=== PATIENT | female | born 1950 | race Caucasian/White ===

== ENCOUNTER 2018-08-09 12:11 | Inpatient (IN) | payer MEDICARE, SELFPAY ==
[2018-08-09] VITALS (26 sets, daily range): BP systolic 118–195; BP diastolic 57–92; PULSE 83–125; RESP 2–33; TEMP 36.5–37.8; O2SAT 89–94
--- NOTE | 2018-08-09 12:19 | DI.RAD_ITS ---
SYMPTOM/DIAGNOSIS: F/U POSSIBLE PNEUMONIA CHEST X-RAY, FRONTAL AND LATERAL VIEWS FROM 08/09/18. Comparison 03/07/17. Heart size and pulmonary vasculature are within normal limits. The lungs are clear. No effusions or pneumothoraces are identified. The bones are intact IMPRESSION: No acute pulmonary process.
--- NOTE | 2018-08-09 12:29 | ED.GENADUL_ITS ---
Discharge Plan Disposition Patient Disposition: [facility] INPATIENT Condition: Poor Discharge Details Chief Complaint: SOB Clinical Impression: COPD (chronic obstructive pulmonary disease), Congestive heart failure, Acute exacerbation of chronic obstructive pulmonary disease (COPD), Pneumonia, Hypoxia , Hypomagnesemia, Acute electrocardiogram changes Reason For Visit: SONAM Admit Date/Time: 08/09/18 13:33 Admit Provider: Yue Barker Attending Provider: Yue Barker Primary Care Provider: Keren Gonzalez ED Provider: Kasia Hamlin Medical Decision Making Patient 67-year-old female presents today with chief complaint of shortness of breath. Patient is a history of hypertension, GERD, COPD, hyperthyroidism, hyperlipidemia, CHF, DARYL, rheumatoid arthritis, type 2 diabetes. Patient is on spironolactone, montelukast, metoprolol, ipratropium, albuterol. She is been using her albuterol nebulizer at home today. Has not been using the ipratropium. Patient was seen by her primary care physician on Saturday who advised placing her on a 5-day burst of prednisone. She reports that she did not take her dose today as it seemed to cause a GI upset. Patient reports that symptoms initially began 2 weeks ago when she noted cough and chest congestion. She denies any fevers. States that over the past week, her symptoms have greatly increased. Has been bringing up [place] sputum with her cough. Is also been feeling short of breath and is noted increased wheezing. States she began noting nausea and vomiting last night. Denies any fevers or chills. Denies any chest pain. No back pain. Patient reports that her chronic shortness of breath has greatly exacerbated over recent days. Patient is not currently taking Lasix. Reports that she takes this as needed and has not noted any lower extremity swelling which is typically her Q to begin the medication On exam, patient is tachypneic. Oxygen is 90% on room air. EMS initially noted the patient to be hypotensive. However, they had question if this is a false reading. Here, blood pressure is 149/73. Patient is tachycardic at 115. She did receive albuterol in the ambulance on the way here. Patient sounds diffusely wheezing with crackles, particularly at the apices. Breath sounds are slightly diminished lower lobes. Will obtain chest x-ray, laboratory evaluation. EKG reviewed by Dr. Bolaños. Patient does have slight ST depressions, less than 1 mm, in leads I, V3 and V5. This seems new from previous. Will obtain cardiac evaluation as well Patient received a nebulizer. Never evaluated after this while wheezing is still present, has diminished. She is moving air better, crackles more defined in the left lower lobe Chest x-ray reviewed by myself, not see any large abnormality compared to previous, still pending radiologist interpretation. Laboratory evaluation significant for a white count 21 with neutrophil count of 17. D-dimer 670 which is within normal limits based on age adjustment criteria. Patient is currently on 2 L nasal cannula, she feels more comfortable and is resting. With the laboratory findings, I feel that treating for presumed pneumonia is appropriate. Patient has allergy to Cefpodoxime, sulfa and penicillin. She will be treated with levofloxacin. We will consult with hospitalist regarding continued cardiac evaluation as well as treatment of pneumonia and hypoxia. Patient currently endorsing headache. Will give Tylenol help with discomfort. Magnesium noted below 1.1. Will replenish this while here Consulted with Dr. Barker, hospitalist, who agrees to admission for hypoxia, presumed pneumonia, hypomagnesemia and EKG changes. Discussed this plan with the patient. I have written for the patient to begin on levofloxacin. Chest x-ray reviewed by radiologist no active cardiopulmonary process noted. Discussed admission with the patient is in agreement with this plan. HPI General Mode of arrival: EMS . Date/Time Provider Initiated Documentation: 08/09/18 12:19 . Limitations to Documentation: no limitations . Information obtained by: patient . History of Present Illness 67 year old F presents to the emergency department with the chief complaint of SOB, cough, described as mild (denies any pain, described SOB as moderate), Patient denies radiation to back and extremity. Patient started experiencing this week(s) (2) and it has been constant. No relieving factors improve symptom(s), Movement worsens symptoms . Patient notes cough, fever/chills ( chills) and shortness of breath; denies chest pain, diaphoresis, headaches, loss of appetite, nausea/vomiting, rash and weakness. Patient did receive the following treatments prior to arrival, other (has been using albuterol nebulizer) Related Data Home Medications Medication Instructions Recorded Confirmed albuterol sulfate [Proventil HFA] 2 puff INHALATION Q4H PRN 04/29/14 11/03/18 esomeprazole magnesium [Nexium] 40 mg PO DAILY 02/02/14 08/09/18 folic acid 1 mg PO DAILY 02/02/14 08/09/18 levothyroxine [Synthroid] 125 mcg PO DAILY 02/02/14 08/09/18 montelukast 10 mg PO DAILY 02/02/14 08/09/18 multivit, iron, min no.8, FA 1 tab PO DAILY 02/02/14 08/09/18 [Therapeutic-M] venlafaxine [Effexor XR] 150 mg PO BID 02/02/14 08/09/18 albuterol sulfate 2.5 mg INHALATION Q6H PRN vial 12/22/15 08/09/18 ipratropium bromide 0.2 mg INHALATION QID PRN PRN 05/14/16 08/09/18 meclizine [Antivert] 25 mg PO TID PRN PRN 05/14/16 08/09/18 metformin 500 mg PO BID@0800,1700 05/14/16 08/09/18 ranitidine HCl [Zantac] 300 mg PO HS 05/14/16 08/09/18 losartan 50 mg PO DAILY #30 tab 05/21/16 08/09/18 metoprolol succinate 50 mg PO DAILY #30 tabcr 05/21/16 08/09/18 spironolactone 25 mg PO DAILY #30 tab 05/21/16 08/09/18 gabapentin 600 mg PO HS 01/23/17 08/09/18 mirtazapine 1 tab PO HS 03/07/17 08/09/18 prednisone 50 mg PO DAILY 5 Days tablet 03/07/17 08/09/18 acetaminophen [Tylenol Extra 1,000 mg PO BID 08/09/18 08/09/18 Strength] fluticasone-salmeterol [Advair 2 puff INHALATION BID 08/09/18 08/09/18 Diskus] furosemide 40 mg PO DAILY PRN 08/09/18 08/09/18 hydrocortisone 10 mg PO HS 08/09/18 08/09/18 Previous Rx's Medication Instructions Recorded albuterol sulfate 2.5 mg INHALATION Q6H PRN vial 12/22/15 losartan 50 mg PO DAILY #30 tab 05/21/16 metoprolol succinate 50 mg PO DAILY #30 tabcr 05/21/16 spironolactone 25 mg PO DAILY #30 tab 05/21/16 prednisone 50 mg PO DAILY 5 Days tablet 03/07/17 Allergies Allergy/AdvReac Type Severity Reaction Status Date / Time NSAIDS (Non-Steroidal Allergy Severe Anaphylaxsi Unverified 08/09/18 12:19 Anti-Inflamma s cefpodoxime Allergy Intermediate Hives Unverified 08/09/18 12:19 chlorhexidine Allergy Intermediate Skin Rash Unverified 08/09/18 12:19 latex Allergy Intermediate Skin Rash Unverified 08/09/18 12:19 Penicillins Allergy Intermediate Hives Unverified 08/09/18 12:19 povidone-iodine Allergy Intermediate Unverified 08/09/18 12:19 duloxetine HCl Allergy Unknown Unverified 08/09/18 12:19 [From Cymbalta] indomethacin Allergy Unknown Unverified 08/09/18 12:19 propoxyphene Allergy Unknown Unverified 08/09/18 12:19 propranolol Allergy Unknown Unverified 08/09/18 12:19 adhesive AdvReac Intermediate dermatitis Unverified 08/09/18 12:19 aspirin AdvReac Intermediate Nausea Unverified 08/09/18 12:19 butorphanol AdvReac Intermediate nose bleeds Unverified 08/09/18 12:19 fexofenadine AdvReac Intermediate nose bleeds Unverified 08/09/18 12:19 hydrocodone AdvReac Intermediate confusion Unverified 08/09/18 12:19 hydroxychloroquine AdvReac Intermediate Visual Unverified 08/09/18 12:19 [Hydroxychloroquine] Disturbances hydroxyzine AdvReac Intermediate Nausea Unverified 08/09/18 12:19 methotrexate AdvReac Intermediate Nausea Unverified 08/09/18 12:19 morphine AdvReac Intermediate confusion Unverified 08/09/18 12:19 oxycodone [Oxycodone] AdvReac Intermediate confusion Unverified 08/09/18 12:19 pentazocine AdvReac Intermediate confusion Unverified 08/09/18 12:19 Sulfa (Sulfonamide AdvReac Intermediate Headache Unverified 08/09/18 12:19 Antibiotics) sumatriptan AdvReac Intermediate palpitation Unverified 08/09/18 12:19 s zolpidem [Zolpidem] AdvReac Intermediate confusion Unverified 08/09/18 12:19 General Stated Complaint: SOB ARAVIND: 2 Review of Systems Constitutional Reports as per HPI and Denies headache(s) Eyes Denies irritation ENT Reports as per HPI, Denies vertigo, Reports dry mouth, Denies ear discharge, Denies otalgia, Denies facial pain, Denies headache(s), Denies lip swelling, Denies nasal congestion, Denies nasal discharge, Denies sinus pain, Denies sinus pressure, Denies sore throat and Denies throat swelling Cardiovascular Reports as per HPI, Denies chest pain, Denies palpitations, Reports dyspnea and Reports dyspnea on exertion Respiratory Reports as per HPI, Reports cough, Denies pain on inspiration, Denies pain with cough, Reports dyspnea, Reports dyspnea on exertion, Denies stridor and Reports wheezing Gastrointestinal Reports as per HPI, Denies abdominal pain, Denies change in stool character, Denies nausea and Denies vomiting Musculoskeletal Reports as per HPI and Denies back pain Integumentary/Breasts Reports as per HPI and Denies rash Neurologic Denies vertigo and Denies headache(s) Endocrine Denies palpitations Allergic/Immunologic Denies lip swelling, Denies throat swelling and Reports wheezing PFSH Family History Sister Diabetes Sister Hypertension Mother Stomach cancer Medical History CHF (congestive heart failure) COPD (chronic obstructive pulmonary disease) Chronic back pain Depression Diverticulosis GERD (gastroesophageal reflux disease) Hyperlipidemia Hypertension Hyperthyroidism DARYL (obstructive sleep apnea) Rheumatoid arthritis Social History Smoking/Tobacco Use Status: Former Tobacco Use Surgical History Abdominal hysterectomy Biopsy of breast section Cholecystectomy Replacement of total knee joint Exam Const General: cooperative, uncomfortable (patient appears short of breath), no acute distress, well developed, well groomed and ill appearing chronically Nutritional Appearance: average body habitus and well nourished Orientation: alert and awake HENKY Head: normal to inspection and normocephalic Ears: hearing grossly normal bilaterally, external ears normal and TM's normal bilaterally General nose exam: external nose normal Face and sinus: normal facial exam Mouth: lip normal, tongue normal, mucous membranes dry (patient appears dry on exam), no audible dysphonia, no drooling, no muffled voice and no trismus Throat: posterior oropharynx normal, tonsils normal and uvula midline Eyes General: appearance normal, both eyes and all related structures Neck Neck: normal visual inspection, no lymphadenopathy and no meningeal signs Resp Effort & Inspection: able to speak in complete sentences, cough Quality of cough : wet, labored, no nasal flaring, no paradoxical thoraco-abdom movements, no pursed lip breathing, no respiratory distress, no retractions and no stridor Auscultation: diminished lung sounds bilaterally in the lower lung ford and wheezes expiratory wheezes (diffuse, worse in upper lobes) Cardio Rate: tachycardic Rhythm: regular rhythm Heart Sounds: S1 normal and S2 normal GI Inspection: normal to inspection, no edema and non-distended Palpation: soft, no hepatosplenomegaly and nontender Skin General skin exam: no rashes or lesions noted Neuro General: alert and awake Cognition: normal cognition Speech: speech normal Extrem General: no pedal edema and no calf tenderness Psych Appearance: grossly normal and well kempt Mental Status: mental status grossly normal Speech and Movement: speech and movement normal Course Vital Signs Temperature 36.9 C 08/09/18 12:13 Pulse 115 H 08/09/18 12:13 Respiratory Rate 24 08/09/18 12:13 Blood Pressure 149/73 H 08/09/18 12:13 Pulse Oximetry 89 L 08/09/18 12:13 Temperature 36.9 C 08/09/18 12:13 Temperature Source Skin 08/09/18 12:13 Pulse 115 H 08/09/18 12:13 Respiratory Rate 24 08/09/18 12:13 Respiratory Effort Labored 08/09/18 12:13 Blood Pressure 149/73 H 08/09/18 12:13 Pulse Oximetry 89 L 08/09/18 12:13 Oxygen Delivery Method Room Air 08/09/18 12:13 Oxygen Flow Rate 0 08/09/18 12:13 Pain Level 0 08/09/18 12:13
[2018-08-09 12:34] LABS: Abs Immature Grans 0.06 k/cumm (0.0-0.09); Absolute Basophil Count 0.02 k/cumm (0.0-0.2); Absolute Eosinophil Count 0.06 k/cumm (0.0-0.7); Basophils % 0.1; Eosinophils % 0.3; HCT 37.8 % (36.0-46.0); HGB 12.7 g/dL (12.0-15.5); Immature Grans % 0.3; Lymphocytes % 11.4; Mean Corp. HGB Concentration 33.6 g/dL (32.0-36.0); Mean Corpuscular Hemoglobin 30.8 pg (27.0-33.0); Mean Corpuscular Volume 91.7 fL (80-95); Mean Platelet Volume 10.1 fL (8.0-11.0); Monocytes % 6.5; Neutrophils % 81.4; Platelet Count 287 x1000/uL (130-400); RBC 4.12 m/cumm (4.00-5.20); RBC Distribution Width 14.9 % (11.7-14.6); White Blood Cell Count 21.19 k/cumm (4.4-10.8)
[2018-08-09 12:36] LABS: Absolute Lymphocyte Count 2.42 k/cumm (1.2-3.4); Absolute Monocyte Count 1.38 k/cumm (0.11-0.7); Absolute Neutrophil Count 17.25 k/cumm (1.2-6.7)
[2018-08-09] MEDS: Albuterol/Ipratropium 3 ML UPD VIAL UPD ×2 (12:36→17:09)
[2018-08-09 12:49] LABS: INR 1.1 (1.0-3.5); PTT Activated 22.1 sec (21.0-31.4); Prothrombin Time 10.4 sec (9.3-10.8)
[2018-08-09 13:02] LABS: ALT 41 U/L (12-78); AST 32 U/L (15-37); Alkaline Phosphatase 96 U/L (46-116); Anion Gap 9.6 mmol/L (3-11); BUN 17 mg/dL (7-18); Bilirubin, Total 0.8 mg/dL (0.2-1.0); CO2 29.4 mmol/L (21.0-32.0); CREATININE 0.79 mg/dL (0.55-1.02); Calcium 9.1 mg/dL (8.5-10.1); Chloride 98 mmol/L (98-107); Glucose 181 mg/dL (70-100); Magnesium 1.1 mg/dL (1.8-2.4); NT-proBNP 863 pg/mL; Potassium 3.8 mmol/L (3.5-5.1); Sodium 137 mmol/L (136-145)
[2018-08-09 13:04] LABS: Troponin I < 0.02 ng/mL (0.00-0.06)
[2018-08-09 13:06] LABS: D-Dimer 678 ng/mlFEU (<500)
--- NOTE | 2018-08-09 13:10 | DI.VRAD_ITS ---
EXAM: XR Chest, 2 Views EXAM DATE/TIME: 08/09/2018 12:22 PM CLINICAL HISTORY: 67 years old, female; Signs and symptoms; Other: SOB for 2 wks TECHNIQUE: XR of the chest, 2 views. COMPARISON: CR CHEST 2 VIEWS PA,LAT 03/07/2017 11:58 AM FINDINGS: Minimal hyperaeration. No focal consolidation. Cardiac silhouette within normal limits. Costophrenic angles sharp. IMPRESSION: No evidence of acute cardiopulmonary disease. Dictated and Authenticated by: Antoine Alvarado MD. Ordering:JILLIAN GUERRERO MD
[2018-08-09] MEDS: LEVOFLOXACIN 750 MG/150 ML BAG 150 MG IVPB (13:20)
[2018-08-09 14:10] LABS: Lactate-non-spesis 1.8 mmol/L (0.6-1.4)
[2018-08-09] MEDS: methylPREDNISolone SUCC 125 MG VIAL 80 MG IVP ×2 (14:27→22:12)
--- NOTE | 2018-08-09 14:36 | NUR.NOTE ---
Report called to Kasie on [facility].
[2018-08-09] MEDS: MAGNESIUM SULFATE 4 GM/100 ML BAG IVPB (15:51)
[2018-08-09] MEDS: Acetaminophen 325 MG TAB PO (16:05)
[2018-08-09] MEDS: Enoxaparin 30 MG/0.3 ML SYR SC (16:05)
[2018-08-09] MEDS: Insulin Aspart 300 UNITS/3 ML PEN SC (17:01)
[2018-08-09 17:27] LABS: Troponin I < 0.02 ng/mL (0.00-0.06)
--- NOTE | 2018-08-09 18:02 | W.PM.HP.N ---
Date of service: 08/09/18 Time of Service: 16:50 Assessment and Plan (1) Sepsis: Current visit: Yes Status: Acute Likely due to underlying CAP - clinically patient is acting as CAP, though CXR is negative. Continue levofloxacin, nebulizer tx. 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 (2) Acute exacerbation of chronic obstructive pulmonary disease (COPD): Current visit: Yes Status: Acute Treat with levofloxacin, scheduled and prn nebs, symbicort, antitussives. (3) Congestive heart failure: Current visit: No Status: Chronic Chronic, systolic, due to NICMO, last known EF 40-45%. Clinically dehydrated and the benefits of IV hydration outweigh risks. R/o ACS, monitor volume status. (4) Post-tussive emesis: Current visit: Yes Status: Acute Treat cough (5) Hypertension: Current visit: No Status: Chronic No change in tx (6) Hyperlipidemia: Current visit: No Status: Chronic No change in tx (7) DARYL (obstructive sleep apnea): Current visit: Yes Status: Chronic Written for BiPAP at home settings (8) Non-insulin dependent type 2 diabetes mellitus: Current visit: Yes Status: Chronic Hold metformin. Cover with SSI. (9) Discharge planning issues: Current visit: Yes Status: Acute DNR/DNI, as verified with patient (10) DVT prophylaxis: Current visit: Yes Status: Acute Lovenox History of Present Illness Chief Complaint: I couldn't breathe Narrative: Ms Kendall is a 67 year old obese female with PMHx of non-oxygen dependent COPD, DARYL on noctunral BiPAP, NIDDM2, hypertension, hyperlipidemia, who was brought in to ER by ambulance for shortness of breath. The symptoms started 1 week ago when the patient felt she got a cold, by which she means subjective fevers, sore throat and rhinorrhea. The patient did see her PCP, who put her on a course of prednisone, but despite this the patient felt short of breath and continuted to have a progressively worsening productive cough with green sputum. Today, in the ER, she was found to have O2 sats in the 90's on RA but to be tachypneic. She was initiated on nebulized albuterol with some improvements of her symptoms. She was initiated on levofloxacin for what clinically acted like pneumonia, and we were asked to admit the patient for further care. Review of Systems Review of Systems 12 systems reviewed. Pertinent positives and negatives are as Per HPI. Additionally, the patient reports post-tussive emesis last night. PFSH Family History Sister Diabetes Sister Hypertension Mother Stomach cancer Medical History CHF (congestive heart failure) COPD (chronic obstructive pulmonary disease) Chronic back pain Depression Diverticulosis GERD (gastroesophageal reflux disease) Hyperlipidemia Hypertension Hyperthyroidism DARYL (obstructive sleep apnea) Rheumatoid arthritis Social History Smoking/Tobacco Use Status: Former Tobacco Use Surgical History Abdominal hysterectomy Biopsy of breast section Cholecystectomy Replacement of total knee joint Meds Home Medications Medication Instructions Recorded Confirmed Type albuterol sulfate [Proventil HFA] 2 puff INHALATION Q4H PRN 02/02/14 08/09/18 History esomeprazole magnesium [Nexium] 40 mg PO DAILY 02/02/14 08/09/18 History folic acid 1 mg PO DAILY 02/02/14 08/09/18 History levothyroxine [Synthroid] 125 mcg PO DAILY 02/02/14 08/09/18 History montelukast 10 mg PO DAILY 02/02/14 08/09/18 History multivit, iron, min no.8, FA 1 tab PO DAILY 02/02/14 08/09/18 History [Therapeutic-M] venlafaxine [Effexor XR] 150 mg PO BID 02/02/14 08/09/18 History albuterol sulfate 2.5 mg INHALATION Q6H PRN vial 12/22/15 08/09/18 Rx ipratropium bromide 0.2 mg INHALATION QID PRN PRN 05/14/16 08/09/18 History meclizine [Antivert] 25 mg PO TID PRN PRN 05/14/16 08/09/18 History metformin 500 mg PO BID@0800,1700 05/14/16 08/09/18 History ranitidine HCl [Zantac] 300 mg PO HS 05/14/16 08/09/18 History losartan 50 mg PO DAILY #30 tab 05/21/16 08/09/18 Rx metoprolol succinate 50 mg PO DAILY #30 tabcr 05/21/16 08/09/18 Rx spironolactone 25 mg PO DAILY #30 tab 05/21/16 08/09/18 Rx gabapentin 600 mg PO HS 01/23/17 08/09/18 History mirtazapine 1 tab PO HS 03/07/17 08/09/18 History prednisone 50 mg PO DAILY 5 Days tablet 03/07/17 08/09/18 Rx acetaminophen [Tylenol Extra 1,000 mg PO BID 08/09/18 08/09/18 History Strength] fluticasone-salmeterol [Advair 2 puff INHALATION BID 08/09/18 08/09/18 History Diskus] furosemide 40 mg PO DAILY PRN 08/09/18 08/09/18 History hydrocortisone 10 mg PO HS 08/09/18 08/09/18 History Allergies Allergy/AdvReac Type Severity Reaction Status Date / Time NSAIDS (Non-Steroidal Allergy Severe Anaphylaxsi Unverified 08/09/18 12:19 Anti-Inflamma s cefpodoxime Allergy Intermediate Hives Unverified 08/09/18 12:19 chlorhexidine Allergy Intermediate Skin Rash Unverified 08/09/18 12:19 latex Allergy Intermediate Skin Rash Unverified 08/09/18 12:19 Penicillins Allergy Intermediate Hives Unverified 08/09/18 12:19 povidone-iodine Allergy Intermediate Unverified 08/09/18 12:19 duloxetine HCl Allergy Unknown Unverified 08/09/18 12:19 [From Cymbalta] indomethacin Allergy Unknown Unverified 08/09/18 12:19 propoxyphene Allergy Unknown Unverified 08/09/18 12:19 propranolol Allergy Unknown Unverified 08/09/18 12:19 adhesive AdvReac Intermediate dermatitis Unverified 08/09/18 12:19 aspirin AdvReac Intermediate Nausea Unverified 08/09/18 12:19 butorphanol AdvReac Intermediate nose bleeds Unverified 08/09/18 12:19 fexofenadine AdvReac Intermediate nose bleeds Unverified 08/09/18 12:19 hydrocodone AdvReac Intermediate confusion Unverified 08/09/18 12:19 hydroxychloroquine AdvReac Intermediate Visual Unverified 08/09/18 12:19 [Hydroxychloroquine] Disturbances hydroxyzine AdvReac Intermediate Nausea Unverified 08/09/18 12:19 methotrexate AdvReac Intermediate Nausea Unverified 08/09/18 12:19 morphine AdvReac Intermediate confusion Unverified 08/09/18 12:19 oxycodone [Oxycodone] AdvReac Intermediate confusion Unverified 08/09/18 12:19 pentazocine AdvReac Intermediate confusion Unverified 08/09/18 12:19 Sulfa (Sulfonamide AdvReac Intermediate Headache Unverified 08/09/18 12:19 Antibiotics) sumatriptan AdvReac Intermediate palpitation Unverified 08/09/18 12:19 s zolpidem [Zolpidem] AdvReac Intermediate confusion Unverified 08/09/18 12:19 Exam Narrative Exam Narrative: General: Very pleasant, visibly tachypenic Obese female, pausing between every 2-3 words when speaking, coughing Neurological: A&OX3, no focal deficits Psychiatric: appropriate speech pattern/content Skin: no bruises/rashes HEENT: EOMI, MMM, clear oropharynx, no submandibular or cervical lymphadenopathy, no goiter or JVD Cardiovascular: RRR, no m/r/g Lungs: wheezing on expiration B Gastrointestinal: abdomen soft, nontender, nondistended Extremities: BLE 1+ edema, no clubbing/cyanosis Results Imaging Additional studies: CXR: No evidence of acute cardiopulmonary disease. Labs : 08/09/18 12:30 08/09/18 12:30 Laboratory Results - last 24 hr 08/09/18 08/09/18 08/09/18 12:30 12:30 12:30 WBC 21.19 H RBC 4.12 Hgb 12.7 Hct 37.8 MCV 91.7 MCH 30.8 MCHC 33.6 RDW 14.9 H Plt Count 287 MPV 10.1 Immature Gran % 0.3 Neutrophils % 81.4 Lymphocytes % 11.4 Monocytes % 6.5 Eosinophils % 0.3 Basophils % 0.1 Absolute Neutrophils 17.25 H Absolute Lymphocytes 2.42 Absolute Monocytes 1.38 H Absolute Eosinophils 0.06 Absolute Basophils 0.02 PT 10.4 INR 1.1 APTT 22.1 D-Dimer 678 H Sodium 137 Potassium 3.8 Chloride 98 Carbon Dioxide 29.4 Anion Gap 9.6 BUN 17 Creatinine 0.79 Estimated GFR/1.73 m2 >= 60.00 Glucose 181 H Lactate Calcium 9.1 Magnesium 1.1 L Total Bilirubin 0.8 AST 32 ALT 41 Alkaline Phosphatase 96 Troponin I < 0.02 NT-Pro-B Natriuret Pep 863 H Total Protein 7.0 Albumin 3.0 L 08/09/18 08/09/18 13:53 16:30 WBC RBC Hgb Hct MCV MCH MCHC RDW Plt Count MPV Immature Gran % Neutrophils % Lymphocytes % Monocytes % Eosinophils % Basophils % Absolute Neutrophils Absolute Lymphocytes Absolute Monocytes Absolute Eosinophils Absolute Basophils PT INR APTT D-Dimer Sodium Potassium Chloride Carbon Dioxide Anion Gap BUN Creatinine Estimated GFR/1.73 m2 Glucose Lactate 1.8 H Calcium Magnesium Total Bilirubin AST ALT Alkaline Phosphatase Troponin I < 0.02 NT-Pro-B Natriuret Pep Total Protein Albumin Last Vital Signs Temp 36.5 C 08/09/18 15:52 Pulse 98 H 08/09/18 16:32 Resp 21 08/09/18 15:52 BP 151/81 H 08/09/18 15:52 Pulse Ox 92 L 08/09/18 15:52
[2018-08-09] MEDS: guaiFENesin 600 MG TABCR PO (19:33)
[2018-08-09] MEDS: Acetaminophen 500 MG TAB 1000 MG PO (19:33)
[2018-08-09] MEDS: Venlafaxine 150 MG CAPCR PO (19:33)
[2018-08-09] MEDS: Budesonide/Formoterol 160/4.5 6 GM 60 PUFF INH IH (19:45)
[2018-08-09 21:11] LABS: Troponin I < 0.02 ng/mL (0.00-0.06)
[2018-08-09] MEDS: Gabapentin 600 MG TAB PO (22:12)
[2018-08-10] VITALS (15 sets, daily range): BP systolic 149–171; BP diastolic 73–93; PULSE 72–98; RESP 2–21; TEMP 35.7–36.6; O2SAT 94–96
[2018-08-10] MEDS: methylPREDNISolone SUCC 125 MG VIAL 80 MG IVP ×3 (06:16→21:27)
[2018-08-10] MEDS: Levothyroxine 125 MCG TAB PO (06:19)
[2018-08-10] MEDS: Esomeprazole 40 MG CAPCR PO (06:19)
[2018-08-10] MEDS: Albuterol/Ipratropium 3 ML UPD VIAL UPD ×4 (06:19→23:45)
[2018-08-10] MEDS: Acetaminophen 325 MG TAB PO (06:26)
[2018-08-10 08:29] LABS: Abs Immature Grans 0.02 k/cumm (0.0-0.09); Absolute Monocyte Count 0.37 k/cumm (0.11-0.7); Absolute Neutrophil Count 11.68 k/cumm (1.2-6.7); HCT 36.1 % (36.0-46.0); Immature Grans % 0.2; Lymphocytes % 4.7; Mean Corp. HGB Concentration 33.2 g/dL (32.0-36.0); Mean Corpuscular Hemoglobin 30.8 pg (27.0-33.0); Mean Corpuscular Volume 92.8 fL (80-95); Mean Platelet Volume 10.1 fL (8.0-11.0); Monocytes % 2.9; Neutrophils % 92.2; Platelet Count 289 x1000/uL (130-400); RBC 3.89 m/cumm (4.00-5.20); RBC Distribution Width 14.9 % (11.7-14.6); White Blood Cell Count 12.67 k/cumm (4.4-10.8)
[2018-08-10 08:52] LABS: Anion Gap 9.6 mmol/L (3-11); BUN 22 mg/dL (7-18); CO2 28.4 mmol/L (21.0-32.0); Calcium 9.1 mg/dL (8.5-10.1); Chloride 100 mmol/L (98-107); Glucose 272 mg/dL (70-100); Magnesium 2.1 mg/dL (1.8-2.4); Potassium 3.8 mmol/L (3.5-5.1); Sodium 138 mmol/L (136-145); TSH (W/Ref FT4) 0.39 uIU/mL (0.358-3.74)
[2018-08-10] MEDS: Folic Acid 1 MG TAB PO (08:52)
[2018-08-10] MEDS: Losartan 50 MG TAB PO (08:52)
[2018-08-10] MEDS: guaiFENesin 600 MG TABCR PO ×2 (08:52→20:36)
[2018-08-10] MEDS: Metoprolol CR 50 MG TABCR PO (08:52)
[2018-08-10] MEDS: Multivitamin w/Minerals TAB 1 TAB PO (08:52)
[2018-08-10] MEDS: Montelukast 10 MG TAB PO (08:52)
[2018-08-10] MEDS: Acetaminophen 500 MG TAB 1000 MG PO ×2 (08:53→20:36)
[2018-08-10] MEDS: Venlafaxine 150 MG CAPCR PO ×2 (08:53→20:36)
[2018-08-10] MEDS: Insulin Aspart 300 UNITS/3 ML PEN SC ×3 (08:54→17:16)
[2018-08-10 09:03] LABS: Troponin I < 0.02 ng/mL (0.00-0.06)
[2018-08-10] MEDS: Budesonide/Formoterol 160/4.5 6 GM 60 PUFF INH IH ×2 (09:25→20:34)
--- NOTE | 2018-08-10 09:56 | PT.INIE ---
Date of service: 08/10/18 Time of Service: 09:56 PT Notes Date: 08/10/18 Referring Doctor: Yue Barker PT Orders: PT Consult evaluate and treat Precautions: standard Patient Profile/Admitting Diagnosis: Pt is a 67yr old female admitted with sepsis, acute chronic obstructive pulmonary disease exacerbation PMHX: diabetes, rheumatoid arthritis, congestive heart failure, depression, chronic obstructive pulmonary disease, gastroesophageal reflux disease, hypertension, sleep apnea with nocturnal BiPap, diverticulitis, hypothyroidism, osteopenia, chronic back pain, morbid obesity, right total knee replacement 2008 and 2011, revision 12/19, neuropathy, cardiomyopathy s/p cardiac catheterization 03/22/16 Social History/Home Situation: lives in apartment, no stairs, ramp to enter. Pt has grab bars and a handicap accessible bathroom. Is independent with gait, reports she has a FWW but hasn't been using it. [facility]ses [employer]. Is on Disability Equipment owned/DME: FWW, tub bench, grab bars, Bi-Pap and Nebulizer SUBJECTIVE: Pt lying in bed agreeable to PT consult. States she has been short of breath since admission. OBJECTIVE Mental Status: A & O x3 Pain: no c/o pain ROM RUE: AROM WNL L UE: AROM WNL R LE: AROM WNL LLE: AROM WNL STRENGTH: R UE: 5/5 throughout L UE: 5/5 throughout R LE: hip flexion 4/5, 4/5 quad, 4/5 hamstring DF/PF 5/5 LLE: hip flexion 4/5, 4/5 quads, 4/5 hamstring, DF/PF 5/5 BED MOBILITY/TRANSFERS: Supine-sit: independent Sit-stand: independent no device Stand-sit: independent Bed-chair: supervision no device Chair-beD: supervision no device Sit-supine: HOB flat, independent GAIT: supervision with no device 20 ftx2 - 2liters 0c NC, shortness of breath with exertion requiring 2min rest break for recovery. Pt returned to bed after session completed. BALANCE: Static sitting: normal Dynamic Sitting: normal Static Standing fair Dynamic Standing: fair SPECIAL TESTS: Mobility Limitations Standardized Measure [facility] AM -PAC ?6 clicks? Basic Mobility Inpatient Short Form: raw score: 22 standardized score: 53.28 CMS score: 20.91% CMS modifier: CJ INFORMED CONSENT/EDUCATION: Pt instructed in purpose of PT Consult and plan of care. ASSESSMENT: Pt is a 67yr old female admitted with sepsis, acute chronic obstructive pulmonary disease exacerbation in setting of chronic back pain, morbid obesity, depression, chronic obstructive pulmonary disease, diabetes, rheumatoid arthritis, congestive heart failure and neuropathy. Patient presents with the following impairment level findings: 02 requirement of 2 liters, shortness of breath with exertion requiring pacing and energy conservation with activities, decreased strength due to deconditioning, decreased gait distance. Pt is lives in a small living situation, should be able to return to home setting once medically cleared. Impairments are contributing to the following functional limitations: AMPAC score CMS score: 20.91% Patient is assessed as a * low [id number] complexity based on the following: History: see above Examination: see above Presentation: evolving Decision Making: AMPAC score CMS score: 20.91% GOALS 1. Supine-sit: independent 2. Sit-Supine: independent 3. Sit-Stand: independent 4. Stand-sit: independent 5. Bed-Chair: independent 6. Chair-bed: independent 7. Gait 70ftx2, supervision 8. Pt I with pacing and energy conservation techniques PLAN OF CARE/TREATMENT PLAN: 1-2x/day, 7 days/ week x 1 week Plan of care has been reviewed with the LIVESTOCK SHOWMAN providing the service under Physical therapy direction. Physical therapy intervention for strengthening, bed mobility, transfers, gait, balance training, instruction in pacing and energy conservation. DISCHARGE RECOMMENDATIONS Home Pt has all DME. TREATMENT TIME/MINUTES/CODES 24min IE 9:56 G Codes in the area mobility of walking and moving around: current status [id number] projected status GP [id number], discharge status GP [id number] based on AMPAC score CMS score: 20.91% Shelly Kirkpatrick PT
--- NOTE | 2018-08-10 10:06 | IN_ITS ---
Date of service: 08/10/18 Time of Service: 09:56 PT Notes Date: 08/10/18 Referring Doctor: Yue Barker PT Orders: PT Consult evaluate and treat Precautions: standard Patient Profile/Admitting Diagnosis: Pt is a 67yr old female admitted with sepsis, acute chronic obstructive pulmonary disease exacerbation PMHX: diabetes, rheumatoid arthritis, congestive heart failure, depression, chronic obstructive pulmonary disease, gastroesophageal reflux disease, hypertension, sleep apnea with nocturnal BiPap, diverticulitis, hypothyroidism, osteopenia, chronic back pain, morbid obesity, right total knee replacement 2008 and 2011, revision 12/19, neuropathy, cardiomyopathy s/p cardiac catheterization 03/22/16 Social History/Home Situation: lives in apartment, no stairs, ramp to enter. Pt has grab bars and a handicap accessible bathroom. Is independent with gait, reports she has a FWW but hasn't been using it. [facility]ses [employer]. Is on Disability Equipment owned/DME: FWW, tub bench, grab bars, Bi-Pap and Nebulizer SUBJECTIVE: Pt lying in bed agreeable to PT consult. States she has been short of breath since admission. OBJECTIVE Mental Status: A & O x3 Pain: no c/o pain ROM RUE: AROM WNL L UE: AROM WNL R LE: AROM WNL LLE: AROM WNL STRENGTH: R UE: 5/5 throughout L UE: 5/5 throughout R LE: hip flexion 4/5, 4/5 quad, 4/5 hamstring DF/PF 5/5 LLE: hip flexion 4/5, 4/5 quads, 4/5 hamstring, DF/PF 5/5 BED MOBILITY/TRANSFERS: Supine-sit: independent Sit-stand: independent no device Stand-sit: independent Bed-chair: supervision no device Chair-beD: supervision no device Sit-supine: HOB flat, independent GAIT: supervision with no device 20 ftx2 - 2liters 0c NC, shortness of breath with exertion requiring 2min rest break for recovery. Pt returned to bed after session completed. BALANCE: Static sitting: normal Dynamic Sitting: normal Static Standing fair Dynamic Standing: fair SPECIAL TESTS: Mobility Limitations Standardized Measure [facility] AM -PAC ?6 clicks? Basic Mobility Inpatient Short Form: raw score: 22 standardized score: 53.28 CMS score: 20.91% CMS modifier: CJ INFORMED CONSENT/EDUCATION: Pt instructed in purpose of PT Consult and plan of care. ASSESSMENT: Pt is a 67yr old female admitted with sepsis, acute chronic obstructive pulmonary disease exacerbation in setting of chronic back pain, morbid obesity, depression, chronic obstructive pulmonary disease, diabetes, rheumatoid arthritis, congestive heart failure and neuropathy. Patient presents with the following impairment level findings: 02 requirement of 2 liters, shortness of breath with exertion requiring pacing and energy conservation with activities, decreased strength due to deconditioning, decreased gait distance. Pt is lives in a small living situation, should be able to return to home setting once medically cleared. Impairments are contributing to the following functional limitations: AMPAC score CMS score: 20.91% Patient is assessed as a * low [id number] complexity based on the following: History: see above Examination: see above Presentation: evolving Decision Making: AMPAC score CMS score: 20.91% GOALS 1. Supine-sit: independent 2. Sit-Supine: independent 3. Sit-Stand: independent 4. Stand-sit: independent 5. Bed-Chair: independent 6. Chair-bed: independent 7. Gait 70ftx2, supervision 8. Pt I with pacing and energy conservation techniques PLAN OF CARE/TREATMENT PLAN: 1-2x/day, 7 days/ week x 1 week Plan of care has been reviewed with the RAG WASHER providing the service under Physical therapy direction. Physical therapy intervention for strengthening, bed mobility, transfers, gait, balance training, instruction in pacing and energy conservation. DISCHARGE RECOMMENDATIONS Home Pt has all DME. TREATMENT TIME/MINUTES/CODES 24min IE 9:56 G Codes in the area mobility of walking and moving around: current status [id number] projected status GP [id number], discharge status GP [id number] based on AMPAC score CMS score: 20.91% Shelly Kirkpatrick PT
[2018-08-10 10:15] LABS: Lactate-non-spesis 4.1 mmol/L (0.6-1.4)
[2018-08-10] MEDS: Normal Saline 1,000 ML 75 ML IV (10:37)
--- NOTE | 2018-08-10 11:32 | DI.RAD_ITS ---
SYMPTOM/DIAGNOSIS: F/U POSSIBLE PNEUMONIA PORTABLE AP VIEW FROM 08/10/18: Comparison 08/09/18 Heart size and pulmonary vasculature are within normal limits. The lungs show no evidence of congestive heart failure or pneumonia. No effusions or pneumothoraces are identified. IMPRESSION: No acute pulmonary process.
[2018-08-10] MEDS: Normal Saline Flush 10 ML SYR IVP ×3 (11:43→21:30)
--- NOTE | 2018-08-10 12:38 | DI.VRAD_ITS ---
EXAM: XR Chest, 1 View EXAM DATE/TIME: 08/10/2018 11:32 AM CLINICAL HISTORY: 67 years old, female; Screening exam; Other screening; Additional info: F/u possible pneumonia TECHNIQUE: XR of the chest, 1 view. COMPARISON: CR XR CHEST 2V PA LATERAL 08/09/2018 12:54 PM FINDINGS: Minimal interstitial lung scarring. No focal pulmonary consolidation. Cardiac silhouette within normal limits. Costophrenic angles are sharp. No significant change from the prior examination. IMPRESSION: No evidence of acute cardiopulmonary disease. Dictated and Authenticated by: Antoine Alvarado MD. Ordering:VIANCA MUNIZ MD
--- NOTE | 2018-08-10 12:53 | PHARADMIT ---
Addendum entered by Jeremy Way III 08/13/18 11:59: Pharmacy Note Subjective Developing thrush, Nystatin started. Has Midline. Objective BP-148/86 Na-135 K+4.4 Mag-1.9 FSBS-120 BM yesterday Assessment IV Steroids to PO Prednisone, Levaquin, Plan CM trying to get heat into her apartment Original Note: Addendum entered by Jeremy Way III 08/12/18 12:19: Pharmacy Note Subjective Speech Therapist consulted regarding dysphagia. noted that patient requires an altered diet Objective BP-177/97 HR-89 FSBS-200 BG-226 Lytes, SCr,H&H,Plts-OK WBC-12.38 Wgt- 101.1 kg Large BM. Assessment Patient temporarily lost her IV, Solu-Medrol needed to be re-timed. Levaquin IV continues for empiric txt of CAP. Insulins have been adjusted. Plan Patint to \wear BiPAP at night Original Note: Addendum entered by Juliane Fink 08/11/18 16:18: Pharmacy Note Subjective ? IF pt used bipap overnight Objective BC NO GROWTH 48 HOURS, FS 237, EF 40-45%, Assessment LANTUS DOSE INCREASED TODAY, IVF STOPPED, LEVOFLOXACIN CONTINUES DAY 3 Plan WATCH FS, BC, MED CHANGES Original Note: Admission Pharmacy Clinical Review SEPSIS DUE TO CAP, COPD exacerbation Code Status DNR/DNI Current Weight 104.7 kg Renally Cleared and Narrow Therapeutic Index Meds CrCl~54.9ml/min (Lovenox) QTc Value / Action Taken BP Control, Fever BP 164/85, Afebrile, pain 7/10 Electrolytes reviewed K+ 3.8 Mag 2.1 DVT Prophylaxis Lovenox increased from 30mg to 40mg per protocol Opiate Usage / Scheduled Bowel Regimen Ordered n/a Plt/SCr for Heparin / Enoxaparin Plt 289 SCr 0.8 INR for Warfarin H/H stable, WBC/Bands H/H 12.0/36.1 WBC 12.67 (IV steroids) Antibiotic appropriateness Levaquin 750mg x1 Levaquin 500mg Q24h...dose ok Cultures and Sensitivities Surgical ABX d/c within 24 hr DM control / Insulin Dosing BG 272 (Lantus/Novolog) Heart Failure (Check EF%) (MALENA's, B-Block, Diuretics) Losartan, Toprol IV to PO Switch Levaquin when ready Home Meds Reviewed Home Meds Not Ordered Hydrocortisone, Ipratropium, Metformin-held, Mirtazapine dc'd as inpt, Spironolactone-(dc'd, pt is dehydrated) Comments on 2L oxygen, SOB at rest troponin negative Duonebs scheduled, Symbicort Chest xray: negative 08/10/18 but presenting w/CAP
[2018-08-10] MEDS: Gabapentin 100 MG CAP PO (13:37)
[2018-08-10] MEDS: Enoxaparin 40 MG/0.4 ML SYR SC (13:37)
[2018-08-10] MEDS: LEVOFLOXACIN 500 MG/100 ML BAG 100 MG IVPB (13:38)
--- NOTE | 2018-08-10 15:07 | PDOC.CMIN ---
Care Management Initial Assess REASON FOR HOSPITALIZATION:: Sepsis, Acute COPD, Pneumonia-Community Aquired PAST MEDICAL HISTORY/PAST SURGICAL HISTORY:: non-oxygen dependent COPD, DARYL on noctunral BiPAP, NIDDM2, hypertension, hyperlipidemia, CHF, Chronic back pain, Depression, Diverticulosis, GERD, heart murmur, DARYL, Ostopenia, bladder incontinence, iron defificie, insomnia, chronic back pain, fatty liver, Hyperthyroidism, DARYL, Rheumatoid arthritis, Abdominal hysterectomy, Biopsy of breast, section, Cholecystectomy, Tonsillectomy, Replacement of total knee joint PREVIOUS FUNCTIONAL STATUS/SOCIAL/FAMILY SUPPORTS:: Samantha resides alone in [place], [place] in a handicap apartment building named the [facility]. She reports the building is equipped with an elevator. She has a good friend, Nereida who resides at the [facility]. She also reports having two daughters; Salnea and Darya. Salena resides in [place], [place] and Darya resides at [facility]. Samantha reports utilizing [employer] for transportation. She reports enjoying attending [facility] once a week and her dog Berna is her main manager of software development. CURRENT FUNCTIONAL STATUS:: Samantha is lying in bed, open to conversation though SOB and coughing sporadically. She reports struggling with food costs of ADVANCE DIRECTIVES:: On file - Montse Sender is agent, Jeevan Lobato is alternate agent. Has patient been provided with information about the portal?: Yes Did the patient sign up for the portal?: No CODE STATUS:: DNR/DNI INSURANCE COVERAGE / FINANCIAL ISSUES:: Medicare, Medicaid CURRENT HOME/COMMUNITY SERVICES/EQUIPMENT:: Homemaker 1x/week through [facility] moderate needs with Britt Trimble as her case finisher. CPAP, FWW, tub bench/shower chair, grab bars, nebulizer. Diability supports. Income based housing: $293/mth, uses meal site. PRIMARY CARE PHYSICIAN:: Keren Gonzalez POTENTIAL DISCHARGE NEEDS:: Resumption of community based supports, evaluation for further needs, follow up appointments. PATIENT/FAMILY EDUCATION NEEDS:: Review discharge instructions, discuss Ask Me Three. ANTICIPATED BARRIERS TO DISCHARGE:: None identified. TRANSPORTATION:: Via [employer]. PLAN:: Samantha will return home when ready per MD. She will follow up with her PCP and community based supports-she shares she is currently struggling with food stability due to costs of MOW and adjusting her radiant heat. She will transport via private vehicle with [employer]. CM will continue to follow and support discharge planning considerations.
--- NOTE | 2018-08-10 15:38 | INITIAL_ITS ---
Care Management Initial Assess REASON FOR HOSPITALIZATION:: Sepsis, Acute COPD, Pneumonia-Community Aquired PAST MEDICAL HISTORY/PAST SURGICAL HISTORY:: non-oxygen dependent COPD, DARYL on noctunral BiPAP, NIDDM2, hypertension, hyperlipidemia, CHF, Chronic back pain, Depression, Diverticulosis, GERD, heart murmur, DARYL, Ostopenia, bladder incontinence, iron defificie, insomnia, chronic back pain, fatty liver, Hyperthyroidism, DARYL, Rheumatoid arthritis, Abdominal hysterectomy, Biopsy of breast, section, Cholecystectomy, Tonsillectomy, Replacement of total knee joint PREVIOUS FUNCTIONAL STATUS/SOCIAL/FAMILY SUPPORTS:: Samantha resides alone in [place], [place] in a handicap apartment building named the [facility]. She reports the building is equipped with an elevator. She has a good friend, Nereida who resides at the [facility]. She also reports having two daughters; Salena and Darya. Salena resides in [place], [place] and Darya resides at [facility]. Samantha reports utilizing [employer] for transportation. She reports enjoying attending [facility] once a week and her dog Berna is her main administrative support manager. CURRENT FUNCTIONAL STATUS:: Samantha is lying in bed, open to conversation though SOB and coughing sporadically. She reports struggling with food costs of ADVANCE DIRECTIVES:: On file - Montse Sender is agent, Jeevan Lobato is alternate agent. Has patient been provided with information about the portal?: Yes Did the patient sign up for the portal?: No CODE STATUS:: DNR/DNI INSURANCE COVERAGE / FINANCIAL ISSUES:: Medicare, Medicaid CURRENT HOME/COMMUNITY SERVICES/EQUIPMENT:: Homemaker 1x/week through [facility] moderate needs with Britt Trimble as her case management social worker. CPAP, FWW, tub bench/ shower chair, grab bars, nebulizer. Diability supports. Income based housing: $ 293/mth, uses meal site. PRIMARY CARE PHYSICIAN:: Keren Gonzalez POTENTIAL DISCHARGE NEEDS:: Resumption of community based supports, evaluation for further needs, follow up appointments. PATIENT/FAMILY EDUCATION NEEDS:: Review discharge instructions, discuss Ask Me Three. ANTICIPATED BARRIERS TO DISCHARGE:: None identified. TRANSPORTATION:: Via [employer]. PLAN:: Samantha will return home when ready per MD. She will follow up with her PCP and community based supports-she shares she is currently struggling with food stability due to costs of MOW and adjusting her radiant heat. She will transport via private vehicle with [employer]. CM will continue to follow and support discharge planning considerations.
--- NOTE | 2018-08-10 18:43 | PGE_ITS ---
Date of Service Date of service: 08/10/18 Time of Service: 11:50 Assessment and Plan (1) Sepsis: Current visit: Yes Status: Acute Resolved. Likely due to underlying CAP (clinically has it, though CXR was read as negative). Continue empiric levofloxacin, nebulizer tx. D/c IVF. Lactic acid likely elevated due to work of breathing rather than the actual septic process. Await sputum cx. Blood cx with NGTD. (2) Acute exacerbation of chronic obstructive pulmonary disease (COPD): Current visit: Yes Status: Acute Continue levofloxacin, solumedrol, scheduled and prn nebs, symbicort, antitussives. To wear BiPAP tonight. (3) Congestive heart failure: Current visit: No Status: Chronic Chronic, systolic, due to NICMO, last known EF 40-45%. No longer looks dehydrated - IVF d/c'ed. (4) Post-tussive emesis: Current visit: Yes Status: Resolved (5) Hypertension: Current visit: No Status: Chronic No change in tx (6) Hyperlipidemia: Current visit: No Status: Chronic No change in tx (7) DARYL (obstructive sleep apnea): Current visit: Yes Status: Chronic To wear BiPAP at home settings tonight. (8) Non-insulin dependent type 2 diabetes mellitus: Current visit: Yes Status: Chronic Hold metformin. Lantus added. Cover with SSI. (9) Discharge planning issues: Current visit: Yes Status: Acute DNR/DNI, as verified with patient (10) DVT prophylaxis: Current visit: Yes Status: Acute Lovenox (11) Pharyngitis: Current visit: Yes Status: Acute I suspect this is due to dryness from O2. There is no evidence of thrush. Rapid strep done, pending. On levofloxacin, so already being treated if positive. Subjective Interval history since last seen: Continues to feel short of breath, but feels a lot better. Complains of sore throat. Denies dizziness, chest pain, nausea, vomiting. Was able to sleep last night - but without BiPAP. Exam Narrative Exam Narrative: General: Very pleasant, Obese female, much less tachypneic today, but does get short of breath after 2-3 sentences. Neurological: A&OX3, no focal deficits Psychiatric: appropriate speech pattern/content Skin: no bruises/rashes HEENT: EOMI, MMM, clear oropharynx, no submandibular or cervical lymphadenopathy , no goiter or JVD Cardiovascular: RRR, no m/r/g Lungs: wheezing on expiration B - slightly better Gastrointestinal: abdomen soft, nontender, nondistended Extremities: BLE 1+ edema, no clubbing/cyanosis Objective Objective Clinical Data: Abnormal lab results 08/10/18 08/10/18 08/10/18 Range/Units 08:10 08:10 10:00 WBC 12.67 H D (4.4-10.8) k/cumm RBC 3.89 L (4.00-5.20) m/cumm RDW 14.9 H (11.7-14.6) % Absolute Neutrophils 11.68 H (1.2-6.7) k/cumm Absolute Lymphocytes 0.60 L (1.2-3.4) k/cumm BUN 22 H (7-18) mg/dL Glucose 272 H (70-100) mg/dL Lactate 4.1 H (0.6-1.4) mmol/L Vital Signs Temperature 36.6 C 08/10/18 16:13 Temperature Source Tympanic 08/10/18 16:13 Pulse 88 08/10/18 16:13 Pulse Rhythm Regular 08/09/18 19:30 Pulse 104 H 08/09/18 13:50 Respiratory Rate 20 08/10/18 16:13 Respiratory Effort 08/09/18 19:30 Respiratory Depth Shallow 08/09/18 19:30 Respiratory Pattern Normal 08/09/18 19:30 Blood Pressure 171/93 H 08/10/18 16:13 Blood Pressure Mean 79 08/09/18 13:36 Pulse Oximetry 94 L 08/10/18 16:13 Respiratory End-tidal CO2 30 08/09/18 12:20 Oxygen Delivery Method Nasal Cannula 08/10/18 16:13 Oxygen Flow Rate 2 08/10/18 16:13 Pain Level 7 08/10/18 12:49 Comment 08/10/18 12:49 Intake & Output 08/10/18 08/10/18 08/10/18 00:59 11:59 23:59 Intake Total 610 / 610 Output Total 200 / 200 Balance 410 / 410 Weight Intake: IV 130 / 130 Oral 480 / 480 Output: Urine 200 / 200 Other: Urine Color Straw Urine Appearance Clear Urine Odor None Comment Void x1 in the bedside commode. Voiding Methods Bedside Commode Laboratory Results WBC 12.67 k/cumm (4.4-10.8) H D 08/10/18 08:10 RBC 3.89 m/cumm (4.00-5.20) L 08/10/18 08:10 Hgb 12.0 g/dL (12.0-15.5) 08/10/18 08:10 Hct 36.1 % (36.0-46.0) 08/10/18 08:10 MCV 92.8 fL (80-95) 08/10/18 08:10 MCH 30.8 pg (27.0-33.0) 08/10/18 08:10 MCHC 33.2 g/dL (32.0-36.0) 08/10/18 08:10 RDW 14.9 % (11.7-14.6) H 08/10/18 08:10 Plt Count 289 x1000/uL (130-400) 08/10/18 08:10 MPV 10.1 fL (8.0-11.0) 08/10/18 08:10 Immature Gran % 0.2 08/10/18 08:10 Neutrophils % 92.2 08/10/18 08:10 Lymphocytes % 4.7 08/10/18 08:10 Monocytes % 2.9 08/10/18 08:10 Eosinophils % 0.0 08/10/18 08:10 Basophils % 0.0 08/10/18 08:10 Absolute Neutrophils 11.68 k/cumm (1.2-6.7) H 08/10/18 08:10 Absolute Lymphocytes 0.60 k/cumm (1.2-3.4) L 08/10/18 08:10 Absolute Monocytes 0.37 k/cumm (0.11-0.7) 08/10/18 08:10 Absolute Eosinophils 0.00 k/cumm (0.0-0.7) 08/10/18 08:10 Absolute Basophils 0.00 k/cumm (0.0-0.2) 08/10/18 08:10 PT 10.4 sec (9.3-10.8) 08/09/18 12:30 INR 1.1 (1.0-3.5) 08/09/18 12:30 APTT 22.1 sec (21.0-31.4) 08/09/18 12:30 D-Dimer 678 ng/mlFEU (<500) H 08/09/18 12:30 Sodium 138 mmol/L (136-145) 08/10/18 08:10 Potassium 3.8 mmol/L (3.5-5.1) 08/10/18 08:10 Chloride 100 mmol/L (98-107) 08/10/18 08:10 Carbon Dioxide 28.4 mmol/L (21.0-32.0) 08/10/18 08:10 Anion Gap 9.6 mmol/L (3-11) 08/10/18 08:10 BUN 22 mg/dL (7-18) H 08/10/18 08:10 Creatinine 0.80 mg/dL (0.55-1.02) 08/10/18 08:10 Estimated GFR/1.73 m2 >= 60.00 (mL/min/1.73m2) 08/10/18 08:10 Glucose 272 mg/dL (70-100) H 08/10/18 08:10 Lactate 4.1 mmol/L (0.6-1.4) H 08/10/18 10:00 Calcium 9.1 mg/dL (8.5-10.1) 08/10/18 08:10 Magnesium 2.1 mg/dL (1.8-2.4) 08/10/18 08:10 Total Bilirubin 0.8 mg/dL (0.2-1.0) 08/09/18 12:30 AST 32 U/L (15-37) 08/09/18 12:30 ALT 41 U/L (12-78) 08/09/18 12:30 Alkaline Phosphatase 96 U/L (46-116) 08/09/18 12:30 Troponin I < 0.02 ng/mL (0.00-0.06) 08/10/18 08:10 NT-Pro-B Natriuret Pep 863 pg/mL (-299) H 08/09/18 12:30 Total Protein 7.0 g/dL (6.4-8.2) 08/09/18 12:30 Albumin 3.0 g/dL (3.4-5.0) L 08/09/18 12:30 TSH 0.39 uIU/mL (0.358-3.74) 08/10/18 08:10
[2018-08-10] MEDS: Tetanus & Diphtheria Tox,ADULT 0.5 ML VIAL IM (21:18)
[2018-08-10] MEDS: Gabapentin 600 MG TAB PO (21:31)
[2018-08-10] MEDS: hydrOXYzine HCL 25 MG TAB PO (21:31)
[2018-08-10] MEDS: Mirtazapine 15 MG TAB 45 MG PO (21:32)
[2018-08-11] VITALS (14 sets, daily range): BP systolic 100–170; BP diastolic 56–98; PULSE 68–97; RESP 4–22; TEMP 36.3–37.1; O2SAT 90–97
[2018-08-11] MEDS: Normal Saline Flush 10 ML SYR IVP ×5 (05:36→22:18)
[2018-08-11] MEDS: Acetaminophen 325 MG TAB PO (05:38)
[2018-08-11] MEDS: Levothyroxine 125 MCG TAB PO (05:39)
[2018-08-11] MEDS: Albuterol/Ipratropium 3 ML UPD VIAL UPD ×4 (05:39→23:19)
[2018-08-11] MEDS: methylPREDNISolone SUCC 125 MG VIAL 80 MG IVP ×2 (05:40→13:49)
[2018-08-11] MEDS: Gabapentin 100 MG CAP PO ×2 (06:18→14:00)
[2018-08-11] MEDS: Esomeprazole 40 MG CAPCR PO (06:18)
[2018-08-11 07:11] LABS: Abs Immature Grans 0.04 k/cumm (0.0-0.09); Absolute Lymphocyte Count 0.73 k/cumm (1.2-3.4); Basophils % 0.1; HCT 36.2 % (36.0-46.0); HGB 12.1 g/dL (12.0-15.5); Immature Grans % 0.3; Lymphocytes % 4.8; Mean Corp. HGB Concentration 33.4 g/dL (32.0-36.0); Mean Corpuscular Hemoglobin 31.3 pg (27.0-33.0); Mean Corpuscular Volume 93.5 fL (80-95); Mean Platelet Volume 10.5 fL (8.0-11.0); Monocytes % 3.9; Neutrophils % 90.9; Platelet Count 341 x1000/uL (130-400); RBC 3.87 m/cumm (4.00-5.20); RBC Distribution Width 14.9 % (11.7-14.6); White Blood Cell Count 15.25 k/cumm (4.4-10.8)
[2018-08-11 07:12] LABS: Absolute Basophil Count 0.02 k/cumm (0.0-0.2); Absolute Monocyte Count 0.59 k/cumm (0.11-0.7); Absolute Neutrophil Count 13.86 k/cumm (1.2-6.7)
[2018-08-11 07:17] LABS: Anion Gap 8.4 mmol/L (3-11); BUN 27 mg/dL (7-18); CO2 26.6 mmol/L (21.0-32.0); CREATININE 0.97 mg/dL (0.55-1.02); Chloride 101 mmol/L (98-107); Estimated GFR 56.94 (mL/min/1.73m2); Glucose 344 mg/dL (70-100); Magnesium 1.6 mg/dL (1.8-2.4); Potassium 4.4 mmol/L (3.5-5.1); Sodium 136 mmol/L (136-145)
[2018-08-11 07:18] LABS: Lactate-non-spesis 2.6 mmol/L (0.6-1.4)
[2018-08-11] MEDS: Insulin Aspart 300 UNITS/3 ML PEN SC ×5 (08:21→17:31)
[2018-08-11] MEDS: Insulin Glargine 300 UNITS/3 ML PEN 10 UNITS SC ×2 (08:23→19:37)
[2018-08-11] MEDS: Acetaminophen 500 MG TAB 1000 MG PO ×2 (08:28→19:35)
[2018-08-11] MEDS: Losartan 50 MG TAB PO (08:28)
[2018-08-11] MEDS: Metoprolol CR 50 MG TABCR PO (08:28)
[2018-08-11] MEDS: Multivitamin w/Minerals TAB 1 TAB PO (08:29)
[2018-08-11] MEDS: Folic Acid 1 MG TAB PO (08:29)
[2018-08-11] MEDS: Venlafaxine 150 MG CAPCR PO ×2 (08:29→19:35)
[2018-08-11] MEDS: Montelukast 10 MG TAB PO (08:29)
[2018-08-11] MEDS: guaiFENesin 600 MG TABCR PO ×2 (08:29→19:35)
[2018-08-11] MEDS: Budesonide/Formoterol 160/4.5 6 GM 60 PUFF INH IH ×2 (09:02→19:39)
--- NOTE | 2018-08-11 10:01 | OT.INIE ---
Occupational Therapy Notes Inpatient Occupational Therapy Evaluation Date: 08/11/18 Referring Doctor:Yue Barker MD OT Orders: Eval and Treat Precautions: Standard Precautions PATIENT PROFILE/ADMITTING DIAGNOSIS: Pt is a 67 year old female admitted with sepsis and COPD exacerbation. Past Medical History: Osteopenia, chronic back pain, morbid obesity, right total knee replacement 2008 and 2011, revision 12/19, neuropathy, cardiomyopathy s/p cardiac catheterization 03/22/16, diabetes, rheumatoid arthritis, congestive heart failure, depression, chronic obstructive pulmonary disease, gastroesophageal reflux disease, hypertension, sleep apnea with nocturnal BiPap, diverticulitis, hypothyroidism. Current Functional Limitations: Decreased strength in (B) UE, decreased functional activity tolerance. . Social History/Home Situation: Pt reports that she lives in apartment with her dog and cat. She has no stairs, but has a ramp to enter. Pt has grab bars and a handicap accessible bathroom with a big bench to sit if needed. She reports that she no longer drives but uses [employer] for community ambulation. She has a daughter who lives near by who sometimes helps but is currently not speaking to pt. Pt also reports that she has a granddaughter who comes around. Pt reports that her baseline (I) in functional ADLs/IADLs is (I) with all routines except driving for previous level of function. Pt reports that she does not work and is on disability. Equipment owned/DME: FWW, tub bench, grab bars, Bi-Pap and Nebulizer SUBJECTIVE: Pt was sitting on the side of the bed when OT arrived. She is agreeable to OT session. Throughout session pt reports multiple times that she is worried about her cat who has been alone in her apartment since Saturday. OBJECTIVE: Mental Status: A&Ox3 Pain: no c/o pain. ROM: RUE AROM WNL L UE AROM WNL STRENGTH: RUE shoulder flexion 4/5, bicep 4/5, stitch separator 5/5 LUE shoulder flexion 4/5, bicep 4/5, stitch separator 5/5 SENSATION: Pt reports no numbness or tingling in (B) UE. PT intact to light touch and sensation. FUNCTIONAL MOBILITY/ADLS: Sit-Stand (I) Stand-sit (I) DRESSING Dressing UE Pt able to (I) don and doff hospital gown when adjusting it for comfort. Demonstrates (I) in UE garments with use of (B) UE. Dressing LE Pt able to bend (B) legs to don and doff socks (I). EATING (I) sitting on the side of her bed, able to (I) open and close containers. Also able to (I) cut food with use of utensils. BALANCE: Static sitting normal Dynamic Sitting normal Static Standing Good SPECIAL TESTS: Daily Activity Limitations Standardized Measure [facility] AM -PAC ?6 clicks? Daily Activity Inpatient Short Form: Raw score: 21 Standardized score: 47.10 CMS score: 25.80% CMS modifier: CJ INFORMED CONSENT/EDUCATION: Pt instructed in purpose of OT Consult and plan of care. ASSESSMENT: Patient is a 67-year-old female referred to occupational therapy services with diagnosis of eval and treat admitted to [facility] for sepsis and COPD exacerbation in setting of Osteopenia, chronic back pain, morbid obesity, right total knee replacement 2008 and 2011, revision 12/19, neuropathy, cardiomyopathy s/p cardiac catheterization 03/22/16, diabetes, rheumatoid arthritis, congestive heart failure, depression, chronic obstructive pulmonary disease, gastroesophageal reflux disease, hypertension, sleep apnea with nocturnal BiPap, diverticulitis, hypothyroidism.. Patient presents with clinical signs and symptoms consistent with decreased strength in (B) UE, decreased (I) in functional activity tolerance, as demonstrated by the following impairment level findings: Decreased (I) in AROM/strengthening for transfers and functional ADLs. AMPAC score 22, CMS score 25.80%. Patient is assessed as a Low 31762 complexity based on the following: History: See Above Examination: See Above Presentation: Evolving Decision Making: AMPAC score 22, CMS score 25.80% GOALS Goals x1 week 1. Pt will be (I) in UE strengthening to increase (I) in functional ADLs/IADLs and increase pt's functional activity tolerance. PLAN OF CARE/TREATMENT PLAN: 1x/day, 5 days/ week x 1week Initiate Occupational Therapy Services for bathing, dressing, grooming, toileting, eating, transfer training. DISCHARGE RECOMMENDATIONS Home when medically cleared. TREATMENT TIME/MINUTES/CODES 28 min IE, 08:30 G Codes in the area of self- : washing oneself, toileting, dressing, eating and drinking, current status GO [id number] CJ projected status GO [id number]. Based on AMPAC score 22, CMS score 25.80%. Louisa Salazar, OTR/L
--- NOTE | 2018-08-11 10:18 | OTIE_ITS ---
Occupational Therapy Notes Inpatient Occupational Therapy Evaluation Date: 08/11/18 Referring Doctor:Yue Barker MD OT Orders: Eval and Treat Precautions: Standard Precautions PATIENT PROFILE/ADMITTING DIAGNOSIS: Pt is a 67 year old female admitted with sepsis and COPD exacerbation. Past Medical History: Osteopenia, chronic back pain, morbid obesity, right total knee replacement 2008 and 2011, revision 12/19, neuropathy, cardiomyopathy s/p cardiac catheterization 03/22/16, diabetes, rheumatoid arthritis, congestive heart failure, depression, chronic obstructive pulmonary disease, gastroesophageal reflux disease, hypertension, sleep apnea with nocturnal BiPap , diverticulitis, hypothyroidism. Current Functional Limitations: Decreased strength in (B) UE, decreased functional activity tolerance. . Social History/Home Situation: Pt reports that she lives in apartment with her dog and cat. She has no stairs, but has a ramp to enter. Pt has grab bars and a handicap accessible bathroom with a big bench to sit if needed. She reports that she no longer drives but uses [employer] for community ambulation. She has a daughter who lives near by who sometimes helps but is currently not speaking to pt. Pt also reports that she has a granddaughter who comes around. Pt reports that her baseline (I) in functional ADLs/IADLs is (I) with all routines except driving for previous level of function. Pt reports that she does not work and is on disability. Equipment owned/DME: FWW, tub bench, grab bars, Bi-Pap and Nebulizer SUBJECTIVE: Pt was sitting on the side of the bed when OT arrived. She is agreeable to OT session. Throughout session pt reports multiple times that she is worried about her cat who has been alone in her apartment since Saturday. OBJECTIVE: Mental Status: A&Ox3 Pain: no c/o pain. ROM: RUE AROM WNL L UE AROM WNL STRENGTH: RUE shoulder flexion 4/5, bicep 4/5, oyster cultivator 5/5 LUE shoulder flexion 4/5, bicep 4/5, oyster cultivator 5/5 SENSATION: Pt reports no numbness or tingling in (B) UE. PT intact to light touch and sensation. FUNCTIONAL MOBILITY/ADLS: Sit-Stand (I) Stand-sit (I) DRESSING Dressing UE Pt able to (I) don and doff hospital gown when adjusting it for comfort. Demonstrates (I) in UE garments with use of (B) UE. Dressing LE Pt able to bend (B) legs to don and doff socks (I). EATING (I) sitting on the side of her bed, able to (I) open and close containers. Also able to (I) cut food with use of utensils. BALANCE: Static sitting normal Dynamic Sitting normal Static Standing Good SPECIAL TESTS: Daily Activity Limitations Standardized Measure [facility] AM -PAC ?6 clicks? Daily Activity Inpatient Short Form: Raw score: 21 Standardized score: 47.10 CMS score: 25.80 % CMS modifier: CJ INFORMED CONSENT/EDUCATION: Pt instructed in purpose of OT Consult and plan of care. ASSESSMENT: Patient is a 67-year-old female referred to occupational therapy services with diagnosis of eval and treat admitted to [facility] for sepsis and COPD exacerbation in setting of Osteopenia, chronic back pain, morbid obesity, right total knee replacement 2008 and 2011, revision 12/19, neuropathy, cardiomyopathy s/p cardiac catheterization 03/22/16, diabetes, rheumatoid arthritis, congestive heart failure, depression, chronic obstructive pulmonary disease, gastroesophageal reflux disease, hypertension, sleep apnea with nocturnal BiPap, diverticulitis, hypothyroidism.. Patient presents with clinical signs and symptoms consistent with decreased strength in (B) UE, decreased (I) in functional activity tolerance, as demonstrated by the following impairment level findings: Decreased (I) in AROM/strengthening for transfers and functional ADLs. AMPAC score 22, CMS score 25.80%. Patient is assessed as a Low 91126 complexity based on the following: History: See Above Examination: See Above Presentation: Evolving Decision Making: AMPAC score 22, CMS score 25.80% GOALS Goals x1 week 1. Pt will be (I) in UE strengthening to increase (I) in functional ADLs/IADLs and increase pt's functional activity tolerance. PLAN OF CARE/TREATMENT PLAN: 1x/day, 5 days/ week x 1week Initiate Occupational Therapy Services for bathing, dressing, grooming, toileting, eating, transfer training. DISCHARGE RECOMMENDATIONS Home when medically cleared. TREATMENT TIME/MINUTES/CODES 28 min IE, 08:30 G Codes in the area of self- : washing oneself, toileting, dressing, eating and drinking, current status GO [id number] CJ projected status GO [id number]. Based on AMPAC score 22, CMS score 25.80%. Louisa Salazar, OTR/L
--- NOTE | 2018-08-11 11:08 | PT.INNT ---
Date of service: 08/11/18 Time of Service: 11:08 PT Notes PHYSICAL THERAPY NOTE 08/11/18 Attempted to see patient for PT session this morning, pt lying in bed short of breath on 1 liter 02NC. Pt states RT is monitoring her oxygen sats this morning. Pt states she did not sleep well last night and feels very tired. Will continue attempts. Shelly Kirkpatrick PT
[2018-08-11] MEDS: MAGNESIUM SULFATE 2 GM/50 ML BAG IVPB (11:28)
[2018-08-11] MEDS: Enoxaparin 40 MG/0.4 ML SYR SC (13:50)
[2018-08-11] MEDS: LEVOFLOXACIN 500 MG/100 ML BAG 100 MG IVPB (13:51)
--- NOTE | 2018-08-11 14:27 | PT.INTREAT ---
Date of service: 08/11/18 Time of Service: 14:28 PT Notes Inpatient Physical Therapy Treatment Note Date: 08/11/18 SUBJECTIVE: Samantha states that she is feeling good this afternoon, and is agreeable to participating in PT. OBJECTIVE: PAIN: No complaints of pain BED MOBILITY/TRANSFERS Supine-sit: I Sit-supine: I Sit-stand: I Stand-sit: I GAIT Assistive Device: No AD Weight bearing: Full Assist: S Distance: 100' x2 Deviation: SOB TOILETING: Patient toileted independently. ASSESSMENT: Patient tolerated session well, with SOB with gait training. Patient was able to tolerate a progression in gait distance without use of AD. Patient would benefit from continued gait training for improved duration tolerance. PLAN: Continue with PTs POC TREATMENT CODE/TIME: 23 minutes; TA x2
--- NOTE | 2018-08-11 14:29 | DM INPTCON_ITS ---
DESCRIPTION/ASSESSMENT: Appreciate diabetes consult for Ms. Kendall who is hospitalized with COPD. She currently has Methylprednisolone 80mg q 8 hours. No current A1c. BMI 40 Blood sugars here 187-310 with sensitive insulin correction and basal insulin at 10 units twice daily. She is eating 20-45 grams carbohydrate at meals. Met with Ms. Kendall who states her PCP says her diabetes is fine taking Metformin 500 twice daily. INTERVENTION: If improved glycemic control is desired and steroid use is care home, a regimen that allows Prednisone to be adjusted without too much basal insulin is to offer NPH with each dose of Methylprednisolone. Full initial dose is .8 x her weight at 100kg. Given that she does not have uncontrolled diabetes in her usual state, suggest an initial dose of at least 10units with each Prednisolone administration in addition to insulin correction increased to the moderate level given her insulin resistance. PLAN: As above and will follow blood sugars.
--- NOTE | 2018-08-11 15:50 | PDOC.CMPRO ---
Care Management Progress Note S/O: Samantha was lying in bed-pleasant in interaction though short of breath. She happily reported that her dog Berna was at the [employer] and her cat Ms. Perez was being checked on by her daughter, Darya. She reported not sleeping well. CM spoke with Samantha's CM at [facility]: Britt who reported she would assist Samantha in attempting to offset costs for MOW. CM will continue to monitor clinical status and support discharge planning. A: 67 year old female admitted to [facility] 08/09/18 for Sepsis due to CAP. P: Samantha will return home when ready per MD. She will follow up with her PCP and community based supports-she shares she is currently struggling with food stability due to costs of MOW and adjusting her radiant heat. She will transport via private vehicle with [facility], anticipate new orders for PT/OT through [facility]. CM will continue to follow and support discharge planning considerations.
--- NOTE | 2018-08-11 15:54 | CMPROGNOTE_ITS ---
Care Management Progress Note S/O: Samantha was lying in bed-pleasant in interaction though short of breath. She happily reported that her dog Berna was at the [employer] and her cat Ms. Perez was being checked on by her daughter, Darya. She reported not sleeping well. CM spoke with Samantha's CM at [facility]: Britt who reported she would assist Samantha in attempting to offset costs for MOW. CM will continue to monitor clinical status and support discharge planning. A: 67 year old female admitted to [facility] 08/09/18 for Sepsis due to CAP. P: Samantha will return home when ready per MD. She will follow up with her PCP and community based supports-she shares she is currently struggling with food stability due to costs of MOW and adjusting her radiant heat. She will transport via private vehicle with [facility], anticipate new orders for PT/OT through [facility]. CM will continue to follow and support discharge planning considerations.
--- NOTE | 2018-08-11 18:57 | W.PM.PROGNOT ---
Date of Service Date of service: 08/11/18 Time of Service: 14:45 Assessment and Plan (1) Sepsis: Current visit: Yes Status: Acute Resolved. Likely due to underlying CAP, slow to improve. Continue empiric levofloxacin, nebulizer tx. Lactic acidosis likely reflects hypoxia/work of breathing rather than the actual septic process. Sputum cx with haemophilus species - levofloxacin should cover this. Blood cx with NGTD. (2) Acute exacerbation of chronic obstructive pulmonary disease (COPD): Current visit: Yes Status: Acute Continue levofloxacin, start to taper solumedrol, continue scheduled and prn nebs, symbicort, antitussives. To wear BiPAP tonight. (3) Congestive heart failure: Current visit: No Status: Chronic Chronic, systolic, due to NICMO, last known EF 40-45%. Resume diuresis. (4) Post-tussive emesis: Current visit: Yes Status: Resolved Treat cough; antiemetics prescribed (5) Hypertension: Current visit: No Status: Chronic No change in tx (6) Hyperlipidemia: Current visit: No Status: Chronic No change in tx (7) DARYL (obstructive sleep apnea): Current visit: Yes Status: Chronic To wear BiPAP at home settings tonight. (8) Non-insulin dependent type 2 diabetes mellitus: Current visit: Yes Status: Chronic Hold metformin. Increased basal insulin to bid. Continue SSI (changed to moderate coverage), added scheduled prandial insulin. (9) Discharge planning issues: Current visit: Yes Status: Acute DNR/DNI, as verified with patient (10) DVT prophylaxis: Current visit: Yes Status: Acute Lovenox (11) Pharyngitis: Current visit: Yes Status: Acute dryness from O2. Rapid strep still pending. On levofloxacin, so already being treated if positive. Subjective Interval history since last seen: States she had a choking episode during lunch and that this happens quite often. She is interested in having a swallowing evaluation. She states her breathing is not good today. She states she got nauseated last night and could not wear the BiPAP, but she will try to wear it today. She reports constipation. Denies dizziness now, but had it during her coughing spell. Complains of chest and abdominal soreness from coughing. Exam Narrative Exam Narrative: General: Very pleasant, Obese female, looks about the same as yesterday - her shortness of breath is not preventing her from talking in lengthy sentences, several in a row Neurological: A&OX3, no focal deficits Psychiatric: appropriate speech pattern/content Skin: no bruises/rashes HEENT: EOMI, MMM, clear oropharynx, no submandibular or cervical lymphadenopathy, no goiter or JVD Cardiovascular: RRR, no m/r/g Lungs: wheezing on expiration B - no change from yesterday Gastrointestinal: abdomen soft, nontender, nondistended Extremities: BLE 1+ edema, no clubbing/cyanosis Objective Objective Clinical Data: Abnormal lab results 08/11/18 08/11/18 08/11/18 Range/Units 06:55 06:55 06:55 WBC 15.25 H (4.4-10.8) k/cumm RBC 3.87 L (4.00-5.20) m/cumm RDW 14.9 H (11.7-14.6) % Absolute Neutrophils 13.86 H (1.2-6.7) k/cumm Absolute Lymphocytes 0.73 L (1.2-3.4) k/cumm BUN 27 H (7-18) mg/dL Glucose 344 H (70-100) mg/dL Lactate 2.6 H (0.6-1.4) mmol/L Magnesium 1.6 L (1.8-2.4) mg/dL Vital Signs Temperature 36.6 C 08/11/18 15:32 Temperature Source Tympanic 08/11/18 15:32 Pulse 85 08/11/18 15:32 Pulse Rhythm Regular 08/11/18 16:00 Pulse 104 H 08/09/18 13:50 Respiratory Rate 20 08/11/18 15:32 Respiratory Effort 08/11/18 16:00 Respiratory Depth Shallow 08/11/18 16:00 Respiratory Pattern Normal 08/11/18 08:20 Blood Pressure 162/86 H 08/11/18 15:32 Blood Pressure Mean 79 08/09/18 13:36 Pulse Oximetry 92 L 08/11/18 15:32 Respiratory End-tidal CO2 30 08/09/18 12:20 Oxygen Delivery Method Nasal Cannula 08/11/18 15:32 Oxygen Flow Rate 1 08/11/18 15:32 Pain Level 8 08/11/18 11:42 Comment 08/10/18 12:49 Intake & Output 08/10/18 08/11/18 08/11/18 23:59 11:59 23:59 Intake Total 610 / 610 480 / 480 150 / 150 Output Total 200 / 200 750 / 750 400 / 400 Balance 410 / 410 -270 / -270 -250 / -250 Weight 102.3 kg Intake: IV 130 / 130 150 / 150 Oral 480 / 480 480 / 480 Output: Urine 200 / 200 750 / 750 400 / 400 Other: Urine Color [place] Yellow Yellow [place] Urine Appearance Clear Clear Urine Odor None Normal Comment Void x1 in the bedside commode. Voiding Methods Bedside Commode Bedside Commode Toilet Laboratory Results WBC 15.25 k/cumm (4.4-10.8) H 08/11/18 06:55 RBC 3.87 m/cumm (4.00-5.20) L 08/11/18 06:55 Hgb 12.1 g/dL (12.0-15.5) 08/11/18 06:55 Hct 36.2 % (36.0-46.0) 08/11/18 06:55 MCV 93.5 fL (80-95) 08/11/18 06:55 MCH 31.3 pg (27.0-33.0) 08/11/18 06:55 MCHC 33.4 g/dL (32.0-36.0) 08/11/18 06:55 RDW 14.9 % (11.7-14.6) H 08/11/18 06:55 Plt Count 341 x1000/uL (130-400) 08/11/18 06:55 MPV 10.5 fL (8.0-11.0) 08/11/18 06:55 Immature Gran % 0.3 08/11/18 06:55 Neutrophils % 90.9 08/11/18 06:55 Lymphocytes % 4.8 08/11/18 06:55 Monocytes % 3.9 08/11/18 06:55 Eosinophils % 0.0 08/11/18 06:55 Basophils % 0.1 08/11/18 06:55 Absolute Neutrophils 13.86 k/cumm (1.2-6.7) H 08/11/18 06:55 Absolute Lymphocytes 0.73 k/cumm (1.2-3.4) L 08/11/18 06:55 Absolute Monocytes 0.59 k/cumm (0.11-0.7) 08/11/18 06:55 Absolute Eosinophils 0.00 k/cumm (0.0-0.7) 08/11/18 06:55 Absolute Basophils 0.02 k/cumm (0.0-0.2) 08/11/18 06:55 PT 10.4 sec (9.3-10.8) 08/09/18 12:30 INR 1.1 (1.0-3.5) 08/09/18 12:30 APTT 22.1 sec (21.0-31.4) 08/09/18 12:30 D-Dimer 678 ng/mlFEU (<500) H 08/09/18 12:30 Sodium 136 mmol/L (136-145) 08/11/18 06:55 Potassium 4.4 mmol/L (3.5-5.1) 08/11/18 06:55 Chloride 101 mmol/L (98-107) 08/11/18 06:55 Carbon Dioxide 26.6 mmol/L (21.0-32.0) 08/11/18 06:55 Anion Gap 8.4 mmol/L (3-11) 08/11/18 06:55 BUN 27 mg/dL (7-18) H 08/11/18 06:55 Creatinine 0.97 mg/dL (0.55-1.02) 08/11/18 06:55 Estimated GFR/1.73 m2 56.94 (mL/min/1.73m2) 08/11/18 06:55 Glucose 344 mg/dL (70-100) H 08/11/18 06:55 Lactate 2.6 mmol/L (0.6-1.4) H 08/11/18 06:55 Calcium 9.0 mg/dL (8.5-10.1) 08/11/18 06:55 Magnesium 1.6 mg/dL (1.8-2.4) L 08/11/18 06:55 Total Bilirubin 0.8 mg/dL (0.2-1.0) 08/09/18 12:30 AST 32 U/L (15-37) 08/09/18 12:30 ALT 41 U/L (12-78) 08/09/18 12:30 Alkaline Phosphatase 96 U/L (46-116) 08/09/18 12:30 Troponin I < 0.02 ng/mL (0.00-0.06) 08/10/18 08:10 NT-Pro-B Natriuret Pep 863 pg/mL (-299) H 08/09/18 12:30 Total Protein 7.0 g/dL (6.4-8.2) 08/09/18 12:30 Albumin 3.0 g/dL (3.4-5.0) L 08/09/18 12:30 TSH 0.39 uIU/mL (0.358-3.74) 08/10/18 08:10
[2018-08-11] MEDS: Bisacodyl 5 MG TABEC PO (19:35)
[2018-08-11] MEDS: Magnesium Chloride 64 MG TABCR PO (19:36)
[2018-08-11] MEDS: Senna TAB 1 TAB PO (19:36)
[2018-08-11] MEDS: Docusate Sodium 100 MG CAP PO (19:36)
[2018-08-11] MEDS: Furosemide 20 MG/2 ML VIAL IV (20:57)
[2018-08-11] MEDS: hydrOXYzine HCL 25 MG TAB PO (22:12)
[2018-08-11] MEDS: Gabapentin 600 MG TAB PO (22:12)
[2018-08-11] MEDS: Mirtazapine 15 MG TAB 45 MG PO (22:12)
[2018-08-11] MEDS: methylPREDNISolone SUCC 125 MG VIAL 60 MG IVP (22:13)
[2018-08-12] VITALS (8 sets, daily range): BP systolic 132–178; BP diastolic 64–99; PULSE 68–98; RESP 2–24; TEMP 36.3–36.9; O2SAT 92–96
[2018-08-12] MEDS: Esomeprazole 40 MG CAPCR PO (06:30)
[2018-08-12] MEDS: Levothyroxine 125 MCG TAB PO (06:30)
[2018-08-12] MEDS: Albuterol/Ipratropium 3 ML UPD VIAL UPD ×4 (06:30→23:52)
[2018-08-12] MEDS: Normal Saline Flush 10 ML SYR IVP ×5 (06:30→16:10)
[2018-08-12 07:04] LABS: Abs Immature Grans 0.14 k/cumm (0.0-0.09); Absolute Basophil Count 0.01 k/cumm (0.0-0.2); Absolute Lymphocyte Count 1.47 k/cumm (1.2-3.4); Absolute Monocyte Count 0.77 k/cumm (0.11-0.7); Absolute Neutrophil Count 9.99 k/cumm (1.2-6.7); Basophils % 0.1; HCT 36.7 % (36.0-46.0); HGB 12.1 g/dL (12.0-15.5); Immature Grans % 1.1; Lymphocytes % 11.9; Mean Corpuscular Hemoglobin 30.7 pg (27.0-33.0); Mean Corpuscular Volume 93.1 fL (80-95); Mean Platelet Volume 10.2 fL (8.0-11.0); Monocytes % 6.2; Neutrophils % 80.7; Platelet Count 366 x1000/uL (130-400); RBC 3.94 m/cumm (4.00-5.20); White Blood Cell Count 12.38 k/cumm (4.4-10.8)
[2018-08-12 07:57] LABS: Anion Gap 9.1 mmol/L (3-11); BUN 36 mg/dL (7-18); CO2 27.9 mmol/L (21.0-32.0); CREATININE 0.83 mg/dL (0.55-1.02); Calcium 9.3 mg/dL (8.5-10.1); Chloride 100 mmol/L (98-107); Glucose 226 mg/dL (70-100); Magnesium 1.9 mg/dL (1.8-2.4); Potassium 4.2 mmol/L (3.5-5.1); Sodium 137 mmol/L (136-145)
[2018-08-12] MEDS: Acetaminophen 500 MG TAB 1000 MG PO ×2 (08:33→20:03)
[2018-08-12] MEDS: Montelukast 10 MG TAB PO (08:34)
[2018-08-12] MEDS: Multivitamin w/Minerals TAB 1 TAB PO (08:35)
[2018-08-12] MEDS: Magnesium Chloride 64 MG TABCR PO ×2 (08:35→20:03)
[2018-08-12] MEDS: guaiFENesin 600 MG TABCR PO ×2 (08:35→20:03)
[2018-08-12] MEDS: Folic Acid 1 MG TAB PO (08:35)
[2018-08-12] MEDS: Losartan 50 MG TAB PO (08:35)
[2018-08-12] MEDS: Docusate Sodium 100 MG CAP PO ×3 (08:35→20:03)
[2018-08-12] MEDS: Gabapentin 100 MG CAP PO ×2 (08:35→13:56)
[2018-08-12] MEDS: Metoprolol CR 50 MG TABCR PO (08:35)
[2018-08-12] MEDS: Venlafaxine 150 MG CAPCR PO ×2 (08:36→20:03)
[2018-08-12] MEDS: Insulin Aspart 300 UNITS/3 ML PEN SC ×6 (08:36→17:03)
[2018-08-12] MEDS: Insulin Glargine 300 UNITS/3 ML PEN 10 UNITS SC ×2 (08:37→20:03)
--- NOTE | 2018-08-12 09:14 | EVALE_ITS ---
Date of service: 08/12/18 Time of Service: 07:15 Speech Therapy Evaluation Note: REFERRING PROVIDER: Dr. Barker BACKGROUND This is a 67-year-old right-handed female who presented to the ED on 08/09/2018 from home with complaints of dyspnea. She was admitted for treatment of sepsis and a COPD exacerbation. A chest x-ray at that time was negative. On 08/11/2018 the patient reported that she had choked during her lunchtime meal. Consequently, a swallow evaluation was requested. The patient is able to provide additional background information with regard to p.o. intake during the weeks prior to this admission. She states that she has been able to take what, by description, are Thin liquids, a Dysphagia Advanced diet with chopped meats, and whole pills with a liquid wash. She states that she takes multiple whole pills at one time without difficulty. She also says that she has had difficulty swallowing her whole life, even as a child. PMH is positive for the followin. Non-O2 dependent COPD 2. Obstructive sleep apnea 3. DM Type II 4. HTN 5. Obesity 6. Hyperlipidemia 7. Chronic CHF 8. Bilateral hearing loss per patient report. Patient states she has bilateral hearing aids which are currently at home. OBJECTIVE Nursing reports the followin. Temp: 36.7 2. O2 sat: 95% on 2 litres via nasal canula 3. Lung sounds showing bilateral expiratory wheezes 4. Pt is currently on an antibiotic The patient is reclined in bed when I enter the room. She makes good direct eye contact and immediately asks me what my name is. She is agreeable to working with me this morning. She is able to converse well, both asking and answering questions. She seems to have no difficulty hearing me in a setting of mild background noise despite not having her hearing aids here at the hospital. She is A & O x 4 and able to follow three-step directions. In describing the events of her choking episode yesterday, she states that she thinks it may have been a piece of meat. She says that at home she makes sure to cut her meat into small pieces. Her favorite meat is meatloaf. She also likes hot dogs although she has to peel the skin off before she can chew them despite having her full upper denture in place. This denture is currently at home. She has no lower denture and is totally edentulous on the bottom ridge. Oral Sensorimotor Exam As mentioned above, the patient is totally edentulous. She does not have her full upper denture here with her at the hospital. Oral sensation appears to be within normal limits for buccal, labial and lingual areas bilaterally. Motorically, the smile is symmetrical as are forehead wrinkles. No lingual deviation is seen in a setting of good excursion. Lingual lateralization is within normal limits bilaterally as are lingual rapid alternating movements. Lingual strength is within normal limits bilaterally as is mandibular lateralization. Velopharyngeal elevation is moderately strong and symmetrical. Volitional cough and volitional throat-clear are both strong. Estimated speech intelligibility to this unfamiliar listener in a setting of mild background noise is 100%. Vocal quality and vocal intensity are both within normal limits. The patient is noted to produce a wet sounding but nonproductive cough throughout the visit. With regard to swallowing, the following is noted: 1. Thin liquid: Good bolus control and posterior oral transit. No ben signs and symptoms of aspiration or penetration are seen. Oral clearance is 100% and no oral escape is seen. These results are true for both single and consecutive swallows by both cup and straw. 2. Puree food: Good bolus control and linguopalatal bolus compression. Posterior oral transit appears to be within normal limits. No ben signs and symptoms of aspiration or penetration are seen. Oral clearance is 100% and no oral escape is noted. 3. Mechanically Altered food: Good mastication quality, bolus control and posterior oral transit. No ben signs and symptoms of aspiration or penetration are seen. Oral clearance is 100% and no oral escape is seen. 4. Dysphagia Advanced food: Increased mastication time is noted for this consistency but this does result in good mastication quality. However, the patient does report increased sensitivity/discomfort of her upper ridge during mastication. Bolus control and posterior oral transit appear to be within normal limits. No ben signs and symptoms of aspiration or penetration are seen. Oral clearance is 100% and no oral escape is seen. The patient is observed to be able to independently self-feed, after try set-up , using her dominant RUE. INTERPRETATION The patient shows a moderate oral?prep dysphagia secondary to total edentulousness. She shows no clinical signs/symptoms of a pharyngeal dysphasia. It is suspected that her difficulty yesterday arose from taking a piece of meat that was insufficiently small in size. RECOMMENDATIONS 1. Changed from a Regular consistency diet to a Mechanically Altered consistency diet with moistened fine-chopped meats 2. Continue: ?Thin liquids ?Whole pills with a liquid wash 3. Continue independent self-feeding 4. No speech therapy indicated at this time. Thank you for referring this patient.
[2018-08-12] MEDS: Budesonide/Formoterol 160/4.5 6 GM 60 PUFF INH IH ×2 (09:24→20:02)
[2018-08-12] MEDS: Albuterol 2.5 MG/3 ML INH SOLN VIAL UPD (09:34)
[2018-08-12] MEDS: Furosemide 20 MG/2 ML VIAL IVP ×2 (10:38→16:10)
[2018-08-12] MEDS: methylPREDNISolone SUCC 125 MG VIAL 60 MG IVP (10:38)
--- NOTE | 2018-08-12 11:21 | OT.INTREAT ---
Date of service: 08/12/18 Time of Service: 10:45 Occupational Therapy Notes Occupational Therapy Inpatient Treatment Note Date: 08/12/18 SUBJECTIVE: Pt was sitting at side of the bed when OT arrived. Pt is agreeable to OT session. OBJECTIVE: PAIN:no c/o pain VITALS: O2 with Therex 95% BATHING: Pt reports that she wants to bath with nursing, however pt reports that she is (I) with this at home and wants nursing to do it for her just in case she can't do it at this time. OT attempted to take pt to shower to perform bathing routine but pt denied. OT will assess pt's (I) with bathing in the shower at next session. Pt is dynamically and functionally able to perform bathing movements. OT discussed the importance of performing shower routine as (I) as possible. Pt reports that she is willing to go to shower tomorrow with OT to increase (I) in bathing routine with compensatory techniques and adaptive equipment as needed. THEREX: Pt denies the use of (L) thumb due to IV placement in base. Yellow hand nurse practitioner physicians assistant squeeze 10x Shoulder flexion 2# 10x Shoulder Abduction 2# 10x Bicep curls 2# 10x External rotation 2# 10x Internal rotation 2# 10x Shoulder extension 2# 10x Shoulder press ups 0# 15x Shoulder abduction with yellow thera band 5x. Pt has increased anxiety about yellow band from previous use of them. Pt agreeable to only perform the exercise with band at this time. Pt educated to perform hand gripping exercise 2x per day. ASSESSMENT: Pt decribes the need for nursing to perform her bathing, OT will assess this at next session to evaluate the level of (I) that pt has in bathing routine. Pt was receptive to education and training in strengthening program. She was able to perform exercises with minimal cues and good techniques. OT will monitor pts response to initiation of strengthening program and make progressions as necessary at next session. PLAN: Per POC TREATMENT CODES/TIME: TPx2, 10:45(23 min) JOB Evans/Cooper
--- NOTE | 2018-08-12 11:33 | OTTR_ITS ---
Date of service: 08/12/18 Time of Service: 10:45 Occupational Therapy Notes Occupational Therapy Inpatient Treatment Note Date: 08/12/18 SUBJECTIVE: Pt was sitting at side of the bed when OT arrived. Pt is agreeable to OT session. OBJECTIVE: PAIN:no c/o pain VITALS: O2 with Therex 95% BATHING: Pt reports that she wants to bath with nursing, however pt reports that she is (I) with this at home and wants nursing to do it for her just in case she can't do it at this time. OT attempted to take pt to shower to perform bathing routine but pt denied. OT will assess pt's (I) with bathing in the shower at next session. Pt is dynamically and functionally able to perform bathing movements. OT discussed the importance of performing shower routine as ( I) as possible. Pt reports that she is willing to go to shower tomorrow with OT to increase (I) in bathing routine with compensatory techniques and adaptive equipment as needed. THEREX: Pt denies the use of (L) thumb due to IV placement in base. Yellow hand molded rubber goods cutter squeeze 10x Shoulder flexion 2# 10x Shoulder Abduction 2# 10x Bicep curls 2# 10x External rotation 2# 10x Internal rotation 2# 10x Shoulder extension 2# 10x Shoulder press ups 0# 15x Shoulder abduction with yellow thera band 5x. Pt has increased anxiety about yellow band from previous use of them. Pt agreeable to only perform the exercise with band at this time. Pt educated to perform hand gripping exercise 2x per day. ASSESSMENT: Pt decribes the need for nursing to perform her bathing, OT will assess this at next session to evaluate the level of (I) that pt has in bathing routine. Pt was receptive to education and training in strengthening program. She was able to perform exercises with minimal cues and good techniques. OT will monitor pts response to initiation of strengthening program and make progressions as necessary at next session. PLAN: Per POC TREATMENT CODES/TIME: TPx2, 10:45(23 min) JOB Evans/Cooper
[2018-08-12] MEDS: Spironolactone 25 MG TAB PO (13:56)
[2018-08-12] MEDS: Enoxaparin 40 MG/0.4 ML SYR SC (13:57)
[2018-08-12] MEDS: LEVOFLOXACIN 500 MG/100 ML BAG 100 MG IVPB (13:57)
--- NOTE | 2018-08-12 14:10 | PT.INNT ---
Date of service: 08/12/18 Time of Service: 13:00 PT Notes 08/12/18 pt reused PT this PM, indicated she just returned from a walk with nsg. She is tired and would like to be left alone. Will check back with her tomorrow.
--- NOTE | 2018-08-12 16:41 | PDOC.CMPRO ---
- If Service Date Differs Date of service: 08/12/18 Time of Service: 16:41 Care Management Progress Note S/O CM met with Samantha at the bedside she is alert and engaged during conversation. Samantha continues her treatment for CAP including IV antibiotics. She will have a walking sao2 with RT today. Samantha will return home when medically ready. Samantha expresses concerns related to expenses at home, CM left a voicemail for her community relations director at [facility]. A: 67 year old female admitted to [facility] 08/09/18 for Sepsis due to CAP. P: Samantha will return home when ready per MD. CM left a voicemail at [facility] to follow up with resources in the community. She will have a midline consult today for IV access. She will transport via private vehicle with [facility], anticipate new orders for PT/OT through [facility]. CM will continue to follow and support discharge planning considerations.
--- NOTE | 2018-08-12 16:45 | CMPROGNOTE_ITS ---
- If Service Date Differs Date of service: 08/12/18 Time of Service: 16:41 Care Management Progress Note S/O CM met with Samantha at the bedside she is alert and engaged during conversation. Samantha continues her treatment for CAP including IV antibiotics. She will have a walking sao2 with RT today. Samantha will return home when medically ready. Samantha expresses concerns related to expenses at home, CM left a voicemail for her community youth secretary at [facility]. A: 67 year old female admitted to [facility] 08/09/18 for Sepsis due to CAP. P: Samantha will return home when ready per MD. CM left a voicemail at [facility] to follow up with resources in the community. She will have a midline consult today for IV access. She will transport via private vehicle with [facility], anticipate new orders for PT/OT through [facility]. CM will continue to follow and support discharge planning considerations.
--- NOTE | 2018-08-12 16:56 | CHAPLAIN ---
Jacqueline and I know each other from her previous admissions. She easily engaged in a conversation and was quick to fill me in on what's been happening in her life since I saw her last. She is hoping that he daughter will bring her teeth and glasses to her, but also said her daughter may have to work and will be unable to get Jacqueline's stuff for her. Jacqueline's moved out of the [facility] into an apartment in [place], but still visits with her friend from the [facility]. She includes this friend and her daughters as her supports.
--- NOTE | 2018-08-12 17:02 | W.PM.PROGNOT ---
Date of Service Date of service: 08/12/18 Time of Service: 17:02 Assessment and Plan (1) Sepsis: Current visit: Yes Status: Acute Due to CAP. Sepsis resolved, CAP has significantly improved. Continue levofloxacin (sputum cx positive for Haemophilus), nebulizer tx. Lactic acidosis likely reflects hypoxia. (2) Acute exacerbation of chronic obstructive pulmonary disease (COPD): Current visit: Yes Status: Acute Continue levofloxacin, continue to taper solumderol, continue scheduled and prn nebs, symbicort, antitussives. BiPAP Qhs. (3) Congestive heart failure: Current visit: No Status: Chronic Chronic, systolic, due to NICMO, last known EF 40-45%. Continue lasix; aldactone resumed. (4) Post-tussive emesis: Current visit: Yes Status: Resolved Resolved. (5) Hypertension: Current visit: No Status: Chronic Reintroduced aldactone (6) Hyperlipidemia: Current visit: No Status: Chronic No change in tx (7) DARYL (obstructive sleep apnea): Current visit: Yes Status: Chronic BiPAP Qhs (8) Non-insulin dependent type 2 diabetes mellitus: Current visit: Yes Status: Chronic With steroid induced hyperglycemia. Continue to Hold metformin. Continue current basal bolus insulin (steroids are being decreased). (9) Discharge planning issues: Current visit: Yes Status: Acute DNR/DNI, as verified with patient. The patient states she won't return home until the weekend because the heat in her apartment does not work. (10) DVT prophylaxis: Current visit: Yes Status: Acute Lovenox (11) Pharyngitis: Current visit: Yes Status: Acute dryness from O2. Rapid strep still pending. On levofloxacin, so already being treated if positive. Subjective Interval history since last seen: Feels less short of breath. Requests lorazepam for panic attacks. Continues to report cough. Complains of pleuritic chest pain. No nausea/vomiting. Exam Narrative Exam Narrative: General: Very pleasant, Obese female, significantly less short of breath, not wearing oxygen Neurological: A&OX3, No focal deficits Psychiatric: anxious Skin: no bruises/rashes HEENT: EOMI, MMM, no goiter or JVD Cardiovascular: RRR, no m/r/g Lungs: wheezing on expiration B - significantly better than yesterday Gastrointestinal: abdomen soft, nontender, nondistended Extremities: trace BLE edema, no clubbing/cyanosis Objective Objective Clinical Data: Abnormal lab results 08/12/18 08/12/18 Range/Units 06:20 06:20 WBC 12.38 H (4.4-10.8) k/cumm RBC 3.94 L (4.00-5.20) m/cumm RDW 15.0 H (11.7-14.6) % Absolute Neutrophils 9.99 H (1.2-6.7) k/cumm Absolute Monocytes 0.77 H (0.11-0.7) k/cumm BUN 36 H D (7-18) mg/dL Glucose 226 H D (70-100) mg/dL Vital Signs Temperature 36.9 C 08/12/18 16:08 Temperature Source Tympanic 08/12/18 16:08 Pulse 92 H 08/12/18 16:08 Pulse Rhythm Regular 08/12/18 16:20 Pulse 104 H 08/09/18 13:50 Respiratory Rate 20 08/12/18 16:08 Respiratory Effort 08/12/18 16:20 Respiratory Depth Normal 08/12/18 16:20 Respiratory Pattern Normal 08/12/18 16:20 Blood Pressure 132/86 08/12/18 16:08 Blood Pressure Mean 79 08/09/18 13:36 Pulse Oximetry 95 08/12/18 16:08 Respiratory End-tidal CO2 30 08/09/18 12:20 Oxygen Delivery Method Room Air 08/12/18 16:08 Oxygen Flow Rate 0 08/12/18 16:08 Pain Level 4 08/12/18 11:30 Comment 08/10/18 12:49 Intake & Output 08/11/18 08/12/18 08/12/18 23:59 11:59 23:59 Intake Total 690 / 690 780 / 780 490 / 490 Output Total 1700 / 1700 1550 / 1550 500 / 500 Balance -1010 / -1010 -770 / -770 -10 / -10 Weight 101.1 kg Intake: IV 150 / 150 Oral 540 / 540 780 / 780 480 / 480 Output: Urine 1700 / 1700 1550 / 1550 500 / 500 Other: Urine Color Yellow Yellow Yellow Urine Appearance Clear Clear Clear Urine Odor None Normal Comment in bathroom cap Stool Size Small Large Stool Characteristics Soft Soft Formed Formed Brown Voiding Methods Bedside Commode Bedside Commode Bedside Commode Incontinent Laboratory Results WBC 12.38 k/cumm (4.4-10.8) H 08/12/18 06:20 RBC 3.94 m/cumm (4.00-5.20) L 08/12/18 06:20 Hgb 12.1 g/dL (12.0-15.5) 08/12/18 06:20 Hct 36.7 % (36.0-46.0) 08/12/18 06:20 MCV 93.1 fL (80-95) 08/12/18 06:20 MCH 30.7 pg (27.0-33.0) 08/12/18 06:20 MCHC 33.0 g/dL (32.0-36.0) 08/12/18 06:20 RDW 15.0 % (11.7-14.6) H 08/12/18 06:20 Plt Count 366 x1000/uL (130-400) 08/12/18 06:20 MPV 10.2 fL (8.0-11.0) 08/12/18 06:20 Immature Gran % 1.1 08/12/18 06:20 Neutrophils % 80.7 08/12/18 06:20 Lymphocytes % 11.9 08/12/18 06:20 Monocytes % 6.2 08/12/18 06:20 Eosinophils % 0.0 08/12/18 06:20 Basophils % 0.1 08/12/18 06:20 Absolute Neutrophils 9.99 k/cumm (1.2-6.7) H 08/12/18 06:20 Absolute Lymphocytes 1.47 k/cumm (1.2-3.4) 08/12/18 06:20 Absolute Monocytes 0.77 k/cumm (0.11-0.7) H 08/12/18 06:20 Absolute Eosinophils 0.00 k/cumm (0.0-0.7) 08/12/18 06:20 Absolute Basophils 0.01 k/cumm (0.0-0.2) 08/12/18 06:20 PT 10.4 sec (9.3-10.8) 08/09/18 12:30 INR 1.1 (1.0-3.5) 08/09/18 12:30 APTT 22.1 sec (21.0-31.4) 08/09/18 12:30 D-Dimer 678 ng/mlFEU (<500) H 08/09/18 12:30 Sodium 137 mmol/L (136-145) 08/12/18 06:20 Potassium 4.2 mmol/L (3.5-5.1) 08/12/18 06:20 Chloride 100 mmol/L (98-107) 08/12/18 06:20 Carbon Dioxide 27.9 mmol/L (21.0-32.0) 08/12/18 06:20 Anion Gap 9.1 mmol/L (3-11) 08/12/18 06:20 BUN 36 mg/dL (7-18) H D 08/12/18 06:20 Creatinine 0.83 mg/dL (0.55-1.02) 08/12/18 06:20 Estimated GFR/1.73 m2 >= 60.00 (mL/min/1.73m2) 08/12/18 06:20 Glucose 226 mg/dL (70-100) H D 08/12/18 06:20 Lactate 2.6 mmol/L (0.6-1.4) H 08/11/18 06:55 Calcium 9.3 mg/dL (8.5-10.1) 08/12/18 06:20 Magnesium 1.9 mg/dL (1.8-2.4) 08/12/18 06:20 Total Bilirubin 0.8 mg/dL (0.2-1.0) 08/09/18 12:30 AST 32 U/L (15-37) 08/09/18 12:30 ALT 41 U/L (12-78) 08/09/18 12:30 Alkaline Phosphatase 96 U/L (46-116) 08/09/18 12:30 Troponin I < 0.02 ng/mL (0.00-0.06) 08/10/18 08:10 NT-Pro-B Natriuret Pep 863 pg/mL (-299) H 08/09/18 12:30 Total Protein 7.0 g/dL (6.4-8.2) 08/09/18 12:30 Albumin 3.0 g/dL (3.4-5.0) L 08/09/18 12:30 TSH 0.39 uIU/mL (0.358-3.74) 08/10/18 08:10
[2018-08-12] MEDS: methylPREDNISolone SUCC 40 MG VIAL IVP (18:26)
[2018-08-12] MEDS: Mirtazapine 15 MG TAB 45 MG PO (21:59)
[2018-08-12] MEDS: hydrOXYzine HCL 25 MG TAB PO (21:59)
[2018-08-12] MEDS: Gabapentin 600 MG TAB PO (22:00)
[2018-08-13] VITALS (12 sets, daily range): BP systolic 137–191; BP diastolic 67–118; PULSE 22–91; RESP 2–78; TEMP 36.1–36.6; O2SAT 91–96
[2018-08-13] MEDS: Normal Saline Flush 10 ML SYR IVP ×4 (01:59→14:44)
[2018-08-13] MEDS: methylPREDNISolone SUCC 40 MG VIAL IVP ×2 (01:59→10:53)
[2018-08-13] MEDS: Gabapentin 100 MG CAP PO ×2 (06:38→12:05)
[2018-08-13] MEDS: Levothyroxine 125 MCG TAB PO (06:38)
[2018-08-13] MEDS: Esomeprazole 40 MG CAPCR PO (06:39)
[2018-08-13] MEDS: Albuterol/Ipratropium 3 ML UPD VIAL UPD ×3 (06:41→17:48)
[2018-08-13 07:50] LABS: HCT 37.6 % (36.0-46.0); HGB 12.5 g/dL (12.0-15.5); Mean Corp. HGB Concentration 33.2 g/dL (32.0-36.0); Mean Corpuscular Hemoglobin 30.9 pg (27.0-33.0); Mean Corpuscular Volume 93.1 fL (80-95); Mean Platelet Volume 10.1 fL (8.0-11.0); Platelet Count 341 x1000/uL (130-400); RBC 4.04 m/cumm (4.00-5.20); White Blood Cell Count 10.52 k/cumm (4.4-10.8)
[2018-08-13 07:53] LABS: Anion Gap 7.6 mmol/L (3-11); BUN 41 mg/dL (7-18); CO2 30.4 mmol/L (21.0-32.0); CREATININE 0.93 mg/dL (0.55-1.02); Calcium 9.2 mg/dL (8.5-10.1); Chloride 97 mmol/L (98-107); Estimated GFR 59.78 (mL/min/1.73m2); Glucose 265 mg/dL (70-100); Magnesium 1.9 mg/dL (1.8-2.4); Potassium 4.4 mmol/L (3.5-5.1); Sodium 135 mmol/L (136-145)
[2018-08-13 08:48] LABS: Absolute Neutrophil Count 7.89 k/cumm (1.2-6.7)
[2018-08-13 08:50] LABS: Absolute Monocyte Count 0.42 k/cumm (0.11-0.7)
[2018-08-13 08:51] LABS: Absolute Lymphocyte Count 2.21 k/cumm (1.2-3.4); Atypical Lymphocytes % 6; Diff Comment Manual Differential; RBC Morphology Normal
[2018-08-13] MEDS: Montelukast 10 MG TAB PO (09:01)
[2018-08-13] MEDS: Docusate Sodium 100 MG CAP PO ×3 (09:01→20:12)
[2018-08-13] MEDS: Losartan 50 MG TAB PO (09:01)
[2018-08-13] MEDS: guaiFENesin 600 MG TABCR PO ×2 (09:01→20:12)
[2018-08-13] MEDS: Magnesium Chloride 64 MG TABCR PO ×2 (09:02→20:12)
[2018-08-13] MEDS: Metoprolol CR 50 MG TABCR PO (09:02)
[2018-08-13] MEDS: Venlafaxine 150 MG CAPCR PO ×2 (09:02→20:12)
[2018-08-13] MEDS: Acetaminophen 500 MG TAB 1000 MG PO ×2 (09:02→20:11)
[2018-08-13] MEDS: Spironolactone 25 MG TAB PO (09:02)
[2018-08-13] MEDS: Multivitamin w/Minerals TAB 1 TAB PO (09:02)
[2018-08-13] MEDS: Folic Acid 1 MG TAB PO (09:02)
[2018-08-13] MEDS: Senna TAB 1 TAB PO ×2 (09:02→20:12)
[2018-08-13] MEDS: Furosemide 20 MG/2 ML VIAL IVP (09:03)
[2018-08-13] MEDS: Insulin Aspart 300 UNITS/3 ML PEN SC ×5 (09:03→17:27)
[2018-08-13] MEDS: Insulin Glargine 300 UNITS/3 ML PEN 10 UNITS SC ×2 (09:04→20:13)
--- NOTE | 2018-08-13 09:36 | PT.INDS ---
Date of service: 08/13/18 Time of Service: 09:37 PT Notes Inpatient Physical Therapy Discharge Summary Date: 08/13/18 Dates of Service: 08/10/18-08/11/18 SUBJECTIVE: Pt sitting on edge of bed, states she has been getting up and moving independently in the room. States she feels that she is at the same level that she is at home and feels ready to return to home. OBJECTIVE: BED MOBILITY/TRANSFERS: Supine-sit: independent Sit-stand: independent no device Stand-sit: independent Bed-chair: independent no device Chair-bed: independent no device Sit-supine: independent GAIT: deferred gait this mornning but is walking with PT at level of supervision with no device [id number] BALANCE: Static sitting: normal Dynamic Sitting: normal Static Standing good Dynamic Standing: fair ASSESSMENT: Pt is a 67yr old female admitted with sepsis, acute chronic obstructive pulmonary disease exacerbation in setting of chronic back pain, morbid obesity, depression, chronic obstructive pulmonary disease, diabetes, rheumatoid arthritis, congestive heart failure and neuropathy. Patient was seen for 2 PT visits. Progressed from supervision gait with no device 20ftx2 to 200ft. Pt has met therapy goals and is at baseline level of functional mobility, discharge from PT services. GOALS 1. Supine-sit: independent 2. Sit-Supine: independent 3. Sit-Stand: independent 4. Stand-sit: independent 5. Bed-Chair: independent 6. Chair-bed: independent 7. Gait 70ftx2, supervision 8. Pt I with pacing and energy conservation techniques Pt met goals 1-8 DISCHARGE RECOMMENDATIONS Home Pt has all DME. G Codes in the area mobility of walking and moving around:_projected status GP [id number], discharge status GP [id number] Shelly Kikrpatrick PT
--- NOTE | 2018-08-13 09:41 | INDS_ITS ---
Date of service: 08/13/18 Time of Service: 09:37 PT Notes Inpatient Physical Therapy Discharge Summary Date: 08/13/18 Dates of Service: 08/10/18-08/11/18 SUBJECTIVE: Pt sitting on edge of bed, states she has been getting up and moving independently in the room. States she feels that she is at the same level that she is at home and feels ready to return to home. OBJECTIVE: BED MOBILITY/TRANSFERS: Supine-sit: independent Sit-stand: independent no device Stand-sit: independent Bed-chair: independent no device Chair-bed: independent no device Sit-supine: independent GAIT: deferred gait this mornning but is walking with PT at level of supervision with no device [id number] BALANCE: Static sitting: normal Dynamic Sitting: normal Static Standing good Dynamic Standing: fair ASSESSMENT: Pt is a 67yr old female admitted with sepsis, acute chronic obstructive pulmonary disease exacerbation in setting of chronic back pain, morbid obesity, depression, chronic obstructive pulmonary disease, diabetes, rheumatoid arthritis, congestive heart failure and neuropathy. Patient was seen for 2 PT visits. Progressed from supervision gait with no device 20ftx2 to 200ft. Pt has met therapy goals and is at baseline level of functional mobility, discharge from PT services. GOALS 1. Supine-sit: independent 2. Sit-Supine: independent 3. Sit-Stand: independent 4. Stand-sit: independent 5. Bed-Chair: independent 6. Chair-bed: independent 7. Gait 70ftx2, supervision 8. Pt I with pacing and energy conservation techniques Pt met goals 1-8 DISCHARGE RECOMMENDATIONS Home Pt has all DME. G Codes in the area mobility of walking and moving around:_projected status GP [id number], discharge status GP [id number] Shelly Kirkpatrick PT
--- NOTE | 2018-08-13 09:54 | OT.INDS ---
Date of service: 08/13/18 Time of Service: 08:20 Occupational Therapy Notes Occupational Therapy Inpatient Discharge Summary Date: 08/13/18 Dates of Service: 08/11/18-08/13/18 PRECAUTIONS: Standard Precautions. SUBJECTIVE: Pt was lying in bed when OT arrived. She reports that she is agreeable to OT session at this time. OBJECTIVE: PAIN: no c/o pain. FUNCTIONAL MOBILITY/ADLS: Supine-sit: (I) Sit-stand: (I) Stand-sit: (I) Bed-Bathroom: S BATHING in shower sitting on shower bench Upper Body: (I) with min verbal cues for washing hair. Lower Body: (I) pt was able to wash lower legs and feet. DRESSING Upper body: In sitting (I) [facility] gown and elainee. Lower Body: Able to transition from sit to stand: (I) with disposable underwear and socks. TOILETING: Assist: (I) Device: On toilet EATING: (I) with functional ROM and closing/opening containers. ASSESSMENT: : Patient is a 67-year-old female referred to occupational therapy services with diagnosis of eval and treat admitted to [facility] for sepsis and COPD exacerbation in setting of Osteopenia, chronic back pain, morbid obesity, right total knee replacement 2008 and 2011, revision 12/19, neuropathy, cardiomyopathy s/p cardiac catheterization 03/22/16, diabetes, rheumatoid arthritis, congestive heart failure, depression, chronic obstructive pulmonary disease, gastroesophageal reflux disease, hypertension, sleep apnea with nocturnal BiPap, diverticulitis, hypothyroidism. Pt was seen for 3 OT sessions and demonstrating ideal (I) in ADL routine in hospital setting. 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 At this time pt no longer requires skilled OT services. D/C pt from OT at this time. Recommend that pt return home when medically cleared. GOALS 1. Pt will be (I) in UE strengthening to increase (I) in functional ADLs/IADLs and increase pt's functional activity tolerance. Pt has met all OT goals at this time and is (I) in ADL routine in hospital setting. PLAN: Home when medically cleared. TREATMENT CODES/TIME: Self Carex3, 08:20 (45 min) G Codes in the area of self- : washing oneself, toileting, dressing, eating and drinking, current status GO G8987 CJ projected status GO [id number]. Discharge Status GO [id number] CI. Based on discharge AMPAC score of 23, CMS score 15.86%. Louisa Salazar OTR/L
--- NOTE | 2018-08-13 10:04 | OTDS_ITS ---
Date of service: 08/13/18 Time of Service: 08:20 Occupational Therapy Notes Occupational Therapy Inpatient Discharge Summary Date: 08/13/18 Dates of Service: 08/11/18-08/13/18 PRECAUTIONS: Standard Precautions. SUBJECTIVE: Pt was lying in bed when OT arrived. She reports that she is agreeable to OT session at this time. OBJECTIVE: PAIN: no c/o pain. FUNCTIONAL MOBILITY/ADLS: Supine-sit: (I) Sit-stand: (I) Stand-sit: (I) Bed-Bathroom: S BATHING in shower sitting on shower bench Upper Body: (I) with min verbal cues for washing hair. Lower Body: (I) pt was able to wash lower legs and feet. DRESSING Upper body: In sitting (I) [facility] gown and elainee. Lower Body: Able to transition from sit to stand: (I) with disposable underwear and socks. TOILETING: Assist: (I) Device: On toilet EATING: (I) with functional ROM and closing/opening containers. ASSESSMENT: : Patient is a 67-year-old female referred to occupational therapy services with diagnosis of eval and treat admitted to [facility] for sepsis and COPD exacerbation in setting of Osteopenia, chronic back pain, morbid obesity, right total knee replacement 2008 and 2011, revision 12/19, neuropathy, cardiomyopathy s/p cardiac catheterization 03/22/16, diabetes, rheumatoid arthritis, congestive heart failure, depression, chronic obstructive pulmonary disease, gastroesophageal reflux disease, hypertension, sleep apnea with nocturnal BiPap, diverticulitis, hypothyroidism. Pt was seen for 3 OT sessions and demonstrating ideal (I) in ADL routine in hospital setting. Pt is at baseline (I) for ADLs and is still performing her strengthening for her tomography technologist and ROM exercises 2x per day. At this time pt no longer requires skilled OT services. D/C pt from OT at this time. Recommend that pt return home when medically cleared. GOALS 1. Pt will be (I) in UE strengthening to increase (I) in functional ADLs/IADLs and increase pt's functional activity tolerance. Pt has met all OT goals at this time and is (I) in ADL routine in hospital setting. PLAN: Home when medically cleared. TREATMENT CODES/TIME: Self Carex3, 08:20 (45 min) G Codes in the area of self- : washing oneself, toileting, dressing, eating and drinking, current status GO G8987 CJ projected status GO [id number]. Discharge Status GO G8989 CI. Based on discharge AMPAC score of 23, CMS score 15.86%. Louisa Salazar OTR/L
[2018-08-13] MEDS: amLODIPine 5 MG TAB PO (12:05)
[2018-08-13] MEDS: Budesonide/Formoterol 160/4.5 6 GM 60 PUFF INH IH ×2 (13:56→20:10)
[2018-08-13] MEDS: Nystatin 500000 UNITS/5 ML SUSP 5ML CUP PO ×3 (14:43→22:32)
[2018-08-13] MEDS: Enoxaparin 40 MG/0.4 ML SYR SC (14:44)
[2018-08-13] MEDS: LEVOFLOXACIN 500 MG/100 ML BAG 100 MG IVPB (14:46)
--- NOTE | 2018-08-13 14:48 | PDOC.CMPRO ---
Care Management Progress Note S/O: Samantha was sitting up in bed, quite talkative with this principal technical writer. She shared concerns around going home-including regulating her heat. CM will continue to monitor clinical status and support discharge planning. Samantha was agreeable to discharging tomorrow as she is transitioning to orals today and could be ready as soon as tomorrow; per MD. CM reviewed discharge plan of notifying [facility] of planning; Samantha reported she did not want homemaking services tomorrow (or on day of discharge). Samantha also reported her MOW delivered meals are covered and her costs for meals at the [facility] are $4, only on Wednesdays when she plays [employer] and she elects to pay this amount. Britt confirmed this information earlier this week. CM left VM for [facility]: Fadi Escalona regarding regulating Samantha's heat. CM left VM for [facility] [place] [facility]-in place of Britt Trimble who does not work Wednesdays-notifying of tentative discharge for tomorrow; 08/14/18 and that patient was requesting not to have homemaking services for tomorrow. Samantha spoke in length about discomfort in her mouth and amena area-CM notified MD of this information and Samantha stated Nereida; RN was aware as well. A: 67 year old female admitted to [facility] 08/09/18 for Sepsis due to CAP. P: Samantha will return home when ready per MD. She will follow up with her PCP and community based supports as well as her plan of care as prescribed. She will transport via private vehicle with RCT coordinated by this principal technical writer. CM will continue to follow and support discharge planning considerations.
--- NOTE | 2018-08-13 15:23 | CMPROGNOTE_ITS ---
Care Management Progress Note S/O: Samantha was sitting up in bed, quite talkative with this publicity writer. She shared concerns around going home-including regulating her heat. CM will continue to monitor clinical status and support discharge planning. Samantha was agreeable to discharging tomorrow as she is transitioning to orals today and could be ready as soon as tomorrow; per MD. CM reviewed discharge plan of notifying [facility] of planning; Samantha reported she did not want homemaking services tomorrow (or on day of discharge). Samantha also reported her MOW delivered meals are covered and her costs for meals at the [facility] are $4, only on Wednesdays when she plays [employer] and she elects to pay this amount. Britt confirmed this information earlier this week. CM left VM for [facility]: Fadi Escalona regarding regulating Samantha's heat. CM left VM for [facility] [place] [facility]-in place of Britt Trimble who does not work Wednesdays-notifying of tentative discharge for tomorrow; 08/14/18 and that patient was requesting not to have homemaking services for tomorrow. Samantha spoke in length about discomfort in her mouth and amena area-CM notified MD of this information and Samantha stated Nereida; RN was aware as well. A: 67 year old female admitted to [facility] 08/09/18 for Sepsis due to CAP. P: Samantha will return home when ready per MD. She will follow up with her PCP and community based supports as well as her plan of care as prescribed. She will transport via private vehicle with RCT coordinated by this publicity writer. CM will continue to follow and support discharge planning considerations.
[2018-08-13] MEDS: Furosemide 40 MG TAB PO (17:28)
--- NOTE | 2018-08-13 17:46 | W.PM.PROGNOT ---
Date of Service Date of service: 08/13/18 Time of Service: 15:00 Assessment and Plan (1) Sepsis: Current visit: Yes Status: Acute Due to CAP. Sepsis resolved, CAP improved. Finish levofloxacin tomorrow. Continue steroid taper. (2) Acute exacerbation of chronic obstructive pulmonary disease (COPD): Current visit: Yes Status: Acute Continue levofloxacin, change steroids to PO, continue scheduled and prn nebs, symbicort, antitussives. BiPAP Qhs. (3) Congestive heart failure: Current visit: No Status: Chronic Chronic, systolic, due to NICMO, last known EF 40-45%. Continue lasix, aldactone. (4) Post-tussive emesis: Current visit: Yes Status: Resolved Resolved. (5) Hypertension: Current visit: No Status: Chronic Norvasc added today. Continue losartan, aldactone. (6) Hyperlipidemia: Current visit: No Status: Chronic No change in tx (7) DARYL (obstructive sleep apnea): Current visit: Yes Status: Chronic BiPAP Qhs (8) Non-insulin dependent type 2 diabetes mellitus: Current visit: Yes Status: Chronic With steroid induced hyperglycemia. Continue current basal bolus insulin. (9) Discharge planning issues: Current visit: Yes Status: Acute DNR/DNI, as verified with patient. Planned to be discharged home tomorrow. (10) DVT prophylaxis: Current visit: Yes Status: Acute Lovenox (11) Pharyngitis: Current visit: Yes Status: Acute dryness from O2 in addition to thrush. Nystatin + fluconazole prescribed (12) Vaginal candidiasis: Current visit: Yes Status: Acute Fluconazole PO + miconazole vaginally Subjective Interval history since last seen: Feels less short of breath. Complains of vaginal soreness when she wipes. Denies dysuria. No discharge. No chest pain, dizziness, or nausea. Agrees to go home tomorrow. Exam Narrative Exam Narrative: General: Very pleasant, Obese female, not short of breath at rest, does start to wheeze on exertion Neurological: A&OX3, No focal deficits Psychiatric: calm HEENT: EOMI, MMM, no goiter or JVD Cardiovascular: RRR, no m/r/g Lungs: wheezing on expiration B - only after exertion Gastrointestinal: abdomen soft, nontender, nondistended Genitourinary: vulvar erythema - exam only performed superficially Extremities: trace BLE edema, no clubbing/cyanosis Objective Objective Clinical Data: Abnormal lab results 08/13/18 08/13/18 Range/Units 07:30 07:30 RDW 15.0 H (11.7-14.6) % Absolute Neutrophils 7.89 H (1.2-6.7) k/cumm Sodium 135 L (136-145) mmol/L Chloride 97 L (98-107) mmol/L BUN 41 H (7-18) mg/dL Glucose 265 H (70-100) mg/dL Vital Signs Temperature 36.1 C L 08/13/18 11:25 Temperature Source Tympanic 08/13/18 11:25 Pulse 72 08/13/18 15:41 Pulse Rhythm Regular 08/13/18 16:47 Pulse 104 H 08/09/18 13:50 Respiratory Rate 18 08/13/18 15:41 Respiratory Effort 08/13/18 16:47 Respiratory Depth Deep 08/13/18 08:45 Respiratory Pattern Normal 08/13/18 08:45 Blood Pressure 148/86 H 08/13/18 11:25 Blood Pressure Mean 79 08/09/18 13:36 Pulse Oximetry 94 L 08/13/18 15:41 Respiratory End-tidal CO2 30 08/09/18 12:20 Oxygen Delivery Method Room Air 08/13/18 15:41 Oxygen Flow Rate 0 08/13/18 15:41 Pain Level 0 08/13/18 09:15 Comment 08/13/18 09:15 Intake & Output 08/12/18 08/13/18 08/13/18 23:59 11:59 23:59 Intake Total 1070 / 1070 560 / 560 400 / 400 Output Total 1000 / 1000 Balance 70 / 70 560 / 560 400 / 400 Weight 101.4 kg Intake: IV 110 / 110 Oral 960 / 960 560 / 560 400 / 400 Output: Urine 1000 / 1000 Other: Urine Color Yellow Yellow Urine Appearance Clear Clear Clear Urine Odor Normal Normal Comment VOID X 1 IN TOILET. WEARS BRIEFS BUT DRY AT THIS TIME. void x 1 in toilet amount unknown Stool Size Large Moderate Stool Characteristics Soft Soft Brown Voiding Methods Toilet Toilet Laboratory Results WBC 10.52 k/cumm (4.4-10.8) 08/13/18 07:30 RBC 4.04 m/cumm (4.00-5.20) 08/13/18 07:30 Hgb 12.5 g/dL (12.0-15.5) 08/13/18 07:30 Hct 37.6 % (36.0-46.0) 08/13/18 07:30 MCV 93.1 fL (80-95) 08/13/18 07:30 MCH 30.9 pg (27.0-33.0) 08/13/18 07:30 MCHC 33.2 g/dL (32.0-36.0) 08/13/18 07:30 RDW 15.0 % (11.7-14.6) H 08/13/18 07:30 Plt Count 341 x1000/uL (130-400) 08/13/18 07:30 MPV 10.1 fL (8.0-11.0) 08/13/18 07:30 Immature Gran % 0.0 08/13/18 07:30 Neutrophils % 75.0 08/13/18 07:30 Lymphocytes % 15.0 08/13/18 07:30 Monocytes % 4.0 08/13/18 07:30 Eosinophils % 0.0 08/13/18 07:30 Basophils % 0.0 08/13/18 07:30 Absolute Neutrophils 7.89 k/cumm (1.2-6.7) H 08/13/18 07:30 Absolute Lymphocytes 2.21 k/cumm (1.2-3.4) 08/13/18 07:30 Absolute Monocytes 0.42 k/cumm (0.11-0.7) 08/13/18 07:30 Absolute Eosinophils 0.00 k/cumm (0.0-0.7) 08/13/18 07:30 Absolute Basophils 0.00 k/cumm (0.0-0.2) 08/13/18 07:30 Differential Comment Manual differential 08/13/18 07:30 Atypical Lymphocytes 6 08/13/18 07:30 RBC Morphology Normal 08/13/18 07:30 PT 10.4 sec (9.3-10.8) 08/09/18 12:30 INR 1.1 (1.0-3.5) 08/09/18 12:30 APTT 22.1 sec (21.0-31.4) 08/09/18 12:30 D-Dimer 678 ng/mlFEU (<500) H 08/09/18 12:30 Sodium 135 mmol/L (136-145) L 08/13/18 07:30 Potassium 4.4 mmol/L (3.5-5.1) 08/13/18 07:30 Chloride 97 mmol/L (98-107) L 08/13/18 07:30 Carbon Dioxide 30.4 mmol/L (21.0-32.0) 08/13/18 07:30 Anion Gap 7.6 mmol/L (3-11) 08/13/18 07:30 BUN 41 mg/dL (7-18) H 08/13/18 07:30 Creatinine 0.93 mg/dL (0.55-1.02) 08/13/18 07:30 Estimated GFR/1.73 m2 59.78 (mL/min/1.73m2) 08/13/18 07:30 Glucose 265 mg/dL (70-100) H 08/13/18 07:30 Lactate 2.6 mmol/L (0.6-1.4) H 08/11/18 06:55 Calcium 9.2 mg/dL (8.5-10.1) 08/13/18 07:30 Magnesium 1.9 mg/dL (1.8-2.4) 08/13/18 07:30 Total Bilirubin 0.8 mg/dL (0.2-1.0) 08/09/18 12:30 AST 32 U/L (15-37) 08/09/18 12:30 ALT 41 U/L (12-78) 08/09/18 12:30 Alkaline Phosphatase 96 U/L (46-116) 08/09/18 12:30 Troponin I < 0.02 ng/mL (0.00-0.06) 08/10/18 08:10 NT-Pro-B Natriuret Pep 863 pg/mL (-299) H 08/09/18 12:30 Total Protein 7.0 g/dL (6.4-8.2) 08/09/18 12:30 Albumin 3.0 g/dL (3.4-5.0) L 08/09/18 12:30 TSH 0.39 uIU/mL (0.358-3.74) 08/10/18 08:10
[2018-08-13] MEDS: Fluconazole 150 MG TAB PO (19:05)
[2018-08-13] MEDS: predniSONE 20 MG TAB 40 MG PO (20:12)
[2018-08-13] MEDS: Mirtazapine 15 MG TAB 45 MG PO (22:31)
[2018-08-13] MEDS: Gabapentin 600 MG TAB PO (22:31)
[2018-08-13] MEDS: hydrOXYzine HCL 25 MG TAB PO (22:32)
[2018-08-13] MEDS: HYDROcodone 5/Acetaminophen 325 TAB PO (23:41)
[2018-08-14] VITALS (9 sets, daily range): BP systolic 132–151; BP diastolic 85–93; PULSE 75–91; RESP 2–22; TEMP 36.3–37.1; O2SAT 92–96
[2018-08-14] MEDS: Albuterol/Ipratropium 3 ML UPD VIAL UPD ×3 (05:09→18:10)
[2018-08-14] MEDS: Levothyroxine 125 MCG TAB PO (06:59)
[2018-08-14] MEDS: Nystatin 500000 UNITS/5 ML SUSP 5ML CUP PO ×5 (06:59→21:11)
[2018-08-14] MEDS: Esomeprazole 40 MG CAPCR PO (06:59)
[2018-08-14] MEDS: Gabapentin 100 MG CAP PO ×2 (07:00→12:23)
[2018-08-14 07:22] LABS: Abs Immature Grans 0.28 k/cumm (0.0-0.09); Absolute Basophil Count 0.02 k/cumm (0.0-0.2); Absolute Neutrophil Count 12.25 k/cumm (1.2-6.7); Basophils % 0.1; Eosinophils % 0.1; HCT 40.5 % (36.0-46.0); HGB 13.3 g/dL (12.0-15.5); Immature Grans % 1.8; Lymphocytes % 11.2; Mean Corp. HGB Concentration 32.8 g/dL (32.0-36.0); Mean Corpuscular Hemoglobin 30.9 pg (27.0-33.0); Mean Corpuscular Volume 94.2 fL (80-95); Monocytes % 8.3; Neutrophils % 78.5; Platelet Count 381 x1000/uL (130-400); RBC Distribution Width 15.5 % (11.7-14.6)
[2018-08-14 07:23] LABS: Absolute Eosinophil Count 0.02 k/cumm (0.0-0.7); Absolute Lymphocyte Count 1.75 k/cumm (1.2-3.4); Absolute Monocyte Count 1.29 k/cumm (0.11-0.7)
[2018-08-14 07:33] LABS: Anion Gap 9.3 mmol/L (3-11); BUN 41 mg/dL (7-18); CO2 30.7 mmol/L (21.0-32.0); CREATININE 1.19 mg/dL (0.55-1.02); Calcium 9.3 mg/dL (8.5-10.1); Chloride 95 mmol/L (98-107); Estimated GFR 44.97 (mL/min/1.73m2); Glucose 318 mg/dL (70-100); Magnesium 1.8 mg/dL (1.8-2.4); Potassium 4.7 mmol/L (3.5-5.1); Sodium 135 mmol/L (136-145)
[2018-08-14] MEDS: Furosemide 40 MG TAB PO ×2 (07:56→15:43)
[2018-08-14] MEDS: Acetaminophen 500 MG TAB 1000 MG PO ×2 (07:56→21:12)
[2018-08-14] MEDS: guaiFENesin 600 MG TABCR PO ×2 (07:57→21:11)
[2018-08-14] MEDS: Docusate Sodium 100 MG CAP PO ×3 (07:57→21:11)
[2018-08-14] MEDS: Montelukast 10 MG TAB PO (07:57)
[2018-08-14] MEDS: Magnesium Chloride 64 MG TABCR PO ×2 (07:57→21:11)
[2018-08-14] MEDS: Losartan 50 MG TAB PO (07:57)
[2018-08-14] MEDS: Senna TAB 1 TAB PO ×2 (07:57→21:12)
[2018-08-14] MEDS: amLODIPine 5 MG TAB PO (07:57)
[2018-08-14] MEDS: predniSONE 20 MG TAB 40 MG PO (07:57)
[2018-08-14] MEDS: Multivitamin w/Minerals TAB 1 TAB PO (07:57)
[2018-08-14] MEDS: Spironolactone 25 MG TAB PO (07:57)
[2018-08-14] MEDS: Venlafaxine 150 MG CAPCR PO ×2 (07:58→21:12)
[2018-08-14] MEDS: Metoprolol CR 50 MG TABCR PO (07:58)
[2018-08-14] MEDS: Folic Acid 1 MG TAB PO (07:58)
[2018-08-14] MEDS: Normal Saline Flush 10 ML SYR IVP ×3 (07:58→17:10)
[2018-08-14] MEDS: Insulin Aspart 300 UNITS/3 ML PEN SC ×5 (07:59→17:05)
[2018-08-14] MEDS: Insulin Glargine 300 UNITS/3 ML PEN 10 UNITS SC (08:01)
[2018-08-14] MEDS: Budesonide/Formoterol 160/4.5 6 GM 60 PUFF INH IH (10:06)
--- NOTE | 2018-08-14 11:36 | W.GYNCONSULT ---
Date of service: 08/14/18 Time of Service: 11:36 Assessment and Plan (1) Candidiasis of female genitalia: Start date: 08/12/18 Current visit: Yes Status: Acute 67 yo female admitted for CAP has had antibiotics and oral steroids. She is also diabetic and appears to have poor control as her recent BG >300. Her vulva erythema quite likely represents Candidiasis as she has multiple risk factors. She was just prescribed diflucan and vaginal yeast treatment. I recommend repeating the diflucan 150 mg po 72 hours after the first dose and adding a topical antifungal cream applied to the external vulva and perirectal region 3 times a day. It may take 1-2 weeks for resolution of rash/infection. History of Present Illness Chief Complaint: vulva erythema and pain Narrative: 67 yo with complaints of red, painful vulva, This started two days ago during this hospitalization. She denies itch or vaginal discharge. She was admitted and treated for Community Aquired Pneumonia. Her treatment included antibiotic Levaquine and Prednisone. 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 PFSH Family History Sister Diabetes Sister Hypertension Mother Stomach cancer Medical History CHF (congestive heart failure) COPD (chronic obstructive pulmonary disease) Chronic back pain Depression Diverticulosis GERD (gastroesophageal reflux disease) Hyperlipidemia Hypertension Hyperthyroidism DARYL (obstructive sleep apnea) Rheumatoid arthritis Social History Smoking/Tobacco Use Status: Former Tobacco Use Surgical History Abdominal hysterectomy Biopsy of breast section Cholecystectomy Replacement of total knee joint History History 2 Para 2 Hx # Term Pregnancies Multiple births Hx # Pregnancies Ectopic pregnancies AB induced Hx Number of Living Children AB spontaneous Exam Const General: cooperative Nutritional Appearance: obese Orientation: alert, awake and oriented x3 HENMT Teeth and gingiva: poor dentition External Female Exam: other (erythema of labia majora and minora extends across posterior forchette to anus lines of demarkation c/w yeast) Results Last Vital Signs Temp 36.3 C L 08/14/18 07:20 Pulse 86 11/08/18 07:20 Resp 18 08/14/18 07:20 BP 147/93 H 08/14/18 07:20 Pulse Ox 93 L 08/14/18 07:20 Labs : 08/14/18 07:10 08/14/18 07:10 Laboratory Results - last 24 hr 08/14/18 08/14/18 07:10 07:10 WBC 15.60 H D RBC 4.30 Hgb 13.3 Hct 40.5 MCV 94.2 MCH 30.9 MCHC 32.8 RDW 15.5 H Plt Count 381 MPV 10.0 Immature Gran % 1.8 Neutrophils % 78.5 Lymphocytes % 11.2 Monocytes % 8.3 Eosinophils % 0.1 Basophils % 0.1 Absolute Neutrophils 12.25 H Absolute Lymphocytes 1.75 Absolute Monocytes 1.29 H Absolute Eosinophils 0.02 Absolute Basophils 0.02 Sodium 135 L Potassium 4.7 Chloride 95 L Carbon Dioxide 30.7 Anion Gap 9.3 BUN 41 H Creatinine 1.19 H Estimated GFR/1.73 m2 44.97 Glucose 318 H Calcium 9.3 Magnesium 1.8
[2018-08-14] MEDS: LEVOFLOXACIN 500 MG/100 ML BAG 100 MG IVPB (11:43)
--- NOTE | 2018-08-14 11:45 | PDOC.CMDIS ---
Care Management Discharge Reason for Hospitalization: Sepsis, Acute COPD, Pneumonia-Community Aquired
--- NOTE | 2018-08-14 11:49 | GCONE_ITS ---
Date of service: 08/14/18 Time of Service: 11:36 Assessment and Plan (1) Candidiasis of female genitalia: Start date: 08/12/18 Current visit: Yes Status: Acute 67 yo female admitted for CAP has had antibiotics and oral steroids. She is also diabetic and appears to have poor control as her recent BG >300. Her vulva erythema quite likely represents Candidiasis as she has multiple risk factors. She was just prescribed diflucan and vaginal yeast treatment. I recommend repeating the diflucan 150 mg po 72 hours after the first dose and adding a topical antifungal cream applied to the external vulva and perirectal region 3 times a day. It may take 1-2 weeks for resolution of rash/infection. History of Present Illness Chief Complaint: vulva erythema and pain Narrative: 67 yo with complaints of red, painful vulva, This started two days ago during this hospitalization. She denies itch or vaginal discharge. She was admitted and treated for Community Aquired Pneumonia. Her treatment included antibiotic Levaquine and Prednisone. 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 PFSH Family History Sister Diabetes Sister Hypertension Mother Stomach cancer Medical History CHF (congestive heart failure) COPD (chronic obstructive pulmonary disease) Chronic back pain Depression Diverticulosis GERD (gastroesophageal reflux disease) Hyperlipidemia Hypertension Hyperthyroidism DARYL (obstructive sleep apnea) Rheumatoid arthritis Social History Smoking/Tobacco Use Status: Former Tobacco Use Surgical History Abdominal hysterectomy Biopsy of breast section Cholecystectomy Replacement of total knee joint History History 2 2 Para 2 Hx # Term Pregnancies Multiple births Hx # Pregnancies Ectopic pregnancies AB induced Hx Number of Living Children AB spontaneous Exam Const General: cooperative Nutritional Appearance: obese Orientation: alert, awake and oriented x3 HENMT Teeth and gingiva: poor dentition External Female Exam: other (erythema of labia majora and minora extends across posterior forchette to anus lines of demarkation c/w yeast) Results Last Vital Signs Temp 36.3 C L 08/14/18 07:20 Pulse 86 08/14/18 07:20 Resp 18 08/14/18 07:20 BP 147/93 H 08/14/18 07:20 Pulse Ox 93 L 08/14/18 07:20 Labs : 08/14/18 07:10 08/14/18 07:10 Laboratory Results - last 24 hr 08/14/18 08/14/18 07:10 07:10 WBC 15.60 H D RBC 4.30 Hgb 13.3 Hct 40.5 MCV 94.2 MCH 30.9 MCHC 32.8 RDW 15.5 H Plt Count 381 MPV 10.0 Immature Gran % 1.8 Neutrophils % 78.5 Lymphocytes % 11.2 Monocytes % 8.3 Eosinophils % 0.1 Basophils % 0.1 Absolute Neutrophils 12.25 H Absolute Lymphocytes 1.75 Absolute Monocytes 1.29 H Absolute Eosinophils 0.02 Absolute Basophils 0.02 Sodium 135 L Potassium 4.7 Chloride 95 L Carbon Dioxide 30.7 Anion Gap 9.3 BUN 41 H Creatinine 1.19 H Estimated GFR/1.73 m2 44.97 Glucose 318 H Calcium 9.3 Magnesium 1.8
[2018-08-14] MEDS: Insulin Glargine 300 UNITS/3 ML PEN SC (12:18)
--- NOTE | 2018-08-14 13:15 | DI.RAD_ITS ---
SYMPTOMS/DIAGNOSIS: F/U COPD, SEPSIS DUE TO COMMUNITY-ACQUIRED PNEUMONIA AP PORTABLE CHEST: The patient is somewhat rotated. The lungs are free of infiltrate. The heart is not enlarged. There is no evidence on this single projection to suggest acute cardiopulmonary disease.
[2018-08-14] MEDS: Enoxaparin 40 MG/0.4 ML SYR SC (14:01)
--- NOTE | 2018-08-14 14:40 | DM INPTCON_ITS ---
DESCRIPTION/ASSESSMENT: Advised that Samantha Kendall will be discharged needing a glucometer. She has never monitored her blood sugars and has always been told by PCP that her blood sugars are fine. At this time her blood sugars appear to be elevated due to steroid administration. INTERVENTION: Instructed on the use of the lancet device and glucometer. She is able to return demonstration using the lancet device. She has been shown repeatedly the use of the glucometer, however until she gets her own. I will follow up with her when she is discharged and ready to use her glucometer. PLAN: Review use of glucometer again tomorrow prior to her discharge. Will follow up at home with her after she obtains her glucometer.
--- NOTE | 2018-08-14 14:40 | PDOC.CMPRO ---
Care Management Progress Note S/O: Samantha was sitting up in bed; she remains animated and talkative. She will have a lozenge maker helper consult today per MD. She will also meet with a paraeducator and begin RN teaching with managing her diabetes in the home setting. Samantha reported she would accept referrals for VNA supports as recommended by MD; CM faxed referral to [facility]: intake for RN/PT and Better Breathing program/OT. CM will continue to follow and support discharge planning considerations. A: 67 year old female admitted to [facility] 08/09/18 for Sepsis due to CAP. P: Samantha will return home when ready per MD. She will follow up with her PCP and community based supports (Moderate Needs Homemaking, Case Management, MOW) as well as her plan of care as prescribed including new orders for [facility]: RN/PT and Better Breathing program/OT. She will transport via private vehicle with RCT coordinated by this teletypewriter operator. CM will continue to follow and support discharge planning considerations.
--- NOTE | 2018-08-14 15:07 | CMPROGNOTE_ITS ---
Care Management Progress Note S/O: Samantha was sitting up in bed; she remains animated and talkative. She will have a reserve operator consult today per MD. She will also meet with a childbirth educator and begin RN teaching with managing her diabetes in the home setting. Samantha reported she would accept referrals for VNA supports as recommended by MD; CM faxed referral to [facility]: intake for RN/PT and Better Breathing program/OT. CM will continue to follow and support discharge planning considerations. A: 67 year old female admitted to [facility] 08/09/18 for Sepsis due to CAP. P: Samantha will return home when ready per MD. She will follow up with her PCP and community based supports (Moderate Needs Homemaking, Case Management, MOW) as well as her plan of care as prescribed including new orders for [facility]: RN/PT and Better Breathing program/OT. She will transport via private vehicle with RCT coordinated by this music writer. CM will continue to follow and support discharge planning considerations.
[2018-08-14] MEDS: metFORMIN 500 MG TAB 1000 MG PO (17:05)
--- NOTE | 2018-08-14 17:57 | PGE_ITS ---
Date of Service Date of service: 08/14/18 Time of Service: 11:30 Assessment and Plan (1) Sepsis: Current visit: Yes Status: Acute Due to CAP. Sepsis resolved, CAP improved, though breathing is stagnant and not quite better from yesterday. Will continue levaquin for 2 more days. Will increase steroids today. (2) Acute exacerbation of chronic obstructive pulmonary disease (COPD): Current visit: Yes Status: Acute Continue levofloxacin, increase steroids to 60 mg of prednisone BID, continue scheduled and prn nebs, symbicort, antitussives. BiPAP Qhs. (3) Congestive heart failure: Current visit: No Status: Chronic Latest echo reviewed - EF at [facility] on 07/17/17 was actually 69%. Diastolic component likely. Continue oral diuresis. (4) Post-tussive emesis: Current visit: Yes Status: Resolved Resolved. (5) Hypertension: Current visit: No Status: Chronic Continue losartan, aldactone, norvasc. BP much better. (6) Hyperlipidemia: Current visit: No Status: Chronic No change in tx (7) DARYL (obstructive sleep apnea): Current visit: Yes Status: Chronic BiPAP Qhs (8) Non-insulin dependent type 2 diabetes mellitus: Current visit: Yes Status: Chronic With steroid induced hyperglycemia. I have asked diabetes education to go over fingersicks. Transitioning patient to double dose of metformin to ensure that it would be enough at discharge and that the patient wouldn't need insulin. (9) Discharge planning issues: Current visit: Yes Status: Acute DNR/DNI, as verified with patient. Likely discharge home tomorrow. (10) DVT prophylaxis: Current visit: Yes Status: Acute Lovenox (11) Pharyngitis: Current visit: Yes Status: Acute dryness from O2 in addition to thrush. Nystatin + fluconazole prescribed (12) Vaginal candidiasis: Current visit: Yes Status: Acute Fluconazole PO + miconazole/clotrimazole vaginally. Appreciate ELECTRONIC ORGAN TECHNICIAN help. Subjective Interval history since last seen: Feels better as far as breathing, but still quite wheezy today. Verbalized to me that she does not know how to check her blood sugars, does not own a glucometer or strips. Denies dizziness, chest pain, nausea, vomiting. Vaginal pain is better. Evaluated by ELECTRONIC ORGAN TECHNICIAN today and it is felt that she has vaginal candidiasis. Exam Narrative Exam Narrative: General: Very pleasant, Obese female, wheezing with exertion, no wheezing at rest. Neurological: A&OX3, No focal deficits Psychiatric: calm HEENT: EOMI, MMM, no goiter or JVD Cardiovascular: RRR, no m/r/g Lungs: wheezing on expiration B - only after exertion Gastrointestinal: abdomen soft, nontender, nondistended Extremities: trace BLE edema, no clubbing/cyanosis Objective Objective Clinical Data: Abnormal lab results 08/14/18 08/14/18 Range/Units 07:10 07:10 WBC 15.60 H D (4.4-10.8) k/cumm RDW 15.5 H (11.7-14.6) % Absolute Neutrophils 12.25 H (1.2-6.7) k/cumm Absolute Monocytes 1.29 H (0.11-0.7) k/cumm Sodium 135 L (136-145) mmol/L Chloride 95 L (98-107) mmol/L BUN 41 H (7-18) mg/dL Creatinine 1.19 H (0.55-1.02) mg/dL Glucose 318 H (70-100) mg/dL Vital Signs Temperature 36.9 C 08/14/18 16:00 Temperature Source Tympanic 08/14/18 16:00 Pulse 86 08/14/18 16:00 Pulse Rhythm Regular 08/14/18 15:33 Pulse 104 H 08/09/18 13:50 Respiratory Rate 22 08/14/18 16:00 Respiratory Effort 08/14/18 15:33 Respiratory Depth Normal 08/14/18 15:33 Respiratory Pattern Normal 08/14/18 15:33 Blood Pressure 132/87 08/14/18 16:00 Blood Pressure Mean 79 08/09/18 13:36 Pulse Oximetry 93 L 08/14/18 16:00 Respiratory End-tidal CO2 30 08/09/18 12:20 Oxygen Delivery Method Room Air 08/14/18 16:00 Oxygen Flow Rate 0 08/14/18 16:00 Pain Level 6 08/14/18 07:56 Comment 08/13/18 09:15 Intake & Output 08/13/18 08/14/18 08/14/18 23:59 11:59 23:59 Intake Total 500 / 500 142 / 142 Balance 500 / 500 142 / 142 Weight 100.7 kg Intake: IV 100 / 100 100 / 100 Oral 400 / 400 42 / 42 Other: Urine Color Yellow Yellow Urine Appearance Clear Clear Clear Urine Odor Normal Normal Comment pt voiding independently in the toilet Urine not seen, voided in toilet and flushed Stool Size Moderate Moderate Stool Characteristics Formed Soft Hard Formed Brown Voiding Methods Toilet Toilet Diaper Incontinent Laboratory Results WBC 15.60 k/cumm (4.4-10.8) H D 08/14/18 07:10 RBC 4.30 m/cumm (4.00-5.20) 08/14/18 07:10 Hgb 13.3 g/dL (12.0-15.5) 08/14/18 07:10 Hct 40.5 % (36.0-46.0) 08/14/18 07:10 MCV 94.2 fL (80-95) 08/14/18 07:10 MCH 30.9 pg (27.0-33.0) 08/14/18 07:10 MCHC 32.8 g/dL (32.0-36.0) 08/14/18 07:10 RDW 15.5 % (11.7-14.6) H 08/14/18 07:10 Plt Count 381 x1000/uL (130-400) 08/14/18 07:10 MPV 10.0 fL (8.0-11.0) 08/14/18 07:10 Immature Gran % 1.8 08/14/18 07:10 Neutrophils % 78.5 08/14/18 07:10 Lymphocytes % 11.2 08/14/18 07:10 Monocytes % 8.3 08/14/18 07:10 Eosinophils % 0.1 08/14/18 07:10 Basophils % 0.1 08/14/18 07:10 Absolute Neutrophils 12.25 k/cumm (1.2-6.7) H 08/14/18 07:10 Absolute Lymphocytes 1.75 k/cumm (1.2-3.4) 08/14/18 07:10 Absolute Monocytes 1.29 k/cumm (0.11-0.7) H 08/14/18 07:10 Absolute Eosinophils 0.02 k/cumm (0.0-0.7) 08/14/18 07:10 Absolute Basophils 0.02 k/cumm (0.0-0.2) 08/14/18 07:10 Differential Comment Manual differential 08/13/18 07:30 Atypical Lymphocytes 6 08/13/18 07:30 RBC Morphology Normal 08/13/18 07:30 PT 10.4 sec (9.3-10.8) 08/09/18 12:30 INR 1.1 (1.0-3.5) 08/09/18 12:30 APTT 22.1 sec (21.0-31.4) 08/09/18 12:30 D-Dimer 678 ng/mlFEU (<500) H 08/09/18 12:30 Sodium 135 mmol/L (136-145) L 08/14/18 07:10 Potassium 4.7 mmol/L (3.5-5.1) 08/14/18 07:10 Chloride 95 mmol/L (98-107) L 08/14/18 07:10 Carbon Dioxide 30.7 mmol/L (21.0-32.0) 08/14/18 07:10 Anion Gap 9.3 mmol/L (3-11) 08/14/18 07:10 BUN 41 mg/dL (7-18) H 08/14/18 07:10 Creatinine 1.19 mg/dL (0.55-1.02) H 08/14/18 07:10 Estimated GFR/1.73 m2 44.97 (mL/min/1.73m2) 08/14/18 07:10 Glucose 318 mg/dL (70-100) H 08/14/18 07:10 Lactate 2.6 mmol/L (0.6-1.4) H 08/11/18 06:55 Calcium 9.3 mg/dL (8.5-10.1) 08/14/18 07:10 Magnesium 1.8 mg/dL (1.8-2.4) 08/14/18 07:10 Total Bilirubin 0.8 mg/dL (0.2-1.0) 08/09/18 12:30 AST 32 U/L (15-37) 08/09/18 12:30 ALT 41 U/L (12-78) 08/09/18 12:30 Alkaline Phosphatase 96 U/L (46-116) 11/03/18 12:30 Troponin I < 0.02 ng/mL (0.00-0.06) 08/10/18 08:10 NT-Pro-B Natriuret Pep 863 pg/mL (-299) H 08/09/18 12:30 Total Protein 7.0 g/dL (6.4-8.2) 08/09/18 12:30 Albumin 3.0 g/dL (3.4-5.0) L 08/09/18 12:30 TSH 0.39 uIU/mL (0.358-3.74) 08/10/18 08:10
[2018-08-14] MEDS: Clotrimazole 1% 15 GM TUBE TP (21:10)
[2018-08-14] MEDS: predniSONE 20 MG TAB 60 MG PO (21:10)
[2018-08-14] MEDS: Gabapentin 600 MG TAB PO (21:11)
[2018-08-14] MEDS: Mirtazapine 15 MG TAB 45 MG PO (21:11)
[2018-08-14] MEDS: hydrOXYzine HCL 25 MG TAB PO (21:12)
[2018-08-15] VITALS (8 sets, daily range): BP systolic 93–143; BP diastolic 66–82; PULSE 60–104; RESP 2–24; TEMP 36.3–36.9; O2SAT 92–97
[2018-08-15] MEDS: Esomeprazole 40 MG CAPCR PO (06:22)
[2018-08-15] MEDS: Levothyroxine 125 MCG TAB PO (06:22)
[2018-08-15] MEDS: Albuterol/Ipratropium 3 ML UPD VIAL UPD ×2 (06:22→11:33)
[2018-08-15] MEDS: Nystatin 500000 UNITS/5 ML SUSP 5ML CUP PO ×3 (06:22→13:47)
[2018-08-15] MEDS: Gabapentin 100 MG CAP PO ×2 (06:22→12:44)
[2018-08-15 07:16] LABS: Absolute Eosinophil Count 0.01 k/cumm (0.0-0.7); Eosinophils % 0.1; Mean Corpuscular Volume 93.6 fL (80-95)
[2018-08-15 07:30] LABS: Abs Immature Grans 0.44 k/cumm (0.0-0.09); Absolute Basophil Count 0.04 k/cumm (0.0-0.2); Absolute Monocyte Count 0.93 k/cumm (0.11-0.7); Absolute Neutrophil Count 10.01 k/cumm (1.2-6.7); Basophils % 0.3; HCT 39.2 % (36.0-46.0); Lymphocytes % 13.1; Mean Corp. HGB Concentration 33.2 g/dL (32.0-36.0); Mean Platelet Volume 10.3 fL (8.0-11.0); Monocytes % 7.1; Neutrophils % 76.1; Platelet Count 356 x1000/uL (130-400); RBC 4.19 m/cumm (4.00-5.20); RBC Distribution Width 15.4 % (11.7-14.6); White Blood Cell Count 13.16 k/cumm (4.4-10.8)
[2018-08-15 07:31] LABS: Anion Gap 10.9 mmol/L (3-11); BUN 52 mg/dL (7-18); CO2 26.1 mmol/L (21.0-32.0); CREATININE 1.17 mg/dL (0.55-1.02); Calcium 9.2 mg/dL (8.5-10.1); Chloride 95 mmol/L (98-107); Estimated GFR 45.86 (mL/min/1.73m2); Glucose 364 mg/dL (70-100); Magnesium 1.9 mg/dL (1.8-2.4); Potassium 4.8 mmol/L (3.5-5.1); Sodium 132 mmol/L (136-145)
[2018-08-15 07:33] LABS: Absolute Lymphocyte Count 1.72 k/cumm (1.2-3.4)
[2018-08-15] MEDS: Budesonide/Formoterol 160/4.5 6 GM 60 PUFF INH IH (07:45)
[2018-08-15 08:00] LABS: Diff Comment Diff Reviewed; Immature Grans % 3.3
[2018-08-15] MEDS: Senna TAB 1 TAB PO (08:03)
[2018-08-15] MEDS: Venlafaxine 150 MG CAPCR PO (08:03)
[2018-08-15] MEDS: Folic Acid 1 MG TAB PO (08:03)
[2018-08-15] MEDS: metFORMIN 500 MG TAB 1000 MG PO ×2 (08:03→16:43)
[2018-08-15] MEDS: Metoprolol CR 50 MG TABCR PO (08:03)
[2018-08-15] MEDS: Acetaminophen 500 MG TAB 1000 MG PO (08:04)
[2018-08-15] MEDS: Multivitamin w/Minerals TAB 1 TAB PO (08:04)
[2018-08-15] MEDS: Spironolactone 25 MG TAB PO (08:04)
[2018-08-15] MEDS: Furosemide 40 MG TAB PO ×2 (08:05→16:44)
[2018-08-15] MEDS: Montelukast 10 MG TAB PO (08:05)
[2018-08-15] MEDS: Docusate Sodium 100 MG CAP PO ×2 (08:05→13:47)
[2018-08-15] MEDS: amLODIPine 5 MG TAB PO (08:05)
[2018-08-15] MEDS: guaiFENesin 600 MG TABCR PO (08:06)
[2018-08-15] MEDS: Magnesium Chloride 64 MG TABCR PO (08:06)
[2018-08-15] MEDS: Losartan 50 MG TAB PO (08:06)
[2018-08-15] MEDS: predniSONE 20 MG TAB 60 MG PO (08:06)
[2018-08-15] MEDS: Insulin Aspart 300 UNITS/3 ML PEN SC (08:07)
[2018-08-15] MEDS: Normal Saline Flush 10 ML SYR IVP (08:07)
[2018-08-15] MEDS: Clotrimazole 1% 15 GM TUBE TP (10:24)
--- NOTE | 2018-08-15 12:32 | DM INPTCON_ITS ---
DESCRIPTION/ASSESSMENT: Follow up with Samantha Kendall for glucometer use upon discharge home. Samantha does not feel she can make different food choices at home without someone helping her when she gets home. She eats pop tarts for breakfast; has cheese snacks, popcorn and other processed foods between meals. She gets meals on wheels for lunch but often does not like them and will heat up spaghettios instead. She does not cook herself a regular meal. She does like stewed tomatoes and cooked fresh spinach but finds it hard to afford. She dislikes meat and describes herself as a picky eater. She does not access the food shelves as they are struggling. She states she is hungry in the night and this prevents her from sleeping. She received 2 peanut butter toast and a couple of custards last night. INTERVENTION: Reviewed use of the lancet device and she is able to return demonstration. Verbal review of foods that raise blood sugar. Given that we do not have an A1c to assess her current diabetes management, it is difficult to know the benefit of a lower carbohydrate meal plan and further intervention. Explained that current medication of Metformin and Januvia will not cause hypoglycemia. PLAN: Will follow up after discharge; before as desired.
[2018-08-15] MEDS: Acetaminophen 325 MG TAB PO (12:50)
--- NOTE | 2018-08-15 13:30 | PDOC.CMDIS ---
LACE Index Scoring Tool - Questions: Length of Stay (in days): 4 - 6 Acuity (Admit via E.D.?): Yes Comorbidities: Diabetes w/o Complication, Chronic Pulmonary Disease E.D. Visits: 2 - Answers: Total Score: 12 Risk of Readmission: High Risk Care Management Discharge Reason for Hospitalization: Sepsis, Acute COPD, Pneumonia-Community Aquired Discharge Plan: Samantha will return home when ready per MD. She will follow up with her PCP and community based supports (Moderate Needs Homemaking, Case Management, MOW) as well as her plan of care as prescribed including new orders for [facility]: RN/PT and [facility] program/OT. Samantha will have new prescription for glucometer, coordinated by JAMI through [facility] in [facility]. She will transport via private vehicle with RCT also coordinated by this repairer typewriter. Patient/Family Education Needs: Diabetic education, discharge instructions, community based supports, discuss self care needs upon discharge. Services Needed at Discharge: DME Agency (Glucometer coordination), Home Delivered Meals, Home Health Care Services (RN, PT: [facility], OT), Homemaking Services ([employer]: [facility]), Transportation ([facility]CT )
[2018-08-15] MEDS: Enoxaparin 40 MG/0.4 ML SYR SC (13:48)
--- NOTE | 2018-08-15 14:00 | CMDISCH_ITS ---
LACE Index Scoring Tool - Questions: Length of Stay (in days): 4 - 6 Acuity (Admit via E.D.?): Yes Comorbidities: Diabetes w/o Complication, Chronic Pulmonary Disease E.D. Visits: 2 - Answers: Total Score: 12 Risk of Readmission: High Risk Care Management Discharge Reason for Hospitalization: Sepsis, Acute COPD, Pneumonia-Community Aquired Discharge Plan: Samantha will return home when ready per MD. She will follow up with her PCP and community based supports (Moderate Needs Homemaking, Case Management, MOW) as well as her plan of care as prescribed including new orders for [facility]: RN/PT and [facility] program/OT. Samantha will have new prescription for glucometer, coordinated by JAMI through [facility] in [facility]. She will transport via private vehicle with RCT also coordinated by this abstract writer. Patient/Family Education Needs: Diabetic education, discharge instructions, community based supports, discuss self care needs upon discharge. Services Needed at Discharge: DME Agency (Glucometer coordination), Home Delivered Meals, Home Health Care Services (RN, PT: [facility], OT), Homemaking Services ([employer]: [employer] Trimble), Transportation (RCT )
--- NOTE | 2018-08-15 15:48 | CHAPLAIN ---
Jacqueline was in bed, with the lights turned nearly off when I visited this afternoon. She said she would prefer to stay her one more night, but that she is likely going to be discharged today. She is worried about getting to the kennel to continuous pickling line pickler her dog.
--- NOTE | 2018-08-15 16:38 | W.PM.DS.N ---
Date of service: 08/15/18 Time of Service: 16:39 DS: Diagnosis Discharge Diagnosis (1) Sepsis: Status: Acute (2) Acute exacerbation of chronic obstructive pulmonary disease (COPD): Status: Acute (3) Congestive heart failure: Status: Chronic (4) Post-tussive emesis: Status: Resolved (5) Hypertension: Status: Chronic (6) Hyperlipidemia: Status: Chronic (7) DARYL (obstructive sleep apnea): Status: Chronic (8) Non-insulin dependent type 2 diabetes mellitus: Status: Chronic (9) Pharyngitis: Status: Acute (10) Vaginal candidiasis: Status: Acute Discharge Plan Disposition Patient Disposition: HOME W/HOME HEALTH SERVICE Condition: Stable Discharge Details Reason For Visit: SEPSIS DUE TO CAP Admit Date/Time: 08/09/18 13:33 Admit Provider: Yue Barker Attending Provider: Yue Barker Primary Care Provider: Keren Gonzalez Hospital Course Hospital Course: Ms Kendall is a 67 year old female with PMHx of non-oxygen dependent COPD, DARYL using BiPAP, NIDDM2, hypertension, hyperlipidemia who was admitted to [facility] on 08/09/18 for sepsis due to community acquired pneumonia which triggered an acute exacerbation of COPD. Imaging for pneumonia was negative, but clinically the patient did have pneumonia. She was treated with IV levofloxacin, intravenous systemic and inhaled corticosteroids, nebulizers and initially IV hydration. The patient had a sputum culture which grew Haemophilus influenzae, so her antibiotic choice was adequate. She responded very well to the therapy. She feels back to her baseline from the respiratory stand point. The patient's blood sugars naturally went up while she was on steroid therapy at the hospital. While she was treated with basal bolus insulin as an inpatient, the patient had never used insulin at home and, until this admission, did not even know how to check her sugars or have a glucometer. She underwent several sessions of diabetes education. We were able to transition her to oral hypoglycemic therapy with increased dose of metformin as well as newly initiated januvia with adequate blood sugar control for her to return home. She will be completing a steroid taper as an outpatient. Finally, the patient presented to us with a cut on her finger which, evidently, happened when she was trying to open a can. She received a tetanus vaccination on this admission. She is medically stable for discharge home today with home health nursing, PT, OT, and she is being referred to a better breathing program. Home Meds and New Rx's Prescriptions: New amlodipine 5 mg Tablet 5 mg PO DAILY Qty: 30 RF: 0 clotrimazole 1 % Cream 1 applic Topical BID Qty: 1 RF: 0 fluconazole 150 mg Tablet 150 mg PO ONCE Qty: 1 RF: 0 metformin 500 mg Tablet 1,000 mg PO BID@0800,1700 Qty: 30 RF: 0 magnesium chloride [Mag 64] 64 mg Tablet,Delayed Release (Dr/Ec) 64 mg PO BID 30 Days Qty: 60 RF: 0 guaifenesin [Mucinex] 600 mg Tablet Extended Release 12hr 600 mg PO BID Qty: 10 RF: 0 prednisone 20 mg Tablet See Label Instructions .ROUTE .COMPLEX Qty: 20 RF: 0 miconazole nitrate 2 % Cream Vaginal HS Qty: 1 RF: 0 sitagliptin [Januvia] 100 mg Tablet 100 mg PO DAILY Qty: 10 RF: 0 Continue venlafaxine [Effexor XR] 150 MG capsule,extended release 24hr 150 mg PO BID RF: 0 esomeprazole magnesium [Nexium] 40 MG capsule,delayed release(DR/EC) 40 mg PO DAILY RF: 0 levothyroxine [Synthroid] 125 MCG tablet 125 mcg PO DAILY RF: 0 folic acid 1 MG tablet 1 mg PO DAILY RF: 0 montelukast 10 MG tablet 10 mg PO DAILY RF: 0 albuterol sulfate [Proventil HFA] 6.7 GM HFA aerosol inhaler 2 puff Inhalation Q4H PRN RF: 0 multivit, iron, min no.8, FA [Therapeutic-M] 1 TAB tablet 1 tab PO DAILY RF: 0 meclizine [Antivert] 25 MG tablet 25 mg PO TID PRN PRNRF: 0 ranitidine HCl [Zantac] 150 MG tablet 300 mg PO HS RF: 0 losartan 50 MG tablet 50 mg PO DAILY Qty: 30 RF: 0 spironolactone 25 MG tablet 25 mg PO DAILY Qty: 30 RF: 0 metoprolol succinate 25 MG tablet extended release 24 hr 50 mg PO DAILY Qty: 30 RF: 0 furosemide 40 MG tablet 40 mg PO DAILY PRNRF: 0 acetaminophen [Tylenol Extra Strength] 500 mg Tablet 1,000 mg PO BID RF: 0 fluticasone-salmeterol [Advair Diskus] 250-50 mcg/dose Blister With Device 2 puff Inhalation BID RF: 0 methotrexate sodium 2.5 mg Tablet 12.5 mg PO QWEEK RF: 0 hydroxyzine HCl 25 mg Tablet 25 mg PO HS RF: 0 erenumab-aooe [Aimovig Autoinjector (2 Pack)] 70 mg/mL Auto-Injector 140 mg SUBCUT QMONTH RF: 0 ipratropium bromide 0.2 MG/1 ML solution 0.2 mg Inhalation QID PRN PRNQty: 100 RF: 0 gabapentin 300 MG capsule 600 mg PO HS RF: 0 mirtazapine 45 MG tablet 1 tab PO HS RF: 0 Changed albuterol sulfate 2.5 MG/3 ML solution for nebulization 2.5 mg Inhalation Q2H PRN PRN (Reason: shortness of breath or wheezing) Qty: 0 RF: 0 Discontinued metformin 500 MG tablet 500 mg PO BID@0800,1700 RF: 0 prednisone 50 MG tablet 50 mg PO DAILY 5 Days RF: 0 Discharge Instructions Instructions: Sepsis (GEN) Additional Instructions: Finish your steroid taper as prescribed. Finish your antifungal creams as prescribed. Measure your blood sugars 4 times a day - first thing in the morning before you eat or drink anything, then before lunch, right before dinner, and at bedtime. Contact your PCP if you notice your blood sugars in the 300 - 400 range for instructions. Go to ER if your blood sugar is >400. Return to the hospital with any fever, bleeding, chest pain, or shortness of breath. Stand Alone Forms: Nursing Discharge Form Referrals: Keren Gonzalez [Primary Care Provider] - 08/18/18 1:00 pm Activity:: Activity as Tolerated Equipment/Supplies:: No Equipment Needed Diet:: cardiac diabetic. Discharge Orders Discharge Orders: Discharge Order (Routine); Ordered 08/15/18 Ordered By: Yue Barker Exam Narrative Exam Narrative: General: Very pleasant, Obese female, sitting comfortably in bed Neurological: A&OX3, No focal deficits Psychiatric: calm HEENT: EOMI, MMM, no goiter or JVD Cardiovascular: RRR, no m/r/g Lungs: wheezing improved bilaterally Gastrointestinal: abdomen soft, nontender, nondistended Extremities: trace BLE edema, no clubbing/cyanosis DS: Data Vitals/I&O Vitals and I&O: Vital Signs Temperature 36.3 C L 08/15/18 16:28 Temperature Source Tympanic 08/15/18 16:28 Pulse 94 H 08/15/18 16:28 Pulse Rhythm Regular 08/15/18 07:40 Pulse 104 H 08/09/18 13:50 Respiratory Rate 20 08/15/18 16:28 Respiratory Effort Non-Labored 08/15/18 15:35 Respiratory Depth Normal 08/15/18 07:40 Respiratory Pattern Normal 08/15/18 07:40 Blood Pressure 127/72 08/15/18 16:28 Blood Pressure Mean 79 08/09/18 13:36 Pulse Oximetry 95 08/15/18 16:28 Respiratory End-tidal CO2 30 08/09/18 12:20 Oxygen Delivery Method Room Air 08/15/18 16:28 Oxygen Flow Rate 0 08/15/18 16:28 Pain Level 8 08/15/18 12:50 Comment 08/15/18 11:35 Intake & Output 08/14/18 08/15/18 08/15/18 23:59 11:59 23:59 Intake Total 742 / 742 790 / 790 240 / 240 Output Total 600 / 600 Balance 742 / 742 190 / 190 240 / 240 Weight 100.2 kg Intake: IV 100 / 100 Oral 642 / 642 790 / 790 240 / 240 Output: Urine 600 / 600 Other: Urine Color Yellow Yellow Urine Appearance Clear Clear Urine Odor Normal Comment pt passed urine in the tiolet state same is yellow and clear voiding thruout day shift Stool Size Moderate Large Stool Characteristics Soft Soft Formed Brown Voiding Methods Toilet Completed studies during hospitalization [Text1]: CXR 08/09/18: No acute pulmonary process. CXR 08/10/18: No acute pulmonary process. CXR 08/14/18: The patient is somewhat rotated. The lungs are free of infiltrate. The heart is not enlarged. There is no evidence on this single projection to suggest acute cardiopulmonary disease. Labs on day of discharge: Labs from last 24 hours 08/15/18 08/15/18 07:00 07:00 WBC 13.16 H RBC 4.19 Hgb 13.0 Hct 39.2 MCV 93.6 MCH 31.0 MCHC 33.2 RDW 15.4 H Plt Count 356 MPV 10.3 Immature Gran % 3.3 Neutrophils % 76.1 Lymphocytes % 13.1 Monocytes % 7.1 Eosinophils % 0.1 Basophils % 0.3 Absolute Neutrophils 10.01 H Absolute Lymphocytes 1.72 Absolute Monocytes 0.93 H Absolute Eosinophils 0.01 Absolute Basophils 0.04 Differential Comment Diff reviewed Sodium 132 L Potassium 4.8 Chloride 95 L Carbon Dioxide 26.1 Anion Gap 10.9 BUN 52 H D Creatinine 1.17 H Estimated GFR/1.73 m2 45.86 Glucose 364 H Calcium 9.2 Magnesium 1.9
--- NOTE | 2018-08-15 17:03 | PDOC.HHF2F ---
1. Encounter Date and Reason I certify that JANET ALAS was seen by Yue Barker on 08/15/18 and that I had a [id number] encounter with this patient that meets the physician face to face encounter requirements. 2. Clinical Findings Supporting Skilled Need and Homebound Status I certify that home health services are medically necessary, include either intermittent shelter and/or physical/speech therapy, and that this patient is homebound in that absences from the home require considerable and taxing effort and are infrequent or of short duration, or are attributable to the need to receive medical care. [X] (a) Attached documentation from encounter provides clinical findings supporting skilled need and homebound status (including what assistance patient requires to leave the home). The encounter with the patient was in whole, or in part, for the following medical condition, which is the primary reason for home health care: SEPSIS DUE TO CAP Care Home: medication review and teaching; education on blood sugar checks and diabetic diet Physical Therapy: eval and treat -[facility] Occupational Therapy: eval and treat Homebound: unable to leave home without assistance 3. Certification and Authentication I certify that I composed the above information based on my clinical judgement relating to this patient's medical condition and, if applicable, clinical findings communicated to me by the NPP or inpatient physician who performed the Home Health Referral. All further orders will be obtained through Dr Keren Gonzalez (Community Based Physician - PCP)
--- NOTE | 2018-08-18 15:19 | PDOC.CMPRO ---
- If Service Date Differs Date of service: 08/18/18 Time of Service: 15:19 Care Management Progress Note CM spoke with [facility] community service organization director to follow up community resources and medications. Samantha was able to picker all her medications and [facility] in [place] after insurance her copay was 34.72 which community connections will cover through unmet need funds. The glucometer after her insurance is 12.00 with the copay which will also be covered through unmet needs. CM confirmed with [employer] [employer] funds will be available to the pharmacies. Samantha's billing should through her spouse medicare which is [id number] and her VPHARM is [id number]. JAMI did speak with Samantha today and she has some concerns r/t glucose lancet device she states that it is not working right. JAMI contacted home health and spoke with Debi she will send the message to triage nurse. Samantha was unable to attend her [place] [facility] [place] to lack of transportation which needed to be arranged prior to the appointment. Samantha is aware of the appointment and feels confident in rescheduling the appointment and arranging her own transpiration. cad manager will continue to follow up with Samantha and provide support.
--- NOTE | 2018-08-18 15:32 | CMPROGNOTE_ITS ---
- If Service Date Differs Date of service: 08/18/18 Time of Service: 15:19 Care Management Progress Note CM spoke with [facility] community ambassador to follow up community resources and medications. Samantha was able to warehouse picker all her medications and [facility] in [place] after insurance her copay was 34.72 which community connections will cover through unmet need funds. The glucometer after her insurance is 12.00 with the copay which will also be covered through unmet needs. CM confirmed with [employer] funds will be available to the pharmacies. Samantha's billing should through her spouse medicare which is [id number] and her VPHARM is [id number]. JAMI did speak with Samantha today and she has some concerns r/t glucose lancet device she states that it is not working right. JAMI contacted home health and spoke with Debi she will send the message to triage nurse. Samantha was unable to attend her MD follow up appointment at [facility] due to lack of transportation which needed to be arranged prior to the appointment. Samantha is aware of the appointment and feels confident in rescheduling the appointment and arranging her own transpiration. innovation manager will continue to follow up with Samantha and provide support.
== END 2018-08-15 17:40 | disposition home health service (06) | DRG 871 ==
LOC: ER 14:32 → MS 14:40
PROVIDERS: Admitting Provider Internal Medicine; Emergency Provider Physician Assistant; PCP Internal Medicine; Visit Provider Internal Medicine
DX: A41.9 Sepsis, unspecified organism (principal); J14 Pneumonia due to Hemophilus influenzae; J44.1 Chronic obstructive pulmonary disease with (acute) exacerbation; J44.0 Chronic obstructive pulmonary disease with (acute) lower respiratory infection; I50.22 Chronic systolic (congestive) heart failure; B37.0 Candidal stomatitis; R09.02 Hypoxemia; E83.42 Hypomagnesemia; R94.31 Abnormal electrocardiogram [ECG] [EKG]; E78.5 Hyperlipidemia, unspecified; G47.33 Obstructive sleep apnea (adult) (pediatric); J02.9 Acute pharyngitis, unspecified; B37.3 Candidiasis of vulva and vagina; E11.65 Type 2 diabetes mellitus with hyperglycemia; T38.0X5A Adverse effect of glucocorticoids and synthetic analogues, initial encounter; Z71.3 Dietary counseling and surveillance; R13.11 Dysphagia, oral phase; Z68.39 Body mass index [BMI] 39.0-39.9, adult; M06.9 Rheumatoid arthritis, unspecified; I11.0 Hypertensive heart disease with heart failure; Z79.84 Long term (current) use of oral hypoglycemic drugs; K59.00 Constipation, unspecified
CPT/HCPCS: 36415; 36569; 80048; 80053; 87040; 87077; 92610; 93005; 94640; 96365; 97110; 97161; 97165; 97530; 97535; 99222; 99223; 99232; 99239; 99254; 99285; G8996; J1650; 71045; 71046; 83605; 83735; 83880; 84443; 84484; 85025; 85379; 85610; 85730; 87070; 87081; 87205; 93010; 94660; J1941; J1956; J2930; J3475; J3490; J7512; J7613; J7620

== ENCOUNTER 2018-08-27 11:03 | Observation (INO) | payer MEDICARE, SELFPAY ==
[2018-08-27] VITALS (15 sets, daily range): BP systolic 116–171; BP diastolic 71–105; PULSE 64–111; RESP 3–24; TEMP 36.5–37.2; O2SAT 92–98
--- NOTE | 2018-08-27 11:13 | DI.RAD_ITS ---
SYMPTOM/DIAGNOSIS: COUGH, SOB, ? PNEUMONIA PA AND LATERAL CHEST: The heart is normal in size. The lungs are clear. The mediastinal structures and pleura appear intact. CONCLUSION: Normal chest.
[2018-08-27 11:43] LABS: Lactate-non-spesis 1.5 mmol/L (0.6-1.4)
[2018-08-27 11:44] LABS: Abs Immature Grans 0.05 k/cumm (0.0-0.09); Absolute Basophil Count 0.03 k/cumm (0.0-0.2); Absolute Eosinophil Count 0.43 k/cumm (0.0-0.7); Absolute Lymphocyte Count 1.99 k/cumm (1.2-3.4); Absolute Neutrophil Count 4.54 k/cumm (1.2-6.7); Basophils % 0.4; Eosinophils % 5.5; HCT 38.8 % (36.0-46.0); HGB 12.9 g/dL (12.0-15.5); Immature Grans % 0.6; Lymphocytes % 25.4; Mean Corp. HGB Concentration 33.2 g/dL (32.0-36.0); Mean Corpuscular Hemoglobin 31.1 pg (27.0-33.0); Mean Corpuscular Volume 93.5 fL (80-95); Mean Platelet Volume 9.7 fL (8.0-11.0); Monocytes % 10.2; Neutrophils % 57.9; Platelet Count 294 x1000/uL (130-400); RBC 4.15 m/cumm (4.00-5.20); RBC Distribution Width 14.7 % (11.7-14.6); White Blood Cell Count 7.84 k/cumm (4.4-10.8)
--- NOTE | 2018-08-27 12:07 | W.ED.GENAD ---
Discharge Plan Disposition Patient Disposition: [facility] INPATIENT Condition: Stable Discharge Details Chief Complaint: Chest Pain Clinical Impression: Acute exacerbation of chronic obstructive pulmonary disease (COPD) Reason For Visit: ACUTE COPD EXACERBATION Admit Date/Time: 08/27/18 14:10 Admit Provider: Elbert Ashraf Attending Provider: Elbert Ashraf Primary Care Provider: Keren Gonzalez ED Provider: Destiny Bolaños Discharge Data Discharge Date/Time-TO BE ENTERED AT DEPARTURE: 08/27/18 16:37 Medical Decision Making 67-year-old female with history of COPD, obstructive sleep apnea, CHF, hypertension, hyperlipidemia, diabetes who presents for worsening shortness of breath with exertion and when supine as well as dry cough and substernal chest pain with coughing for the past week. Patient was admitted here 2 weeks ago and discharged on 08/15 for sepsis, pneumonia, COPD, pharyngitis and treated with IV Levaquin and steroids. Sputum culture grew H influenza. Diagnosis includes pneumonia, COPD exacerbation, CHF exacerbation, ACS, electrolyte abnormality. We will place an IV, labs, EKG, chest x-ray. EKG notes a rate of 62, sinus, no acute ST elevation or depression. QTc 367. QRS 82. 1340 --labs and imaging reviewed and note normal white blood cell count. Lactate 1.5. Troponin negative. BMP within normal limits. Chest x-ray negative. Patient ate a tray of food. 1355 -- Pt denies any relief after neb treatments. She is declining another treatment at this time due to feelings of dizziness with albuterol. Patient does not feel comfortable going home due to her shortness of breath. Patient does appear overall improved, however still noted to have some tachypnea with talking and coarse breath sounds. Will admit for observation for continued nebs and steroids. 1405 --discussed with hospitalist -accepts patient for admission. HPI General Mode of arrival: EMS. Date/Time Provider Initiated Documentation: 08/27/18 11:10. Limitations to Documentation: no limitations. Information obtained by: patient. HPI Narrative: Patient is a 67-year-old female who presents with shortness of breath for the past week. Patient was admitted here 2 weeks ago for pneumonia and states she felt better upon discharge and then her symptoms returned 1 week ago. She states she was sent home on prednisone which she finished 1 week ago. She states she was not sent home with antibiotics. She states her shortness of breath is worse with exertion and when laying flat. She also admits to dry cough and substernal chest pain is worse with coughing. She denies any known fever. She states she has been eating and drinking. Past medical history: Obstructive sleep apnea, CHF, hypertension, hyperlipidemia, COPD, GERD, rheumatoid arthritis, diabetes Surgical history: Cholecystectomy, hysterectomy, , total knee replacement Social history: Quit tobacco 20 years ago, smoked 2 packs a day for 10 years, denies alcohol or drugs Medications: See list Allergies: Penicillin, sulfa, aspirin, NSAIDs, cephalosporins PCP: Dr. Gonzalez Related Data Home Medications Medication Instructions Recorded Confirmed albuterol sulfate [Proventil HFA] 2 puff INHALATION Q4H PRN 02/02/14 08/27/18 esomeprazole magnesium [Nexium] 40 mg PO DAILY 02/02/14 08/27/18 folic acid 1 mg PO DAILY 02/02/14 08/27/18 levothyroxine [Synthroid] 125 mcg PO DAILY 02/02/14 08/27/18 montelukast 10 mg PO DAILY 02/02/14 08/27/18 multivit, iron, min no.8, FA 1 tab PO DAILY 02/02/14 08/27/18 [Therapeutic-M] venlafaxine [Effexor XR] 150 mg PO BID 02/02/14 08/27/18 meclizine [Antivert] 25 mg PO TID PRN PRN 05/14/16 08/27/18 ranitidine HCl [Zantac] 300 mg PO HS 05/14/16 08/27/18 losartan 50 mg PO DAILY #30 tab 05/21/16 08/27/18 metoprolol succinate 50 mg PO DAILY #30 tabcr 05/21/16 08/09/18 spironolactone 25 mg PO DAILY #30 tab 05/21/16 08/27/18 gabapentin 600 mg PO HS 01/23/17 08/27/18 mirtazapine 1 tab PO HS 03/07/17 08/27/18 acetaminophen [Tylenol Extra 1,000 mg PO BID 08/09/18 08/27/18 Strength] fluticasone-salmeterol [Advair 2 puff INHALATION BID 08/09/18 08/27/18 Diskus] furosemide 40 mg PO DAILY PRN 08/09/18 08/27/18 erenumab-aooe [Aimovig 140 mg SUBCUT QMONTH 08/10/18 08/27/18 Autoinjector (2 Pack)] hydroxyzine HCl 25 mg PO HS 08/10/18 08/27/18 methotrexate sodium 12.5 mg PO QWEEK 08/10/18 08/27/18 albuterol sulfate 2.5 mg INHALATION Q2H PRN PRN #0 08/15/18 08/27/18 vial clotrimazole 1 applic TOPICAL BID #1 tube 08/15/18 fluconazole 150 mg PO ONCE #1 tab 08/15/18 08/27/18 guaifenesin [Mucinex] 600 mg PO BID #10 tab 08/15/18 08/27/18 ipratropium bromide 0.2 mg INHALATION QID PRN PRN #100 08/15/18 08/27/18 amp metformin 1,000 mg PO BID@0800,1700 #30 tab 08/15/18 08/27/18 miconazole nitrate 0 g VAGINAL HS #1 pkg 08/15/18 08/27/18 prednisone See Label Instructions .ROUTE 08/15/18 08/27/18 .COMPLEX #20 tab Previous Rx's Medication Instructions Recorded losartan 50 mg PO DAILY #30 tab 05/21/16 metoprolol succinate 50 mg PO DAILY #30 tabcr 05/21/16 spironolactone 25 mg PO DAILY #30 tab 05/21/16 albuterol sulfate 2.5 mg INHALATION Q2H PRN PRN #0 08/15/18 vial clotrimazole 1 applic TOPICAL BID #1 tube 08/15/18 fluconazole 150 mg PO ONCE #1 tab 08/15/18 guaifenesin [Mucinex] 600 mg PO BID #10 tab 08/15/18 ipratropium bromide 0.2 mg INHALATION QID PRN PRN #100 08/15/18 amp metformin 1,000 mg PO BID@0800,1700 #30 tab 08/15/18 miconazole nitrate 0 g VAGINAL HS #1 pkg 08/15/18 prednisone See Label Instructions .ROUTE 08/15/18 .COMPLEX #20 tab Allergies Allergy/AdvReac Type Severity Reaction Status Date / Time NSAIDS (Non-Steroidal Allergy Severe Anaphylaxsi Unverified 08/27/18 12:44 Anti-Inflamma s cefpodoxime Allergy Intermediate Hives Unverified 08/27/18 12:44 chlorhexidine Allergy Intermediate Skin Rash Unverified 08/27/18 12:44 latex Allergy Intermediate Skin Rash Unverified 08/27/18 12:44 Penicillins Allergy Intermediate Hives Unverified 08/27/18 12:44 povidone-iodine Allergy Intermediate Unverified 08/27/18 12:44 duloxetine HCl Allergy Unknown Unverified 08/27/18 12:44 [From Cymbalta] indomethacin Allergy Unknown Unverified 08/27/18 12:44 propoxyphene Allergy Unknown Unverified 08/27/18 12:44 propranolol Allergy Unknown Unverified 08/27/18 12:44 adhesive AdvReac Intermediate dermatitis Unverified 08/27/18 12:44 aspirin AdvReac Intermediate Nausea Unverified 08/27/18 12:44 butorphanol AdvReac Intermediate nose bleeds Unverified 08/27/18 12:44 fexofenadine AdvReac Intermediate nose bleeds Unverified 08/27/18 12:44 hydrocodone AdvReac Intermediate confusion Unverified 08/27/18 12:44 hydroxychloroquine AdvReac Intermediate Visual Unverified 08/27/18 12:44 [Hydroxychloroquine] Disturbances hydroxyzine AdvReac Intermediate Nausea Unverified 08/27/18 12:44 methotrexate AdvReac Intermediate Nausea Unverified 08/27/18 12:44 morphine AdvReac Intermediate confusion Unverified 08/27/18 12:44 oxycodone [Oxycodone] AdvReac Intermediate confusion Unverified 08/27/18 12:44 pentazocine AdvReac Intermediate confusion Unverified 08/27/18 12:44 Sulfa (Sulfonamide AdvReac Intermediate Headache Unverified 08/27/18 12:44 Antibiotics) sumatriptan AdvReac Intermediate palpitation Unverified 08/27/18 12:44 s zolpidem [Zolpidem] AdvReac Intermediate confusion Unverified 08/27/18 12:44 General Stated Complaint: Chest Pain ARAVIND: 2 Review of Systems Review of Systems All systems reviewed & are unremarkable except as noted in HPI and below Constitutional Denies chills, Denies excessive sweating, Denies fatigue, Denies fever(s), Denies weakness and Denies weight loss Eyes Reports system reviewed and no additional complaints, except as docu and Denies blurry vision ENT Denies vertigo, Denies dizziness, Denies otalgia, Denies nasal congestion, Denies sore throat and Denies throat swelling Cardiovascular Reports chest pain, Denies syncope, Denies rapid heart rate and Reports dyspnea Respiratory Reports cough and Reports dyspnea Gastrointestinal Denies abdominal pain, Denies diarrhea and Denies vomiting Genitourinary Denies hematuria, Denies dysuria and Denies flank pain Musculoskeletal Denies back pain and Denies joint swelling Integumentary/Breasts Denies lesions and Denies rash Neurologic Denies behavioral changes, Denies confusion, Denies vertigo, Denies dizziness, Denies syncope and Denies weakness Psychiatric Denies behavioral changes, Denies confusion and Denies depression Endocrine Denies excessive sweating and Denies fatigue Hematologic/Lymphatic Denies easy bruising and Denies lymphadenopathy Allergic/Immunologic Denies throat swelling PFSH Family History Sister Diabetes Sister Hypertension Mother Stomach cancer Medical History CHF (congestive heart failure) COPD (chronic obstructive pulmonary disease) Chronic back pain Depression Diverticulosis GERD (gastroesophageal reflux disease) Hyperlipidemia Hypertension Hyperthyroidism DARYL (obstructive sleep apnea) Rheumatoid arthritis Social History Smoking/Tobacco Use Status: Former Tobacco Use Surgical History Abdominal hysterectomy Biopsy of breast section Cholecystectomy Replacement of total knee joint Exam Const General: cooperative and healthy appearing Orientation: alert and awake [facility] Head: normal to inspection Ears: hearing grossly normal bilaterally and external ears normal General nose exam: external nose normal Face and sinus: normal facial exam Mouth: oral mucosae normal Eyes General: appearance normal, both eyes and all related structures Eyelids: eyelids normal EOM: EOM intact bilaterally Neck Neck: normal visual inspection Lymphatic: no lymphadenopathy noted Chest Chest: normal inspection of the chest Resp Effort & Inspection: normal respiratory effort and able to speak in complete sentences Auscultation: rhonchi upper bilaterally and lower bilaterally and wheezes scattered wheezes Cardio Rate: regular rate Rhythm: regular rhythm GI Inspection: normal to inspection Palpation: soft, not firm, no guarding, no hepatosplenomegaly, no masses and nontender Auscultation: normal bowel sounds Skin General skin exam: no rashes or lesions noted Neuro General: alert and awake Cognition: normal cognition Speech: speech normal Gait: normal gait Motor: muscle tone normal throughout Sensory Exam: no sensory deficits noted Extrem General: normal to inspection, full ROM, normal capillary refill and no edema Psych Appearance: grossly normal Mental Status: mental status grossly normal Speech and Movement: speech and movement normal Affect: normal affect Thought Process: normal Course Vital Signs Temperature 98.4 F 08/27/18 11:10 Pulse 82 08/27/18 11:10 Respiratory Rate 15 08/27/18 11:10 Blood Pressure 151/92 H 08/27/18 11:10 Pulse Oximetry 98 08/27/18 11:10 Temperature 98.4 F 08/27/18 11:10 Temperature Source Temporal Artery Scan 08/27/18 11:10 Pulse 82 08/27/18 11:10 Pulse 65 08/27/18 11:30 Respiratory Rate 19 08/27/18 11:30 Blood Pressure 151/92 H 08/27/18 11:10 Blood Pressure Position Sitting 08/27/18 11:10 Pulse Oximetry 97 08/27/18 11:30 Oxygen Delivery Method Nasal Cannula 08/27/18 11:10 Pain Level 8 08/27/18 11:10 Lab/Test Results Lab/Test Results: Laboratory Tests Range/Units 08/27/18 08/27/18 11:25 11:25 WBC (4.4-10.8) k/cumm 7.84 RBC (4.00-5.20) m/cumm 4.15 Hgb (12.0-15.5) g/dL 12.9 Hct (36.0-46.0) % 38.8 MCV (80-95) fL 93.5 MCH (27.0-33.0) pg 31.1 MCHC (32.0-36.0) g/dL 33.2 RDW (11.7-14.6) % 14.7 H Plt Count (130-400) x1000/uL 294 MPV (8.0-11.0) fL 9.7 Immature Gran % 0.6 Neutrophils % 57.9 Lymphocytes % 25.4 Monocytes % 10.2 Eosinophils % 5.5 Basophils % 0.4 Absolute Neutrophils (1.2-6.7) k/cumm 4.54 Absolute Lymphocytes (1.2-3.4) k/cumm 1.99 Absolute Monocytes (0.11-0.7) k/cumm 0.80 H Absolute Eosinophils (0.0-0.7) k/cumm 0.43 Absolute Basophils (0.0-0.2) k/cumm 0.03 Lactate (0.6-1.4) mmol/L 1.5 H
[2018-08-27 12:11] LABS: ALT 96 U/L (12-78); AST 50 U/L (15-37); Albumin 3.2 g/dL (3.4-5.0); Alkaline Phosphatase 105 U/L (46-116); Anion Gap 8.3 mmol/L (3-11); BUN 13 mg/dL (7-18); Bilirubin, Total 0.4 mg/dL (0.2-1.0); CO2 25.7 mmol/L (21.0-32.0); CREATININE 0.94 mg/dL (0.55-1.02); Calcium 9.3 mg/dL (8.5-10.1); Chloride 104 mmol/L (98-107); Estimated GFR 59.04 (mL/min/1.73m2); Glucose 236 mg/dL (70-100); Magnesium 1.5 mg/dL (1.8-2.4); NT-proBNP 117 pg/mL; Sodium 138 mmol/L (136-145); Total Protein 6.9 g/dL (6.4-8.2)
[2018-08-27 12:12] LABS: Troponin I < 0.02 ng/mL (0.00-0.06)
[2018-08-27] MEDS: Albuterol 2.5 MG/3 ML INH SOLN VIAL UPD (12:28)
[2018-08-27] MEDS: methylPREDNISolone SUCC 125 MG VIAL IVP (12:28)
[2018-08-27] MEDS: Furosemide 40 MG/4 ML VIAL IVP (12:29)
[2018-08-27] MEDS: Albuterol/Ipratropium 3 ML UPD VIAL UPD ×2 (12:43→21:11)
[2018-08-27] MEDS: MAGNESIUM SULFATE 2 GM/50 ML BAG IVPB (15:01)
--- NOTE | 2018-08-27 17:09 | W.PM.HP.N ---
Date of service: 08/27/18 Time of Service: 17:10 Assessment and Plan (1) Acute exacerbation of chronic obstructive pulmonary disease (COPD): Current visit: No Status: Acute Continue scheduled nebulizer treatments and steroids overnight. Reassess complete blood count in the morning. Could be considered for discharge tomorrow if she continues to improve. She will likely require a long steroid taper as she was recently hospitalized and just completed a prednisone taper at home. (2) Non-insulin dependent type 2 diabetes mellitus: Current visit: No Status: Chronic Hold metformin while an inpatient. Monitor blood sugar before meals and at bedtime. Aspart insulin per sliding scale. Continue ADA diet. (3) DVT prophylaxis: Current visit: No Status: Acute Subcutaneous Lovenox. (4) Discharge planning issues: Current visit: No Status: Acute She is a DNR/DNI. May be considered for discharge in the next 24-48 hours if she continues to improve. This case was discussed with Dr. Ashraf who is in agreement. History of Present Illness Chief Complaint: Shortness of breath Narrative: Samantha Kendall is a 67 year old female with history of COPD, obstructive sleep apnea, CHF, hypertension, hyperlipidemia, diabetes who presents for worsening shortness of breath with exertion as well as a nonproductive cough and some chest pain that worsens with deep breathing. She was recently admitted to the hospital for sepsis, pneumonia, COPD and pharyngitis, she was treated with Levaquin and steroids. Her sputum culture gres H. influenza at that time. She was discharged on 08/15/18. In the emergency department today she had an EKG which revealed a rate of 62, sinus, no acute ST elevation or depression. QTc 367. QRS 82. She had labs drawn which showed a normal white blood cell count, her lactate was 1.5, troponin negative, BMP normal. She had a chest X-ray that was read as negative for acute process. She received nebulizer treatments and IV steroids in the ED. She continued to have some shortness of breath and is now admitted to the med/surg floor for observation, nebulizer treatments and steroids. Of note, she does not report that she has shortness of breath at baseline. She called emergency medical services today because she felt like she might stop breathing. She does not believe that she has seen a caramel cutter helper recently. Review of Systems Constitutional Denies chills, Denies fatigue and Denies fever(s) ENT Denies nasal congestion, Denies nasal discharge and Denies sore throat Cardiovascular Reports chest pain (substernal chest discomfort, increases with deep breathing. ), Denies syncope, Reports edema (She reports mild lower extremity edema.) and Reports dyspnea on exertion Respiratory Reports cough (nonproductive. ), Reports dyspnea on exertion and Reports wheezing Gastrointestinal Denies abdominal pain, Denies constipation, Denies diarrhea, Denies nausea, Denies vomiting and Reports other (Had normal BM today. ) Genitourinary Denies hematuria, Reports urinary frequency, Denies dysuria, Reports urinary incontinence and Reports urinary urgency Musculoskeletal Denies abnormal gait and Reports other (denies pain.) Neurologic Denies abnormal speech, Denies abnormal gait, Denies confusion and Denies syncope Psychiatric Denies confusion Endocrine Denies fatigue Allergic/Immunologic Reports wheezing PFSH Family History Sister Diabetes Sister Hypertension Mother Stomach cancer Medical History CHF (congestive heart failure) COPD (chronic obstructive pulmonary disease) Chronic back pain Depression Diverticulosis GERD (gastroesophageal reflux disease) Hyperlipidemia Hypertension Hyperthyroidism DARYL (obstructive sleep apnea) Rheumatoid arthritis Social History Smoking/Tobacco Use Status: Former Tobacco Use Surgical History Abdominal hysterectomy Biopsy of breast section Cholecystectomy Replacement of total knee joint Meds Home Medications Medication Instructions Recorded Confirmed Type albuterol sulfate [Proventil HFA] 2 puff INHALATION Q4H PRN 02/02/14 08/27/18 History esomeprazole magnesium [Nexium] 40 mg PO DAILY 02/02/14 08/27/18 History folic acid 1 mg PO DAILY 02/02/14 08/27/18 History levothyroxine [Synthroid] 125 mcg PO DAILY 02/02/14 08/27/18 History montelukast 10 mg PO DAILY 02/02/14 08/27/18 History multivit, iron, min no.8, FA 1 tab PO DAILY 02/02/14 08/27/18 History [Therapeutic-M] venlafaxine [Effexor XR] 150 mg PO BID 02/02/14 08/27/18 History meclizine [Antivert] 25 mg PO TID PRN PRN 05/14/16 08/27/18 History ranitidine HCl [Zantac] 300 mg PO HS 05/14/16 08/27/18 History losartan 50 mg PO DAILY #30 tab 05/21/16 08/27/18 Rx metoprolol succinate 50 mg PO DAILY #30 tabcr 05/21/16 08/09/18 Rx spironolactone 25 mg PO DAILY #30 tab 05/21/16 08/27/18 Rx gabapentin 600 mg PO HS 01/23/17 08/27/18 History mirtazapine 1 tab PO HS 03/07/17 08/27/18 History acetaminophen [Tylenol Extra 1,000 mg PO BID 08/09/18 08/27/18 History Strength] fluticasone-salmeterol [Advair 2 puff INHALATION BID 08/09/18 08/27/18 History Diskus] furosemide 40 mg PO DAILY PRN 08/09/18 08/27/18 History erenumab-aooe [Aimovig 140 mg SUBCUT QMONTH 08/10/18 08/27/18 History Autoinjector (2 Pack)] hydroxyzine HCl 25 mg PO HS 08/10/18 08/27/18 History methotrexate sodium 12.5 mg PO QWEEK 08/10/18 08/27/18 History albuterol sulfate 2.5 mg INHALATION Q2H PRN PRN #0 08/15/18 08/27/18 Rx vial clotrimazole 1 applic TOPICAL BID #1 tube 08/15/18 Rx fluconazole 150 mg PO ONCE #1 tab 08/15/18 08/27/18 Rx guaifenesin [Mucinex] 600 mg PO BID #10 tab 08/15/18 08/27/18 Rx ipratropium bromide 0.2 mg INHALATION QID PRN PRN #100 08/15/18 08/27/18 Rx amp metformin 1,000 mg PO BID@0800,1700 #30 tab 08/15/18 08/27/18 Rx miconazole nitrate 0 g VAGINAL HS #1 pkg 08/15/18 08/27/18 Rx prednisone See Label Instructions .ROUTE 08/15/18 08/27/18 Rx .COMPLEX #20 tab Allergies Allergy/AdvReac Type Severity Reaction Status Date / Time NSAIDS (Non-Steroidal Allergy Severe Anaphylaxsi Unverified 08/27/18 12:44 Anti-Inflamma s cefpodoxime Allergy Intermediate Hives Unverified 08/27/18 12:44 chlorhexidine Allergy Intermediate Skin Rash Unverified 08/27/18 12:44 latex Allergy Intermediate Skin Rash Unverified 08/27/18 12:44 Penicillins Allergy Intermediate Hives Unverified 08/27/18 12:44 povidone-iodine Allergy Intermediate Unverified 08/27/18 12:44 duloxetine HCl Allergy Unknown Unverified 08/27/18 12:44 [From Cymbalta] indomethacin Allergy Unknown Unverified 08/27/18 12:44 propoxyphene Allergy Unknown Unverified 08/27/18 12:44 propranolol Allergy Unknown Unverified 08/27/18 12:44 adhesive AdvReac Intermediate dermatitis Unverified 08/27/18 12:44 aspirin AdvReac Intermediate Nausea Unverified 08/27/18 12:44 butorphanol AdvReac Intermediate nose bleeds Unverified 08/27/18 12:44 fexofenadine AdvReac Intermediate nose bleeds Unverified 08/27/18 12:44 hydrocodone AdvReac Intermediate confusion Unverified 08/27/18 12:44 hydroxychloroquine AdvReac Intermediate Visual Unverified 08/27/18 12:44 [Hydroxychloroquine] Disturbances hydroxyzine AdvReac Intermediate Nausea Unverified 08/27/18 12:44 methotrexate AdvReac Intermediate Nausea Unverified 08/27/18 12:44 morphine AdvReac Intermediate confusion Unverified 08/27/18 12:44 oxycodone [Oxycodone] AdvReac Intermediate confusion Unverified 08/27/18 12:44 pentazocine AdvReac Intermediate confusion Unverified 08/27/18 12:44 Sulfa (Sulfonamide AdvReac Intermediate Headache Unverified 08/27/18 12:44 Antibiotics) sumatriptan AdvReac Intermediate palpitation Unverified 08/27/18 12:44 s zolpidem [Zolpidem] AdvReac Intermediate confusion Unverified 08/27/18 12:44 Exam Narrative Exam Narrative: General: Pleasant and cooperative, well appearing, in no acute distress. HEENT: Normocephalic, atraumatic, mucous membranes moist. Edentulous. Pupils equal round and reactive to light. Neck: Supple, no lymphadenopathy, no JVD. Respiratory: Respirations appear even and unlabored. Expiratory wheezing with prolonged expiratory phase noted throughout. Rhonchorous breath sounds throughout. No rales. Cardiovascular: Heart has a regular rate and rhythm. No murmur, click, gallop or rub. Gastrointestinal: Normoactive bowel sounds, abdomen soft, nontender on palpation with no masses appreciated. Extremities: Well perfused. Mild edema to the right lower extremity. Pedal pulses palpable bilaterally. Skin: Bruise noted to left hand. Neurological: No focal deficits. Results Labs : 08/27/18 11:25 08/27/18 11:25 Laboratory Results - last 24 hr 08/27/18 08/27/18 08/27/18 11:25 11:25 11:25 WBC 7.84 RBC 4.15 Hgb 12.9 Hct 38.8 MCV 93.5 MCH 31.1 MCHC 33.2 RDW 14.7 H Plt Count 294 MPV 9.7 Immature Gran % 0.6 Neutrophils % 57.9 Lymphocytes % 25.4 Monocytes % 10.2 Eosinophils % 5.5 Basophils % 0.4 Absolute Neutrophils 4.54 Absolute Lymphocytes 1.99 Absolute Monocytes 0.80 H Absolute Eosinophils 0.43 Absolute Basophils 0.03 Sodium 138 Potassium 4.0 Chloride 104 Carbon Dioxide 25.7 Anion Gap 8.3 BUN 13 Creatinine 0.94 Estimated GFR/1.73 m2 59.04 Glucose 236 H Lactate 1.5 H Calcium 9.3 Magnesium 1.5 L Total Bilirubin 0.4 AST 50 H ALT 96 H Alkaline Phosphatase 105 Troponin I < 0.02 NT-Pro-B Natriuret Pep 117 Total Protein 6.9 Albumin 3.2 L Last Vital Signs Temp 37.2 C 08/27/18 16:26 Pulse 90 08/27/18 16:26 Resp 20 08/27/18 16:26 BP 116/71 08/27/18 16:41 Pulse Ox 95 08/27/18 16:26
[2018-08-27] MEDS: Enoxaparin 40 MG/0.4 ML SYR SC (17:59)
[2018-08-27] MEDS: Insulin Aspart 300 UNITS/3 ML PEN SC (17:59)
[2018-08-27] MEDS: predniSONE 20 MG TAB 60 MG PO (17:59)
[2018-08-27] MEDS: Normal Saline Flush 10 ML SYR IVP (18:35)
[2018-08-27] MEDS: Budesonide/Formoterol 160/4.5 6 GM 60 PUFF INH IH (20:11)
[2018-08-27] MEDS: Venlafaxine 150 MG CAPCR PO (20:11)
[2018-08-27] MEDS: Acetaminophen 500 MG TAB 1000 MG PO (20:11)
[2018-08-27] MEDS: Mirtazapine 15 MG TAB 45 MG PO (21:12)
[2018-08-27] MEDS: Gabapentin 300 MG CAP 600 MG PO (21:12)
[2018-08-27] MEDS: hydrOXYzine HCL 25 MG TAB PO (21:12)
[2018-08-28] MEDS: Albuterol/Ipratropium 3 ML UPD VIAL UPD ×3 (03:30→14:18)
[2018-08-28 06:43] LABS: Abs Immature Grans 0.08 k/cumm (0.0-0.09); Absolute Basophil Count 0.01 k/cumm (0.0-0.2); Absolute Eosinophil Count 0.01 k/cumm (0.0-0.7); Absolute Lymphocyte Count 0.86 k/cumm (1.2-3.4); Absolute Monocyte Count 0.36 k/cumm (0.11-0.7); Absolute Neutrophil Count 9.49 k/cumm (1.2-6.7); Basophils % 0.1; Eosinophils % 0.1; Immature Grans % 0.7; Mean Corp. HGB Concentration 33.3 g/dL (32.0-36.0); Mean Corpuscular Hemoglobin 30.9 pg (27.0-33.0); Mean Corpuscular Volume 92.8 fL (80-95); Mean Platelet Volume 10.1 fL (8.0-11.0); Monocytes % 3.3; Neutrophils % 87.8; Platelet Count 316 x1000/uL (130-400); RBC 3.88 m/cumm (4.00-5.20); RBC Distribution Width 14.7 % (11.7-14.6); White Blood Cell Count 10.81 k/cumm (4.4-10.8)
[2018-08-28 06:56] LABS: ALT 81 U/L (12-78); AST 27 U/L (15-37); Alkaline Phosphatase 108 U/L (46-116); Anion Gap 14.6 mmol/L (3-11); BUN 22 mg/dL (7-18); Bilirubin, Total 0.2 mg/dL (0.2-1.0); CO2 21.4 mmol/L (21.0-32.0); CREATININE 1.28 mg/dL (0.55-1.02); Calcium 9.7 mg/dL (8.5-10.1); Chloride 98 mmol/L (98-107); Estimated GFR 41.35 (mL/min/1.73m2); Potassium 4.3 mmol/L (3.5-5.1); Sodium 134 mmol/L (136-145); Total Protein 6.9 g/dL (6.4-8.2)
[2018-08-28 07:20] VITALS: O2SAT 95
[2018-08-28 07:24] LABS: Glucose 529 mg/dL (70-100)
[2018-08-28] MEDS: Insulin Aspart 300 UNITS/3 ML PEN SC ×2 (07:36→11:53)
--- NOTE | 2018-08-28 07:52 | PDOC.CMIN ---
Care Management Initial Assess REASON FOR HOSPITALIZATION:: Acute COPD exacerbation PAST MEDICAL HISTORY/PAST SURGICAL HISTORY:: non-oxygen dependent COPD, DARYL on noctunral BiPAP, NIDDM2, hypertension, hyperlipidemia, CHF, Chronic back pain, Depression, Diverticulosis, GERD, heart murmur, DARYL, Ostopenia, bladder incontinence, iron defificie, insomnia, chronic back pain, fatty liver, Hyperthyroidism, DARYL, Rheumatoid arthritis, Abdominal hysterectomy, Biopsy of breast, section, Cholecystectomy, Tonsillectomy, Replacement of total knee joint PREVIOUS FUNCTIONAL STATUS/SOCIAL/FAMILY SUPPORTS:: Samantha resides alone in [place], [place] in a handicap apartment building named [facility] She reports the building is equipped with an elevator. She has a good friend, Nereida who resides at the [facility]. She also reports having two daughters; Salena and Darya. Salena resides in [place], [place] and Darya resides at [facility]. Samantha reports utilizing [facility] for transportation. She reports enjoying attending [facility] once a week and her dog Berna is her main delivery and mail sorter. CURRENT FUNCTIONAL STATUS:: Samantha was sitting up in bed when CM met with her. She was readying for discharge and requested transport support. ADVANCE DIRECTIVES:: On file - Montse Sender is agent, Jeevan Lobato is alternate agent. Has patient been provided with information about the portal?: Yes Did the patient sign up for the portal?: No CODE STATUS:: DNR/DNI INSURANCE COVERAGE / FINANCIAL ISSUES:: Medicare, Medicaid CURRENT HOME/COMMUNITY SERVICES/EQUIPMENT:: Homemaker 1x/week through [facility] moderate needs with Britt Trimble as her showcase maker. CPAP, FWW, tub bench/shower chair, grab bars, nebulizer. Diability supports. Income based housing: $293/mth, uses meal site. PRIMARY CARE PHYSICIAN:: Keren Gonzalez; [facility] POTENTIAL DISCHARGE NEEDS:: Resumption of community based supports, evaluation for further needs, follow up appointments. PATIENT/FAMILY EDUCATION NEEDS:: Review discharge instructions, discuss Ask Me Three. ANTICIPATED BARRIERS TO DISCHARGE:: None identified. TRANSPORTATION:: Via [facility]. PLAN:: Samantha will return home when ready per MD. She will follow up with her PCP and community based supports-she shares she is currently struggling with food stability due to costs of MOW and adjusting her radiant heat. She will transport via private vehicle with [facility]. CM will continue to follow and support discharge planning considerations. Readmission - Within the Past 30 Days Yes or No: Y - Date of First Admission Date of 1st Admission: 08/09/18 - Date of this Admission Date of Admission: 08/26/18 This admission was: Through ED - Office Visit Since 1st Admission Had an appointment Been Scheduled?: Yes Date of Scheduled Appointment: 11 Describe barriers for scheduling or getting an appointment: [facility] not scheduled for transport on holiday upon discharge. - Assessment for Readmission Summary of readmission circumstances, based upon interviews: Identified process intervention for improvement; PCP appointment made by M/S community resource consultant---CM unaware and did not coordinate [facility] transportation to [facility] PCP follow up.
--- NOTE | 2018-08-28 07:58 | INITIAL_ITS ---
Care Management Initial Assess REASON FOR HOSPITALIZATION:: Acute COPD exacerbation PAST MEDICAL HISTORY/PAST SURGICAL HISTORY:: non-oxygen dependent COPD, DARYL on noctunral BiPAP, NIDDM2, hypertension, hyperlipidemia, CHF, Chronic back pain, Depression, Diverticulosis, GERD, heart murmur, DARYL, Ostopenia, bladder incontinence, iron defificie, insomnia, chronic back pain, fatty liver, Hyperthyroidism, DARYL, Rheumatoid arthritis, Abdominal hysterectomy, Biopsy of breast, section, Cholecystectomy, Tonsillectomy, Replacement of total knee joint PREVIOUS FUNCTIONAL STATUS/SOCIAL/FAMILY SUPPORTS:: Samantha resides alone in [place], [place] in a handicap apartment building named the [facility]. She reports the building is equipped with an elevator. She has a good friend, Nereida who resides at the [facility]. She also reports having two daughters; Salena and Darya. Salena resides in [place], [place] and Darya resides at [facility]. Samantha reports utilizing [facility] for transportation. She reports enjoying attending [facility] once a week and her dog Berna is her main group home counselor. CURRENT FUNCTIONAL STATUS:: Samantha was sitting up in bed when CM met with her. She was readying for discharge and requested transport support. ADVANCE DIRECTIVES:: On file - Montse Sender is agent, Jeevan Lobato is alternate agent. Has patient been provided with information about the portal?: Yes Did the patient sign up for the portal?: No CODE STATUS:: DNR/DNI INSURANCE COVERAGE / FINANCIAL ISSUES:: Medicare, Medicaid CURRENT HOME/COMMUNITY SERVICES/EQUIPMENT:: Homemaker 1x/week through [facility] moderate needs with Britt Trimble as her bottle caser. CPAP, FWW, tub bench/ shower chair, grab bars, nebulizer. Diability supports. Income based housing: $ 293/mth, uses meal site. PRIMARY CARE PHYSICIAN:: Keren Gonzalez; [facility] POTENTIAL DISCHARGE NEEDS:: Resumption of community based supports, evaluation for further needs, follow up appointments. PATIENT/FAMILY EDUCATION NEEDS:: Review discharge instructions, discuss Ask Me Three. ANTICIPATED BARRIERS TO DISCHARGE:: None identified. TRANSPORTATION:: Via [facility]. PLAN:: Samantha will return home when ready per MD. She will follow up with her PCP and community based supports-she shares she is currently struggling with food stability due to costs of MOW and adjusting her radiant heat. She will transport via private vehicle with [facility]. CM will continue to follow and support discharge planning considerations. Readmission - Within the Past 30 Days Yes or No: Y - Date of First Admission Date of 1st Admission: 08/09/18 - Date of this Admission Date of Admission: 08/26/18 This admission was: Through ED - Office Visit Since 1st Admission Had an appointment Been Scheduled?: Yes Date of Scheduled Appointment: 11 Describe barriers for scheduling or getting an appointment: [facility] not scheduled for transport on holiday upon discharge. - Assessment for Readmission Summary of readmission circumstances, based upon interviews: Identified process intervention for improvement; PCP appointment made by M/S service unit operator---CM unaware and did not coordinate [facility] transportation to [facility] PCP follow up.
[2018-08-28] MEDS: Budesonide/Formoterol 160/4.5 6 GM 60 PUFF INH IH (08:00)
[2018-08-28] MEDS: Losartan 50 MG TAB PO (09:01)
[2018-08-28] MEDS: Acetaminophen 500 MG TAB 1000 MG PO (09:01)
[2018-08-28] MEDS: Multivitamin w/Minerals TAB 1 TAB PO (09:01)
[2018-08-28] MEDS: Levothyroxine 125 MCG TAB PO (09:01)
[2018-08-28] MEDS: predniSONE 20 MG TAB 60 MG PO (09:01)
[2018-08-28] MEDS: Esomeprazole 40 MG CAPCR PO (09:01)
[2018-08-28] MEDS: Venlafaxine 150 MG CAPCR PO (09:02)
[2018-08-28] MEDS: Folic Acid 1 MG TAB PO (09:02)
[2018-08-28] MEDS: Montelukast 10 MG TAB PO (09:02)
[2018-08-28] MEDS: Spironolactone 25 MG TAB PO (09:02)
[2018-08-28] MEDS: Normal Saline 1,000 ML 500 ML IV (09:12)
[2018-08-28] MEDS: Insulin Glargine 300 UNITS/3 ML PEN 20 UNITS SC (09:18)
[2018-08-28 09:20] VITALS: BP 159/95; PULSE 102; RESP 24; TEMP 36.3; O2SAT 95
--- NOTE | 2018-08-28 10:01 | CHAPLAIN ---
Jacqueline and I know each other from previous admissions. This morning she tells me that her blood sugar is very high, but she didn't know it because she doesn't check it at home. She was looking for someone to call last night, she said, because she needed someone to be a mom to me. Her daughter was headed out of town. Jacqueline was able to have someone take her dog to the kennel while she is here. Last time she was here, the kennel cost her $300, she said. Neither her daughter or her sister, Rivka, know she is here. Jacqueline said she is thinking of changing her contact worker lithography to be her sister instead of her daughter, because she often can't reach her daughter.
[2018-08-28 12:27] LABS: Anion Gap 12.1 mmol/L (3-11); BUN 23 mg/dL (7-18); CO2 22.9 mmol/L (21.0-32.0); Calcium 9.9 mg/dL (8.5-10.1); Chloride 99 mmol/L (98-107); Estimated GFR 54.97 (mL/min/1.73m2); Glucose 305 mg/dL (70-100); Potassium 4.2 mmol/L (3.5-5.1); Sodium 134 mmol/L (136-145)
[2018-08-28 12:31] LABS: Hemoglobin A1C 7.7 % (4.5-6.2)
--- NOTE | 2018-08-28 13:57 | PDOC.CMDIS ---
LACE Index Scoring Tool - Questions: Length of Stay (in days): 2 Acuity (Admit via E.D.?): Yes Comorbidities: Congestive Heart Failure, Chronic Pulmonary Disease E.D. Visits: 3 - Answers: Total Score: 13 Risk of Readmission: High Risk Care Management Discharge Reason for Hospitalization: Acute COPD exacerbation Discharge Plan: Samantha will return home when ready per MD. She will follow up with her PCP and resume community based supports. She will transport via private vehicle with [facility] coordinated by this feature writer. Patient/Family Education Needs: Review discharge instructions, discuss Ask Me Three. Services Needed at Discharge: Home Delivered Meals, Home Health Care Services, Homemaking Services, Transportation
--- NOTE | 2018-08-28 14:01 | CMDISCH_ITS ---
LACE Index Scoring Tool - Questions: Length of Stay (in days): 2 Acuity (Admit via E.D.?): Yes Comorbidities: Congestive Heart Failure, Chronic Pulmonary Disease E.D. Visits: 3 - Answers: Total Score: 13 Risk of Readmission: High Risk Care Management Discharge Reason for Hospitalization: Acute COPD exacerbation Discharge Plan: Samantha will return home when ready per MD. She will follow up with her PCP and resume community based supports. She will transport via private vehicle with [facility] coordinated by this travel writer. Patient/Family Education Needs: Review discharge instructions, discuss Ask Me Three. Services Needed at Discharge: Home Delivered Meals, Home Health Care Services, Homemaking Services, Transportation
--- NOTE | 2018-08-28 14:02 | W.PM.DS.N ---
DS: Diagnosis Discharge Diagnosis (1) Acute exacerbation of chronic obstructive pulmonary disease (COPD): Status: Acute (2) Non-insulin dependent type 2 diabetes mellitus: Status: Chronic (3) DVT prophylaxis: Status: Acute (4) Discharge planning issues: Status: Acute Discharge Plan Disposition Patient Disposition: HOME Condition: Stable Discharge Details Chief Complaint: Chest Pain Reason For Visit: ACUTE COPD EXACERBATION Admit Date/Time: 08/27/18 14:10 Admit Provider: Elbert Ashraf Attending Provider: Elbert Ashraf Primary Care Provider: Keren Gonzalez ED Provider: Destiny Bolaños Hospital Course Hospital Course: 67-year-old female with a history of COPD, sleep apnea, CHF, diabetes who presented with worsening shortness of breath and nonproductive cough. She had a recent hospitalization with treatment of H. influenzae pneumonia with levofloxacin and was discharged on 08/15/18 on a steroid taper that finished a few days prior to presentation. Chest x-ray was negative. She was not hypoxic in the emergency room, and at discharge was considered, but she felt uncomfortable going home at that time. She did get 1 dose of IV Solu-Medrol, then was treated with oral prednisone. By the next morning, she was breathing comfortably on room air with clear lungs. She was discharged with her chronic inhalers, as well as the addition of a long-acting muscarinic agonist Spiriva. He was not given antibiotics as she did not have fever or sputum production. She is on methotrexate, but exam was not consistent with lung fibrosis. She did get a dose of furosemide in the emergency room. She had a mild increase in her BUN and creatinine and anion gap that improved with gentle boluses for a total of 1 L and her oral intake. BMP was ordered for prior to follow-up appointment. She was hyperglycemic requiring sliding scale coverage. Her A1c was 7.7. She did not receive IV contrast, so she was instructed to restart her metformin immediately upon discharge. She may benefit from additional diabetic agent. I did not add another agent upon discharge as the patient states she did not know how to use her glucometer. Given heart disease, I would consider sodium glucose transporter agent or glucagon like peptide 1 agonist. The patient does express anxiety around her medical care and a lack of understanding of her medication. Given her complex medical needs, intensive care management would be prudent to help her navigate the medical system and avoid inappropriate care. Home Meds and New Rx's Prescriptions: New tiotropium bromide [Spiriva with HandiHaler] 18 mcg Capsule, W/Inhalation Device 1 cap Inhalation DAILY Qty: 30 RF: 1 tiotropium bromide [Spiriva with HandiHaler] 18 mcg capsule, w/inhalation device 1 cap IH DAILY Qty: 30 RF: 1 Continue venlafaxine [Effexor XR] 150 MG capsule,extended release 24hr 150 mg PO BID RF: 0 esomeprazole magnesium [Nexium] 40 MG capsule,delayed release(DR/EC) 40 mg PO DAILY RF: 0 levothyroxine [Synthroid] 125 MCG tablet 125 mcg PO DAILY RF: 0 folic acid 1 MG tablet 1 mg PO DAILY RF: 0 montelukast 10 MG tablet 10 mg PO DAILY RF: 0 albuterol sulfate [Proventil HFA] 6.7 GM HFA aerosol inhaler 2 puff Inhalation Q4H PRN RF: 0 multivit, iron, min no.8, FA [Therapeutic-M] 1 TAB tablet 1 tab PO DAILY RF: 0 meclizine [Antivert] 25 MG tablet 25 mg PO TID PRN PRNRF: 0 ranitidine HCl [Zantac] 150 MG tablet 300 mg PO HS RF: 0 losartan 50 MG tablet 50 mg PO DAILY Qty: 30 RF: 0 spironolactone 25 MG tablet 25 mg PO DAILY Qty: 30 RF: 0 metoprolol succinate 25 MG tablet extended release 24 hr 50 mg PO DAILY Qty: 30 RF: 0 furosemide 40 MG tablet 40 mg PO DAILY PRNRF: 0 acetaminophen [Tylenol Extra Strength] 500 mg Tablet 1,000 mg PO BID RF: 0 fluticasone-salmeterol [Advair Diskus] 250-50 mcg/dose Blister With Device 2 puff Inhalation BID RF: 0 methotrexate sodium 2.5 mg Tablet 12.5 mg PO QWEEK RF: 0 hydroxyzine HCl 25 mg Tablet 25 mg PO HS RF: 0 erenumab-aooe [Aimovig Autoinjector (2 Pack)] 70 mg/mL Auto-Injector 140 mg SUBCUT QMONTH RF: 0 clotrimazole 1 % Cream 1 applic Topical BID Qty: 1 RF: 0 metformin 500 mg Tablet 1,000 mg PO BID@0800,1700 Qty: 30 RF: 0 miconazole nitrate 2 % Cream Vaginal HS Qty: 1 RF: 0 albuterol sulfate 2.5 MG/3 ML solution for nebulization 2.5 mg Inhalation Q2H PRN PRN (Reason: shortness of breath or wheezing) Qty: 0 RF: 0 ipratropium bromide 0.2 MG/1 ML solution 0.2 mg Inhalation QID PRN PRNQty: 100 RF: 0 gabapentin 300 MG capsule 600 mg PO HS RF: 0 mirtazapine 45 MG tablet 1 tab PO HS RF: 0 Changed prednisone 20 mg Tablet See Label Instructions .ROUTE .COMPLEX 13 Days Qty: 20 RF: 0 Discontinued fluconazole 150 mg Tablet 150 mg PO ONCE Qty: 1 RF: 0 guaifenesin [Mucinex] 600 mg Tablet Extended Release 12hr 600 mg PO BID Qty: 10 RF: 0 Discharge Instructions Instructions: COPD (Chronic Obstructive Pulmonary Disease) (DC) Additional Instructions: refrigeration supervisor the prednisone and start taking the medication tomorrow following directions RT new inhaler, Spiriva. Make sure you understand how to use it before you leave the pharmacy. You were given this here at the hospital. Heart back on your regular diabetic medications starting with the Metformin this evening. Avoid a lot of sugar and starchy foods so that your blood sugar does not get worse. Sure you are staying hydrated. Get your blood test before your next appointment next week with your primary care. Activity:: Activity as Tolerated Equipment/Supplies:: No Equipment Needed Diet:: Carb Counting Discharge Orders Discharge Orders: Discharge Order (Routine); Ordered 08/28/18 Ordered By: Elbert Ashraf Other Ambulatory Orders: Basic Metabolic Panel (Routine) Timeframe: 1 Week Location: Determined by Patient Ordered By: Elbert Ashraf Exam Narrative Exam Narrative: General: Pleasant and cooperative, well appearing, in no acute distress. speaking in full sentences HEENT: mucous membranes moist. Edentulous. Neck: Supple, no lymphadenopathy, no JVD. Respiratory: Respirations appear even and unlabored. Lungs clear to auscultation bilaterally with no wheezing or rales. Cardiovascular: Heart has a regular rate and rhythm. No murmur, click, gallop or rub. Gastrointestinal: Normoactive bowel sounds, abdomen soft, nontender on palpation with no masses appreciated. Extremities: Well perfused. Trace bilateral edema with slightly more in the right lower extremity, nontender DS: Data Vitals/I&O Vitals and I&O: Vital Signs Temperature 36.3 C L 08/28/18 09:20 Temperature Source Tympanic 08/28/18 09:20 Pulse 102 H 08/28/18 09:20 Pulse Rhythm Regular 08/27/18 20:56 Pulse 65 08/27/18 11:30 Respiratory Rate 24 08/28/18 09:20 Respiratory Effort 08/27/18 20:56 Respiratory Depth Normal 08/27/18 20:56 Respiratory Pattern Normal 08/27/18 20:56 Blood Pressure 159/95 H 08/28/18 09:20 Blood Pressure Position Sitting 08/27/18 11:10 Pulse Oximetry 95 08/28/18 09:20 Oxygen Delivery Method Room Air 08/28/18 09:20 Oxygen Flow Rate 0 08/28/18 09:20 Pain Level 8 08/27/18 16:22 Comment 08/27/18 13:41 Intake & Output 08/27/18 08/28/18 08/28/18 23:59 11:59 23:59 Intake Total 380 / 380 600 / 600 Output Total 1680 / 1680 Balance -1300 / -1300 600 / 600 Weight 100.1 kg 102.1 kg Intake: IV 20 Oral 360 / 360 600 / 600 Output: Urine 1680 / 1680 Other: Urine Color Yellow Urine Appearance Clear Urine Odor Normal Comment mixed with stool. Stool Size Small Stool Characteristics Soft Formed Brown Voiding Methods Bedside Commode Bedside Commode Labs on day of discharge: Labs from last 24 hours 08/28/18 08/28/18 08/28/18 11:55 11:55 06:25 WBC 10.81 H D RBC 3.88 L Hgb 12.0 Hct 36.0 MCV 92.8 MCH 30.9 MCHC 33.3 RDW 14.7 H Plt Count 316 MPV 10.1 Immature Gran % 0.7 Neutrophils % 87.8 Lymphocytes % 8.0 Monocytes % 3.3 Eosinophils % 0.1 Basophils % 0.1 Absolute Neutrophils 9.49 H Absolute Lymphocytes 0.86 L Absolute Monocytes 0.36 Absolute Eosinophils 0.01 Absolute Basophils 0.01 Sodium 134 L Potassium 4.2 Chloride 99 Carbon Dioxide 22.9 Anion Gap 12.1 H BUN 23 H Creatinine 1.00 Estimated GFR/1.73 m2 54.97 Glucose 305 H D Hemoglobin A1c 7.7 H Calcium 9.9 Total Bilirubin AST ALT Alkaline Phosphatase Total Protein Albumin 08/28/18 06:25 WBC RBC Hgb Hct MCV MCH MCHC RDW Plt Count MPV Immature Gran % Neutrophils % Lymphocytes % Monocytes % Eosinophils % Basophils % Absolute Neutrophils Absolute Lymphocytes Absolute Monocytes Absolute Eosinophils Absolute Basophils Sodium 134 L Potassium 4.3 Chloride 98 Carbon Dioxide 21.4 Anion Gap 14.6 H BUN 22 H D Creatinine 1.28 H Estimated GFR/1.73 m2 41.35 Glucose 529 H* D Hemoglobin A1c Calcium 9.7 Total Bilirubin 0.2 AST 27 ALT 81 H Alkaline Phosphatase 108 Total Protein 6.9 Albumin 3.0 L PFSH Family History Sister Diabetes Sister Hypertension Mother Stomach cancer Medical History CHF (congestive heart failure) COPD (chronic obstructive pulmonary disease) Chronic back pain Depression Diverticulosis GERD (gastroesophageal reflux disease) Hyperlipidemia Hypertension Hyperthyroidism DARYL (obstructive sleep apnea) Rheumatoid arthritis Social History Smoking/Tobacco Use Status: Former Tobacco Use Surgical History Abdominal hysterectomy Biopsy of breast section Cholecystectomy Replacement of total knee joint
[2018-08-28] MEDS: Normal Saline 250 ML 500 ML IV (14:09)
== END 2018-08-28 16:05 | disposition home health service (06) ==
LOC: ER 13:09 → MS 16:17
PROVIDERS: Admitting Provider Family Medicine; Emergency Provider Physician Assistant; PCP Internal Medicine; Visit Provider Family Medicine
DX: J44.1 Chronic obstructive pulmonary disease with (acute) exacerbation (principal); E11.9 Type 2 diabetes mellitus without complications; G47.33 Obstructive sleep apnea (adult) (pediatric); E03.9 Hypothyroidism, unspecified
CPT/HCPCS: 36415; 80048; 80053; 93005; 94640; 96374; 96375; 99219; 99239; 99285; J1650; 71046; 83036; 83605; 83735; 83880; 84484; 85025; 93010; G0378; J1940; J2930; J7512; J7613; J7620

== ENCOUNTER 2018-11-21 12:24 | Emergency (ER) | payer MEDICARE, SELFPAY ==
[2018-11-21 12:28] VITALS: BP 125/85; PULSE 95; RESP 25; TEMP 36.5; O2SAT 96
[2018-11-21] MEDS: Albuterol/Ipratropium 3 ML UPD VIAL 6 ML UPD (12:45)
[2018-11-21] MEDS: methylPREDNISolone SUCC 125 MG VIAL IVP (12:46)
[2018-11-21] MEDS: Normal Saline 1,000 ML 1000 ML IV (12:46)
[2018-11-21 13:15] VITALS: RESP 4
[2018-11-21 13:28] LABS: ALT 28 U/L (12-78); AST 32 U/L (15-37); Albumin 3.6 g/dL (3.4-5.0); Alkaline Phosphatase 88 U/L (46-116); Anion Gap 14.9 mmol/L (3-11); BUN 20 mg/dL (7-18); Bilirubin, Total 0.3 mg/dL (0.2-1.0); CO2 22.1 mmol/L (21.0-32.0); CREATININE 1.18 mg/dL (0.55-1.02); Chloride 103 mmol/L (98-107); Estimated GFR 45.42 (mL/min/1.73m2); Glucose 117 mg/dL (70-100); Potassium 4.3 mmol/L (3.5-5.1); Sodium 140 mmol/L (136-145); Total Protein 7.2 g/dL (6.4-8.2)
[2018-11-21 13:30] LABS: Troponin I < 0.02 ng/mL (0.00-0.06)
--- NOTE | 2018-11-21 13:38 | ED.GENADUL_ITS ---
Discharge Plan Disposition Patient Disposition: HOME Condition: Good Discharge Details Chief Complaint: Abd Prob Clinical Impression: Asthma exacerbation in COPD, Cough Reason For Visit: SONAM Primary Care Provider: Keren Gonzalez ED Provider: Jose Luis Nguyen Home Meds and New Rx's Prescriptions: New prednisone 50 MG tablet 50 mg PO DAILY Qty: 5 RF: 0 azithromycin 250 mg tablet 250 mg PO DAILY 5 Days Qty: 5 RF: 0 No Action venlafaxine [Effexor XR] 150 MG capsule,extended release 24hr 150 mg PO BID RF: 0 esomeprazole magnesium [Nexium] 40 MG capsule,delayed release(DR/EC) 40 mg PO DAILY RF: 0 levothyroxine [Synthroid] 125 MCG tablet 125 mcg PO DAILY RF: 0 folic acid 1 MG tablet 1 mg PO DAILY RF: 0 montelukast 10 MG tablet 10 mg PO DAILY RF: 0 Proventil HFA 6.7 GM HFA aerosol inhaler 2 puff Inhalation Q4H PRN RF: 0 meclizine [Antivert] 25 MG tablet 25 mg PO TID PRN PRNRF: 0 ranitidine HCl [Zantac] 150 MG tablet 300 mg PO HS RF: 0 losartan 50 MG tablet 50 mg PO DAILY Qty: 30 RF: 0 spironolactone 25 MG tablet 25 mg PO DAILY Qty: 30 RF: 0 metoprolol succinate 25 MG tablet extended release 24 hr 50 mg PO DAILY Qty: 30 RF: 0 acetaminophen [Tylenol Extra Strength] 500 mg Tablet 1,000 mg PO BID RF: 0 methotrexate sodium 2.5 mg Tablet 12.5 mg PO QWEEK RF: 0 hydroxyzine HCl 25 mg Tablet 25 mg PO HS RF: 0 Aimovig Autoinjector (2 Pack) 70 mg/mL Auto-Injector 140 mg SUBCUT QMONTH RF: 0 clotrimazole 1 % Cream 1 applic Topical BID Qty: 1 RF: 0 metformin 500 mg Tablet 1,000 mg PO BID@0800,1700 Qty: 30 RF: 0 miconazole nitrate 2 % Cream Vaginal HS Qty: 1 RF: 0 albuterol sulfate 2.5 MG/3 ML solution for nebulization 2.5 mg Inhalation Q2H PRN PRN (Reason: shortness of breath or wheezing) Qty: 0 RF: 0 ipratropium bromide 0.2 MG/1 ML solution 0.2 mg Inhalation QID PRN PRNQty: 100 RF: 0 gabapentin 300 MG capsule 600 mg PO HS RF: 0 mirtazapine 45 MG tablet 1 tab PO HS RF: 0 Discharge Instructions Instructions: COPD (Chronic Obstructive Pulmonary Disease) (ED) Additional Instructions: Please take your breathing treatments at home every 4-6 hours as directed. Please take the steroid as directed. If you notice any worsening of your symptoms, or any new symptoms such as vomiting, diarrhea, fever, chills, shortness of breath, chest pain, numbness, weakness, or fainting , please return immediately to the emergency department for reevaluation. Please follow up with your primary care provider as soon as possible for reassessment and reevaluation. As always, it was a pleasure participating in your medical care today. Referrals: Keren Gonzalez [Primary Care Provider] - Medical Decision Making This is a pleasant 67-year-old female who presents via EMS for 3 days of cough and cold-like symptoms with productive green sputum, mild sore throat, runny nose, congestion in who did develop mild vomiting today with 3 episodes of vomiting and difficulty tolerating p.o. started today. Physical exam demonstr ates minimal right lower quadrant abdominal pain. She has had her appendix and gallbladder out already. She appears notably dry on physical exam. Vital signs are relatively stable, no significant hypoxemia but mild tachypnea. Notable wheezes throughout. We will give breathing treatments evaluate for cardiac etiology which I feel is less likely, and CT scan the abdomen secondary to her age, risk factors and symptoms of vomiting with tenderness. 2:45 PM Patient's laboratory workup has returned there is no significant abnormalities, the patient is feeling much better after her breathing treatments and steroids. Patient is actually requesting to be discharged now, however we are still waiting the CT results. Patient states that she feels like she could just go home now in spite of not having the results. I have encouraged her to wait and she is willing to give us a few more minutes. With the patient's notable improvement after breathing treatments we did get her up and ambulate her, and she ablated throughout the emergency department with no evidence of hypoxemia or significant tachycardia. If The patient CT findings are negative I feel she can be discharged home with close follow-up with her PCP. With no evidence of significant severe chest pain, exertional chest pain, EKG abnormalities, or history of cardiac disease and a clinical presentation at this time being cli nically inconsistent with ACS, significant dissection or massive PE feel that she is safe for discharge and close follow-up with her PCP. 3 pm We did contact the patient's primary care provider Dr. Gonzalez as the patient is been stating that she has not been taking her breathing treatments as directed. Patient states that she has some at home, does not need a refill now however in discussing this with Dr. Gonzalez she states that she will assume responsibility of the management of the patient's inhalers and breathing treatments at home. She will follow-up closely with this. 3:[address] scan results have returned and per Dr. Slaughter of radiology there is no evidence of pulmonary embolism or dissection. CT scan of the abdomen is negative for any acute process including obstruction or significant surgical abnormality. Questionable very mild groundglass opacities in the apices of the lungs. I feel that significant or severe pneumonia is unlikely and the patient however because of her COPD exacerbation I do feel that treatment with azithromycin is certainly reasonable. She does not show signs and symptoms of significant pneumonia this time, with no significant white count, bandemia or left shift do not feel that she requires IV antibiotics or inpatient admission. Out of an abundance of precaution we will give azithromycin however I feel her symptoms are worse is secondary to the COPD exacerbation instead of actual significant pneumonia. Patient will be given her first dose of azithromycin here. I have extensively reviewed the treatment plan and discharge instructions with the patient. I have addressed all patient concerns at this time. The patient was made aware of what symptoms to monitor for that would warrant a return to the emergency department. Discussed the plan with the patient, they demonstrate verbal understanding and agreement with our assessment and plan at this time. EKG 12: 29 Intervals normal, sinus rhythm significant ST elevations or depressions, no T wave inversions. Q waves in lead III. No other significant abnormalities. HPI General Date/Time Provider Initiated Documentation: 11/21/18 12:31 . HPI Narrative: This is a 67-year-old female with a past medical history of diabetes, high cholesterol, asthma, past surgical history of a hysterectomy, appendectomy and cholecystectomy who presents today for symptoms of upper respiratory like infection with mild sore throat, congestion, nasal drainage, cough, wheeze, productive green sputum with cough, and today she had 3 episodes of vomiting. She denies any significant or severe abdominal pain. She denies any diarrhea. She denies any significant chest pain or shortness of breath with her cough. She denies any hemoptysis. Denies PE risk factors such as recent long car rides, immobilization, recent surgery, prior history of DVT or PE, family h istory of PE or DVT, morbid obesity, exogenous estrogen and smoking, hemoptysis, history of cancer. Patient denies any fevers at home, or chills. She denies any recent antibiotics. Of note she was admitted within the last 90 days back in August for pneumonia at that time where she did have a prolonged stay here. The patient has not been taking any breathing treatments at home. She has no other complaints at this time. Related Data Home Medications Medication Instructions Recorded Confirmed Proventil HFA 2 puff INHALATION Q4H PRN 02/02/14 11/21/18 esomeprazole magnesium [Nexium] 40 mg PO DAILY 02/02/14 11/21/18 folic acid 1 mg PO DAILY 02/02/14 11/21/18 levothyroxine [Synthroid] 125 mcg PO DAILY 02/02/14 11/21/18 montelukast 10 mg PO DAILY 02/02/14 08/27/18 venlafaxine [Effexor XR] 150 mg PO BID 02/02/14 11/21/18 meclizine [Antivert] 25 mg PO TID PRN PRN 05/14/16 11/21/18 ranitidine HCl [Zantac] 300 mg PO HS 05/14/16 11/21/18 losartan 50 mg PO DAILY #30 tab 05/21/16 11/21/18 metoprolol succinate 50 mg PO DAILY #30 tabcr 05/21/16 11/21/18 spironolactone 25 mg PO DAILY #30 tab 05/21/16 11/21/18 gabapentin 600 mg PO HS 01/23/17 11/21/18 mirtazapine 1 tab PO HS 03/07/17 11/21/18 acetaminophen [Tylenol Extra 1,000 mg PO BID 08/09/18 11/21/18 Strength] Aimovig Autoinjector (2 Pack) 140 mg SUBCUT QMONTH 08/10/18 11/21/18 hydroxyzine HCl 25 mg PO HS 08/10/18 11/21/18 methotrexate sodium 12.5 mg PO QWEEK 08/10/18 11/21/18 albuterol sulfate 2.5 mg INHALATION Q2H PRN PRN #0 08/15/18 11/21/18 vial clotrimazole 1 applic TOPICAL BID #1 tube 08/15/18 11/21/18 ipratropium bromide 0.2 mg INHALATION QID PRN PRN #100 08/15/18 11/21/18 amp metformin 1,000 mg PO BID@0800,1700 #30 tab 08/15/18 11/21/18 miconazole nitrate 0 g VAGINAL HS #1 pkg 08/15/18 08/27/18 azithromycin 250 mg PO DAILY 5 Days #5 tab 11/21/18 prednisone 50 mg PO DAILY #5 tab 11/21/18 Previous Rx's Medication Instructions Recorded losartan 50 mg PO DAILY #30 tab 05/21/16 metoprolol succinate 50 mg PO DAILY #30 tabcr 05/21/16 spironolactone 25 mg PO DAILY #30 tab 05/21/16 albuterol sulfate 2.5 mg INHALATION Q2H PRN PRN #0 08/15/18 vial clotrimazole 1 applic TOPICAL BID #1 tube 08/15/18 ipratropium bromide 0.2 mg INHALATION QID PRN PRN #100 08/15/18 amp metformin 1,000 mg PO BID@0800,1700 #30 tab 08/15/18 miconazole nitrate 0 g VAGINAL HS #1 pkg 08/15/18 azithromycin 250 mg PO DAILY 5 Days #5 tab 11/21/18 prednisone 50 mg PO DAILY #5 tab 11/21/18 Allergies Allergy/AdvReac Type Severity Reaction Status Date / Time NSAIDS (Non-Steroidal Allergy Severe Anaphylaxsi Unverified 08/27/18 12:44 Anti-Inflamma s cefpodoxime Allergy Intermediate Hives Unverified 08/27/18 12:44 chlorhexidine Allergy Intermediate Skin Rash Unverified 08/27/18 12:44 latex Allergy Intermediate Skin Rash Unverified 08/27/18 12:44 Penicillins Allergy Intermediate Hives Unverified 08/27/18 12:44 povidone-iodine Allergy Intermediate Unverified 08/27/18 12:44 duloxetine HCl Allergy Unknown Unverified 08/27/18 12:44 [From Cymbalta] indomethacin Allergy Unknown Unverified 08/27/18 12:44 propoxyphene Allergy Unknown Unverified 08/27/18 12:44 propranolol Allergy Unknown Unverified 08/27/18 12:44 adhesive AdvReac Intermediate dermatitis Unverified 08/27/18 12:44 aspirin AdvReac Intermediate Nausea Unverified 08/27/18 12:44 butorphanol AdvReac Intermediate nose bleeds Unverified 08/27/18 12:44 fexofenadine AdvReac Intermediate nose bleeds Unverified 08/27/18 12:44 hydrocodone AdvReac Intermediate confusion Unverified 08/27/18 12:44 hydroxychloroquine AdvReac Intermediate Visual Unverified 08/27/18 12:44 [Hydroxychloroquine] Disturbances hydroxyzine AdvReac Intermediate Nausea Unverified 08/27/18 12:44 methotrexate AdvReac Intermediate Nausea Unverified 08/27/18 12:44 morphine AdvReac Intermediate confusion Unverified 08/27/18 12:44 oxycodone [Oxycodone] AdvReac Intermediate confusion Unverified 08/27/18 12:44 pentazocine AdvReac Intermediate confusion Unverified 08/27/18 12:44 Sulfa (Sulfonamide AdvReac Intermediate Headache Unverified 08/27/18 12:44 Antibiotics) sumatriptan AdvReac Intermediate palpitation Unverified 08/27/18 12:44 s zolpidem [Zolpidem] AdvReac Intermediate confusion Unverified 08/27/18 12:44 General Stated Complaint: Abd Prob ARAVIND: 3 Review of Systems Review of Systems All systems reviewed & are unremarkable except as noted in HPI and below PFSH Social History Smoking and Tabacco status: Former Tobacco Use History History 2 Para 2 Hx # Term Pregnancies Multiple births Hx # Pregnancies Ectopic pregnancies AB induced Hx Number of Living Children AB spontaneous Exam Narrative Exam Narrative: 1.Const: Well-nourished, Well-developed, appearing stated age 2.Eyes: PERRL, no conjunctival injection, and symmetrical lids. 3.ENT: Atraumatic external nose and ears. Notably dry MM. Neck: Symmetric, trachea midline, No thyromegaly. 4.CVS: +S1/S2, No murmurs or gallops. Peripheral pulses 2+ and equal in all extremities. Brisk capillary refill in all extremities. 5.RESP: Unlabored respiratory effort. Notable wheezes throughout, mild crackles in the bases. 6.GI: Soft, Nondistended, No hepatosplenomegaly. No guarding or rebound. Minimal tenderness in the right lower quadrant. No distention 7.MSK: Normocephalic/Atraumatic, Extremities w/o deformity or ttp No cyanosis or clubbing, Normal movement of all extremities no significant pitting edema or calf tenderness. 8.Skin: Warm, Dry. No rashes or lesions. 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 Sensation grossly intact, no focal neurologic deficits. 10.Psych: (AAO) x3. Appropriate mood and affect Course Vital Signs Temperature 36.5 C 11/21/18 12:28 Pulse 95 H 11/21/18 12:28 Respiratory Rate 25 H 11/21/18 12:28 Blood Pressure 125/85 11/21/18 12:28 Pulse Oximetry 96 11/21/18 12:28 Temperature 36.5 C 11/21/18 12:28 Temperature Source Temporal Artery Scan 11/21/18 12:28 Pulse 95 H 11/21/18 12:28 Respiratory Rate 25 H 11/21/18 12:28 Respiratory Effort Non-Labored 11/21/18 12:31 Blood Pressure 125/85 11/21/18 12:28 Blood Pressure Position Supine 11/21/18 12:28 Pulse Oximetry 96 11/21/18 12:28 Oxygen Delivery Method Room Air 11/21/18 12:28 Oxygen Flow Rate 0 11/21/18 12:28 Lab/Test Results Lab/Test Results: 11/21/18 12:35 Nasopharynx Influenza Types A,B Antigen - Final Laboratory Tests Range/Units 11/21/18 12:31 Sodium (136-145) mmol/L 140 Potassium (3.5-5.1) mmol/L 4.3 Chloride (98-107) mmol/L 103 Carbon Dioxide (21.0-32.0) mmol/L 22.1 Anion Gap (3-11) mmol/L 14.9 H BUN (7-18) mg/dL 20 H Creatinine (0.55-1.02) mg/dL 1.18 H Estimated GFR/1.73 m2 (mL/min/1.73m2) 45.42 Glucose (70-100) mg/dL 117 H Calcium (8.5-10.1) mg/dL 9.0 Total Bilirubin (0.2-1.0) mg/dL 0.3 AST (15-37) U/L 32 ALT (12-78) U/L 28 Alkaline Phosphatase (46-116) U/L 88 Troponin I (0.00-0.06) ng/mL < 0.02 Total Protein (6.4-8.2) g/dL 7.2 Albumin (3.4-5.0) g/dL 3.6
--- NOTE | 2018-11-21 13:55 | PDOC.ERCMPRO ---
Care Management Progress Note 11/21-Rianna WU requested that this CM assist Samantha with her dogs at home. Samantha lives alone in [place]. Met with Samantha, Samantha states that her daughter Montse is moving to [place] at the end of the month. Samantha has a sister, Rivka that lives in [facility] and is her first contact. Samantha states that Rivka can be notified every time she comes to the hospital and that hospital staff can talk to Rivka about her health. Discussed other relatives, friends, or neighbors that could help Samantha. Samantha's biggest concern is that her dog is home alone and no one to let the dog out. Samantha stated that her granddaughter Pamella Urena works in the kitchen at this hospital. Samantha gave this CM permission to reach out to Pamella. Called the kitchen and spoke with Pamella. Pamella stated she would be out of work in 15 minutes and would stop in the emergency department. Pamella stated she would take care of the dog. Called Rivka and updated her on Samantha and Samantha will call Rivka with an update. Discussed with Samantha about adding Pamella as her second contact as her daughter is moving out of state. Samantha states she would like to have Pamella added. Once Pamella arrives, this CM will update chart accordingly. BRYCE Blanca has also reported that Samantha told her she was prescribed inhalers at discharge from the hospital but her PCP, Keren Gonzalez at [facility] would not sign off on them so she has not had any. This CM will call Keren Gonzalez's office to find out about inhalers. Called Dr. Gonzalez's office and spoke with Britany WU. Britany states that per the recommendation of the [facility] pharmacist, Samantha's inhaler's have been discontinued. Britany states that Samantha does not use her inhalers or her nebulizer machine. Dr. Gonzalez's office is aware of the [facility]. Britany will discuss with Dr. Gonzalez and if Dr. Gonzalez wants to restart the inhalers, she will. Dr. Nguyen and Rianna WU notified of this.
[2018-11-21 14:11] VITALS: BP 121/70; PULSE 91; RESP 27; O2SAT 95
--- NOTE | 2018-11-21 14:11 | NUR.NOTE ---
Nursing Note: Ambulated patient to restroom, patient had slow but steady gait. ambulating pulse ox at start 91% on ra and then remained 94% on room air. scatt upper airway wheezing.
--- NOTE | 2018-11-21 14:26 | CMPROGNOTE_ITS ---
Care Management Progress Note 11/21-Rianna WU requested that this CM assist Samantha with her dogs at home. Samantha lives alone in [place]. Met with Samantha, Samantha states that her daughter Montse is moving to [place] at the end of the month. Samantha has a sister, Rivka that lives in [facility] and is her first contact. Samantha states that Rivka can be notified every time she comes to the hospital and that hospital staff can talk to Rivka about her health. Discussed other relatives, friends, or neighbors that could help Samantha. Samantha's biggest concern is that her dog is home alone and no one to let the dog out. Samantha stated that her granddaughter Pamella Urena works in the kitchen at this hospital. Samantha gave this CM permission to reach out to Pamella. Called the kitchen and spoke with Pamella. Pamella stated she would be out of work in 15 minutes and would stop in the emergency department. Pamella stated she would take care of the dog. Called Rivka and updated her on Samantha and Samantha will call Rivka with an update. Discussed with Samantha about adding Pamella as her second contact as her daughter is moving out of state. Samantha states she would like to have Pamella added. Once Pamella arrives, this CM will update chart accordingly. BRYCE Blanca has also reported that Samantha told her she was prescribed inhalers at discharge from the hospital but her PCP, Keren Gonzalez at [facility]) would not sign off on them so she has not had any. This CM will call Keren Gonzalez's office to find out about inhalers. Called Dr. Gonzalez's office and spoke with Britany WU. Britany states that per the recommendation of the [facility] pharmacist, Samantha's inhaler's have been discontinued. Britany states that Samantha does not use her inhalers or her nebulizer machine. Dr. Gonzalez's office is aware of the [facility]. Britany will discuss with Dr. Gonzalez and if Dr. Gonzalez wants to restart the inhalers, she will. Dr. Nguyen and Rianna WU notified of this.
--- NOTE | 2018-11-21 14:33 | DI.CT_ITS ---
SYMPTOMS/DIAGNOSIS: VOMITING, COUGH, SHORTNESS OF BREATH, PRODUCTIVE SPUTUM CT SCAN OF THE CHEST, ABDOMEN AND PELVIS: CT SCAN OF THE ABDOMEN AND PELVIS: CT scan of the abdomen and pelvis was performed following the uneventful administration of intravenous and oral contrast material. The liver is normal in size. No hepatic mass is seen. The portal, superior mesenteric and splenic veins are patent. The patient is status post cholecystectomy. No biliary ductal dilatation is present. There is atrophy of the pancreas, which is otherwise unremarkable. The spleen has a normal appearance. Incidental note is made of an accessory spleen in the left upper quadrant. The adrenal glands are unremarkable. The kidneys show normal and symmetric enhancement. The urinary bladder is intact. The reproductive organs are unremarkable as visualized. The aorta is of normal caliber. No significant abdominal or pelvic adenopathy, ascites or pneumoperitoneum is present. There is diverticulosis of the colon, but no evidence of acute diverticulitis. No findings to suggest an acute appendicitis are present. Degenerative changes are seen in the spine. IMPRESSION: No evidence of an acute abdomen. CT SCAN OF THE CHEST: CT angiography was performed with multi slice acquisition and multi planar and 3D reconstruction. CT scan of the chest was performed according to the pulmonary embolus protocol. The thoracic aorta is of normal caliber. There is no evidence of a pulmonary embolus. No evidence of a thoracic aortic aneurysm or dissection. The heart size is within normal limits. No significant pulmonary or pericardial effusion is seen. No evidence of right ventricular dysfunction is present. No evidence of thoracic adenopathy is seen. No pleural effusion or pneumothorax is identified. Mild ground-glass opacities are seen in the upper lobes. These are nonspecific. They may represent pneumonitis or atelectasis. Hemorrhage cannot be excluded but is considered less likely. The tracheobronchial tree is unremarkable. Degenerative changes are seen in the spine. IMPRESSION: 1. No evidence of a pulmonary embolus, thoracic aortic dissection or aneurysm. 2. Question of ground-glass opacities, predominantly in the upper lobes. These are nonspecific. An infectious or inflammatory process cannot be excluded. Pulmonary edema should also be considered. The findings were discussed with the Emergency Department on the date of the examination.
[2018-11-21 14:51] LABS: Abs Immature Grans 0.05 k/cumm (0.0-0.09); Absolute Basophil Count 0.04 k/cumm (0.0-0.2); Absolute Eosinophil Count 0.65 k/cumm (0.0-0.7); Absolute Lymphocyte Count 2.87 k/cumm (1.2-3.4); Absolute Monocyte Count 1.69 k/cumm (0.11-0.7); Absolute Neutrophil Count 4.71 k/cumm (1.2-6.7); Basophils % 0.4; Eosinophils % 6.5; HCT 37.6 % (36.0-46.0); HGB 12.4 g/dL (12.0-15.5); Immature Grans % 0.5; Lymphocytes % 28.7; Mean Corpuscular Hemoglobin 31.6 pg (27.0-33.0); Mean Corpuscular Volume 95.7 fL (80-95); Mean Platelet Volume 10.7 fL (8.0-11.0); Monocytes % 16.9; Platelet Count 326 x1000/uL (130-400); RBC 3.93 m/cumm (4.00-5.20); RBC Distribution Width 14.2 % (11.7-14.6); White Blood Cell Count 10.01 k/cumm (4.4-10.8)
[2018-11-21 15:05] LABS: Diff Comment Diff Reviewed; RBC Morphology Normal
[2018-11-21] MEDS: Azithromycin 250 MG TAB 500 MG PO (15:23)
[2018-11-21 15:25] VITALS: PULSE 90; RESP 20; O2SAT 95
== END 2018-11-21 15:39 | disposition home or self-care (01) ==
PROVIDERS: Emergency Provider Student in an Organized Health Care Education/Training Program; PCP Internal Medicine
DX: J44.1 Chronic obstructive pulmonary disease with (acute) exacerbation (principal); Z87.891 Personal history of nicotine dependence; E11.9 Type 2 diabetes mellitus without complications; Z79.84 Long term (current) use of oral hypoglycemic drugs
CPT/HCPCS: 71275; 74177; 80053; 87449; 96361; 96374; 99284; 84484; 85025; J2930; J7620

== ENCOUNTER 2019-07-10 00:19 | Outpatient (CLI) | payer MEDICARE, SELFPAY ==
--- NOTE | 2019-07-10 13:10 | DI.CT_ITS ---
EXAM: CT HEAD WO CLINICAL HISTORY: NEW DIZZINESS, RECENT FALLS, POSSIBLE SUBDURAL HEMATOMA, W19.XXXA. TECHNIQUE: Imaging Protocol: Axial computed tomography images with coronal and sagittal reformatted images were created and reviewed COMPARISON: No exams were available for comparison FINDINGS: The ventricular system is normal in appearance. No evidence of acute intracranial hemorrhage, mass effect, or midline shift. The orbital structures are unremarkable. The temporal bone structures appear intact. Calvarium: Normal. Visualized Paranasal sinuses/Mastoids: Clear. IMPRESSION: Normal cranial CT. DATA REPOSITORY: All CT scans at this facility are submitted to the National Radiology Data Registry (NRDR) Dose Index Registry (DIR) with the [employer] (ACR). RADIATION OPTIMIZATION: All CT scans at this facility use at least one of these dose optimization te chniques: automated exposure control; mA and/or kV adjustment per patient size (includes targeted exa ms where dose is matched to clinical indication); or iterative reconstruction.
[2019-07-10 13:19] LABS: Abs Immature Grans 0.02 k/cumm (0.0-0.09); Absolute Basophil Count 0.03 k/cumm (0.0-0.2); Absolute Eosinophil Count 0.32 k/cumm (0.0-0.7); Absolute Lymphocyte Count 1.47 k/cumm (1.2-3.4); Absolute Monocyte Count 0.59 k/cumm (0.11-0.7); Absolute Neutrophil Count 1.25 k/cumm (1.2-6.7); Basophils % 0.8; Eosinophils % 8.7; HCT 33.3 % (36.0-46.0); HGB 10.8 g/dL (12.0-15.5); Immature Grans % 0.5; Lymphocytes % 39.9; Mean Corp. HGB Concentration 32.4 g/dL (32.0-36.0); Mean Corpuscular Hemoglobin 31.1 pg (27.0-33.0); Mean Platelet Volume 9.7 fL (8.0-11.0); Neutrophils % 34.1; Platelet Count 279 x1000/uL (130-400); RBC 3.47 m/cumm (4.00-5.20); RBC Distribution Width 14.4 % (11.7-14.6); White Blood Cell Count 3.68 k/cumm (4.4-10.8)
[2019-07-10 14:16] LABS: Anion Gap 10.7 mmol/L (3-11); BUN 16 mg/dL (7-18); CO2 27.3 mmol/L (21.0-32.0); CREATININE 1.14 mg/dL (0.55-1.02); Calcium 8.9 mg/dL (8.5-10.1); Chloride 105 mmol/L (98-107); Estimated GFR 47.12 (mL/min/1.73m2); Glucose 120 mg/dL (70-100); NT-proBNP 906 pg/mL; Potassium 4.4 mmol/L (3.5-5.1); Sodium 143 mmol/L (136-145)
== END 2019-07-10 00:39 ==
PROVIDERS: PCP Internal Medicine; Visit Provider Internal Medicine
DX: R42 Dizziness and giddiness (principal); I50.9 Heart failure, unspecified; W19.XXXA Unspecified fall, initial encounter
CPT/HCPCS: 36415; 80048; 70450; 83880; 85025

== ENCOUNTER 2019-07-14 17:01 | Emergency (ER) | payer MEDICARE, SELFPAY ==
[2019-07-14 17:13] VITALS: BP 136/54; PULSE 65; RESP 22; TEMP 36.8; O2SAT 96
[2019-07-14 17:58] VITALS: RESP 18
[2019-07-14 18:08] LABS: HCT 35.1 % (36.0-46.0); HGB 11.6 g/dL (12.0-15.5); Mean Corpuscular Hemoglobin 31.6 pg (27.0-33.0); Mean Corpuscular Volume 95.6 fL (80-95); Mean Platelet Volume 9.8 fL (8.0-11.0); Platelet Count 364 x1000/uL (130-400); RBC 3.67 m/cumm (4.00-5.20); RBC Distribution Width 13.9 % (11.7-14.6); White Blood Cell Count 7.89 k/cumm (4.4-10.8)
[2019-07-14 18:18] LABS: INR 1.1 (0.9-1.1); Prothrombin Time 10.8 sec (9.3-11.0)
[2019-07-14 18:23] LABS: ALT 21 U/L (14-59); AST 22 U/L (15-37); Albumin 3.8 g/dL (3.4-5.0); Alkaline Phosphatase 106 U/L (46-116); Anion Gap 9.1 mmol/L (3-11); BUN 30 mg/dL (7-18); Bilirubin, Total 0.5 mg/dL (0.2-1.0); CO2 28.9 mmol/L (21.0-32.0); CREATININE 1.39 mg/dL (0.55-1.02); Calcium 8.7 mg/dL (8.5-10.1); Chloride 103 mmol/L (98-107); Estimated GFR 37.48 (mL/min/1.73m2); Glucose 100 mg/dL (70-100); Potassium 3.9 mmol/L (3.5-5.1); Sodium 141 mmol/L (136-145); Total Protein 7.7 g/dL (6.4-8.2)
[2019-07-14 18:43] VITALS: RESP 4
[2019-07-14] MEDS: Albuterol/Ipratropium 3 ML UPD VIAL UPD ×2 (18:43→19:55)
[2019-07-14] MEDS: methylPREDNISolone SUCC 125 MG VIAL IVP (18:43)
--- NOTE | 2019-07-14 18:55 | NUR.NOTE ---
Nursing Note: report given to yobani WU
[2019-07-14 19:00] VITALS: BP 108/66; PULSE 79; RESP 19; O2SAT 96
[2019-07-14 19:14] LABS: NT-proBNP 102 pg/mL; Troponin I < 0.05 ng/mL (0.00-0.06)
--- NOTE | 2019-07-14 19:20 | DI.RAD_ITS ---
EXAM: XR CHEST 2V PA LATERAL INDICATION: shortness of breath. COMPARISON: XR CHEST 2V PA LATERAL from 08/27/2018 TECHNIQUE: 2D digital imaging was performed. FINDINGS: There is pulmonary hyperinflation demonstrated. There is no infiltrate. There is no evidence of a ple ural effusion. The cardiovascular structures are intact. IMPRESSION: No evidence of acute cardiopulmonary disease. Findings which would be consistent COPD.
--- NOTE | 2019-07-14 19:27 | NUR.NOTE ---
Nursing Note: Gave pt a sandwich, ice water and hot tea as requested by her.
--- NOTE | 2019-07-14 19:39 | DI.VRAD_ITS ---
PROCEDURE INFORMATION: Exam: XR Chest, 2 Views Exam date and time: 07/14/2019 7:17 PM Clinical history: 68 years old, female; Shortness of breath TECHNIQUE: Imaging protocol: XR of the chest Views: 2 views. COMPARISON: CR XR CHEST 2V PA LATERAL 08/27/2018 11:47 AM FINDINGS: Lungs: Pulmonary hyperexpansion and hyperlucency with diaphragmatic flattening consistent with COPD. Pulmonary vasculature grossly normal. No infiltrates. Minimal scarring or atelectasis in the lung bases. Pleural space: No pleural effusion. No pneumothorax. Heart/Mediastinum: Heart size normal. No tracheal/mediastinal shift. Vasculature: Mild aortic ectasia and tortuosity. Bones/joints: No acute osseous abnormalities are identified. IMPRESSION: 1. No acute thoracic process. 2. Evidence of COPD. Dictated and Authenticated by: Elbert Leslie MD. Ordering:VAZQUEZ Reinoso MD
--- NOTE | 2019-07-14 19:46 | ED.GENADUL_ITS ---
Discharge Plan Disposition Patient Disposition: HOME Condition: Improving Discharge Details Chief Complaint: Dizzy/Sync Clinical Impression: COPD exacerbation Primary Care Provider: Keren Gonzalez ED Provider: Kemar Lo Home Meds and New Rx's Prescriptions: New doxycycline hyclate 100 mg tablet 100 mg PO BID Qty: 14 RF: 0 prednisone 20 mg tablet 40 mg PO DAILY Qty: 8 RF: 0 Continued venlafaxine [Effexor XR] 150 MG capsule,extended release 24hr 150 mg PO BID RF: 0 esomeprazole magnesium [Nexium] 40 MG capsule,delayed release(DR/EC) 40 mg PO DAILY RF: 0 levothyroxine [Synthroid] 125 MCG tablet 125 mcg PO DAILY RF: 0 folic acid 1 MG tablet 1 mg PO DAILY RF: 0 montelukast 10 MG tablet 10 mg PO DAILY RF: 0 albuterol sulfate [Proventil HFA] 6.7 GM HFA aerosol inhaler 2 puff Inhalation Q4H PRN RF: 0 meclizine [Antivert] 25 MG tablet 25 mg PO TID PRN PRNRF: 0 ranitidine HCl [Zantac] 150 MG tablet 300 mg PO HS RF: 0 losartan 50 MG tablet 50 mg PO DAILY Qty: 30 RF: 0 acetaminophen [Tylenol Extra Strength] 500 mg Tablet 1,000 mg PO BID RF: 0 methotrexate sodium 2.5 mg Tablet 12.5 mg PO QWEEK RF: 0 Aimovig Autoinjector (2 Pack) 70 mg/mL Auto-Injector 140 mg SUBCUT QMONTH RF: 0 clotrimazole 1 % Cream 1 applic Topical BID Qty: 1 RF: 0 metformin 500 mg Tablet 1,000 mg PO BID@0800,1700 Qty: 30 RF: 0 miconazole nitrate 2 % Cream 0 g Vaginal HS Qty: 1 RF: 0 albuterol sulfate 2.5 MG/3 ML solution for nebulization 2.5 mg Inhalation Q2H PRN PRN (Reason: shortness of breath or wheezing) Qty: 0 RF: 0 ipratropium bromide 0.2 MG/1 ML solution 0.2 mg Inhalation QID PRN PRNQty: 100 RF: 0 metoprolol succinate 25 MG tablet extended release 24 hr 100 mg PO DAILY RF: 0 gabapentin 300 MG capsule 600 mg PO HS RF: 0 mirtazapine 45 MG tablet 1 tab PO HS RF: 0 Discharge Instructions Instructions: COPD (Chronic Obstructive Pulmonary Disease) (ED) Additional Instructions: Please take your albuterol neb as prescribed. Take prednisone and doxycycline as prescribed. Please contact your primary care physician to arrange follow-up. Return to the ER for any worsening or new concerning symptoms. Referrals: Keren Gonzalez [Primary Care Provider] - Discharge Data Discharge Date/Time-TO BE ENTERED AT DEPARTURE: 07/14/19 18:55 Medical Decision Making --68-year-old female with multiple medical problems including history of CHF, hyperlipidemia, hypertension, COPD, noncompliant with beta agonist, here with dizziness and shortness of breath. Patient has diminished breath sounds on the right and bilateral wheeze. Patient saturating well in no respiratory distress. Consider CHF versus COPD. Will give DuoNeb and Solu-Medrol and reassess. Considered arrhythmia. ECG was reviewed and interpreted by me: Normal sinus rhythm 67 bpm, normal axis, no STEMI, nondiagnostic. 19:45 --labs reviewed and BNP normal. Troponin normal. Chest x-ray was reviewed and interpreted by radiology: No acute thoracic process. Evidence of COPD with pulmonary hyperexpansion and hyperlucency. 20:30 --patient reassessed and much improved. Breathing much more easily after 2 duo nebs. Lungs clear. Suspect COPD exacerbation. Patient was encouraged to use her nebulizer as prescribed. Will prescribe short course of prednisone burst. Will start doxycycline to cover for infectious component. I have encouraged the patient to follow-up with her primary care physician and to call tomorrow to arrange this. Disposition decision was made weighing the risks and benefits of hospitalization versus outpatient treatment, the risk for further decompensation, and the patient's wishes. The patient was stable and requested discharge. Prior to discharge, my usual and customary return precautions were reviewed with the patient - this included follow-up instructions and reason to return to the emergency department if condition worsens, does not improve as expected, or other new concerns arise. HPI General Mode of arrival: EMS . Date/Time Provider Initiated Documentation: 07/14/19 17:40 . Limitations to Documentation: no limitations . Information obtained by: patient . HPI Narrative: 68-year-old female presents with chief complaint of dizziness. Patient describes this is generally weak over the past 4 days. She states she has associated shortness of breath. Symptoms have been moderate. No modifiers. She has had some mild recent cough. No fevers. Patient denies chest pain. No leg swelling or calf pain. No recent immobility. Patient notes she has not been using her DuoNeb as prescribed. Related Data Home Medications Medication Instructions Recorded Confirmed albuterol sulfate [Proventil HFA] 2 puff INHALATION Q4H PRN 02/02/14 07/14/19 esomeprazole magnesium [Nexium] 40 mg PO DAILY 02/02/14 07/14/19 folic acid 1 mg PO DAILY 02/02/14 07/14/19 levothyroxine [Synthroid] 125 mcg PO DAILY 02/02/14 07/14/19 montelukast 10 mg PO DAILY 02/02/14 07/14/19 venlafaxine [Effexor XR] 150 mg PO BID 02/02/14 07/14/19 meclizine [Antivert] 25 mg PO TID PRN PRN 05/14/16 07/14/19 ranitidine HCl [Zantac] 300 mg PO HS 05/14/16 07/14/19 losartan 50 mg PO DAILY #30 tab 05/21/16 07/14/19 gabapentin 600 mg PO HS 01/23/17 07/14/19 mirtazapine 1 tab PO HS 03/07/17 07/14/19 acetaminophen [Tylenol Extra 1,000 mg PO BID 08/09/18 07/14/19 Strength] Aimovig Autoinjector (2 Pack) 140 mg SUBCUT QMONTH 08/10/18 07/14/19 methotrexate sodium 12.5 mg PO QWEEK 08/10/18 07/14/19 albuterol sulfate 2.5 mg INHALATION Q2H PRN PRN #0 08/15/18 07/14/19 vial clotrimazole 1 applic TOPICAL BID #1 tube 08/15/18 07/14/19 ipratropium bromide 0.2 mg INHALATION QID PRN PRN #100 08/15/18 07/14/19 amp metformin 1,000 mg PO BID@0800,1700 #30 tab 08/15/18 07/14/19 miconazole nitrate 0 g VAGINAL HS #1 pkg 08/15/18 07/14/19 doxycycline hyclate 100 mg PO BID #14 tab 07/14/19 metoprolol succinate 100 mg PO DAILY 07/14/19 07/14/19 prednisone 40 mg PO DAILY #8 tab 07/14/19 Previous Rx's Medication Instructions Recorded losartan 50 mg PO DAILY #30 tab 05/21/16 albuterol sulfate 2.5 mg INHALATION Q2H PRN PRN #0 08/15/18 vial clotrimazole 1 applic TOPICAL BID #1 tube 08/15/18 ipratropium bromide 0.2 mg INHALATION QID PRN PRN #100 08/15/18 amp metformin 1,000 mg PO BID@0800,1700 #30 tab 08/15/18 miconazole nitrate 0 g VAGINAL HS #1 pkg 08/15/18 doxycycline hyclate 100 mg PO BID #14 tab 07/14/19 prednisone 40 mg PO DAILY #8 tab 07/14/19 Allergies Allergy/AdvReac Type Severity Reaction Status Date / Time NSAIDS (Non-Steroidal Allergy Severe Anaphylaxsi Unverified 07/14/19 17:20 Anti-Inflamma s cefpodoxime Allergy Intermediate Hives Unverified 07/14/19 17:20 chlorhexidine Allergy Intermediate Skin Rash Unverified 07/14/19 17:20 latex Allergy Intermediate Skin Rash Unverified 07/14/19 17:20 Penicillins Allergy Intermediate Hives Unverified 07/14/19 17:20 povidone-iodine Allergy Intermediate Unverified 07/14/19 17:20 duloxetine HCl Allergy Unknown Unverified 07/14/19 17:20 [From Cymbalta] indomethacin Allergy Unknown Unverified 07/14/19 17:20 propoxyphene Allergy Unknown Unverified 07/14/19 17:20 propranolol Allergy Unknown Unverified 07/14/19 17:20 adhesive AdvReac Intermediate dermatitis Unverified 07/14/19 17:20 aspirin AdvReac Intermediate Nausea Unverified 07/14/19 17:20 butorphanol AdvReac Intermediate nose bleeds Unverified 07/14/19 17:20 fexofenadine AdvReac Intermediate nose bleeds Unverified 07/14/19 17:20 hydrocodone AdvReac Intermediate confusion Unverified 07/14/19 17:20 hydroxychloroquine AdvReac Intermediate Visual Unverified 07/14/19 17:20 [Hydroxychloroquine] Disturbances hydroxyzine AdvReac Intermediate Nausea Unverified 07/14/19 17:20 methotrexate AdvReac Intermediate Nausea Unverified 07/14/19 17:20 morphine AdvReac Intermediate confusion Unverified 07/14/19 17:20 oxycodone [Oxycodone] AdvReac Intermediate confusion Unverified 07/14/19 17:20 pentazocine AdvReac Intermediate confusion Unverified 07/14/19 17:20 Sulfa (Sulfonamide AdvReac Intermediate Headache Unverified 07/14/19 17:20 Antibiotics) sumatriptan AdvReac Intermediate palpitation Unverified 07/14/19 17:20 s zolpidem [Zolpidem] AdvReac Intermediate confusion Unverified 07/14/19 17:20 General Stated Complaint: RespSymp ARAVIND: 3 Review of Systems Review of Systems ROS Unobtainable: All systems reviewed & are unremarkable except as noted in HPI and below Constitutional Constitutional: Denies fever(s) Cardiovascular Cardiovascular: Denies chest pain and Reports dyspnea Respiratory Respiratory: Reports dyspnea PFSH Social History Smoking/Tobacco Use Status: Former Tobacco Use Drug use: Never Do you feel safe at home: Yes Do you feel safe in your relationship?: Yes History History 2 Para 2 Hx # Term Pregnancies Multiple births Hx # Pregnancies Ectopic pregnancies AB induced Hx Number of Living Children AB spontaneous Course Vital Signs Vital signs: Vital Signs Temperature 36.8 C 07/14/19 17:13 Pulse 65 07/14/19 17:13 Respiratory Rate 22 07/14/19 17:13 Blood Pressure 136/54 L 07/14/19 17:13 Pulse Oximetry 96 07/14/19 17:13 Temperature 36.8 C 07/14/19 17:13 Temperature Source Skin 07/14/19 17:13 Pulse 79 07/14/19 19:00 Respiratory Rate 19 07/14/19 19:00 Respiratory Effort Non-Labored 07/14/19 17:58 Respiratory Depth Normal 07/14/19 17:56 Blood Pressure 108/66 07/14/19 19:00 Blood Pressure Position Sitting 07/14/19 17:13 Pulse Oximetry 96 07/14/19 19:00 Oxygen Delivery Method Room Air 07/14/19 19:00 Oxygen Flow Rate 0 07/14/19 19:00 Pain Level 0 07/14/19 17:13 Lab/Test Results Lab/Test Results: Laboratory Tests Range/Units 07/14/19 07/14/19 07/14/19 18:00 18:00 18:00 WBC (4.4-10.8) k/cumm 7.89 RBC (4.00-5.20) m/cumm 3.67 L Hgb (12.0-15.5) g/dL 11.6 L Hct (36.0-46.0) % 35.1 L MCV (80-95) fL 95.6 H MCH (27.0-33.0) pg 31.6 MCHC (32.0-36.0) g/dL 33.0 RDW (11.7-14.6) % 13.9 Plt Count (130-400) x1000/uL 364 MPV (8.0-11.0) fL 9.8 PT (9.3-11.0) sec 10.8 INR (0.9-1.1) 1.1 Sodium (136-145) mmol/L 141 Potassium (3.5-5.1) mmol/L 3.9 Chloride (98-107) mmol/L 103 Carbon Dioxide (21.0-32.0) mmol/L 28.9 Anion Gap (3-11) mmol/L 9.1 BUN (7-18) mg/dL 30 H Creatinine (0.55-1.02) mg/dL 1.39 H Estimated GFR/1.73 m2 (mL/min/1.73m2) 37.48 Glucose (70-100) mg/dL 100 Calcium (8.5-10.1) mg/dL 8.7 Total Bilirubin (0.2-1.0) mg/dL 0.5 AST (15-37) U/L 22 ALT (14-59) U/L 21 Alkaline Phosphatase (46-116) U/L 106 Troponin I (0.00-0.06) ng/mL NT-Pro-B Natriuret Pep ( - 299) pg/mL Total Protein (6.4-8.2) g/dL 7.7 Albumin (3.4-5.0) g/dL 3.8 Range/Units 07/14/19 18:00 WBC (4.4-10.8) k/cumm RBC (4.00-5.20) m/cumm Hgb (12.0-15.5) g/dL Hct (36.0-46.0) % MCV (80-95) fL MCH (27.0-33.0) pg MCHC (32.0-36.0) g/dL RDW (11.7-14.6) % Plt Count (130-400) x1000/uL MPV (8.0-11.0) fL PT (9.3-11.0) sec INR (0.9-1.1) Sodium (136-145) mmol/L Potassium (3.5-5.1) mmol/L Chloride (98-107) mmol/L Carbon Dioxide (21.0-32.0) mmol/L Anion Gap (3-11) mmol/L BUN (7-18) mg/dL Creatinine (0.55-1.02) mg/dL Estimated GFR/1.73 m2 (mL/min/1.73m2) Glucose (70-100) mg/dL Calcium (8.5-10.1) mg/dL Total Bilirubin (0.2-1.0) mg/dL AST (15-37) U/L ALT (14-59) U/L Alkaline Phosphatase (46-116) U/L Troponin I (0.00-0.06) ng/mL < 0.05 NT-Pro-B Natriuret Pep ( - 299) pg/mL 102 Total Protein (6.4-8.2) g/dL Albumin (3.4-5.0) g/dL
[2019-07-14 20:05] LABS: BE (Venous) 3.4 mmol/L (-3-3); HCO3 (Venous) 29 mmol/L (22-28); O2 Sat (Venous) 67 % (70-80); TCO2 (Venous) 27 mmol/L (22-29); pCO2 (Venous) 51 mm/Hg (34-47); pH (Venous) 7.36 (7.32-7.43); pO2 (Venous) 36 mm/Hg (28-44)
[2019-07-14] MEDS: Doxycycline Hyclate 100 MG CAP PO (20:36)
[2019-07-14 20:45] VITALS: BP 108/66; PULSE 79; RESP 19; O2SAT 96
--- NOTE | 2019-07-14 21:37 | CMPROGNOTE_ITS ---
- If Service Date Differs Date of service: 07/14/19 Time of Service: 21:37 Care Management Progress Note S/O: Samantha lives independently with her dog in an apartment on [address] in [place]. The ED provider asks that CM meet with Samantha as she is upset due to her inability to contact her friend by telephone. Samantha is being discharged home and this friend has the busch to her apartment and her dog. A: Patient is a 68 yo woman seen in the ED on 07/14/19 for dizziness and sync ope. P: [facility] is transporting Samantha home. The [facility] tow motor driver agrees to stop by the friend's apartment so Samantha can retrieve her busch and her pet.
== END 2019-07-14 18:55 | disposition home or self-care (01) ==
PROVIDERS: Emergency Provider Student in an Organized Health Care Education/Training Program; PCP Internal Medicine
DX: J44.1 Chronic obstructive pulmonary disease with (acute) exacerbation (principal); E11.9 Type 2 diabetes mellitus without complications; I10 Essential (primary) hypertension
CPT/HCPCS: 36415; 80053; 82805; 85027; 93005; 94640; 96374; 99285; 71046; 83880; 84484; 85610; 93010; J2930; J7620

== ENCOUNTER 2019-07-30 01:50 | Outpatient (CLI) | payer MEDICARE, SELFPAY | END 2019-07-30 02:10 | PROVIDERS: PCP Internal Medicine; Visit Provider Internal Medicine | DX: R42 Dizziness and giddiness (principal); I49.1 Atrial premature depolarization; I49.3 Ventricular premature depolarization | CPT/HCPCS: 93225 ==

== ENCOUNTER 2019-07-31 14:42 | Outpatient (CLI) | payer MEDICARE, SELFPAY ==
--- NOTE | 2019-08-03 08:23 | W.HOLTRPT ---
Holter Monitor Report Holter Monitor Note: Rhythm throughout was sinus. Average heart rate was 85/minute. There were very rare atrial and ventricular ectopic beats There were no pauses or bradydysrhythmias Date of service: 07/31/19 Time of Service: 08:27
--- NOTE | 2019-08-03 08:29 | HOLT_ITS ---
Date of service: 07/31/19 Time of Service: 08:27
--- NOTE | 2019-08-03 08:29 | W.HOLTRPT ---
Date of service: 07/31/19 Time of Service: 08:27
== END 2019-07-31 15:02 ==
PROVIDERS: PCP Internal Medicine; Visit Provider Internal Medicine
DX: R42 Dizziness and giddiness (principal); I49.1 Atrial premature depolarization; I49.3 Ventricular premature depolarization
CPT/HCPCS: 93226

== ENCOUNTER 2019-08-03 08:23 | Outpatient (CLI) | payer MEDICARE, SELFPAY | END 2019-08-03 08:43 | PROVIDERS: PCP Internal Medicine; Referring Provider Internal Medicine; Visit Provider Internal Medicine Cardiovascular Disease | DX: R42 Dizziness and giddiness (principal); I49.1 Atrial premature depolarization; I49.3 Ventricular premature depolarization | CPT/HCPCS: 93227 ==

== ENCOUNTER 2019-09-24 16:11 | Inpatient (IN) | payer MEDICARE, SELFPAY ==
[2019-09-24] VITALS (36 sets, daily range): BP systolic 85–163; BP diastolic 48–95; PULSE 61–96; RESP 12–25; TEMP 36.4–36.8; O2SAT 92–98
--- NOTE | 2019-09-24 16:53 | W.ED.GENAD ---
Discharge Plan Disposition Patient Disposition: [facility] INPATIENT Condition: Fair Discharge Details Chief Complaint: Nausea/Vomit/Diar Clinical Impression: Dehydration, Gastroenteritis Admit Date/Time: 09/24/19 20:18 Admit Provider: Reji Redmond Attending Provider: Reji Redmond Primary Care Provider: Keren Gonzalez ED Provider: Shasha Ramirez Discharge Data Discharge Date/Time-TO BE ENTERED AT DEPARTURE: 09/24/19 21:20 HPI General Date/Time Provider Initiated Documentation: 09/24/19 16:15. HPI Narrative: Is a 68-year-old woman who presents for 3 days of nausea which progressed in the last 24 hours to include 2 episodes of vomiting and watery diarrhea which began in the last 24 hours. Patient is reporting mild abdominal discomfort. Patient reports in the last 24 hours she did note onset of lightheadedness and some dizziness noted worse when laying down but has been persistent since. Patient reports current lightheadedness but has no associated headache. Patient denies obvious positional exertion of lightheadedness. Patient denies vision change. Patient denies any significant sore throat, chest pain or coughing. Patient is concerned she has had decreased p.o. intake in the last few days and does feel dehydrated at this time. Patient does report she is urinating and denies dysuria, urgency but does report baseline frequency which seems unchanged. Patient does admit to abdominal discomfort but is vague in her complaints and denies obvious abdominal distention. No new lower leg edema reported. Right leg is notably swollen more than left which she reports is her baseline. On exam patient does have dry appearing mucous membranes. She is afebrile. Her breath sounds are clear, cardiac exam benign. Patient does have notable periumbilical discomfort and moderate right lower quadrant discomfort. Patient surgical history includes hysterectomy, cholecystectomy and C-sections. Labs ordered, chest x-ray, IV fluid ordered and nausea medication, CT of abdomen and pelvis pending Patient's chest x-ray does not reveal any focal consolidation or pneumothorax. Unchanged elevation of the right hemidiaphragm. Patient's initial EKG reveals regular sinus rhythm with a rate of 70. No ectopy or ST segment changes. Normal axis. This was reviewed with my attending Dr. Jason Trevino Patient labs reveal mild leukopenia. Patient has a mild notable hypokalemia. Glucose is 120. Kidney function normal, no significant transaminase changes or elevation of bilirubin. Lipase is not notably elevated. Patient's urinalysis does not reveal an acute infection culture is pending due to a few urine bacteria being present otherwise patient has negative nitrates and leukocyte esterase. Patient seen continue does show some gastric wall prominence possibly consistent with gastritis. Patient does have diverticulosis with mild haziness of the peridiverticular fat which could represent early mild diverticulitis. Common bile duct is mildly dilated but patient is status post cholecystectomy and has no associated transaminase or bilirubin elevation. Bilateral perinephric stranding was noted but again patient has no obvious indication of urinary tract infection at this time. I did discuss and order the possibility of a C. difficile as patient was recently on antibiotics but given she has only had 1 day of 2 episodes of watery diarrhea I feel this is an unlikely diagnosis. I have discussed these results with the patient however she does have persistent symptoms of dizziness despite providing her 1 L of IV fluid. Given patient's persistence of her lightheadedness this patient does not feel comfortable being discharged home at this time which I do not feel is unreasonable given her persistent complaints. Spoke with the hospitalist who agrees with plan of admission. Patient agrees with plan of admission. Will admit for observation. Related Data Home Medications Medication Instructions Recorded Confirmed albuterol sulfate [Proventil HFA] 2 puff INHALATION Q4H PRN 02/02/14 09/24/19 esomeprazole magnesium [Nexium] 40 mg PO DAILY 02/02/14 09/24/19 folic acid 1 mg PO DAILY 02/02/14 09/24/19 levothyroxine [Synthroid] 125 mcg PO DAILY 02/02/14 09/24/19 montelukast 10 mg PO DAILY 02/02/14 09/24/19 venlafaxine [Effexor XR] 150 mg PO BID 02/02/14 09/24/19 meclizine [Antivert] 25 mg PO TID PRN PRN 05/14/16 09/24/19 ranitidine HCl [Zantac] 300 mg PO HS 05/14/16 09/24/19 losartan 50 mg PO DAILY #30 tab 05/21/16 09/24/19 gabapentin 600 mg PO HS 01/23/17 09/24/19 mirtazapine 1 tab PO HS 03/07/17 09/24/19 acetaminophen [Tylenol Extra 1,000 mg PO BID 08/09/18 09/24/19 Strength] Aimovig Autoinjector (2 Pack) 140 mg SUBCUT QMONTH 08/10/18 09/24/19 methotrexate sodium 12.5 mg PO QWEEK 08/10/18 09/24/19 albuterol sulfate 2.5 mg INHALATION Q2H PRN PRN #0 08/15/18 09/24/19 vial clotrimazole 1 applic TOPICAL BID #1 tube 08/15/18 09/24/19 ipratropium bromide 0.2 mg INHALATION QID PRN PRN #100 08/15/18 09/24/19 amp metformin 1,000 mg PO BID@0800,1700 #30 tab 08/15/18 09/24/19 miconazole nitrate 0 g VAGINAL HS #1 pkg 08/15/18 09/24/19 metoprolol succinate 100 mg PO DAILY 07/14/19 09/24/19 prednisone 40 mg PO DAILY #8 tab 07/14/19 09/24/19 Previous Rx's Medication Instructions Recorded losartan 50 mg PO DAILY #30 tab 05/21/16 albuterol sulfate 2.5 mg INHALATION Q2H PRN PRN #0 08/15/18 vial clotrimazole 1 applic TOPICAL BID #1 tube 08/15/18 ipratropium bromide 0.2 mg INHALATION QID PRN PRN #100 08/15/18 amp metformin 1,000 mg PO BID@0800,1700 #30 tab 08/15/18 miconazole nitrate 0 g VAGINAL HS #1 pkg 08/15/18 prednisone 40 mg PO DAILY #8 tab 07/14/19 Allergies Allergy/AdvReac Type Severity Reaction Status Date / Time NSAIDS (Non-Steroidal Allergy Severe Anaphylaxsi Unverified 09/24/19 16:19 Anti-Inflamma s cefpodoxime Allergy Intermediate Hives Unverified 09/24/19 16:19 chlorhexidine Allergy Intermediate Skin Rash Unverified 09/24/19 16:19 latex Allergy Intermediate Skin Rash Unverified 09/24/19 16:19 Penicillins Allergy Intermediate Hives Unverified 09/24/19 16:19 povidone-iodine Allergy Intermediate Unverified 09/24/19 16:19 duloxetine HCl Allergy Unknown Unverified 09/24/19 16:19 [From Cymbalta] indomethacin Allergy Unknown Unverified 09/24/19 16:19 propoxyphene Allergy Unknown Unverified 09/24/19 16:19 propranolol Allergy Unknown Unverified 09/24/19 16:19 adhesive AdvReac Intermediate dermatitis Unverified 09/24/19 16:19 aspirin AdvReac Intermediate Nausea Unverified 09/24/19 16:19 butorphanol AdvReac Intermediate nose bleeds Unverified 09/24/19 16:19 fexofenadine AdvReac Intermediate nose bleeds Unverified 09/24/19 16:19 hydrocodone AdvReac Intermediate confusion Unverified 09/24/19 16:19 hydroxychloroquine AdvReac Intermediate Visual Unverified 09/24/19 16:19 [Hydroxychloroquine] Disturbances hydroxyzine AdvReac Intermediate Nausea Unverified 09/24/19 16:19 methotrexate AdvReac Intermediate Nausea Unverified 09/24/19 16:19 morphine AdvReac Intermediate confusion Unverified 09/24/19 16:19 oxycodone [Oxycodone] AdvReac Intermediate confusion Unverified 09/24/19 16:19 pentazocine AdvReac Intermediate confusion Unverified 09/24/19 16:19 Sulfa (Sulfonamide AdvReac Intermediate Headache Unverified 09/24/19 16:19 Antibiotics) sumatriptan AdvReac Intermediate palpitation Unverified 09/24/19 16:19 s zolpidem [Zolpidem] AdvReac Intermediate confusion Unverified 09/24/19 16:19 General Stated Complaint: Nausea/Vomit/Diar ARAVIND: 3 [facility] Medical History (Updated 09/25/19 @ 00:05 by Reji Redmond) CHF (congestive heart failure) Per echocardiogram 05/17/2016 LV cavity size normal. Wall thickness normal, systolic function mild to moderately reduced. LVEF 40-45%. Moderate hypokinesis of the basal/mid anteroseptal wall. Moderate hypokinesis of the apical/anterior, anterolateral and apical myocardium. Trivial AI, mild MR, RV size wall thickness and function normal. Mild pulmonary hypertension PA peak pressure 39 mm Chronic back pain COPD (chronic obstructive pulmonary disease) Depression Diverticulosis GERD (gastroesophageal reflux disease) h/o septic right knee (Inactive) Hyperlipidemia Hypertension Hyperthyroidism DARYL (obstructive sleep apnea) Rheumatoid arthritis Surgical History (Updated 09/25/19 @ 00:01 by Reji Redmond) Abdominal hysterectomy Biopsy of breast section Cholecystectomy H/O surgical procedure (Resolved) A. Cholecystectomy B. C. Hysterectomy D. TKR and revision E. Tubal ligation F. D and C G. Breast biopsy x 2 Replacement of total knee joint revision with infection Family History Sister Diabetes Sister Hypertension Mother Stomach cancer Social History Smoking/Tobacco Use Status: Former Tobacco Use Drug use: Never Do you feel safe at home: Yes Do you feel safe in your relationship?: Yes History History 2 Para 2 Hx # Term Pregnancies Multiple births Hx # Pregnancies Ectopic pregnancies AB induced Hx Number of Living Children AB spontaneous Exam Narrative Exam Narrative: CONST: Healthy appearing patient, in no acute distress. Well hydrated. Alert and alert. HENMT: Head nomocephalic, normal to inspection. Atraumatic. Hearing grossly normal. External ear canal no erythema or swelling. TM normal bilaterally. Nose normal to inspection. No rhinnorhea. Normal facial exam. Oral mucosa normal. Tounge normal. Dentition normal. Normal posterior oropharynx. EYES: General normal appearance. Alignment normal. Eyelids normal. Conjunctiva normal. Sclera normal. PERRL. NECK: Normal visual inspection. FROM. No lymphadenopathy. Trachea midline. No Midline tenderness. CHEST: Normal insepection of the chest. RESP: Normal respiratory effort. Speaking full sentences. No cough. No wheezing. No retractions. Diminished yet clear to auscaltation. Breath sound equal and present bilaterally. CARDIO: No JVD. Normal PMI. Regular Rate. Regular Rhythm. Normal peripheral pulses. GI: Normal inspection of abdomen. No distension. Soft. Tenderness to the right lower quadrant with palpation, mild periumbilical tenderness. Bowel sounds present in all 4 quadrants. No rebound. No gaurding. MUSCULOSKELETAL: Normal Gait. FROM of all extremities. Distal neurovascularly intact. Sensation intact distally. Edema noted greater in the right leg than the left which is reportedly patient's baseline SKIN: Normal. Dry. No rashes. NEURO: Alert and awake. Speech clear. PSYCH: Normal affect. Cooperative. Course Vital Signs Vital signs: Vital Signs Temperature 36.4 C L 09/24/19 16:16 Pulse 70 09/24/19 16:16 Respiratory Rate 12 09/24/19 16:16 Blood Pressure 158/95 H 09/24/19 16:16 Pulse Oximetry 95 09/24/19 16:16 Temperature 36.4 C L 09/24/19 16:16 Temperature Source Skin 09/24/19 16:16 Pulse 70 09/24/19 16:16 Respiratory Rate 12 09/24/19 16:16 Respiratory Effort Non-Labored 09/24/19 16:16 Blood Pressure 158/95 H 09/24/19 16:16 Blood Pressure Position Sitting 09/24/19 16:16 Pulse Oximetry 95 09/24/19 16:16 Oxygen Delivery Method Room Air 09/24/19 16:16 Oxygen Flow Rate 0 09/24/19 16:16 Pain Level 1 09/24/19 16:16
[2019-09-24] MEDS: Ondansetron 4 MG/2 ML VIAL IVP (17:06)
[2019-09-24] MEDS: Normal Saline 1,000 ML 500 ML IV (17:35)
[2019-09-24 17:39] LABS: Abs Immature Grans 0.02 k/cumm (0.0-0.09); Absolute Basophil Count 0.02 k/cumm (0.0-0.2); Absolute Eosinophil Count 0.08 k/cumm (0.0-0.7); Absolute Lymphocyte Count 1.17 k/cumm (1.2-3.4); Absolute Monocyte Count 0.52 k/cumm (0.11-0.7); Absolute Neutrophil Count 1.78 k/cumm (1.2-6.7); Basophils % 0.6; Eosinophils % 2.2; HCT 35.1 % (36.0-46.0); HGB 11.3 g/dL (12.0-15.5); Immature Grans % 0.6; Lymphocytes % 32.6; Mean Corp. HGB Concentration 32.2 g/dL (32.0-36.0); Mean Corpuscular Hemoglobin 30.7 pg (27.0-33.0); Mean Corpuscular Volume 95.4 fL (80-95); Mean Platelet Volume 8.8 fL (8.0-11.0); Monocytes % 14.5; Neutrophils % 49.5; Platelet Count 291 x1000/uL (130-400); RBC 3.68 m/cumm (4.00-5.20); RBC Distribution Width 14.7 % (11.7-14.6); White Blood Cell Count 3.59 k/cumm (4.4-10.8)
[2019-09-24 17:57] LABS: ALT 29 U/L (14-59); AST 33 U/L (15-37); Albumin 3.5 g/dL (3.4-5.0); Alkaline Phosphatase 106 U/L (46-116); Anion Gap 6.1 mmol/L (3-11); BUN 11 mg/dL (7-18); Bilirubin, Total 0.4 mg/dL (0.2-1.0); CO2 34.9 mmol/L (21.0-32.0); CREATININE 0.87 mg/dL (0.55-1.02); Chloride 104 mmol/L (98-107); Glucose 120 mg/dL (74-106); Lipase 53 U/L (73-393); Potassium 3.3 mmol/L (3.5-5.1); Sodium 145 mmol/L (136-145)
[2019-09-24 18:04] LABS: Troponin I < 0.05 ng/Ml (<0.06)
[2019-09-24 18:25] LABS: Bilirubin Negative (Negative); Blood Negative (Negative); Clarity Clear (Clear); Glucose Negative (Negative); Ketones Negative (Negative); Leukocyte Esterase Negative (Negative); Nitrite Negative (Negative); Specific Gravity 1.015 (1.005-1.025); Urobilinogen 0.2 EU/dL (Up TO 0.2)
[2019-09-24] MEDS: Omnipaque 350 MG/ML 100 ML BTL IJ (18:41)
--- NOTE | 2019-09-24 18:44 | DI.CT_ITS ---
EXAM: CT ABDOMEN PELVIS W CLINICAL HISTORY: abdominal pain TECHNIQUE: CT examination of the abdomen and pelvis was performed with a bolus infusion of 100 cc of Omnipaque 350. COMPARISON: CT chest PE abd pelvis w from 11/21/2018 FINDINGS: Images obtained through the lung bases are unremarkable. Liver and spleen are unremarkable in appea zion. Pancreas appears normal. No biliary dilatation. Prior cholecystectomy noted. Question of m ild gastric wall thickening, findings may represent under distension but the possibility of inflammat ory process not excluded. Small paraesophageal hiatal hernia noted. Adrenals and kidneys are unremarkable except for small presumed bilateral renal cysts and minimal per inephric stranding which is nonspecific. Abdominal aorta and major branches appear intact. No abdom inal or pelvic adenopathy. No significant abdominal wall hernia. No evidence of appendicitis or div erticulitis. IMPRESSION: No evidence of acute intra-abdominal process except for a question of gastric wall thickening which c ould be associated with gastritis, please correlate clinically.
--- NOTE | 2019-09-24 19:46 | DI.VRAD_ITS ---
PROCEDURE INFORMATION: Exam: CT Abdomen And Pelvis With Contrast Exam date and time: 09/24/2019 4:41 PM Age: 68 years old Clinical indication: Other: Abdominal pain TECHNIQUE: Imaging protocol: Computed tomography of the abdomen and pelvis with intravenous contrast. Radiation optimization: All CT scans at this facility use at least one of these dose optimization techniques: automated exposure control; mA and/or kV adjustment per patient size (includes targeted exams where dose is matched to clinical indication); or iterative reconstruction. COMPARISON: CT chest PE abd pelvis w 11/21/2018 2:20 PM FINDINGS: Mediastinum: Gas in the distal esophagus which can be seen with reflux. Small hiatal hernia. Liver: Normal. No mass. Gallbladder and bile ducts: Cholecystectomy. Common bile that measures 9 mm. This may be secondary to the patient's cholecystectomy status. However, correlation with lab values suggested. Pancreas: Atrophic. Spleen: Splenule. No splenomegaly. Adrenals: Nodular region in the left adrenal gland, unchanged. Kidneys and ureters: Too small to characterize hypodensities in each kidney. Bilateral perinephric stranding. This can be seen chronically or with infection. No hydronephrosis. Stomach and bowel: Gastric wall prominence. This can be seen with under distention or gastritis. No bowel obstruction. Distal descending/sigmoid diverticulosis with minimal haziness of the peridiverticular fat (series 6 image 39). This can be seen chronically or with mild diverticulitis in the appropriate clinical setting. Appendix: Not clearly seen. Intraperitoneal space: Unremarkable. No free air. No significant fluid collection. Vasculature: Unremarkable. No abdominal aortic aneurysm. Lymph nodes: Unremarkable. No enlarged lymph nodes. Bladder: Contracted and not well assessed. Reproductive: Hysterectomy changes. Bones/joints: Skeletal degenerative changes. Multilevel vacuum phenomenon in the spine. Scoliosis. Scattered sclerotic foci in the bones. In the absence of known malignancy, these most likely represent bone islands.. No acute fracture. Soft tissues: Unremarkable. IMPRESSION: 1. Gastric wall prominence. This can be seen with under distention or gastritis in the appropriate clinical setting. 2. Distal descending/sigmoid diverticulosis with minimal haziness of the peridiverticular fat (series 6 image 39). This can be seen chronically or with very mild diverticulitis in the appropriate clinical setting. 3. The common bile duct measures 9 mm, dilated. This may be secondary to the patient's cholecystectomy status. However, correlation with lab values suggested. 4. Bilateral perinephric stranding. This can be seen chronically or with infection. Other findings/details as above. Dictated and Authenticated by: Jessenia Burdick MD. Ordering:RUPALI Pulliam MD
--- NOTE | 2019-09-24 19:57 | DI.RAD_ITS ---
EXAM: XR CHEST 2V PA LATERAL XR CHEST 2V PA LATERAL CLINICAL HISTORY: lightheadedness lightheadedness TECHNIQUE: 2D digital imaging was performed. COMPARISON: No exams were available for comparison FINDINGS: The heart is not enlarged. The lungs are clear and well expanded. No pleural effusion seen. Mediastin al contours appear intact. IMPRESSION: Normal chest
[2019-09-24] MEDS: POTASSIUM CHLORIDE/0.9% NACL 1,000 ML 85 MEQ IV (20:00)
[2019-09-24 20:08] LABS: Troponin I < 0.05 ng/Ml (<0.06)
--- NOTE | 2019-09-24 20:24 | DI.VRAD_ITS ---
PROCEDURE INFORMATION: Exam: XR Chest, 2 Views Exam date and time: 09/24/2019 7:57 PM Age: 68 years old Clinical indication: Other: Lightheadedness TECHNIQUE: Imaging protocol: XR of the chest Views: 2 views. COMPARISON: CR XR CHEST 2V PA LATERAL 07/14/2019 7:15 PM and 08/27/2018. FINDINGS: Lungs: There is no focal consolidation. Pleural space: There is no pneumothorax. Heart/Mediastinum: Cardiomediastinal contours are unchanged from prior exam. Aortic ectasia remains seen. Diaphragm: There is mild elevation of the right hemidiaphragm, unchanged. Bones/joints: There are skeletal degenerative changes. IMPRESSION: 1. No focal consolidation or pneumothorax. If symptoms remain concerning, consider alternative imaging modalities. Dictated and Authenticated by: Jessenia Burdick MD. Ordering:RUPALI Pulliam MD
[2019-09-24 21:54] LABS: Magnesium 1.3 mg/dL (1.8-2.4)
[2019-09-24] MEDS: metroNIDAZOLE 500 MG/100 ML BAG 100 MG IVPB (22:27)
[2019-09-24] MEDS: Enoxaparin 40 MG/0.4 ML SYR SC (22:39)
[2019-09-24] MEDS: Gabapentin 300 MG CAP 600 MG PO (22:56)
[2019-09-24] MEDS: Mirtazapine 15 MG TAB 45 MG PO (22:56)
--- NOTE | 2019-09-24 23:09 | HPE_ITS ---
Date of service: 09/24/19 Time of Service: 23:09 Assessment and Plan Assessment and plan (1) Gastroenteritis: Status: Acute Assessment and plan: We will treat her with supportive care including antiemetics IV fluids and correction of her electrolyte deficits. We will attempt to obtain stool specimens for C. difficile as well as lactoferrin and stool pathogens. We will treat her empirically for incipient diverticulitis with IV ciprofloxacin and Flagyl (2) Diverticulitis: Status: Acute Assessment and plan: As above (3) Dehydration: Status: Acute Assessment and plan: IV fluid hydration and correction of electrolyte abnormalities as noted above. (4) Hypokalemia: Status: Acute Assessment and plan: As above. Repeat labs in the morning to assess adequate correction (5) Hypomagnesemia: Status: Acute Assessment and plan: As above (6) Non-insulin dependent type 2 diabetes mellitus: Status: Chronic Assessment and plan: We will hold her metformin for now and cover her with NovoLog sliding scale. Once her diarrhea has resolved will retry her on metf ormin. (7) Hypothyroidism: Status: Chronic Assessment and plan: Continue her current dose of levothyroxine. Check a TSH in the morning with her morning labs. Qualifiers: Hypothyroidism type: acquired Qualified Code(s): E03.9 - Hypothyroidism, unspecified (8) Hypertension: Status: Chronic Assessment and plan: Continue her home dose of losartan and Toprol XL Qualifiers: Hypertension type: essential hypertension Qualified Code(s): I10 - Essential (primary) hypertension (9) GERD (gastroesophageal reflux disease): Status: Chronic Assessment and plan: We will replace her ranitidine with a PPI Qualifiers: Esophagitis presence: esophagitis presence not specified Qualified Code(s): K21.9 - Gastro-esophageal reflux disease without esophagitis (10) COPD (chronic obstructive pulmonary disease): Status: Chronic Assessment and plan: Currently not having any acute exacerbation. Will continue her routine as needed use of albuterol Qualifiers: COPD type: unspecified COPD Qualified Code(s): J44.9 - Chronic obstructive pulmonary disease, unspecified (11) Congestive heart failure: Status: Chronic Assessment and plan: No evidence of acute congestive heart failure exacerbation. She has a history of heart failure with reduced ejection fraction therefore will need close monitoring of her IV fluid status. Continue IV fluids overnight for the next liter and then put a stopped her IV fluids. The day ho spitalist will need to reassess her volume status and determine if she still needs replacement fluids. If her diarrhea has resolved and she is taking adequate oral fluids then further IV fluids be unnecessary. Qualifiers: Heart failure chronicity: chronic Heart failure type: systolic Qualified Code(s): I50.22 - Chronic systolic (congestive) heart failure (12) Rheumatoid arthritis: Status: Chronic Assessment and plan: We will hold her disease modifying antirheumatic drugs for the present time in the setting of a possible acute diverticulitis. Qualifiers: Rheumatoid arthritis location: unspecified site Rheumatoid factor presence: unspecified presence Qualified Code(s): M06.9 - Rheumatoid arthritis, unspecified History of Present Illness History of Present Illness Chief Complaint: Diarrhea, nausea, lightheadedness Narrative: 68-year-old female with a past medical history of CHF, COPD, depression, GERD, hypertension, rheumatoid arthritis, hypothyroidism, diverticulosis who presents emergency department with decreased oral intake due to nausea for the last 3 days associated with vomiting for the past day along with diarrhea. Patient is a poor historian and is difficult eliciting information from her. But from interviewing her and from my discussion with Rangel Almonte, the patient has had diarrhea, although the ER indicated that this has been watery diarrhea but the patient denies this and states that it has been a few loose BM's. There has been no fever, chills or rigors. The patient initially denied for me any abdominal pain but Pamella Molina indicated that the patient has periumbilical pain w/ more localization in the LLQ. Work-up in the ER included routine labs including a CBC which showed a stable chronic anemia with hemoglobin 11.3 g. No leukocytosis as her total white count was actually on the low side at 3590. CMP demonstrated a low potassium of 3.3 and elevated carbon dioxide level 34.9 with a normal BUN of 11 creatinine 0.87. Blood lactate was normal at 1 magnesium is low at 1.3. Troponin I level was less than 0.05?2 sets. Lipase was normal at 53 and her LFTs were within normal limits. Urinalysis was unremarkable. Chest x-ray and CT scan of the abdomen pelvis were performed. Chest x-ray showed no focal consolidation or pneumothorax. CT scan of the abdomen pelvis demonstrated gastric wall prominence read as a possible gastritis, the distal descending/sigmoid diverticulosis showed minimal haziness of the amena-diverticular fat consistent with a mild diverticulitis. Common bile duct was dilated at 9 mm consistent w ith her history of cholecystectomy. There is bilateral perinephric stranding without hydronephrosis or nephrolithiasis. Patient was treated in the emergency department with 1 L of normal saline and stool studies were ordered for C. difficile and lactoferrin. Patient is now being admitted for treatment of a gastroenteritis and possible incipient diverticulitis. Patient has been started on IV ciprofloxacin and Flagyl. She will continue to receive IV fluids judiciously. Review of Systems All systems reviewed & are unremarkable except as noted in HPI and below PFSH Medical History (Updated 09/25/19 @ 04:23 by Reji Redmond) CHF (congestive heart failure) Per echocardiogram 05/17/2016 LV cavity size normal. Wall thickness normal, systolic function mild to moderately reduced. LVEF 40-45%. Moderate hypokinesis of the basal/mid anteroseptal wall. Moderate hypokinesis of the apical/anterior, anterolateral and apical myocardium. Trivial AI, mild MR, RV size wall thickness and function normal. Mild pulmonary hypertension PA peak pressure 39 mm Chronic back pain COPD (chronic obstructive pulmonary disease) Depression Diverticulosis GERD (gastroesophageal reflux disease) h/o septic right knee (Inactive) Hyperlipidemia Hypertension Hyperthyroidism DARYL (obstructive sleep apnea) Rheumatoid arthritis Surgical History (Updated 09/25/19 @ 00:01 by Reji Redmond) Abdominal hysterectomy Biopsy of breast section Cholecystectomy H/O surgical procedure (Resolved) A. Cholecystectomy B. C. Hysterectomy D. TKR and revision E. Tubal ligation F. D and C G. Breast biopsy x 2 Replacement of total knee joint revision with infection Family History Sister Diabetes Sister Hypertension Mother Stomach cancer Social History Smoking/Tobacco Use Status: Former Tobacco Use Drug use: Never Do you feel safe at home: Yes Do you feel safe in your relationship?: Yes History History 2 Para 2 Hx # Term Pregnancies Multiple births Hx # Pregnancies Ectopic pregnancies AB induced Hx Number of Living Children AB spontaneous Meds Home Medications and Allergies Home Medications Medication Instructions Recorded Confirmed Type albuterol sulfate [Proventil HFA] 2 puff INHALATION Q4H PRN 02/02/14 09/24/19 History esomeprazole magnesium [Nexium] 40 mg PO DAILY 02/02/14 09/24/19 History folic acid 1 mg PO DAILY 02/02/14 09/24/19 History levothyroxine [Synthroid] 125 mcg PO DAILY 02/02/14 09/24/19 History montelukast 10 mg PO DAILY 02/02/14 09/24/19 History venlafaxine [Effexor XR] 150 mg PO BID 02/02/14 09/24/19 History meclizine [Antivert] 25 mg PO TID PRN PRN 05/14/16 09/24/19 History ranitidine HCl [Zantac] 300 mg PO HS 05/14/16 09/24/19 History losartan 50 mg PO DAILY #30 tab 05/21/16 09/24/19 Rx gabapentin 600 mg PO HS 01/23/17 09/24/19 History mirtazapine 1 tab PO HS 03/07/17 09/24/19 History acetaminophen [Tylenol Extra 1,000 mg PO BID 08/09/18 09/24/19 History Strength] Aimovig Autoinjector (2 Pack) 140 mg SUBCUT QMONTH 08/10/18 09/24/19 History methotrexate sodium 12.5 mg PO QWEEK 08/10/18 09/24/19 History albuterol sulfate 2.5 mg INHALATION Q2H PRN PRN #0 08/15/18 09/24/19 Rx vial clotrimazole 1 applic TOPICAL BID #1 tube 08/15/18 09/24/19 Rx ipratropium bromide 0.2 mg INHALATION QID PRN PRN #100 08/15/18 09/24/19 Rx amp metformin 1,000 mg PO BID@0800,1700 #30 tab 08/15/18 09/24/19 Rx miconazole nitrate 0 g VAGINAL HS #1 pkg 08/15/18 09/24/19 Rx metoprolol succinate 100 mg PO DAILY 07/14/19 09/24/19 History prednisone 40 mg PO DAILY #8 tab 07/14/19 09/24/19 Rx Allergies Allergy/AdvReac Type Severity Reaction Status Date / Time NSAIDS (Non-Steroidal Allergy Severe Anaphylaxsi Unverified 09/24/19 16:19 Anti-Inflamma s cefpodoxime Allergy Intermediate Hives Unverified 09/24/19 16:19 chlorhexidine Allergy Intermediate Skin Rash Unverified 09/24/19 16:19 latex Allergy Intermediate Skin Rash Unverified 09/24/19 16:19 Penicillins Allergy Intermediate Hives Unverified 09/24/19 16:19 povidone-iodine Allergy Intermediate Unverified 09/24/19 16:19 duloxetine HCl Allergy Unknown Unverified 09/24/19 16:19 [From Cymbalta] indomethacin Allergy Unknown Unverified 09/24/19 16:19 propoxyphene Allergy Unknown Unverified 09/24/19 16:19 propranolol Allergy Unknown Unverified 09/24/19 16:19 adhesive AdvReac Intermediate dermatitis Unverified 09/24/19 16:19 aspirin AdvReac Intermediate Nausea Unverified 09/24/19 16:19 butorphanol AdvReac Intermediate nose bleeds Unverified 09/24/19 16:19 fexofenadine AdvReac Intermediate nose bleeds Unverified 09/24/19 16:19 hydrocodone AdvReac Intermediate confusion Unverified 09/24/19 16:19 hydroxychloroquine AdvReac Intermediate Visual Unverified 09/24/19 16:19 [Hydroxychloroquine] Disturbances hydroxyzine AdvReac Intermediate Nausea Unverified 09/24/19 16:19 methotrexate AdvReac Intermediate Nausea Unverified 09/24/19 16:19 morphine AdvReac Intermediate confusion Unverified 09/24/19 16:19 oxycodone [Oxycodone] AdvReac Intermediate confusion Unverified 09/24/19 16:19 pentazocine AdvReac Intermediate confusion Unverified 09/24/19 16:19 Sulfa (Sulfonamide AdvReac Intermediate Headache Unverified 09/24/19 16:19 Antibiotics) sumatriptan AdvReac Intermediate palpitation Unverified 09/24/19 16:19 s zolpidem [Zolpidem] AdvReac Intermediate confusion Unverified 09/24/19 16:19 Exam Narrative Exam Narrative: Elderly obese female lying on her right side in no acute distress. She is disinterested in my interviewing her. She answers yes and no to most of my questions. She really cannot give me much detail as far as her specific medical history. In fact I asked her specifically whether she had a heart condition such as congestive heart failure and she denied the same. She appears to be in no acute distress and just wants to be left alone to sleep. HEENT is unremarkable. Neck without JVD, supple, nontender, no palpable masses. Lungs are clear to auscultation Heart regular rate and rhythm without audible murmur rub or gallop Abdomen is obese soft with normal active bowel sounds with some mild periumbilical tenderness and more focalized tenderness to the left lower quadrant. There is no rebound tenderness and no guarding. Genitalia rectal exam deferred. Lower extremities without peripheral cyanosis or edema. She has a well-healed scar over the right knee consistent with prior TKA. No calf tenderness. Neurologic exam grossly intact without focal deficits. Results Labs Result diagrams: 09/24/19 17:35 09/24/19 17:35 Labs: Laboratory Results - last 24 hr 09/24/19 09/24/19 09/24/19 17:35 17:35 17:35 WBC 3.59 L RBC 3.68 L Hgb 11.3 L Hct 35.1 L MCV 95.4 H MCH 30.7 MCHC 32.2 RDW 14.7 H Plt Count 291 MPV 8.8 Immature Gran % 0.6 Neutrophils % 49.5 Lymphocytes % 32.6 Monocytes % 14.5 Eosinophils % 2.2 Basophils % 0.6 Absolute Neutrophils 1.78 Absolute Lymphocytes 1.17 L Absolute Monocytes 0.52 Absolute Eosinophils 0.08 Absolute Basophils 0.02 Sodium 145 Potassium 3.3 L Chloride 104 Carbon Dioxide 34.9 H Anion Gap 6.1 BUN 11 Creatinine 0.87 Estimated GFR/1.73 m2 >= 60.00 Glucose 120 H Lactate 1.0 Calcium 10.0 Magnesium 1.3 L Total Bilirubin 0.4 AST 33 ALT 29 Alkaline Phosphatase 106 Troponin I < 0.05 Total Protein 7.0 Albumin 3.5 Lipase 53 L Urine Color Urine Clarity Urine pH Ur Specific [place] Urine Protein Urine Ketones Urine Blood Urine Nitrite Urine Bilirubin Urine Urobilinogen Ur Leukocyte Esterase Urine Glucose 09/24/19 09/24/19 18:20 19:41 WBC RBC Hgb Hct MCV MCH MCHC RDW Plt Count MPV Immature Gran % Neutrophils % Lymphocytes % Monocytes % Eosinophils % Basophils % Absolute Neutrophils Absolute Lymphocytes Absolute Monocytes Absolute Eosinophils Absolute Basophils Sodium Potassium Chloride Carbon Dioxide Anion Gap BUN Creatinine Estimated GFR/1.73 m2 Glucose Lactate Calcium Magnesium Cancelled Total Bilirubin AST ALT Alkaline Phosphatase Troponin I < 0.05 Total Protein Albumin Lipase Urine Color Yellow Urine Clarity Clear Urine pH 6.0 Ur Specific [place] 1.015 Urine Protein Negative Urine Ketones Negative Urine Blood Negative Urine Nitrite Negative Urine Bilirubin Negative Urine Urobilinogen 0.2 Ur Leukocyte Esterase Negative Urine Glucose Negative Last Vital Signs Temp 36.8 C 09/24/19 21:33 Pulse 80 09/24/19 21:33 Resp 16 09/24/19 21:33 BP 147/77 H 09/24/19 21:33 Pulse Ox 96 09/24/19 21:33
[2019-09-25 00:15] VITALS: BP 145/62; PULSE 87; RESP 18; TEMP 36.1; O2SAT 97
[2019-09-25] MEDS: CIPROFLOXACIN 400 MG/200 ML BAG 200 MG IVPB ×3 (00:32→20:14)
[2019-09-25 00:33] VITALS: BP 148/75; PULSE 85; RESP 16; TEMP 36.8; O2SAT 94
[2019-09-25] MEDS: Potassium Chloride 20 MEQ TABCR 40 MEQ PO (01:45)
[2019-09-25] MEDS: POTASSIUM CHLORIDE 20 MEQ/100 ML BAG 50 MEQ IVPB (01:45)
[2019-09-25] MEDS: MAGNESIUM SULFATE 4 GM/100 ML BAG IVPB (01:45)
[2019-09-25] MEDS: Normal Saline Flush 10 ML SYR IVP (01:46)
[2019-09-25] MEDS: metroNIDAZOLE 500 MG/100 ML BAG 100 MG IVPB ×4 (04:17→20:12)
[2019-09-25] MEDS: Levothyroxine 50 MCG TAB (06:56)
[2019-09-25] MEDS: Levothyroxine 75 MCG TAB (06:56)
[2019-09-25 07:20] VITALS: BP 191/83; PULSE 75; RESP 16; TEMP 36.4; O2SAT 98
[2019-09-25 07:22] LABS: Abs Immature Grans 0.02 k/cumm (0.0-0.09); Absolute Basophil Count 0.03 k/cumm (0.0-0.2); Absolute Eosinophil Count 0.27 k/cumm (0.0-0.7); Absolute Monocyte Count 0.87 k/cumm (0.11-0.7); Absolute Neutrophil Count 2.77 k/cumm (1.2-6.7); Basophils % 0.5; Eosinophils % 4.9; HCT 37.4 % (36.0-46.0); HGB 11.9 g/dL (12.0-15.5); Immature Grans % 0.4; Lymphocytes % 28.8; Mean Corp. HGB Concentration 31.8 g/dL (32.0-36.0); Mean Corpuscular Hemoglobin 30.7 pg (27.0-33.0); Mean Corpuscular Volume 96.4 fL (80-95); Mean Platelet Volume 9.8 fL (8.0-11.0); Monocytes % 15.6; Neutrophils % 49.8; Platelet Count 284 x1000/uL (130-400); RBC 3.88 m/cumm (4.00-5.20); RBC Distribution Width 14.9 % (11.7-14.6); White Blood Cell Count 5.56 k/cumm (4.4-10.8)
[2019-09-25 07:25] LABS: Hemoglobin A1C 5.6 % (4.5-6.2)
[2019-09-25 07:35] LABS: Anion Gap 7.8 mmol/L (3-11); BUN 9 mg/dL (7-18); CO2 32.2 mmol/L (21.0-32.0); CREATININE 0.92 mg/dL (0.55-1.02); Calcium 9.3 mg/dL (8.5-10.1); Chloride 105 mmol/L (98-107); Glucose 127 mg/dL (74-106); Magnesium 2.8 mg/dL (1.8-2.4); Potassium 3.5 mmol/L (3.5-5.1); Sodium 145 mmol/L (136-145); TSH (W/Ref FT4) 1.93 uIU/mL (0.36-3.74)
[2019-09-25] MEDS: Insulin Aspart 300 UNITS/3 ML PEN SC ×2 (09:04→12:10)
[2019-09-25] MEDS: Clotrimazole 1% 15 GM TUBE TP (09:04)
[2019-09-25] MEDS: Losartan 50 MG TAB PO (09:05)
[2019-09-25] MEDS: Venlafaxine 150 MG CAPCR PO ×2 (09:05→20:09)
[2019-09-25] MEDS: Metoprolol CR 25 MG TABCR 100 MG PO (09:05)
[2019-09-25] MEDS: Montelukast 10 MG TAB PO (09:05)
[2019-09-25] MEDS: Folic Acid 1 MG TAB PO (09:05)
[2019-09-25] MEDS: Esomeprazole 40 MG CAPCR PO (09:05)
--- NOTE | 2019-09-25 11:52 | PHARADMIT ---
Addendum entered by Shelley Donahue 09/27/19 11:18: Pharmacy Note Subjective pt. feeling nauseous per morning report Objective BP-178/73 other VS okay weight-96.5(up) SCr-0.99(down) K+4.1(up) mag-1.9(down) Assessment levofloxacin changed to PO (day 2 levofloxacin, day 3 total abx) esomeprazole increased to BID predinisone started today for short course (5 days) Plan discharge home tomorrow if pt continues to improve Addendum entered by Shelley Donahue 09/26/19 11:00: Pharmacy Note Subjective pt tolerating regular diet per morning report; chest xray ordered Objective BP-173/95 K+3.4 mag-2.0 Assessment cipro/metronidazole continue- MD noted possibly discontinuing these later today fioricet ordered for migraine, K+ replacement given miconazole discontinued Plan watch for change of abx, progress note mentions new productive cough and wheezing Original Note: Admission Pharmacy Clinical Review gastroenteritis, diarrhea r/o C.diff, colitis, dehydration Code Status DNR/DNI Current Weight 93 kg Renally Cleared and Narrow Therapeutic Index Meds Crcl ~61.6 mL/min using adjusted body weight current meds okay QTc Value / Action Taken QTc 399 BP Control, Fever BP-191/83 afebrile Electrolytes reviewed mag 2.8 DVT Prophylaxis enoxaparin Opiate Usage / Scheduled Bowel Regimen Ordered no/no Plt/SCr for Heparin / Enoxaparin plt 284 SCr 0.92 INR for Warfarin n/a H/H stable, WBC/Bands h/h 11.9/37.4 WBC 5.56 Antibiotic appropriateness ciprofloxacin and metronidazole Cultures and Sensitivities micro orders were cancelled? Surgical ABX d/c within 24 hr n/a DM control / Insulin Dosing BG 127 sliding scale aspart ordered Heart Failure (Check EF%) (MALENA's, B-Block, Diuretics) losartan, metoprolol IV to PO Switch n/a Home Meds Reviewed -ipratriopium may enhance the anticholinergic effects of meclizine (recommended to avoid concurrent use or monitor closely for anticholinergic-related toxicity). -multiple JOIST SETTER depressants: gabapentin, meclizine, mirtazapine, Home Meds Not Ordered aimovig, meclizine(prn), metformin (has sliding scale aspart ordered), methotrexate, prednisone, ranitidine Comments miconazole rx from 08/2018 unsure if pt still taking, pt refused dose last night
--- NOTE | 2019-09-25 13:15 | W.NUTCONSULT ---
Date of service: 09/25/19 Time of Service: 13:15 Nutritional Consult ASSESSMENT: 71 year old female hospitalized for acute gastritis, diverticulitis, dehydration, hypokalemia, hypomagnesia, following clear liquid diet x 2 days. Met with Samantha today at lunch. Diet advanced to Regular. Completed 100% of lunch and asked for second helping, reports feeling some nausea. reviewed with Samantha nutrient and fluid needs and ways to reduce nausea as diet progressed. will continue to follow and adjust meal plan as needed. Currently tolerating regular meal plan despite lack of dentition. Reports she has no issues with chewing/swallowing. Currently not considered at nutritional risk. NUTRITIONAL DIAGNOSIS: obesity INTERVENTION: educated on nutrient/fluid needs for repletion MONITORING AND EVALUATION: will monitor po intake and weight trends Time Spent in Nutritional Counseling and Treatment: 15 min face to face
--- NOTE | 2019-09-25 14:53 | W.INDIABCONS ---
Date of service: 09/25/19 Time of Service: 14:54 Diabetes Inpatient Consult DESCRIPTION/ASSESSMENT: Appreciate diabetes consult for Samantha Kendall who is hospitalized with gastroenteritis, diverticulosis and low magnesium (now high). BMI 36 A1c 5.6 This hospitalization blood sugars 15--181 on sensitive insulin correction only and with Metformin at home. Visited with Samantha who is surprised by the A1c result being in the non-diabetes range. She engages describing an active lifestyle visiting friends at [facility] most days and involved with her pets. She admits to drinking a 16 ounce coke over 3 days but loves vegetables and can make a meal of green beans. INTERVENTION: Reassured Samantha whatever she is doing is working well for managing her diabetes. She is pleased. PLAN: Continue current plan. SHe may be in a good position to stop diabetes medications until she is prescribed steroids again. Time Spent in Nutritional Counseling and Treatment: 20 minutes face to face
[2019-09-25 15:59] VITALS: BP 133/74; PULSE 68; RESP 17; TEMP 36.5; O2SAT 96
--- NOTE | 2019-09-25 16:07 | CHAPLAIN ---
Samantha and I know each other from previous admissions, although she hasn't been admitted in several months. She said she is feeling better and coming to the ER last night following a few weeks of not feeling well. She is most concerned about her cat, however someone from [employer] [employer] has arranged to have the cat stay with a family in [place] while Samantha is here.
--- NOTE | 2019-09-25 16:40 | PGE_ITS ---
Date of Service Date of service: 09/25/19 Time of Service: 16:40 Assessment and Plan Assessment and plan (1) Diverticulitis: Status: Acute Assessment and plan: She is being treated empirically for diverticulitis. The initial reading of her CT abdomen from [facility] suggested some mild amena- colonic stranding consistent with mild diverticulitis in the descending colon. The formal reading from our radiologist did not concur with that. They both concurred on some mild gastritis. We will continue on the IV Cipro and Flagyl as empiric therapy as she continues to have abdominal discomfort and frequent formed bowel movements. (2) Hypokalemia: Status: Acute Assessment and plan: Ongoing potassium replacement. Recheck electrolytes in the a.m. (3) Hypomagnesemia: Status: Acute Assessment and plan: Magnesium has been replaced. Check it every other day as needed. (4) Discharge planning issues: Status: Acute Assessment and plan: She is DNR/DNI. She is admitted to observation status. Reassess again in the a.m. for the potential for discharge. Subjective Subjective Interval history since last seen: Patient still complains of intermittent lower abdominal pain a little worse on the left than the right. She describes having formed bowel movements on a regular basis that are soft and mushy. She states she has not had any true diarrhea. She is hungry. She was transition to a regular diet without difficulty. No fever or chills. Exam Narrative Exam Narrative: On exam she is edentulous sitting up in the chair in no apparent distress. Lungs are clear on the right and left heart regular. Her abdomen is quite markedly obese. She has some very mild diffuse tenderness to light palpation a little worse on the left than the right. There is no guarding or rebound. Lower extremities showed no CCE. Neurologically there are no focal deficits. Objective Objective Clinical Data: Abnormal lab results 09/24/19 09/24/19 09/25/19 Range/Units 17:35 17:35 06:30 WBC 3.59 L (4.4-10.8) k/cumm RBC 3.68 L (4.00-5.20) m/cumm Hgb 11.3 L (12.0-15.5) g/dL Hct 35.1 L (36.0-46.0) % MCV 95.4 H (80-95) fL MCHC (32.0-36.0) g/dL RDW 14.7 H (11.7-14.6) % Absolute Lymphocytes 1.17 L (1.2-3.4) k/cumm Absolute Monocytes (0.11-0.7) k/cumm Potassium 3.3 L (3.5-5.1) mmol/L Carbon Dioxide 34.9 H 32.2 H (21.0-32.0) mmol/L Glucose 120 H 127 H (74-106) mg/dL Magnesium 1.3 L 2.8 H (1.8-2.4) mg/dL Lipase 53 L (73-393) U/L 09/25/19 Range/Units 06:30 WBC (4.4-10.8) k/cumm RBC 3.88 L (4.00-5.20) m/cumm Hgb 11.9 L (12.0-15.5) g/dL Hct (36.0-46.0) % MCV 96.4 H (80-95) fL MCHC 31.8 L (32.0-36.0) g/dL RDW 14.9 H (11.7-14.6) % Absolute Lymphocytes (1.2-3.4) k/cumm Absolute Monocytes 0.87 H (0.11-0.7) k/cumm Potassium (3.5-5.1) mmol/L Carbon Dioxide (21.0-32.0) mmol/L Glucose (74-106) mg/dL Magnesium (1.8-2.4) mg/dL Lipase (73-393) U/L Vital Signs Temperature 36.5 C 09/25/19 15:59 Temperature Source Temporal Artery Scan 09/25/19 15:59 Pulse 68 09/25/19 15:59 Pulse Rhythm Regular 09/25/19 16:38 Pulse 88 09/24/19 19:31 Respiratory Rate 17 09/25/19 15:59 Respiratory Effort Non-Labored 09/25/19 16:38 Respiratory Depth Normal 09/25/19 16:38 Respiratory Pattern Normal 09/25/19 16:38 Blood Pressure 133/74 09/25/19 15:59 Blood Pressure Mean 95 09/24/19 19:31 Blood Pressure Position Sitting 09/24/19 16:16 Pulse Oximetry 96 09/25/19 15:59 Oxygen Delivery Method Room Air 09/25/19 15:59 Oxygen Flow Rate 0 09/25/19 15:59 Pain Level 3 09/25/19 15:59 Intake & Output 09/24/19 09/25/19 09/25/19 23:59 11:59 23:59 Intake Total 1100 / 1100 1020 / 2620 1600 / 2620 Output Total 350 / 350 750 / 750 Balance 750 / 750 270 / 1870 1600 / 1870 Weight 91.626 kg 93 kg Intake: IV 1100 / 1100 600 / 1600 1000 / 1600 Oral 420 / 1020 600 / 1020 Output: Urine 350 / 350 750 / 750 Other: Urine Color Straw Urine Appearance Clear Clear Urine Odor Normal Comment No incontinence at this time. Stool Size Moderate Stool Characteristics Formed Brown Voiding Methods Toilet Laboratory Results WBC 5.56 k/cumm (4.4-10.8) D 09/25/19 06:30 RBC 3.88 m/cumm (4.00-5.20) L 09/25/19 06:30 Hgb 11.9 g/dL (12.0-15.5) L 09/25/19 06:30 Hct 37.4 % (36.0-46.0) 09/25/19 06:30 MCV 96.4 fL (80-95) H 09/25/19 06:30 MCH 30.7 pg (27.0-33.0) 09/25/19 06:30 MCHC 31.8 g/dL (32.0-36.0) L 09/25/19 06:30 RDW 14.9 % (11.7-14.6) H 09/25/19 06:30 Plt Count 284 x1000/uL (130-400) 09/25/19 06:30 MPV 9.8 fL (8.0-11.0) 09/25/19 06:30 Immature Gran % 0.4 09/25/19 06:30 Neutrophils % 49.8 09/25/19 06:30 Lymphocytes % 28.8 09/25/19 06:30 Monocytes % 15.6 09/25/19 06:30 Eosinophils % 4.9 09/25/19 06:30 Basophils % 0.5 09/25/19 06:30 Absolute Neutrophils 2.77 k/cumm (1.2-6.7) 09/25/19 06:30 Absolute Lymphocytes 1.60 k/cumm (1.2-3.4) 09/25/19 06:30 Absolute Monocytes 0.87 k/cumm (0.11-0.7) H 09/25/19 06:30 Absolute Eosinophils 0.27 k/cumm (0.0-0.7) 09/25/19 06:30 Absolute Basophils 0.03 k/cumm (0.0-0.2) 09/25/19 06:30 Sodium 145 mmol/L (136-145) 09/25/19 06:30 Potassium 3.5 mmol/L (3.5-5.1) 09/25/19 06:30 Chloride 105 mmol/L (98-107) 09/25/19 06:30 Carbon Dioxide 32.2 mmol/L (21.0-32.0) H 09/25/19 06:30 Anion Gap 7.8 mmol/L (3-11) 09/25/19 06:30 BUN 9 mg/dL (7-18) 09/25/19 06:30 Creatinine 0.92 mg/dL (0.55-1.02) 09/25/19 06:30 Estimated GFR/1.73 m2 >= 60.00 (mL/min/1.73m2) 09/25/19 06:30 Glucose 127 mg/dL (74-106) H 09/25/19 06:30 Hemoglobin A1c 5.6 % (4.5-6.2) 09/25/19 06:30 Lactate 1.0 mmol/L (0.6-1.4) 09/24/19 17:35 Calcium 9.3 mg/dL (8.5-10.1) 09/25/19 06:30 Magnesium 2.8 mg/dL (1.8-2.4) H 09/25/19 06:30 Total Bilirubin 0.4 mg/dL (0.2-1.0) 09/24/19 17:35 AST 33 U/L (15-37) 09/24/19 17:35 ALT 29 U/L (14-59) 09/24/19 17:35 Alkaline Phosphatase 106 U/L (46-116) 09/24/19 17:35 Troponin I < 0.05 ng/Ml (<0.06) 09/24/19 19:41 Total Protein 7.0 g/dL (6.4-8.2) 09/24/19 17:35 Albumin 3.5 g/dL (3.4-5.0) 09/24/19 17:35 Lipase 53 U/L (73-393) L 09/24/19 17:35 TSH 1.93 uIU/mL (0.36-3.74) 09/25/19 06:30 Urine Color Yellow (Yellow) 09/24/19 18:20 Urine Clarity Clear (Clear) 09/24/19 18:20 Urine pH 6.0 (5-8) 09/24/19 18:20 Ur Specific [place] 1.015 (1.005-1.025) 09/24/19 18:20 Urine Protein Negative mg/dL (Negative) 09/24/19 18:20 Urine Ketones Negative mg/dL (Negative) 09/24/19 18:20 Urine Blood Negative (Negative) 09/24/19 18:20 Urine Nitrite Negative (Negative) 09/24/19 18:20 Urine Bilirubin Negative (Negative) 09/24/19 18:20 Urine Urobilinogen 0.2 EU/dL (Up TO 0.2) 09/24/19 18:20 Ur Leukocyte Esterase Negative (Negative) 09/24/19 18:20 Urine Glucose Negative mg/dL (Negative) 09/24/19 18:20
[2019-09-25] MEDS: Acetaminophen 325 MG TAB PO (16:54)
--- NOTE | 2019-09-25 18:15 | INITIAL_ITS ---
- If Service Date Differs Date of service: 09/25/19 Time of Service: 18:15 Care Management Initial Assess REASON FOR HOSPITALIZATION:: Diverticulitis PAST MEDICAL HISTORY/PAST SURGICAL HISTORY:: Medical History. CHF (congestive heart failure). Per echocardiogram 05/17/2016 LV cavity size normal. Wall thickness normal, systolic function mild to moderately reduced. LVEF 40-45%. Moderate hypokinesis of the basal/mid anteroseptal wall. Moderate hypokinesis of the apical/anterior, anterolateral and apical myocardium. Trivial AI, mild MR, RV size wall thickness and function normal. Mild pulmonary hypertension PA peak pressure 39 mm. Chronic back pain. COPD (chronic obstructive pulmonary disease). Depression. Diverticulosis. GERD (gastroesophageal reflux disease). h/o septic right knee (Inactive). Hyperlipidemia. Hypertension. Hyperthyro idism. DARYL (obstructive sleep apnea). Rheumatoid arthritis. Surgical History. Abdominal hysterectomy. Biopsy of breast. section. Cholecystectomy. H/O surgical procedure (Resolved). A. Cholecystectomy. B. . C. Hysterectomy. D. TKR and revision. E. Tubal ligation. F. D and C. G. Breast biopsy x 2. Replacement of total knee joint. revision with infection PREVIOUS FUNCTIONAL STATUS/SOCIAL/FAMILY SUPPORTS:: Samantha lives alone in an apartment in [place] [address] [facility]. She has supportive friends and neighbors in her community. She has two adult children who do not live locally. She is independent with her ADL's, but she does not drive. CURRENT FUNCTIONAL STATUS:: Samantha was sitting in her chair when CM met with her. She was pleasant and engaged in conversation. She reported that she was feeling better, but still wobbly and not good enough to go home. She reported that she lives alone so would feel better having another day to get stronger before returning home. CM will continue to follow. ADVANCE DIRECTIVES:: On file, Montse Urena listed as agent. Has patient been provided with information about the portal?: No Did the patient sign up for the portal?: No CODE STATUS:: DNR/DNI INSURANCE COVERAGE / FINANCIAL ISSUES:: [facility] CURRENT HOME/COMMUNITY SERVICES/EQUIPMENT:: Samantha has a cane that she uses. She also utilizes [facility] for rides as she does not drive. PRIMARY CARE PHYSICIAN:: Keren Gonzalez POTENTIAL DISCHARGE NEEDS:: Evaluations for further needs, follow up appointmen ts PATIENT/FAMILY EDUCATION NEEDS:: Review discharge intructions, discussion of self care including Ask Me Three ANTICIPATED BARRIERS TO DISCHARGE:: None identified TRANSPORTATION:: Anticipate Samantha will return home via [facility] private vehicle, coordinated by CM. PLAN:: Anticipate Samantha will return home with no additional services when medically cleared. She will be driven home by [facility] private vehicle when ready, coordinated by CM. She will follow up with her PCP as recommended. CM will continue to follow.
[2019-09-25] MEDS: Mirtazapine 15 MG TAB 45 MG PO (20:08)
[2019-09-25] MEDS: Gabapentin 300 MG CAP 600 MG PO (20:09)
[2019-09-25] MEDS: Enoxaparin 40 MG/0.4 ML SYR SC (20:10)
[2019-09-25 23:57] VITALS: BP 137/78; PULSE 68; RESP 18; TEMP 36.8; O2SAT 93
[2019-09-26] MEDS: metroNIDAZOLE 500 MG/100 ML BAG 100 MG IVPB (04:32)
[2019-09-26] MEDS: Normal Saline Flush 10 ML SYR IVP (04:53)
[2019-09-26] MEDS: Levothyroxine 125 MCG TAB PO (06:10)
[2019-09-26 06:42] LABS: Abs Immature Grans 0.02 k/cumm (0.0-0.09); Absolute Basophil Count 0.02 k/cumm (0.0-0.2); Absolute Eosinophil Count 0.54 k/cumm (0.0-0.7); Absolute Lymphocyte Count 1.62 k/cumm (1.2-3.4); Absolute Monocyte Count 1.09 k/cumm (0.11-0.7); Absolute Neutrophil Count 3.45 k/cumm (1.2-6.7); Basophils % 0.3; HCT 32.3 % (36.0-46.0); HGB 10.2 g/dL (12.0-15.5); Immature Grans % 0.3; Mean Corp. HGB Concentration 31.6 g/dL (32.0-36.0); Mean Corpuscular Hemoglobin 30.6 pg (27.0-33.0); Mean Platelet Volume 9.4 fL (8.0-11.0); Monocytes % 16.2; Neutrophils % 51.2; Platelet Count 289 x1000/uL (130-400); RBC 3.33 m/cumm (4.00-5.20); RBC Distribution Width 14.9 % (11.7-14.6); White Blood Cell Count 6.74 k/cumm (4.4-10.8)
[2019-09-26 06:53] LABS: Anion Gap 7.8 mmol/L (3-11); BUN 17 mg/dL (7-18); CO2 28.2 mmol/L (21.0-32.0); CREATININE 1.13 mg/dL (0.55-1.02); Calcium 8.6 mg/dL (8.5-10.1); Chloride 107 mmol/L (98-107); Glucose 138 mg/dL (74-106); Potassium 3.4 mmol/L (3.5-5.1); Sodium 143 mmol/L (136-145)
[2019-09-26 07:30] VITALS: BP 173/95; PULSE 83; RESP 19; TEMP 36.3; O2SAT 96
[2019-09-26] MEDS: Folic Acid 1 MG TAB PO (08:35)
[2019-09-26] MEDS: Metoprolol CR 25 MG TABCR 100 MG PO (08:35)
[2019-09-26] MEDS: Montelukast 10 MG TAB PO (08:35)
[2019-09-26] MEDS: Losartan 50 MG TAB PO (08:35)
[2019-09-26] MEDS: Venlafaxine 150 MG CAPCR PO ×2 (08:35→19:35)
[2019-09-26] MEDS: Esomeprazole 40 MG CAPCR PO (08:35)
[2019-09-26] MEDS: Acetaminophen 325 MG TAB PO (08:45)
[2019-09-26] MEDS: Potassium Chloride 20 MEQ TABCR 40 MEQ PO (08:45)
--- NOTE | 2019-09-26 09:55 | PGE_ITS ---
Date of Service Date of service: 09/26/19 Time of Service: 09:56 Assessment and Plan Assessment and plan (1) Gastroenteritis: Status: Acute Assessment and plan: The most likely etiology for n/v/diarrhea/abdominal pain. Official read for CT does not confirm diverticulitis. Cipro/flagyl can likely be d/c'ed later today. Tolerated a diet with some nausea. Continue esomeprazole. (2) Diverticulitis: Status: Ruled-out Assessment and plan: As above (3) COPD with acute exacerbation: Status: Acute Assessment and plan: Productive cough and wheezing are new. Check CXR, obtain sputum sample. May benefit from adjustment of antibiotics for better coverage of respiratory disease. (4) Hypokalemia: Status: Acute Assessment and plan: Replete and recheck in am. (5) Hypomagnesemia: Status: Resolved Assessment and plan: Recheck in am (6) Migraine: Status: Chronic Assessment and plan: Will trial fioricet - the patient cannot recall if she has ever had it. (7) DVT prophylaxis: Status: Acute Assessment and plan: Lovenox (8) Discharge planning issues: Status: Acute Assessment and plan: She is DNR/DNI. Admit to inpatient status. Subjective Subjective Interval history since last seen: Ms Kendall complains of having a migraine for which historically nothing but botox and aimovig have helped, but aimovig has stopped working. She also reports shortness of breath, wheezing, and a new cough productive of green sputum since last night. Denies dizziness, chest pain. Abdominal pain in LLQ is improving. No diarrhea. Still has nausea when eating. No vomiting. Has been eating a regular diet. Exam Narrative Exam Narrative: General: Pleasant elderly female who is audibly wheezing and pausing every 4-5 words to take a deep breath while talking to me, A&Ox3 HEENT: EOMI, MMM Heart: RRR Lungs: quiet wheezing on auscultation B Abdomen: abdomen is soft, + BS, mildly tender in LLQ Extremities: no e/c/c BLE's Objective Objective Clinical Data: Abnormal lab results 09/26/19 09/26/19 Range/Units 06:15 06:15 RBC 3.33 L (4.00-5.20) m/cumm Hgb 10.2 L (12.0-15.5) g/dL Hct 32.3 L (36.0-46.0) % MCV 97.0 H (80-95) fL MCHC 31.6 L (32.0-36.0) g/dL RDW 14.9 H (11.7-14.6) % Absolute Monocytes 1.09 H (0.11-0.7) k/cumm Potassium 3.4 L (3.5-5.1) mmol/L Creatinine 1.13 H (0.55-1.02) mg/dL Glucose 138 H (74-106) mg/dL Vital Signs Temperature 36.3 C L 09/26/19 07:30 Temperature Source Temporal Artery Scan 09/26/19 07:30 Pulse 83 09/26/19 07:30 Pulse Rhythm Regular 09/25/19 19:15 Pulse 88 09/24/19 19:31 Respiratory Rate 19 09/26/19 07:30 Respiratory Effort Non-Labored 09/25/19 19:15 Respiratory Depth Normal 09/25/19 19:15 Respiratory Pattern Normal 09/25/19 19:15 Blood Pressure 173/95 H 09/26/19 07:30 Blood Pressure Mean 95 09/24/19 19:31 Blood Pressure Position Sitting 09/24/19 16:16 Pulse Oximetry 96 09/26/19 07:30 Oxygen Delivery Method Room Air 09/26/19 07:30 Oxygen Flow Rate 0 09/26/19 07:30 Pain Level 0 09/26/19 07:30 Comment 09/26/19 07:30 Intake & Output 09/25/19 09/25/19 09/26/19 11:59 23:59 11:59 Intake Total 1220 / 3360 2140 / 3360 Output Total 750 / 750 Balance 470 / 2610 2140 / 2610 Weight 93 kg Intake: IV 800 / 2000 1200 / 2000 Oral 420 / 1360 940 / 1360 Output: Urine 750 / 750 Other: Urine Color Straw Yellow Urine Appearance Clear Clear Urine Odor Normal Normal Comment No incontinence at this time. pt voided in toilet and flushed before urine was visualised. Pt was also incontinent in her brief. Stool Size Moderate Stool Characteristics Formed Brown Voiding Methods Toilet Toilet Incontinent Laboratory Results WBC 6.74 k/cumm (4.4-10.8) 09/26/19 06:15 RBC 3.33 m/cumm (4.00-5.20) L 09/26/19 06:15 Hgb 10.2 g/dL (12.0-15.5) L 09/26/19 06:15 Hct 32.3 % (36.0-46.0) L 09/26/19 06:15 MCV 97.0 fL (80-95) H 09/26/19 06:15 MCH 30.6 pg (27.0-33.0) 09/26/19 06:15 MCHC 31.6 g/dL (32.0-36.0) L 09/26/19 06:15 RDW 14.9 % (11.7-14.6) H 09/26/19 06:15 Plt Count 289 x1000/uL (130-400) 09/26/19 06:15 MPV 9.4 fL (8.0-11.0) 09/26/19 06:15 Immature Gran % 0.3 09/26/19 06:15 Neutrophils % 51.2 09/26/19 06:15 Lymphocytes % 24.0 09/26/19 06:15 Monocytes % 16.2 09/26/19 06:15 Eosinophils % 8.0 09/26/19 06:15 Basophils % 0.3 09/26/19 06:15 Absolute Neutrophils 3.45 k/cumm (1.2-6.7) 09/26/19 06:15 Absolute Lymphocytes 1.62 k/cumm (1.2-3.4) 09/26/19 06:15 Absolute Monocytes 1.09 k/cumm (0.11-0.7) H 09/26/19 06:15 Absolute Eosinophils 0.54 k/cumm (0.0-0.7) 09/26/19 06:15 Absolute Basophils 0.02 k/cumm (0.0-0.2) 09/26/19 06:15 Sodium 143 mmol/L (136-145) 09/26/19 06:15 Potassium 3.4 mmol/L (3.5-5.1) L 09/26/19 06:15 Chloride 107 mmol/L (98-107) 09/26/19 06:15 Carbon Dioxide 28.2 mmol/L (21.0-32.0) 09/26/19 06:15 Anion Gap 7.8 mmol/L (3-11) 09/26/19 06:15 BUN 17 mg/dL (7-18) D 09/26/19 06:15 Creatinine 1.13 mg/dL (0.55-1.02) H 09/26/19 06:15 Estimated GFR/1.73 m2 47.60 (mL/min/1.73m2) 09/26/19 06:15 Glucose 138 mg/dL (74-106) H 09/26/19 06:15 Hemoglobin A1c 5.6 % (4.5-6.2) 09/25/19 06:30 Lactate 1.0 mmol/L (0.6-1.4) 09/24/19 17:35 Calcium 8.6 mg/dL (8.5-10.1) 09/26/19 06:15 Magnesium 2.0 mg/dL (1.8-2.4) 09/26/19 06:15 Total Bilirubin 0.4 mg/dL (0.2-1.0) 09/24/19 17:35 AST 33 U/L (15-37) 09/24/19 17:35 ALT 29 U/L (14-59) 09/24/19 17:35 Alkaline Phosphatase 106 U/L (46-116) 09/24/19 17:35 Troponin I < 0.05 ng/Ml (<0.06) 09/24/19 19:41 Total Protein 7.0 g/dL (6.4-8.2) 09/24/19 17:35 Albumin 3.5 g/dL (3.4-5.0) 09/24/19 17:35 Lipase 53 U/L (73-393) L 09/24/19 17:35 TSH 1.93 uIU/mL (0.36-3.74) 09/25/19 06:30 Urine Color Yellow (Yellow) 09/24/19 18:20 Urine Clarity Clear (Clear) 09/24/19 18:20 Urine pH 6.0 (5-8) 09/24/19 18:20 Ur Specific [place] 1.015 (1.005-1.025) 09/24/19 18:20 Urine Protein Negative mg/dL (Negative) 09/24/19 18:20 Urine Ketones Negative mg/dL (Negative) 09/24/19 18:20 Urine Blood Negative (Negative) 09/24/19 18:20 Urine Nitrite Negative (Negative) 09/24/19 18:20 Urine Bilirubin Negative (Negative) 09/24/19 18:20 Urine Urobilinogen 0.2 EU/dL (Up TO 0.2) 09/24/19 18:20 Ur Leukocyte Esterase Negative (Negative) 09/24/19 18:20 Urine Glucose Negative mg/dL (Negative) 09/24/19 18:20 CXR pending
[2019-09-26 10:13] VITALS: RESP 4; RESP 8
[2019-09-26] MEDS: Albuterol/Ipratropium 3 ML UPD VIAL UPD (10:13)
--- NOTE | 2019-09-26 10:35 | DI.RAD_ITS ---
EXAM: XR CHEST 2V PA LATERAL CLINICAL HISTORY: new cough. TECHNIQUE: 2D digital imaging was performed. COMPARISON: XR CHEST 2V PA LATERAL from 09/24/2019 FINDINGS: LUNGS: Clear. No pleural abnormality seen. HEART: Normal. MEDIASTINUM: Normal. OTHER FINDINGS:Normal. IMPRESSION: No acute pulmonary findings.
--- NOTE | 2019-09-26 11:14 | DI.VRAD_ITS ---
PROCEDURE INFORMATION: Exam: XR Chest, 2 Views Exam date and time: 09/26/2019 9:59 AM Age: 68 years old Clinical indication: Patient HX: New onset cough TECHNIQUE: Imaging protocol: XR of the chest Views: 2 views. COMPARISON: CR XR CHEST 2V PA LATERAL 09/24/2019 7:52 PM FINDINGS: Lungs: Unremarkable. No consolidation. Pleural space: Unremarkable. No pleural effusion. No pneumothorax. Heart/Mediastinum: The cardiomediastinal silhouette is fairly stable in appearance. Bones/joints: Degenerative changes again involve the spine. IMPRESSION: No evidence for acute pulmonary disease. Dictated and Authenticated by: Stan Mead MD. Ordering:VIANCA Turner MD
[2019-09-26] MEDS: Insulin Aspart 300 UNITS/3 ML PEN SC ×2 (11:57→19:39)
[2019-09-26] MEDS: Butalbital/Acetaminophen/Caffeine 50/325/40 TAB PO (12:03)
--- NOTE | 2019-09-26 12:13 | CMPROGNOTE_ITS ---
- If Service Date Differs Date of service: 09/26/19 Time of Service: 12:13 Care Management Progress Note S/O: Lore was sitting on the edge of the bed when CM met with her. She stated that she was not feeling well at all. She was coughing and expectorating thick mucous. Lore shared that she messed up her pills earlier in the week and that this always makes her sick. She has been changed from observation to inpatient status and will have additional testing. Lore is also concerned that her newspaper will continue to be delivered while she is hospitalized. She was provided with the phone number for the [employer] by JAMI, at her request. A: Lore is a 68 year old woman admitted to [facility] on 09/24/19 with gastroenteritis. P: Lore will likely be discharged home with a resumption of services which includes [employer] with housekeeping as well as Meals [employer] Wheels. Her case management associate is Alison Rogers. Lore will transport via [facility] coordinated by JAMI and will follow up with her PCP and discharge plan of care. CM will continue to support patient, family and discharge planning needs.
[2019-09-26] MEDS: levoFLOXacin 750 MG/150 ML BAG 100 MG IVPB (14:39)
[2019-09-26 15:13] VITALS: BP 175/92; PULSE 72; RESP 18; TEMP 36.7; O2SAT 97
[2019-09-26] MEDS: levoFLOXacin 250 MG TAB PO (17:54)
[2019-09-26 19:30] VITALS: BP 175/92; PULSE 73; RESP 18; TEMP 36.8; O2SAT 97
[2019-09-26] MEDS: Gabapentin 300 MG CAP 600 MG PO (19:32)
[2019-09-26] MEDS: Mirtazapine 15 MG TAB 45 MG PO (19:33)
[2019-09-26] MEDS: Clotrimazole 1% 15 GM TUBE TP (19:36)
[2019-09-26] MEDS: Enoxaparin 40 MG/0.4 ML SYR SC (19:36)
[2019-09-27] MEDS: Levothyroxine 125 MCG TAB PO (06:24)
[2019-09-27 07:11] LABS: Anion Gap 7.4 mmol/L (3-11); BUN 20 mg/dL (7-18); CO2 30.6 mmol/L (21.0-32.0); CREATININE 0.99 mg/dL (0.55-1.02); Calcium 9.2 mg/dL (8.5-10.1); Chloride 107 mmol/L (98-107); Estimated GFR 55.45 (mL/min/1.73m2); Glucose 108 mg/dL (74-106); Magnesium 1.9 mg/dL (1.8-2.4); Potassium 4.1 mmol/L (3.5-5.1); Sodium 145 mmol/L (136-145)
[2019-09-27 07:15] VITALS: BP 178/73; PULSE 78; RESP 17; TEMP 36; O2SAT 95
[2019-09-27] MEDS: Clotrimazole 1% 15 GM TUBE TP ×2 (08:24→20:14)
[2019-09-27] MEDS: Folic Acid 1 MG TAB PO (08:24)
[2019-09-27] MEDS: Losartan 50 MG TAB PO (08:25)
[2019-09-27] MEDS: Esomeprazole 40 MG CAPCR PO ×2 (08:25→20:15)
[2019-09-27] MEDS: Venlafaxine 150 MG CAPCR PO ×2 (08:25→20:15)
[2019-09-27] MEDS: levoFLOXacin 500 MG, levoFLOXacin 250 MG 750 MG PO (08:25)
[2019-09-27] MEDS: Montelukast 10 MG TAB PO (08:25)
[2019-09-27] MEDS: Metoprolol CR 25 MG TABCR 100 MG PO (08:26)
[2019-09-27] MEDS: Acetaminophen 325 MG TAB PO (08:32)
[2019-09-27 09:09] VITALS: RESP 4
[2019-09-27] MEDS: Albuterol/Ipratropium 3 ML UPD VIAL UPD (09:09)
--- NOTE | 2019-09-27 11:09 | W.PM.PROGNOT ---
Date of Service Date of service: 09/27/19 Time of Service: 11:09 Assessment and Plan Assessment and plan (1) COPD with acute exacerbation: Status: Acute Assessment and plan: Still more wheezy today than I would like to see her. Add a small dose of prednisone - the patient is concerned about going on steroids because they make her feel funny, but they do always work for her wheezing. CXR negative. Sputum C&S pending. Converted to levofloxacin yesterday. Continue antibiotics and nebs. (2) Gastroenteritis: Status: Acute Assessment and plan: Nausea today could be due to PO Levofloxacin, or due to residual gastritis/gastroenteritis. Increase PPI to BID. Patient will trial bland food today. (3) Diverticulitis: Status: Ruled-out Assessment and plan: As above - ruled out on official CT read. (4) Hypokalemia: Status: Resolved Assessment and plan: recheck in am. (5) Hypomagnesemia: Status: Resolved Assessment and plan: Recheck in am (6) Migraine: Status: Chronic Assessment and plan: Resolved. Follow up with outpatient neurology (7) DVT prophylaxis: Status: Acute Assessment and plan: Lovenox (8) Discharge planning issues: Status: Acute Assessment and plan: She is DNR/DNI. Patient is planned to be discharged home tomorrow with home health nursing (the patient reports difficulty with taking her medications as prescribed), and resumption of OT. Subjective Subjective Interval history since last seen: My stomach has felt sour all morning today. Sour like sour milk. Denies dizziness, chest pain, abdominal pain. Had a formed brown BM. Breathing/wheezing is better, but not back to normal. Exam Narrative Exam Narrative: General: Pleasant elderly female, looks less SOB, and not wheezing audibly today; HEENT: EOMI, MMM Heart: RRR, no m/r/g Lungs: quiet wheezing on auscultation B - better Abdomen: abdomen is soft, + BS, nontender, nondistended Extremities: no e/c/c BLE's Objective Objective Clinical Data: Abnormal lab results 09/27/19 Range/Units 06:15 BUN 20 H (7-18) mg/dL Glucose 108 H (74-106) mg/dL Vital Signs Temperature 36.0 C L 09/27/19 07:15 Temperature Source Temporal Artery Scan 09/27/19 07:15 Pulse 78 09/27/19 07:15 Pulse Rhythm Regular 09/27/19 08:20 Pulse 88 09/24/19 19:31 Respiratory Rate 17 09/27/19 07:15 Respiratory Effort Non-Labored 09/27/19 08:20 Respiratory Depth Normal 09/27/19 08:20 Respiratory Pattern Normal 09/27/19 08:20 Blood Pressure 178/73 H 09/27/19 07:15 Blood Pressure Mean 95 09/24/19 19:31 Blood Pressure Position Sitting 09/24/19 16:16 Pulse Oximetry 95 09/27/19 07:15 Oxygen Delivery Method Room Air 09/27/19 07:15 Oxygen Flow Rate 0 09/27/19 07:15 Pain Level 8 09/27/19 08:32 Comment 09/27/19 07:15 Intake & Output 09/26/19 09/26/19 09/27/19 11:59 23:59 11:59 Intake Total 240 / 9836.208 6323.333 / 1733.333 Balance 240 / 9099.007 7732.333 / 1733.333 Weight 96.5 kg Intake: IV 93.333 / 93.333 Oral 240 / 1640 1400 / 1640 Other: Urine Color Yellow Urine Appearance Clear Clear Clear Comment Voiding independently, BRP x 2 this shift thus far. No complaints. Stool Size Small Stool Characteristics Soft Brown Voiding Methods Toilet Toilet Laboratory Results WBC 6.74 k/cumm (4.4-10.8) 09/26/19 06:15 RBC 3.33 m/cumm (4.00-5.20) L 09/26/19 06:15 Hgb 10.2 g/dL (12.0-15.5) L 09/26/19 06:15 Hct 32.3 % (36.0-46.0) L 09/26/19 06:15 MCV 97.0 fL (80-95) H 09/26/19 06:15 MCH 30.6 pg (27.0-33.0) 09/26/19 06:15 MCHC 31.6 g/dL (32.0-36.0) L 09/26/19 06:15 RDW 14.9 % (11.7-14.6) H 09/26/19 06:15 Plt Count 289 x1000/uL (130-400) 09/26/19 06:15 MPV 9.4 fL (8.0-11.0) 09/26/19 06:15 Immature Gran % 0.3 09/26/19 06:15 Neutrophils % 51.2 09/26/19 06:15 Lymphocytes % 24.0 09/26/19 06:15 Monocytes % 16.2 09/26/19 06:15 Eosinophils % 8.0 09/26/19 06:15 Basophils % 0.3 09/26/19 06:15 Absolute Neutrophils 3.45 k/cumm (1.2-6.7) 09/26/19 06:15 Absolute Lymphocytes 1.62 k/cumm (1.2-3.4) 09/26/19 06:15 Absolute Monocytes 1.09 k/cumm (0.11-0.7) H 09/26/19 06:15 Absolute Eosinophils 0.54 k/cumm (0.0-0.7) 09/26/19 06:15 Absolute Basophils 0.02 k/cumm (0.0-0.2) 09/26/19 06:15 Sodium 145 mmol/L (136-145) 09/27/19 06:15 Potassium 4.1 mmol/L (3.5-5.1) D 09/27/19 06:15 Chloride 107 mmol/L (98-107) 09/27/19 06:15 Carbon Dioxide 30.6 mmol/L (21.0-32.0) 09/27/19 06:15 Anion Gap 7.4 mmol/L (3-11) 09/27/19 06:15 BUN 20 mg/dL (7-18) H 09/27/19 06:15 Creatinine 0.99 mg/dL (0.55-1.02) 09/27/19 06:15 Estimated GFR/1.73 m2 55.45 (mL/min/1.73m2) 09/27/19 06:15 Glucose 108 mg/dL (74-106) H 09/27/19 06:15 Hemoglobin A1c 5.6 % (4.5-6.2) 09/25/19 06:30 Lactate 1.0 mmol/L (0.6-1.4) 09/24/19 17:35 Calcium 9.2 mg/dL (8.5-10.1) 09/27/19 06:15 Magnesium 1.9 mg/dL (1.8-2.4) 09/27/19 06:15 Total Bilirubin 0.4 mg/dL (0.2-1.0) 09/24/19 17:35 AST 33 U/L (15-37) 09/24/19 17:35 ALT 29 U/L (14-59) 09/24/19 17:35 Alkaline Phosphatase 106 U/L (46-116) 09/24/19 17:35 Troponin I < 0.05 ng/Ml (<0.06) 09/24/19 19:41 Total Protein 7.0 g/dL (6.4-8.2) 09/24/19 17:35 Albumin 3.5 g/dL (3.4-5.0) 09/24/19 17:35 Lipase 53 U/L (73-393) L 09/24/19 17:35 TSH 1.93 uIU/mL (0.36-3.74) 09/25/19 06:30 Urine Color Yellow (Yellow) 09/24/19 18:20 Urine Clarity Clear (Clear) 09/24/19 18:20 Urine pH 6.0 (5-8) 09/24/19 18:20 Ur Specific [place] 1.015 (1.005-1.025) 09/24/19 18:20 Urine Protein Negative mg/dL (Negative) 09/24/19 18:20 Urine Ketones Negative mg/dL (Negative) 09/24/19 18:20 Urine Blood Negative (Negative) 09/24/19 18:20 Urine Nitrite Negative (Negative) 09/24/19 18:20 Urine Bilirubin Negative (Negative) 09/24/19 18:20 Urine Urobilinogen 0.2 EU/dL (Up TO 0.2) 09/24/19 18:20 Ur Leukocyte Esterase Negative (Negative) 09/24/19 18:20 Urine Glucose Negative mg/dL (Negative) 09/24/19 18:20
[2019-09-27] MEDS: Insulin Aspart 300 UNITS/3 ML PEN SC ×3 (12:06→20:18)
[2019-09-27] MEDS: predniSONE 20 MG TAB 40 MG PO (12:06)
[2019-09-27 15:23] VITALS: BP 145/86; PULSE 79; RESP 18; TEMP 36.6; O2SAT 97
--- NOTE | 2019-09-27 15:39 | CMPROGNOTE_ITS ---
- If Service Date Differs Date of service: 09/27/19 Time of Service: 15:39 Care Management Progress Note S/O: Lore was sitting on the edge of the bed when CM met with her. She stated that she was not feeling well at all and would not be able to go home today. She said that she was really sick to her stomach. She also said that her breathing was still not as good as it should be and that she would start on prednisone today. She shared that she hates prednisone but knows she needs it. CM will continue to follow. A: Lore is a 68 year old woman admitted to [facility] on 09/24/19 with gastroenteritis. P: Lore will likely be discharged home with a resumption of services which includes CFC with housekeeping as well as Meals on Wheels. Her case management director is Alison Gonzalez. Lore will transport via [facility] coordinated by CM and will follow up with her PCP and discharge plan of care. CM will continue to support patient, family and discharge planning needs.
[2019-09-27] MEDS: Enoxaparin 40 MG/0.4 ML SYR SC (20:14)
[2019-09-27] MEDS: Gabapentin 300 MG CAP 600 MG PO (20:15)
[2019-09-27] MEDS: Mirtazapine 15 MG TAB 45 MG PO (20:16)
[2019-09-27 23:05] VITALS: BP 157/84; PULSE 85; RESP 18; TEMP 36.8; O2SAT 96
[2019-09-28] MEDS: Levothyroxine 125 MCG TAB PO (05:53)
[2019-09-28 07:11] VITALS: BP 186/72; PULSE 84; RESP 18; TEMP 36.7; O2SAT 96
[2019-09-28] MEDS: Folic Acid 1 MG TAB PO (08:09)
[2019-09-28] MEDS: Metoprolol CR 25 MG TABCR 100 MG PO (08:09)
[2019-09-28] MEDS: predniSONE 20 MG TAB 40 MG PO (08:09)
[2019-09-28] MEDS: Losartan 50 MG TAB PO (08:10)
[2019-09-28] MEDS: levoFLOXacin 500 MG, levoFLOXacin 250 MG 750 MG PO (08:10)
[2019-09-28] MEDS: Esomeprazole 40 MG CAPCR PO (08:10)
[2019-09-28] MEDS: Montelukast 10 MG TAB PO (08:10)
[2019-09-28] MEDS: Venlafaxine 150 MG CAPCR PO (08:11)
[2019-09-28] MEDS: Clotrimazole 1% 15 GM TUBE TP (08:11)
--- NOTE | 2019-09-28 10:56 | W.PM.DS.N ---
Date of service: 09/28/19 Time of Service: 10:56 DS: Diagnosis Discharge Diagnosis (1) Gastroenteritis: Status: Acute (2) COPD with acute exacerbation: Status: Acute (3) Diverticulitis: Status: Ruled-out (4) Hypokalemia: Status: Resolved (5) Hypomagnesemia: Status: Resolved (6) Migraine: Status: Chronic Discharge Plan Disposition Patient Disposition: HOME W/HOME HEALTH SERVICE Condition: Good Discharge Details Chief Complaint: Nausea/Vomit/Diar Clinical Impression: Dehydration, Gastroenteritis Reason For Visit: GASTROENTERISTIS,DIARRHEA R/OC.DIFF.,COLITIS,DEHYD Admit Date/Time: 09/26/19 10:00 Admit Provider: Reji Redmond Attending Provider: Reji Redmond Primary Care Provider: Keren Gonzalez ED Provider: Shasha Ramirez Hospital Course Hospital Course: Ms Kendall is a 68 year old female with PMHx of non-oxygen dependent COPD, hypertension, GERD, hypothyroidism, and chronic migraines, who was treated on [facility] hospitalist service from 09/24/19 until 09/28/19 for abdominal pain, nausea/vomiting and diarrhea, which by imaging were most likely due to gastroenteritis. While diverticulitis was initially suspected, the final read of the CT of her abdomen and pelvis ruled it out. She was treated empirically with cipro and flagyl, but it is felt that the likely etiology of her gastroenteritis was viral. The patient did have a protracted course with her nausea, so her PPI was increased to BID, and nausea resolved. On hospital day 3, the patient developed a productive cough and wheezing. CXR ruled out pneumonia. Sputum culture grew normal radhames. She was treated with nebulizer treatments, oral prednisone and, at that point, her antibiotics were adjusted to levofloxacin alone to better the pulmonary source. Her wheezing and cough have resolved, and the patient feels well enough today to go home. She should complete 2 more days of levofloxacin on discharge. Finally, the patient's blood pressure has been somewhat elevated while here - however, sometimes well into SBP of 180's. Because she is on steroids at the time of this happening, no new antihypertensives are being initiated on discharge - but this will need to be followed up by PCP. On discharge, her manual blood pressure was 142/94. She is being discharged home with resumption of her home health OT and addition of home health nursing for medication assessment and teaching (patient is having trouble remembering to take her medications). The patient is medically stable for discharge home today. Care for patient as well as completion of her documentation on the day of discharge took 45 minutes. Home Meds and New Rx's Prescriptions: New prednisone 20 mg Tablet 40 mg PO DAILY Qty: 6 RF: 0 levofloxacin [Levaquin] 750 mg Tablet 750 mg PO QAM Qty: 2 RF: 0 Continued venlafaxine [Effexor XR] 150 MG capsule,extended release 24hr 150 mg PO BID RF: 0 levothyroxine [Synthroid] 125 MCG tablet 125 mcg PO DAILY RF: 0 folic acid 1 MG tablet 1 mg PO DAILY RF: 0 montelukast 10 MG tablet 10 mg PO DAILY RF: 0 albuterol sulfate [Proventil HFA] 6.7 GM HFA aerosol inhaler 2 puff Inhalation Q4H PRN RF: 0 losartan 50 MG tablet 50 mg PO DAILY Qty: 30 RF: 0 acetaminophen [Tylenol Extra Strength] 500 mg Tablet 1,000 mg PO BID RF: 0 methotrexate sodium 2.5 mg Tablet 12.5 mg PO QWEEK RF: 0 Aimovig Autoinjector (2 Pack) 70 mg/mL Auto-Injector 140 mg SUBCUT QMONTH RF: 0 clotrimazole 1 % Cream 1 applic Topical BID Qty: 1 RF: 0 metformin 500 mg Tablet 1,000 mg PO BID@0800,1700 Qty: 30 RF: 0 albuterol sulfate 2.5 MG/3 ML solution for nebulization 2.5 mg Inhalation Q2H PRN PRN (Reason: shortness of breath or wheezing) Qty: 0 RF: 0 metoprolol succinate 25 MG tablet extended release 24 hr 100 mg PO DAILY RF: 0 gabapentin 300 MG capsule 600 mg PO HS RF: 0 mirtazapine 45 MG tablet 1 tab PO HS RF: 0 Changed esomeprazole magnesium [Nexium] 40 MG capsule,delayed release(DR/EC) 40 mg PO BID Qty: 60 RF: 0 Discontinued ranitidine HCl [Zantac] 150 MG tablet 300 mg PO HS RF: 0 Discharge Instructions Instructions: Prednisone (By mouth), Levofloxacin (By mouth), Gastroenteritis (DC), COPD (Chronic Obstructive Pulmonary Disease) (DC) Additional Instructions: Return to the hospital with any fever, bleeding, chest pain, or shortness of breath. Complete your antibiotics and steroids as prescribed. Follow up with your PCP in 1-2 weeks. Care Plan Goals: Resumption of home health OT; addition of home health nursing. Stand Alone Forms: Nursing Discharge Form Referrals: Keren Gonzalez [Primary Care Provider] - 10/01/19 8:20 am Activity:: Activity as Tolerated Equipment/Supplies:: No Equipment Needed Diet:: Low Sodium Discharge Orders Discharge Orders: Discharge Order (Routine); Ordered 09/28/19 Ordered By: Yue Barker DS: Summary Status at Discharge Functional status at discharge: independent ambulation Overall status at discharge: patient is back to baseline Mental Status: mental status grossly normal Speech and Movement: speech and movement normal Mood: congruent mood Affect: normal affect Exam Narrative Exam Narrative: General: Pleasant elderly female, no shortness of breath or wheezing noted today. HEENT: EOMI, MMM Heart: RRR, no m/r/g Lungs: CTAB Abdomen: abdomen is soft, + BS, nontender, nondistended Extremities: no e/c/c BLE's Psych Mental Status: mental status grossly normal Speech and Movement: speech and movement normal Mood: congruent mood Affect: normal affect DS: Data Vitals/I&O Vitals and I&O: Vital Signs Temperature 36.7 C 09/28/19 07:11 Temperature Source Tympanic 09/28/19 07:11 Pulse 84 09/28/19 07:11 Pulse Rhythm Regular 09/28/19 08:30 Pulse 88 09/24/19 19:31 Respiratory Rate 18 09/28/19 07:11 Respiratory Effort Non-Labored 09/28/19 08:30 Respiratory Depth Normal 09/28/19 08:30 Respiratory Pattern Normal 09/28/19 08:30 Blood Pressure 186/72 H 09/28/19 07:11 Blood Pressure Mean 95 09/24/19 19:31 Blood Pressure Position Sitting 09/24/19 16:16 Pulse Oximetry 96 09/28/19 07:11 Oxygen Delivery Method Room Air 09/28/19 07:11 Oxygen Flow Rate 0 09/28/19 07:11 Pain Level 2 09/28/19 07:11 Comment 09/27/19 07:15 Intake & Output 09/27/19 09/27/19 09/28/19 11:59 23:59 11:59 Intake Total 240 / 960 720 / 960 240 / 240 Balance 240 / 960 720 / 960 240 / 240 Weight 96.5 kg 96.4 kg Intake: Oral 240 / 960 720 / 960 240 / 240 Other: Urine Color Yellow Yellow Urine Appearance Clear Clear Clear Stool Size Small Moderate Stool Characteristics Soft Soft Brown Brown Voiding Methods Toilet Toilet Toilet Data Completed and Pending Completed studies during hospitalization [Text1]: CT abdomen/pelvis 09/24/19: No evidence of acute intra-abdominal process except for a question of gastric wall thickening which could be associated with gastritis, please correlate clinically. CXR 09/24/19: Normal chest CXR 09/26/19: No evidence for acute pulmonary disease. Labs on day of discharge: Preliminary micro results at discharge 09/27/19 10:00 Sputum Culture - Preliminary Sputum Normal Radhames [facility] Medical History (Updated 09/27/19 @ 11:25 by Yue Barker MD) CHF (congestive heart failure) Per echocardiogram 05/17/2016 LV cavity size normal. Wall thickness normal, systolic function mild to moderately reduced. LVEF 40-45%. Moderate hypokinesis of the basal/mid anteroseptal wall. Moderate hypokinesis of the apical/anterior, anterolateral and apical myocardium. Trivial AI, mild MR, RV size wall thickness and function normal. Mild pulmonary hypertension PA peak pressure 39 mm Chronic back pain COPD (chronic obstructive pulmonary disease) Depression Diverticulosis GERD (gastroesophageal reflux disease) h/o septic right knee (Inactive) Hyperlipidemia Hypertension Hyperthyroidism DARYL (obstructive sleep apnea) Rheumatoid arthritis Surgical History (Updated 09/25/19 @ 00:01 by Reji Redmond) Abdominal hysterectomy Biopsy of breast section Cholecystectomy H/O surgical procedure (Resolved) A. Cholecystectomy B. C. Hysterectomy D. TKR and revision E. Tubal ligation F. D and C G. Breast biopsy x 2 Replacement of total knee joint revision with infection Family History Sister Diabetes Sister Hypertension Mother Stomach cancer Social History Smoking/Tobacco Use Status: Former Tobacco Use Drug use: Never Do you feel safe at home: Yes Do you feel safe in your relationship?: Yes History History 2 Para 2 Hx # Term Pregnancies Multiple births Hx # Pregnancies Ectopic pregnancies AB induced Hx Number of Living Children AB spontaneous
[2019-09-28 11:20] VITALS: BP 142/94
[2019-09-28] MEDS: Insulin Aspart 300 UNITS/3 ML PEN SC (12:18)
--- NOTE | 2019-09-28 12:51 | PDOC.CMDIS ---
LACE Index Scoring Tool - Questions: Length of Stay (in days): 2 Acuity (Admit via E.D.?): Yes Comorbidities: Congestive Heart Failure, Chronic Pulmonary Disease E.D. Visits: 3 - Answers: Total Score: 13 Risk of Readmission: High Risk Care Management Discharge Reason for Hospitalization: Diverticulitis Discharge Plan: Lore will discharge home with a resumption of services which includes CFC with housekeeping as well as Meals on Wheels. CM faxed notification to [facility]. Lore's case managers is Alison Trimble. Lore will transport via private vehicle with a friend. She follow up with her PCP and discharge plan of care. Patient/Family Education Needs: Review discharge instructions, discuss Ask Me Three. Services Needed at Discharge: Home Health Care Services ([facility]), Homemaking Services ([facility]: Britt Trimble)
--- NOTE | 2019-09-29 11:29 | PDOC.CMPRO ---
Care Management Progress Note CM coordinated new orders for [facility] for medication management. Dr. Barker and previous CM believed new orders could be added in addition to current [facility] non-skilled support. CM provided education around requirements for orders, Dr. Barker completed paper orders; CM faxed to medical records, and [facility].
== END 2019-09-28 12:52 | disposition home health service (06) | DRG 392 ==
LOC: ER 20:19 → MS 09-25 09:26
PROVIDERS: Family Medicine; Admitting Provider Internal Medicine; Emergency Provider Physician Assistant; PCP Internal Medicine; Visit Provider Internal Medicine
DX: A08.4 Viral intestinal infection, unspecified (principal); J44.1 Chronic obstructive pulmonary disease with (acute) exacerbation; I50.22 Chronic systolic (congestive) heart failure; E87.6 Hypokalemia; E83.42 Hypomagnesemia; E11.9 Type 2 diabetes mellitus without complications; Z79.84 Long term (current) use of oral hypoglycemic drugs; G43.909 Migraine, unspecified, not intractable, without status migrainosus; E03.9 Hypothyroidism, unspecified; K21.9 Gastro-esophageal reflux disease without esophagitis; I11.0 Hypertensive heart disease with heart failure; M06.9 Rheumatoid arthritis, unspecified; Z71.3 Dietary counseling and surveillance; Z66 Do not resuscitate
CPT/HCPCS: 36415; 80048; 80053; 83690; 93005; 96361; 96374; 99223; 99225; 99232; 99239; 99285; J1650; 71046; 74177; 81003; 83036; 83605; 83735; 84443; 84484; 85025; 87070; 87205; 93010; 94640; 99220; 99284; G0378; J0744; J1956; J2405; J3475; J3480; J3490; J7512; J7620

== ENCOUNTER 2020-04-23 19:00 | Inpatient (IN) | payer MEDICARE, SELFPAY ==
[2020-04-23] VITALS (29 sets, daily range): BP systolic 162–188; BP diastolic 74–107; PULSE 82–108; RESP 14–28; TEMP 36.2–36.8; O2SAT 92–99
--- NOTE | 2020-04-23 18:45 | RT.EKG_ITS ---
APPROVED REPORT Exam: Resting ECG Patient Location: I HR:104 bpm ECG Measurements Heart Rate 104 AXIS OR 195 P 72 QRSd 79 QRS 5 QT 332 T 77 QTc 437 <Conclusion> Sinus tachycardia...rate> 99
--- NOTE | 2020-04-23 18:53 | DI.CT_ITS ---
EXAM: CT CHEST/ABD/PEL W CLINICAL HISTORY: abdominal pain,ams TECHNIQUE: Imaging Protocol: Axial computed tomography images with coronal and sagittal reformatted images were created and reviewed CONTRAST MATERIAL: Intravenous: Omnipaque 350 Contrast volume:100 mL Oral: No COMPARISON: CT CT ABDOMEN PELVIS W from 09/24/2019 FINDINGS: Patient motion artifact is present which limits examination. CHEST: Tracheobronchial tree: Patent where visualized. Mediastinum and Nedra: No dominant adenopathy or fluid collection. Pulmonary parenchyma: No consolidation or dominant measurable mass. No architectural distortion. Pleura: No effusion or pneumothorax. Heart: The heart is not dilated. No coronary artery calcifications are seen. Aorta: Thoracic aorta non-dilated. Atherosclerosis. Lymph nodes: Within normal limits. Bones:Normal. ABDOMEN: Liver: Hepatic steatosis. No measurable mass. Portal, Superior Mesenteric, and Splenic Veins: Unremarkable. Gallbladder and Biliary Tract: Status post cholecystectomy. No biliary ductal dilatation. Pancreas: Normal density, no abnormal calcifications or inflammatory process. Spleen: Normal. Adrenals: No masses seen. Kidneys: Normal size, contour and axis. No radiodense stones or obstructive uropathy. Hypodensities o n the right kidney which are too small for further characterization but likely reflect small cysts. Abdominal Aorta: Abdominal portion non-dilated. Atherosclerosis. Bowel: No obstruction or bowel wall thickening. No evidence of acute appendicitis. There is colonic diverticulosis. There is a question of increased attenuation around the sigmoid colon and acute mild diverticulitis cannot be excluded. Peritoneal Cavity: No ascites, collection or mesenteric inflammatory response. Lymph Nodes: Within normal limits. Bones: Degenerative changes. Soft Tissues: Unremarkable. PELVIS: Bladder: Incompletely distended. No gross abnormality. Reproductive Organs: Status post hysterectomy. Lymph Nodes: Within normal limits. Bones: Degenerative changes. No acute abnormality. IMPRESSION: 1. No acute abdominal or pelvic process. 2. Colonic diverticulosis and a question of mild acute diverticulitis. Please correlate clinically. 3. No acute pulmonary process. RADIATION DOSE DELIVERED: Total DLP DATA REPOSITORY: All CT scans at this facility are submitted to the National Radiology Data Registry (NRDR) Dose Index Registry (DIR) with the [employer] ([employer]). RADIATION OPTIMIZATION: All CT scans at this facility use at least one of these dose optimization te chniques: automated exposure control; mA and/or kV adjustment per patient size (includes targeted exa ms where dose is matched to clinical indication); or iterative reconstruction.
--- NOTE | 2020-04-23 18:53 | DI.CT_ITS ---
EXAM: CT HEAD CERVICAL SPINE WO CLINICAL HISTORY: ams, found on ground. TECHNIQUE: Imaging Protocol: Axial computed tomography images with coronal and sagittal reformatted images were created and reviewed COMPARISON: CT CT HEAD WO from 07/10/2019 FINDINGS: Patient motion artifact limits examination. CT Head: Ventricles and Extra axial spaces: Normal in size and morphology for the patient's age. Hemorrhage: None. Cerebral parenchyma: Areas of decreased attenuation in the white matter most consistent with microvas cular ischemic disease. There is an old lacunar infarct on the left. Midline shift: None. Brainstem/Cerebellum: Normal. Calvarium: Normal. Visualized Paranasal sinuses/Mastoids: Clear. Soft Tissues: Unremarkable. CT Cervical Spine: Bones: No acute fracture. There is reversal of the normal cervical lordosis. Multilevel degenerativ e changes are seen in the cervical spine. Soft Tissues: Unremarkable. Lung Apices: Clear. IMPRESSION: 1. No acute intracranial process. 2. No acute fracture or subluxation in the cervical spine. RADIATION DOSE DELIVERED: Total DLP DATA REPOSITORY: All CT scans at this facility are submitted to the National Radiology Data Registry (NRDR) Dose Index Registry (DIR) with the [employer] (ACR). RADIATION OPTIMIZATION: All CT scans at this facility use at least one of these dose optimization te chniques: automated exposure control; mA and/or kV adjustment per patient size (includes targeted exa ms where dose is matched to clinical indication); or iterative reconstruction.
--- NOTE | 2020-04-23 19:12 | W.ED.GENAD ---
Discharge Plan Disposition Patient Disposition: [facility] INPATIENT Condition: Fair Discharge Details Chief Complaint: GenMedical Clinical Impression: Urinary tract infection, Altered mental status Primary Care Provider: Keren Gonzalez ED Provider: Francesca Ruth Home Meds and New Rx's Prescriptions: No Action venlafaxine [Effexor XR] 150 MG capsule,extended release 24hr 150 mg PO BID RF: 0 levothyroxine [Synthroid] 125 MCG tablet 125 mcg PO DAILY RF: 0 folic acid 1 MG tablet 1 mg PO DAILY RF: 0 montelukast 10 MG tablet 10 mg PO DAILY RF: 0 albuterol sulfate [Proventil HFA] 6.7 GM HFA aerosol inhaler 2 puff Inhalation Q4H PRN RF: 0 losartan 50 MG tablet 50 mg PO DAILY Qty: 30 RF: 0 acetaminophen [Tylenol Extra Strength] 500 mg Tablet 1,000 mg PO BID RF: 0 methotrexate sodium 2.5 mg Tablet 12.5 mg PO QWEEK RF: 0 Aimovig Autoinjector (2 Pack) 70 mg/mL Auto-Injector 140 mg SUBCUT QMONTH RF: 0 clotrimazole 1 % Cream 1 applic Topical BID Qty: 1 RF: 0 metformin 500 mg Tablet 1,000 mg PO BID@0800,1700 Qty: 30 RF: 0 albuterol sulfate 2.5 MG/3 ML solution for nebulization 2.5 mg Inhalation Q2H PRN PRN (Reason: shortness of breath or wheezing) Qty: 0 RF: 0 metoprolol succinate 25 MG tablet extended release 24 hr 100 mg PO DAILY RF: 0 prednisone 20 mg Tablet 40 mg PO DAILY Qty: 6 RF: 0 levofloxacin [Levaquin] 750 mg Tablet 750 mg PO QAM Qty: 2 RF: 0 esomeprazole magnesium [Nexium] 40 MG capsule,delayed release(DR/EC) 40 mg PO BID Qty: 60 RF: 0 gabapentin 300 MG capsule 600 mg PO HS RF: 0 mirtazapine 45 MG tablet 1 tab PO HS RF: 0 Medical Decision Making This is a 69-year-old female patient found to be confused and on the ground on a welfare check after not being heard from them for up to 7 days. She had been incontinent of bowel and bladder. She is unable to provide any history. IV established she was given 1 L of normal saline labs show potassium 3.2 she was repleted with 40 M EQ's p.o. magnesium found to be 1.3 repleted with 2 g IV. Her CPK was normal and her skin assessment was unremarkable making her being down on the ground for an extended period of time unlikely Head CT and cervical spine CT showed no acute findings. CT of the chest abdomen and pelvis only show possible mild diverticulosis otherwise unremarkable. She does have an evidence of urinary tract infection and was given ceftriaxone 1 g IV. COVID-19 testing pending. Her case was discussed with Dr. Rose Marie russell on the hospitalist services who accepts her admission to the floor on telemetry for altered mental status and urinary tract infection. Medical Records Medical records reviewed: Yes I reviewed the patient's medical records. Lab Data Lab results reviewed: Yes I reviewed the patient's lab results. Labs: Lab Results 04/23/20 04/23/20 04/23/20 Range/Units 19:15 19:15 19:20 WBC (4.4-10.8) k/cumm RBC (4.00-5.20) m/cumm Hgb (12.0-15.5) g/dL Hct (36.0-46.0) % MCV (80-95) fL MCH (27.0-33.0) pg MCHC (32.0-36.0) g/dL RDW (11.7-14.6) % Plt Count (130-400) x1000/uL MPV (8.0-11.0) fL Immature Gran % % Neutrophils % Lymphocytes % Monocytes % Eosinophils % Basophils % Absolute Neutrophils (1.2-6.7) k/cumm Absolute Lymphocytes (1.2-3.4) k/cumm Absolute Monocytes (0.11-0.7) k/cumm Absolute Eosinophils (0.0-0.7) k/cumm Absolute Basophils (0.0-0.2) k/cumm PT (9.3-11.0) sec INR (0.9-1.1) Sodium (136-145) mmol/L Potassium (3.5-5.1) mmol/L Chloride (98-107) mmol/L Carbon Dioxide (21.0-32.0) mmol/L Anion Gap (3-11) mmol/L BUN (7-18) mg/dL Creatinine (0.55-1.02) mg/dL Estimated GFR/1.73 m2 (mL/min/1.73m2) Glucose (74-106) mg/dL Calcium (8.5-10.1) mg/dL Magnesium (1.8-2.4) mg/dL Total Bilirubin (0.2-1.0) mg/dL AST (15-37) U/L ALT (14-59) U/L Alkaline Phosphatase (46-116) U/L Creatine Kinase (26-192) U/L Troponin I (<0.06) ng/mL Total Protein (6.4-8.2) g/dL Albumin (3.4-5.0) g/dL Lipase 42 (73-393) U/L TSH (0.36-3.74) uIU/mL Urine Color Yellow (Yellow) Urine Clarity Clear (Clear) Urine pH 5.5 (5-8) Ur Specific Colton >= 1.030 H (1.005-1.025) Urine Protein 30 H (Negative) mg/dL Urine Ketones 40 H (Negative) mg/dL Urine Blood Trace-intact H (Negative) Urine Nitrite Positive H (Negative) Urine Bilirubin Small H (Negative) Urine Urobilinogen 0.2 (Up TO 0.2) EU/dL Ur Leukocyte Esterase Moderate H (Negative) Urine RBC 0-2 (0-2) HPF Urine WBC >50 H (0-5) HPF Ur Epithelial Cells Many (Negative) HPF Urine Crystals Negative (Negative) HPF Urine Bacteria Many (Negative) HPF Urine Casts Negative (Negative) LPF Urine Mucus Moderate (Negative) Urine Other Negative (Negative) Ur Culture Indicated? No/sq. contamination Urine Glucose Negative (Negative) mg/dL Urine Opiates Screen Negative (Negative) Urine Methadone Screen Negative (Negative) Ur Barbiturates Screen Negative (Negative) Ur Tricyclics Screen Negative (Negative) Ur Amphetamines Screen Negative (Negative) U Benzodiazepines Scrn Negative (Negative) Urine Cocaine Screen Negative (Negative) Ur THC Screen Negative (Negative) 04/23/20 04/23/20 04/23/20 Range/Units 19:20 19:23 19:23 WBC 10.32 (4.4-10.8) k/cumm RBC 3.40 L (4.00-5.20) m/cumm Hgb 11.0 L (12.0-15.5) g/dL Hct 32.5 L (36.0-46.0) % MCV 95.6 H (80-95) fL MCH 32.4 (27.0-33.0) pg MCHC 33.8 (32.0-36.0) g/dL RDW 14.8 H (11.7-14.6) % Plt Count 250 (130-400) x1000/uL MPV 10.0 (8.0-11.0) fL Immature Gran % 0.2 % Neutrophils % 73.2 Lymphocytes % 15.6 Monocytes % 9.9 Eosinophils % 0.9 Basophils % 0.2 Absolute Neutrophils 7.56 H (1.2-6.7) k/cumm Absolute Lymphocytes 1.61 (1.2-3.4) k/cumm Absolute Monocytes 1.02 H (0.11-0.7) k/cumm Absolute Eosinophils 0.09 (0.0-0.7) k/cumm Absolute Basophils 0.02 (0.0-0.2) k/cumm PT (9.3-11.0) sec INR (0.9-1.1) Sodium 144 (136-145) mmol/L Potassium 3.2 L (3.5-5.1) mmol/L Chloride 108 H (98-107) mmol/L Carbon Dioxide 22.8 (21.0-32.0) mmol/L Anion Gap 13.2 H (3-11) mmol/L BUN 13 (7-18) mg/dL Creatinine 1.06 H (0.55-1.02) mg/dL Estimated GFR/1.73 m2 51.10 (mL/min/1.73m2) Glucose 132 H (74-106) mg/dL Calcium 9.8 (8.5-10.1) mg/dL Magnesium 1.3 L (1.8-2.4) mg/dL Total Bilirubin 0.4 (0.2-1.0) mg/dL AST 28 (15-37) U/L ALT 33 (14-59) U/L Alkaline Phosphatase 90 (46-116) U/L Creatine Kinase 53 (26-192) U/L Troponin I < 0.05 (<0.06) ng/mL Total Protein 7.1 (6.4-8.2) g/dL Albumin 3.6 (3.4-5.0) g/dL Lipase (73-393) U/L TSH 0.32 L (0.36-3.74) uIU/mL Urine Color (Yellow) Urine Clarity (Clear) Urine pH (5-8) Ur Specific Colton (1.005-1.025) Urine Protein (Negative) mg/dL Urine Ketones (Negative) mg/dL Urine Blood (Negative) Urine Nitrite (Negative) Urine Bilirubin (Negative) Urine Urobilinogen (Up TO 0.2) EU/dL Ur Leukocyte Esterase (Negative) Urine RBC (0-2) HPF Urine WBC (0-5) HPF Ur Epithelial Cells (Negative) HPF Urine Crystals (Negative) HPF Urine Bacteria (Negative) HPF Urine Casts (Negative) LPF Urine Mucus (Negative) Urine Other (Negative) Ur Culture Indicated? Urine Glucose (Negative) mg/dL Urine Opiates Screen (Negative) Urine Methadone Screen (Negative) Ur Barbiturates Screen (Negative) Ur Tricyclics Screen (Negative) Ur Amphetamines Screen (Negative) U Benzodiazepines Scrn (Negative) Urine Cocaine Screen (Negative) Ur THC Screen (Negative) 04/23/20 04/23/20 04/23/20 Range/Units 19:23 20:20 21:13 WBC (4.4-10.8) k/cumm RBC (4.00-5.20) m/cumm Hgb (12.0-15.5) g/dL Hct (36.0-46.0) % MCV (80-95) fL MCH (27.0-33.0) pg MCHC (32.0-36.0) g/dL RDW (11.7-14.6) % Plt Count (130-400) x1000/uL MPV (8.0-11.0) fL Immature Gran % % Neutrophils % Lymphocytes % Monocytes % Eosinophils % Basophils % Absolute Neutrophils (1.2-6.7) k/cumm Absolute Lymphocytes (1.2-3.4) k/cumm Absolute Monocytes (0.11-0.7) k/cumm Absolute Eosinophils (0.0-0.7) k/cumm Absolute Basophils (0.0-0.2) k/cumm PT 11.6 H (9.3-11.0) sec INR 1.2 H (0.9-1.1) Sodium (136-145) mmol/L Potassium (3.5-5.1) mmol/L Chloride (98-107) mmol/L Carbon Dioxide (21.0-32.0) mmol/L Anion Gap (3-11) mmol/L BUN (7-18) mg/dL Creatinine (0.55-1.02) mg/dL Estimated GFR/1.73 m2 (mL/min/1.73m2) Glucose (74-106) mg/dL Calcium (8.5-10.1) mg/dL Magnesium (1.8-2.4) mg/dL Total Bilirubin (0.2-1.0) mg/dL AST (15-37) U/L ALT (14-59) U/L Alkaline Phosphatase (46-116) U/L Creatine Kinase (26-192) U/L Troponin I (<0.06) ng/mL Total Protein (6.4-8.2) g/dL Albumin (3.4-5.0) g/dL Lipase (73-393) U/L TSH (0.36-3.74) uIU/mL Urine Color Yellow Cancelled (Yellow) Urine Clarity Cloudy Cancelled (Clear) Urine pH 5.5 Cancelled (5-8) Ur Specific Colton >= 1.030 H Cancelled (1.005-1.025) Urine Protein 30 H Cancelled (Negative) mg/dL Urine Ketones 40 H Cancelled (Negative) mg/dL Urine Blood Small H Cancelled (Negative) Urine Nitrite Positive H Cancelled (Negative) Urine Bilirubin Small H Cancelled (Negative) Urine Urobilinogen 0.2 Cancelled (Up TO 0.2) EU/dL Ur Leukocyte Esterase Large H Cancelled (Negative) Urine RBC Cancelled (0-2) HPF Urine WBC Cancelled (0-5) HPF Ur Epithelial Cells Cancelled (Negative) HPF Urine Crystals Cancelled (Negative) HPF Urine Bacteria Cancelled (Negative) HPF Urine Casts Cancelled (Negative) LPF Urine Mucus Cancelled (Negative) Urine Other Cancelled (Negative) Ur Culture Indicated? Cancelled Urine Glucose Negative Cancelled (Negative) mg/dL Urine Opiates Screen (Negative) Urine Methadone Screen (Negative) Ur Barbiturates Screen (Negative) Ur Tricyclics Screen (Negative) Ur Amphetamines Screen (Negative) U Benzodiazepines Scrn (Negative) Urine Cocaine Screen (Negative) Ur THC Screen (Negative) HPI General Mode of arrival: EMS. Date/Time Provider Initiated Documentation: 04/23/20 19:12. Limitations to Documentation: altered mental status. Information obtained by: patient, EMS and old records reviewed. HPI Narrative: This is a 69-year-old female patient with an extensive past medical history including COPD diabetes obstructive sleep apnea congestive heart failure who was found on a welfare check to be on the floor confused and had been incontinent of diarrhea. She is able to tell me that she is here in the emergency department and who she is but she is unable to provide me any other history. Report from EMS is that she did complain of abdominal pain. Her vital signs were unremarkable and blood sugar 142 Related Data Home Medications Medication Instructions Recorded Confirmed albuterol sulfate [Proventil HFA] 2 puff INHALATION Q4H PRN 02/02/14 09/24/19 folic acid 1 mg PO DAILY 02/02/14 09/24/19 levothyroxine [Synthroid] 125 mcg PO DAILY 02/02/14 09/24/19 montelukast 10 mg PO DAILY 02/02/14 09/24/19 venlafaxine [Effexor XR] 150 mg PO BID 02/02/14 09/24/19 losartan 50 mg PO DAILY #30 tab 05/21/16 09/24/19 gabapentin 600 mg PO HS 01/23/17 09/24/19 mirtazapine 1 tab PO HS 03/07/17 09/24/19 acetaminophen [Tylenol Extra 1,000 mg PO BID 08/09/18 09/24/19 Strength] Aimovig Autoinjector (2 Pack) 140 mg SUBCUT QMONTH 08/10/18 09/24/19 methotrexate sodium 12.5 mg PO QWEEK 08/10/18 09/24/19 albuterol sulfate 2.5 mg INHALATION Q2H PRN PRN #0 08/15/18 09/24/19 vial clotrimazole 1 applic TOPICAL BID #1 tube 08/15/18 09/24/19 metformin 1,000 mg PO BID@0800,1700 #30 tab 08/15/18 09/24/19 metoprolol succinate 100 mg PO DAILY 07/14/19 09/24/19 esomeprazole magnesium [Nexium] 40 mg PO BID #60 cap 09/28/19 levofloxacin [Levaquin] 750 mg PO QAM #2 tab 09/28/19 prednisone 40 mg PO DAILY #6 tab 09/28/19 Previous Rx's Medication Instructions Recorded losartan 50 mg PO DAILY #30 tab 05/21/16 albuterol sulfate 2.5 mg INHALATION Q2H PRN PRN #0 08/15/18 vial clotrimazole 1 applic TOPICAL BID #1 tube 08/15/18 metformin 1,000 mg PO BID@0800,1700 #30 tab 08/15/18 esomeprazole magnesium [Nexium] 40 mg PO BID #60 cap 09/28/19 levofloxacin [Levaquin] 750 mg PO QAM #2 tab 09/28/19 prednisone 40 mg PO DAILY #6 tab 09/28/19 Allergies Allergy/AdvReac Type Severity Reaction Status Date / Time NSAIDS (Non-Steroidal Allergy Severe Anaphylaxsi Unverified 04/23/20 19:08 Anti-Inflamma s cefpodoxime Allergy Intermediate Hives Unverified 04/23/20 19:08 chlorhexidine Allergy Intermediate Skin Rash Unverified 04/23/20 19:08 latex Allergy Intermediate Skin Rash Unverified 04/23/20 19:08 Penicillins Allergy Intermediate Hives Unverified 04/23/20 19:08 povidone-iodine Allergy Intermediate Unverified 04/23/20 19:08 duloxetine HCl Allergy Unknown Unverified 04/23/20 19:08 [From Cymbalta] indomethacin Allergy Unknown Unverified 04/23/20 19:08 propoxyphene Allergy Unknown Unverified 04/23/20 19:08 propranolol Allergy Unknown Unverified 04/23/20 19:08 adhesive AdvReac Intermediate dermatitis Unverified 04/23/20 19:08 aspirin AdvReac Intermediate Nausea Unverified 04/23/20 19:08 butorphanol AdvReac Intermediate nose bleeds Unverified 04/23/20 19:08 fexofenadine AdvReac Intermediate nose bleeds Unverified 04/23/20 19:08 hydrocodone AdvReac Intermediate confusion Unverified 04/23/20 19:08 hydroxychloroquine AdvReac Intermediate Visual Unverified 04/23/20 19:08 [Hydroxychloroquine] Disturbances hydroxyzine AdvReac Intermediate Nausea Unverified 04/23/20 19:08 methotrexate AdvReac Intermediate Nausea Unverified 04/23/20 19:08 morphine AdvReac Intermediate confusion Unverified 04/23/20 19:08 oxycodone [Oxycodone] AdvReac Intermediate confusion Unverified 04/23/20 19:08 pentazocine AdvReac Intermediate confusion Unverified 04/23/20 19:08 Sulfa (Sulfonamide AdvReac Intermediate Headache Unverified 04/23/20 19:08 Antibiotics) sumatriptan AdvReac Intermediate palpitation Unverified 04/23/20 19:08 s zolpidem [Zolpidem] AdvReac Intermediate confusion Unverified 04/23/20 19:08 General Stated Complaint: GenMedical ARAVIND: 3 Review of Systems Unobtainable due to mental status [facility] Medical History (Updated 04/23/20 @ 22:54 by Francesca Ruth NP) CHF (congestive heart failure) Per echocardiogram 05/17/2016 LV cavity size normal. Wall thickness normal, systolic function mild to moderately reduced. LVEF 40-45%. Moderate hypokinesis of the basal/mid anteroseptal wall. Moderate hypokinesis of the apical/anterior, anterolateral and apical myocardium. Trivial AI, mild MR, RV size wall thickness and function normal. Mild pulmonary hypertension PA peak pressure 39 mm Chronic back pain COPD (chronic obstructive pulmonary disease) Depression Diverticulosis GERD (gastroesophageal reflux disease) h/o septic right knee (Inactive) Hyperlipidemia Hypertension Hyperthyroidism DARYL (obstructive sleep apnea) Rheumatoid arthritis Surgical History (Updated 09/25/19 @ 00:01 by Reji Redmond) Abdominal hysterectomy Biopsy of breast section Cholecystectomy H/O surgical procedure (Resolved) A. Cholecystectomy B. C. Hysterectomy D. TKR and revision E. Tubal ligation F. D and C G. Breast biopsy x 2 Replacement of total knee joint revision with infection Social History Smoking/Tobacco Use Status: Former Tobacco Use Drug use: Never History History 2 Para 2 Hx # Term Pregnancies Multiple births Hx # Pregnancies Ectopic pregnancies AB induced Hx Number of Living Children AB spontaneous Exam Const General: comfortable, no acute distress, disheveled and frail appearing Nutritional Appearance: obese Orientation: alert, awake, oriented to person, oriented to place and confused Limitations: altered mental status HENMT Head: normal to inspection, normocephalic and atraumatic Mouth: oral mucosae normal Resp Effort & Inspection: normal respiratory effort Cardio Rate: regular rate Rhythm: regular rhythm GI Inspection: large pannus and obesity Palpation: soft, no hernias, no masses, not rigid and tender Auscultation: normal bowel sounds Skin General skin exam: no rashes or lesions noted Neuro General: patient alert, patient awake, oriented Patient Orientation: Person, Place and Confused and moves all extremities Cognition: abnormal cognition Speech: speech normal Motor: muscle tone normal throughout and strength 5/5 throughout Extrem General: normal to inspection, full ROM and pedal edema Course Vital Signs Vital signs: Vital Signs Temperature 36.5 C 04/23/20 19:02 Pulse 106 H 04/23/20 19:02 Respiratory Rate 20 04/23/20 19:02 Blood Pressure 173/88 H 04/23/20 19:02 Pulse Oximetry 97 04/23/20 19:02 Temperature 36.5 C 04/23/20 19:02 Temperature Source Skin 04/23/20 19:02 Pulse 106 H 04/23/20 19:02 Respiratory Rate 20 04/23/20 19:02 Blood Pressure 173/88 H 04/23/20 19:02 Blood Pressure Position Supine 04/23/20 19:02 Pulse Oximetry 97 04/23/20 19:02 Oxygen Delivery Method Room Air 04/23/20 19:02 Oxygen Flow Rate 0 04/23/20 19:02 Pain Level 0 04/23/20 19:02
[2020-04-23] MEDS: Normal Saline 1,000 ML 1000 ML IV (19:26)
[2020-04-23 19:44] LABS: Abs Immature Grans 0.02 k/cumm (0.0-0.09); Absolute Basophil Count 0.02 k/cumm (0.0-0.2); Absolute Eosinophil Count 0.09 k/cumm (0.0-0.7); Absolute Lymphocyte Count 1.61 k/cumm (1.2-3.4); Absolute Monocyte Count 1.02 k/cumm (0.11-0.7); Absolute Neutrophil Count 7.56 k/cumm (1.2-6.7); Basophils % 0.2; Eosinophils % 0.9; HCT 32.5 % (36.0-46.0); Immature Grans % 0.2 %; Lymphocytes % 15.6; Mean Corp. HGB Concentration 33.8 g/dL (32.0-36.0); Mean Corpuscular Hemoglobin 32.4 pg (27.0-33.0); Mean Corpuscular Volume 95.6 fL (80-95); Monocytes % 9.9; Neutrophils % 73.2; Platelet Count 250 x1000/uL (130-400); RBC Distribution Width 14.8 % (11.7-14.6); White Blood Cell Count 10.32 k/cumm (4.4-10.8)
[2020-04-23 19:46] LABS: Bilirubin Small (Negative); Blood Trace-intact (Negative); Clarity Clear (Clear); Glucose Negative (Negative); Ketones 40 mg/dL (Negative); Leukocyte Esterase Moderate (Negative); Nitrite Positive (Negative); Specific Gravity >= 1.030 (1.005-1.025); Urobilinogen 0.2 EU/dL (Up TO 0.2); pH 5.5 (5-8)
[2020-04-23 19:48] LABS: Lipase 42 U/L (73-393)
[2020-04-23 19:55] LABS: ALT 33 U/L (14-59); AST 28 U/L (15-37); Albumin 3.6 g/dL (3.4-5.0); Alkaline Phosphatase 90 U/L (46-116); Anion Gap 13.2 mmol/L (3-11); BUN 13 mg/dL (7-18); Bilirubin, Total 0.4 mg/dL (0.2-1.0); CO2 22.8 mmol/L (21.0-32.0); CREATININE 1.06 mg/dL (0.55-1.02); Calcium 9.8 mg/dL (8.5-10.1); Chloride 108 mmol/L (98-107); Creatine Kinase 53 U/L (26-192); Glucose 132 mg/dL (74-106); Magnesium 1.3 mg/dL (1.8-2.4); Potassium 3.2 mmol/L (3.5-5.1); Sodium 144 mmol/L (136-145); Total Protein 7.1 g/dL (6.4-8.2)
[2020-04-23 19:56] LABS: *AMPHETAMINES SCREEN URINE Negative (Negative); *BARBITURATES SCREEN URINE Negative (Negative); *BENZODIAZEPINES SCREEN URINE Negative (Negative); Cannabinoids THC Negative (Negative); Cocaine Screen,Urine Negative (Negative); METHADONE URINE SCREEN Negative (Negative); OPIATES URINE SCREEN Negative (Negative)
[2020-04-23 19:57] LABS: Bacteria Many HPF (Negative); C & S Indicated? No/Sq. Contamination; Casts Negative LPF (Negative); Crystals Negative HPF (Negative); Epithelial Cells Many HPF (Negative); Mucus Moderate (Negative); Other Cells Negative (Negative); RBC 0-2 HPF (0-2); WBC >50 HPF (0-5)
[2020-04-23 20:00] LABS: Tricyclic Antidepressants Negative (Negative)
[2020-04-23 20:00] LABS: Troponin I < 0.05 ng/mL (<0.06)
[2020-04-23 20:03] LABS: TSH 0.32 uIU/mL (0.36-3.74)
[2020-04-23] MEDS: levoFLOXacin 750 MG/150 ML BAG 100 MG IVPB (20:04)
[2020-04-23 20:06] LABS: INR 1.2 (0.9-1.1); Prothrombin Time 11.6 sec (9.3-11.0)
[2020-04-23] MEDS: Omnipaque 350 MG/ML 100 ML BTL IJ (20:25)
[2020-04-23] MEDS: Normal Saline - Diluent 50 ML VIAL IV (20:35)
--- NOTE | 2020-04-23 20:59 | DI.VRAD_ITS ---
PROCEDURE INFORMATION: Exam: CT Head Without Contrast Exam date and time: 04/23/2020 8:23 PM Age: 69 years old Clinical indication: Pain; Other: AMS PT found on ground; Patient HX: Found on ground AMS TECHNIQUE: Imaging protocol: Computed tomography of the head without contrast. Radiation optimization: All CT scans at this facility use at least one of these dose optimization techniques: automated exposure control; mA and/or kV adjustment per patient size (includes targeted exams where dose is matched to clinical indication); or iterative reconstruction. COMPARISON: CT HEAD WO 07/10/2019 1:08 PM FINDINGS: No evidence of hemorrhage. No mass effect. No acute intracranial abnormality. No evidence of acute fracture. IMPRESSION: No evidence of acute intracranial process. PROCEDURE INFORMATION: Exam: CT Cervical Spine Without Contrast Exam date and time: 04/23/2020 8:23 PM Age: 69 years old Clinical indication: Pain; Other: AMS PT found on ground; Patient HX: Found on ground AMS TECHNIQUE: Imaging protocol: Computed tomography images of the cervical spine without contrast. Radiation optimization: All CT scans at this facility use at least one of these dose optimization techniques: automated exposure control; mA and/or kV adjustment per patient size (includes targeted exams where dose is matched to clinical indication); or iterative reconstruction. COMPARISON: CT HEAD WO 07/10/2019 1:08 PM FINDINGS: Degenerative disc and facet disease of the midcervical spine. Reversal of the normal cervical lordosis. No acute fracture. Lung apices thin normal limits. IMPRESSION: Degenerative disc and facet disease with no evidence of acute bony injury. Dictated and Authenticated by: Antoine Alvarado MD. Ordering:TYLOR Ma MD
[2020-04-23] MEDS: Potassium Chloride 20 MEQ TABCR 40 MEQ PO (21:14)
--- NOTE | 2020-04-23 21:35 | DI.VRAD_ITS ---
PROCEDURE INFORMATION: Exam: CT Chest With Contrast Exam date and time: 04/23/2020 8:44 PM Age: 69 years old Clinical indication: Abdominal pain; Other: Abd pain, AMS TECHNIQUE: Imaging protocol: Computed tomography of the chest with intravenous contrast. Radiation optimization: All CT scans at this facility use at least one of these dose optimization techniques: automated exposure control; mA and/or kV adjustment per patient size (includes targeted exams where dose is matched to clinical indication); or iterative reconstruction. Contrast material: OMNI 350; Contrast volume: 100 ml; Contrast route: INTRAVENOUS (IV); COMPARISON: CT chest PE abd pelvis w 11/21/2018 2:20 PM FINDINGS: Limitations: Motion artifact does moderately limit the sensitivity of this examination. Lungs: Unremarkable. No consolidation. No masses. Pleural space: Unremarkable. No pneumothorax. No pleural effusion. Heart: Unremarkable. No cardiomegaly. No pericardial effusion. Aorta: Unremarkable. No aortic aneurysm. Lymph nodes: Unremarkable. No enlarged lymph nodes. Bones/joints: No acute fracture. Soft tissues: Unremarkable. IMPRESSION: Slightly limited examination due to motion. No evidence of pulmonary consolidation. PROCEDURE INFORMATION: Exam: CT Abdomen And Pelvis With Contrast Exam date and time: 04/23/2020 8:44 PM Age: 69 years old Clinical indication: Abdominal pain; Other: Abd pain, AMS TECHNIQUE: Imaging protocol: Computed tomography of the abdomen and pelvis with intravenous contrast. Radiation optimization: All CT scans at this facility use at least one of these dose optimization techniques: automated exposure control; mA and/or kV adjustment per patient size (includes targeted exams where dose is matched to clinical indication); or iterative reconstruction. Contrast material: OMNI 350; Contrast volume: 100 ml; Contrast route: INTRAVENOUS (IV); COMPARISON: CT chest PE abd pelvis w 11/21/2018 2:20 PM FINDINGS: Limitations: Motion artifact does moderately limit the sensitivity of this examination. Liver: Diffuse hepatic steatosis is noted. Gallbladder and bile ducts: The patient is status post cholecystectomy. Pancreas: Normal. No ductal dilation. Spleen: A splenule is noted medial to the spleen. No splenomegaly. Adrenals: Normal. No mass. Kidneys and ureters: No hydronephrosis. Stomach and bowel: Diffuse sigmoid diverticulosis is noted. There is mild bowel wall thickening and fat stranding in the sigmoid pericolonic region, which could represent mild diverticulitis in the appropriate clinical setting. Appendix: No evidence of appendicitis. Intraperitoneal space: No free air. No significant fluid collection. Vasculature: Unremarkable. No abdominal aortic aneurysm. Lymph nodes: Unremarkable. No enlarged lymph nodes. Bladder: Unremarkable as visualized. Reproductive: Unremarkable as visualized. Bones/joints: No acute fracture. Soft tissues: Small regions of calcification seen in the bilateral flank region, which may represent prior injections. IMPRESSION: 1. Slightly limited examination due to motion. Findings may represent mild diverticulitis in the appropriate clinical setting. Correlate with clinical presentation and physical examination findings. 2. Hepatic steatosis. Dictated and Authenticated by: Sarah Woods MD. Ordering:TYLOR Ma MD
[2020-04-23] MEDS: MAGNESIUM SULFATE 2 GM/50 ML BAG IVPB (21:55)
[2020-04-23 22:26] LABS: Bilirubin Small (Negative); Blood Small (Negative); Clarity Cloudy (Clear); Glucose Negative (Negative); Ketones 40 mg/dL (Negative); Leukocyte Esterase Large (Negative); Nitrite Positive (Negative); Specific Gravity >= 1.030 (1.005-1.025); Urobilinogen 0.2 EU/dL (Up TO 0.2); pH 5.5 (5-8)
--- NOTE | 2020-04-23 23:17 | W.PM.HP.N ---
Date of service: 04/23/20 Time of Service: 23:17 Assessment and Plan Assessment and plan (1) Colitis: Status: Acute Assessment and plan: Continue Levaquin, add Flagyl to her regimen. IV fluid hydration along with correction of her electrolyte abnormalities. Will request blood cultures and procalcitonin level and lactate level tonight to rule out sepsis. (2) Urinary tract infection: Status: Acute Assessment and plan: As above. Qualifiers: Urinary tract infection type: site unspecified (3) Altered mental status: Status: Acute Assessment and plan: Presumably metabolic encephalopathy secondary to dehydration and infection. We will monitor her cognitive function once the infection is clearing and she has been rehydrated and her electrolytes have been corrected. Qualifiers: Altered mental status type: disorientation Qualified Code(s): R41.0 - Disorientation, unspecified (4) Hypokalemia: Status: Acute Assessment and plan: We will replace with both IV and oral supplementation and recheck her electrolytes in the morning. (5) Hypomagnesemia: Status: Acute Assessment and plan: Patient was given 2 g of magnesium sulfate in the emergency department. She will need an additional 2 g IV and will need to be placed on oral supplementation. Repeat electrolytes in the morning. (6) DVT prophylaxis: Status: Acute Assessment and plan: SCD, teds, enoxaparin History of Present Illness Narrative: 69 year old female with PMHx of non-oxygen dependent COPD, hypertension, GERD, hypothyroidism, and chronic migraines who was found down in her home during a welfare check when she had not been seen or heard from in at least 7 days. She was found lying in feces and urine and was incontinent. She was found to be confused and unable to provide any explaination of how she ended up on the ground. Workup in the emergency room found her to be dehydrated with hypokalemia (K+3.2) and hypomagnesemic (Mg++ 1.3) and with UA evidence of UTI (+nitrites, >50 WBC and many bacteria but also w/ many epithelial cells. Because of her allergies to PCN and Cefpodoxime she was given Levaquin in the emergency room after urine culture was sent. Patient was given a bolus of magnesium 2 gm and given a liter of saline 1000 mL. The patient has also had a large amount of liquid diarrhea since admission. Radiologic evaluation in the ER included head and neck CT scans that were negative for any trauma or acute [facility] AD[facility] findings and CT of chest, abdomen and pelvis w/ contrast. CT chest showed no pulmonary consolidation but was limited by motion artifact. CT of the abdomen and pelvis demonstrated fatty liver, no biliary dilatation (s/p cholecystectomy), no hydronephrosis, but diffuse sigmoid diverticulosis and mild bowel wall thickening and fat stranding in the sigmoid pericolonic area. The patient since admission has had 3 liquid diarrhea stools. She has no abdominal pain nor distension. She is complaining of chilling. I am adding Flagyl to her Levaquin to cover for diverticulitis or colitis given her diarrhea. Review of Systems Unobtainable due to mental condition [facility] Medical History CHF (congestive heart failure) Per echocardiogram 05/17/2016 LV cavity size normal. Wall thickness normal, systolic function mild to moderately reduced. LVEF 40-45%. Moderate hypokinesis of the basal/mid anteroseptal wall. Moderate hypokinesis of the apical/anterior, anterolateral and apical myocardium. Trivial AI, mild MR, RV size wall thickness and function normal. Mild pulmonary hypertension PA peak pressure 39 mm Chronic back pain COPD (chronic obstructive pulmonary disease) Depression Diverticulosis GERD (gastroesophageal reflux disease) h/o septic right knee (Inactive) Hyperlipidemia Hypertension Hyperthyroidism DARYL (obstructive sleep apnea) Rheumatoid arthritis Surgical History Abdominal hysterectomy Biopsy of breast section Cholecystectomy H/O surgical procedure (Resolved) A. Cholecystectomy B. C. Hysterectomy D. TKR and revision E. Tubal ligation F. D and C G. Breast biopsy x 2 Replacement of total knee joint revision with infection Family History Sister Diabetes Sister Hypertension Mother Stomach cancer Social History Smoking/Tobacco Use Status: Former Tobacco Use Drug use: Never History History 2 Para 2 Hx # Term Pregnancies Multiple births Hx # Pregnancies Ectopic pregnancies AB induced Hx Number of Living Children AB spontaneous Meds Home Medications and Allergies Home Medications Medication Instructions Recorded Confirmed Type albuterol sulfate [Proventil HFA] 2 puff INHALATION Q4H PRN 02/02/14 09/24/19 History folic acid 1 mg PO DAILY 02/02/14 09/24/19 History levothyroxine [Synthroid] 125 mcg PO DAILY 02/02/14 09/24/19 History montelukast 10 mg PO DAILY 02/02/14 09/24/19 History venlafaxine [Effexor XR] 150 mg PO BID 02/02/14 09/24/19 History losartan 50 mg PO DAILY #30 tab 05/21/16 09/24/19 Rx gabapentin 600 mg PO HS 01/23/17 09/24/19 History mirtazapine 1 tab PO HS 03/07/17 09/24/19 History acetaminophen [Tylenol Extra 1,000 mg PO BID 08/09/18 09/24/19 History Strength] Aimovig Autoinjector (2 Pack) 140 mg SUBCUT QMONTH 08/10/18 09/24/19 History methotrexate sodium 12.5 mg PO QWEEK 08/10/18 09/24/19 History albuterol sulfate 2.5 mg INHALATION Q2H PRN PRN #0 08/15/18 09/24/19 Rx vial clotrimazole 1 applic TOPICAL BID #1 tube 08/15/18 09/24/19 Rx metformin 1,000 mg PO BID@0800,1700 #30 tab 08/15/18 09/24/19 Rx metoprolol succinate 100 mg PO DAILY 07/14/19 09/24/19 History esomeprazole magnesium [Nexium] 40 mg PO BID #60 cap 09/28/19 Rx levofloxacin [Levaquin] 750 mg PO QAM #2 tab 09/28/19 Rx prednisone 40 mg PO DAILY #6 tab 09/28/19 Rx Allergies Allergy/AdvReac Type Severity Reaction Status Date / Time NSAIDS (Non-Steroidal Allergy Severe Anaphylaxsi Unverified 04/23/20 19:08 Anti-Inflamma s cefpodoxime Allergy Intermediate Hives Unverified 04/23/20 19:08 chlorhexidine Allergy Intermediate Skin Rash Unverified 04/23/20 19:08 latex Allergy Intermediate Skin Rash Unverified 04/23/20 19:08 Penicillins Allergy Intermediate Hives Unverified 04/23/20 19:08 povidone-iodine Allergy Intermediate Unverified 04/23/20 19:08 duloxetine HCl Allergy Unknown Unverified 04/23/20 19:08 [From Cymbalta] indomethacin Allergy Unknown Unverified 04/23/20 19:08 propoxyphene Allergy Unknown Unverified 04/23/20 19:08 propranolol Allergy Unknown Unverified 04/23/20 19:08 adhesive AdvReac Intermediate dermatitis Unverified 04/23/20 19:08 aspirin AdvReac Intermediate Nausea Unverified 04/23/20 19:08 butorphanol AdvReac Intermediate nose bleeds Unverified 04/23/20 19:08 fexofenadine AdvReac Intermediate nose bleeds Unverified 04/23/20 19:08 hydrocodone AdvReac Intermediate confusion Unverified 04/23/20 19:08 hydroxychloroquine AdvReac Intermediate Visual Unverified 04/23/20 19:08 [Hydroxychloroquine] Disturbances hydroxyzine AdvReac Intermediate Nausea Unverified 04/23/20 19:08 methotrexate AdvReac Intermediate Nausea Unverified 04/23/20 19:08 morphine AdvReac Intermediate confusion Unverified 04/23/20 19:08 oxycodone [Oxycodone] AdvReac Intermediate confusion Unverified 04/23/20 19:08 pentazocine AdvReac Intermediate confusion Unverified 04/23/20 19:08 Sulfa (Sulfonamide AdvReac Intermediate Headache Unverified 04/23/20 19:08 Antibiotics) sumatriptan AdvReac Intermediate palpitation Unverified 04/23/20 19:08 s zolpidem [Zolpidem] AdvReac Intermediate confusion Unverified 04/23/20 19:08 Exam Narrative Exam Narrative: Elderly disheveled female who is awake alert and oriented to place she knows she is in the [facility]. She did not know the year she thought was 1999. She could not give me the month or the day of the month. When asked how she got here she said Austin Ferrell brought her here. When infection was brought here by EMS. When asked where she lives she pointed towards the window and said over there. HEENT is remarkable for dry mucous membranes. No oropharyngeal exudate. Neck is supple with flat neck veins. Normal carotid pulses no bruits no thyromegaly no cervical lymphadenopathy. Lungs are clear to auscultation anteriorly posteriorly there are some fine basilar crackles no rhonchi or or wheezes. Heart is regular rate and rhythm no appreciable murmur rub or gallop. Abdomen is obese soft nondistended nontender normal active bowel sounds no palpable masses no organomegaly no bruits. Extremities without peripheral cyanosis or edema. Neuro exam is nonfocal she has no facial asymmetry speech is clear coherent however she is confused. Normal strength and range of motion of both upper or lower extremities. Normal sensation to light touch. Results Labs Result diagrams: 04/23/20 19:04/23/20 19:23 Labs: Laboratory Results - last 24 hr 04/23/20 04/23/20 04/23/20 19:15 19: 19: WBC RBC Hgb Hct MCV MCH MCHC RDW Plt Count MPV Immature Gran % Neutrophils % Lymphocytes % Monocytes % Eosinophils % Basophils % Absolute Neutrophils Absolute Lymphocytes Absolute Monocytes Absolute Eosinophils Absolute Basophils PT INR Sodium Potassium Chloride Carbon Dioxide Anion Gap BUN Creatinine Estimated GFR/1.73 m2 Glucose Calcium Magnesium Total Bilirubin AST ALT Alkaline Phosphatase Creatine Kinase Troponin I Total Protein Albumin Lipase 42 TSH Urine Color Yellow Urine Clarity Clear Urine pH 5.5 Ur Specific [place] >= 1.030 H Urine Protein 30 H Urine Ketones 40 H Urine Blood Trace-intact H Urine Nitrite Positive H Urine Bilirubin Small H Urine Urobilinogen 0.2 Ur Leukocyte Esterase Moderate H Urine RBC 0-2 Urine WBC >50 H Ur Epithelial Cells Many Urine Crystals Negative Urine Bacteria Many Urine Casts Negative Urine Mucus Moderate Urine Other Negative Ur Culture Indicated? No/sq. contamination Urine Glucose Negative Urine Opiates Screen Negative Urine Methadone Screen Negative Ur Barbiturates Screen Negative Ur Tricyclics Screen Negative Ur Amphetamines Screen Negative U Benzodiazepines Scrn Negative Urine Cocaine Screen Negative Ur THC Screen Negative 04/23/20 04/23/20 04/23/20 19:20 19:23 19:23 WBC 10.32 RBC 3.40 L Hgb 11.0 L Hct 32.5 L MCV 95.6 H MCH 32.4 MCHC 33.8 RDW 14.8 H Plt Count 250 MPV 10.0 Immature Gran % 0.2 Neutrophils % 73.2 Lymphocytes % 15.6 Monocytes % 9.9 Eosinophils % 0.9 Basophils % 0.2 Absolute Neutrophils 7.56 H Absolute Lymphocytes 1.61 Absolute Monocytes 1.02 H Absolute Eosinophils 0.09 Absolute Basophils 0.02 PT INR Sodium 144 Potassium 3.2 L Chloride 108 H Carbon Dioxide 22.8 Anion Gap 13.2 H BUN 13 Creatinine 1.06 H Estimated GFR/1.73 m2 51.10 Glucose 132 H Calcium 9.8 Magnesium 1.3 L Total Bilirubin 0.4 AST 28 ALT 33 Alkaline Phosphatase 90 Creatine Kinase 53 Troponin I < 0.05 Total Protein 7.1 Albumin 3.6 Lipase TSH 0.32 L Urine Color Urine Clarity Urine pH Ur Specific [place] Urine Protein Urine Ketones Urine Blood Urine Nitrite Urine Bilirubin Urine Urobilinogen Ur Leukocyte Esterase Urine RBC Urine WBC Ur Epithelial Cells Urine Crystals Urine Bacteria Urine Casts Urine Mucus Urine Other Ur Culture Indicated? Urine Glucose Urine Opiates Screen Urine Methadone Screen Ur Barbiturates Screen Ur Tricyclics Screen Ur Amphetamines Screen U Benzodiazepines Scrn Urine Cocaine Screen Ur THC Screen 04/23/20 04/23/20 04/23/20 19:23 20:20 21:13 WBC RBC Hgb Hct MCV MCH MCHC RDW Plt Count MPV Immature Gran % Neutrophils % Lymphocytes % Monocytes % Eosinophils % Basophils % Absolute Neutrophils Absolute Lymphocytes Absolute Monocytes Absolute Eosinophils Absolute Basophils PT 11.6 H INR 1.2 H Sodium Potassium Chloride Carbon Dioxide Anion Gap BUN Creatinine Estimated GFR/1.73 m2 Glucose Calcium Magnesium Total Bilirubin AST ALT Alkaline Phosphatase Creatine Kinase Troponin I Total Protein Albumin Lipase TSH Urine Color Yellow Cancelled Urine Clarity Cloudy Cancelled Urine pH 5.5 Cancelled Ur Specific [place] >= 1.030 H Cancelled Urine Protein 30 H Cancelled Urine Ketones 40 H Cancelled Urine Blood Small H Cancelled Urine Nitrite Positive H Cancelled Urine Bilirubin Small H Cancelled Urine Urobilinogen 0.2 Cancelled Ur Leukocyte Esterase Large H Cancelled Urine RBC Cancelled Urine WBC Cancelled Ur Epithelial Cells Cancelled Urine Crystals Cancelled Urine Bacteria Cancelled Urine Casts Cancelled Urine Mucus Cancelled Urine Other Cancelled Ur Culture Indicated? Cancelled Urine Glucose Negative Cancelled Urine Opiates Screen Urine Methadone Screen Ur Barbiturates Screen Ur Tricyclics Screen Ur Amphetamines Screen U Benzodiazepines Scrn Urine Cocaine Screen Ur THC Screen Last Vital Signs Temp 36.5 C 04/23/20 19:02 Pulse 82 04/23/20 22:01 Resp 14 04/23/20 22:40 BP 167/89 H 04/23/20 22:01 Pulse Ox 97 04/23/20 22:40 COVID-19 Screening Have you,or household,traveled outside [place] in last 14 days?: No Had IN PERSON contact w/suspected or confirmed C-19 person: No
[2020-04-24] VITALS (7 sets, daily range): BP systolic 148–181; BP diastolic 90–106; PULSE 54–103; RESP 16–20; TEMP 36.2–37.1; O2SAT 96–99
[2020-04-24 00:08] LABS: Troponin I < 0.05 ng/mL (<0.06)
[2020-04-24 01:21] LABS: Lactate 0.9 mmol/L (0.6-1.4)
[2020-04-24] MEDS: Potassium Chloride Liquid 20 MEQ PKT 40 MEQ PO (01:24)
[2020-04-24] MEDS: POTASSIUM CHLORIDE/0.9% NACL 1,000 ML 85 MEQ IV (01:27)
[2020-04-24] MEDS: POTASSIUM CHLORIDE 20 MEQ/100 ML BAG 50 MEQ IVPB ×2 (01:27→04:14)
[2020-04-24] MEDS: MAGNESIUM SULFATE 2 GM/50 ML BAG IVPB (01:57)
[2020-04-24] MEDS: metroNIDAZOLE 500 MG/100 ML BAG 100 MG IVPB ×4 (03:15→20:41)
[2020-04-24 07:40] LABS: Abs Immature Grans 0.02 k/cumm (0.0-0.09); Absolute Basophil Count 0.01 k/cumm (0.0-0.2); Absolute Eosinophil Count 0.13 k/cumm (0.0-0.7); Absolute Lymphocyte Count 1.44 k/cumm (1.2-3.4); Absolute Monocyte Count 0.85 k/cumm (0.11-0.7); Absolute Neutrophil Count 4.58 k/cumm (1.2-6.7); Basophils % 0.1; Eosinophils % 1.8; HCT 32.6 % (36.0-46.0); HGB 10.5 g/dL (12.0-15.5); Immature Grans % 0.3 %; Lymphocytes % 20.5; Mean Corp. HGB Concentration 32.2 g/dL (32.0-36.0); Mean Corpuscular Hemoglobin 31.2 pg (27.0-33.0); Mean Corpuscular Volume 96.7 fL (80-95); Mean Platelet Volume 10.2 fL (8.0-11.0); Monocytes % 12.1; Neutrophils % 65.2; Platelet Count 243 x1000/uL (130-400); RBC 3.37 m/cumm (4.00-5.20); RBC Distribution Width 14.9 % (11.7-14.6); White Blood Cell Count 7.03 k/cumm (4.4-10.8)
[2020-04-24] MEDS: Potassium Chloride Liquid 20 MEQ PKT PO ×3 (08:03→20:40)
[2020-04-24] MEDS: Magnesium Gluconate 500 MG TAB PO (08:03)
[2020-04-24] MEDS: Enoxaparin 40 MG/0.4 ML SYR SC (08:04)
[2020-04-24 08:05] LABS: ALT 31 U/L (14-59); AST 27 U/L (15-37); Albumin 3.2 g/dL (3.4-5.0); Alkaline Phosphatase 84 U/L (46-116); Anion Gap 11.1 mmol/L (3-11); BUN 10 mg/dL (7-18); Bilirubin, Total 0.4 mg/dL (0.2-1.0); CO2 21.9 mmol/L (21.0-32.0); CREATININE 0.88 mg/dL (0.55-1.02); Calcium 8.8 mg/dL (8.5-10.1); Chloride 110 mmol/L (98-107); Glucose 119 mg/dL (74-106); Magnesium 1.9 mg/dL (1.8-2.4); Potassium 4.1 mmol/L (3.5-5.1); Sodium 143 mmol/L (136-145); Total Protein 6.4 g/dL (6.4-8.2)
[2020-04-24 08:07] LABS: Troponin I < 0.05 ng/mL (<0.06)
[2020-04-24] MEDS: Insulin Aspart 300 UNITS/3 ML PEN SC (08:19)
[2020-04-24 08:43] LABS: FREE T4 1.29 ng/dL (0.76-1.46)
[2020-04-24] MEDS: Pantoprazole 40 MG VIAL IVP (09:04)
--- NOTE | 2020-04-24 09:40 | INITIAL_ITS ---
- If Service Date Differs Date of service: 04/24/20 Time of Service: 09:40 Care Management Initial Assess REASON FOR HOSPITALIZATION:: Colitis PAST MEDICAL HISTORY/PAST SURGICAL HISTORY:: Medical History . CHF (congestive heart failure). Per echocardiogram 05/17/2016 LV cavity size normal. Wall thickness normal, systolic function mild to moderately reduced. LVEF 40-45%. Moderate hypokinesis of the basal/mid anteroseptal wall. Moderate hypokinesis of the apical/anterior, anterolateral and apical myocardium. Trivial AI, mild MR, RV size wall thickness and function normal. Mild pulmonary hypertension PA peak pressure 39 mm. Chronic back pain. COPD (chronic obstructive pulmonary disease). Depression. Diverticulosis. GERD (gastroesophageal reflux disease). h/o septic right knee (Inactive). Hyperlipidemia. Hypertension. Hyperthyroidism. DARYL (obstructive sleep apnea). Rheumatoid arthritis. Surgical History . Abdominal hysterectomy. Biop sy of breast. section. Cholecystectomy. H/O surgical procedure (Resolved). A. Cholecystectomy. B. . C. Hysterectomy. D. TKR and revision. E. Tubal ligation. F. D and C. G. Breast biopsy x 2. Replacement of total knee joint. revision with infection PREVIOUS FUNCTIONAL STATUS/SOCIAL/FAMILY SUPPORTS:: Samantha resides alone in [place], [place]. Per past reports, she has two daughters; Salena and Darya. Salena resides in [place], [place] and Darya resides at [facility]. CURRENT FUNCTIONAL STATUS:: Samantha was very confused when met with her. She made many contradictory statements. Samantha was admitted with UTI, AMS and dehydration. She is currently on isolation. ADVANCE DIRECTIVES:: On file. [employer] is agent Has patient been provided with info about the portal/API?: Yes Did the patient sign up for the portal?: No CODE STATUS:: DNR/DNI INSURANCE COVERAGE / FINANCIAL ISSUES:: Medicare CURRENT HOME/COMMUNITY SERVICES/EQUIPMENT:: CPAP, FWW, tub bench/shower chair, grab bars, nebulizer. Diability supports. per chart review PRIMARY CARE PHYSICIAN:: Keren Gonzalez [facility] POTENTIAL DISCHARGE NEEDS:: Resumption of community based supports, evaluation for further needs, follow up appointments. PATIENT/FAMILY EDUCATION NEEDS:: Review discharge instructions, discuss Ask Me Three ANTICIPATED BARRIERS TO DISCHARGE:: confusion TRANSPORTATION:: to be determined PLAN:: Samantha's discharge plan is unclear at this time. She is quite confused and unable to provide information. Since she lives alone, if her mental status does not improve, she will be unable to return to her currentr living situation. CM will continue to follow and assess for ongoing discharge needs.
[2020-04-24 09:51] LABS: Procalcitonin < 0.1 ng/mL
--- NOTE | 2020-04-24 11:53 | PHA.REVIEW ---
Pharmacy Admission Review - Admission Clinical Review (Last Reviewed 04/24/20 @ 00:38 by Reji Redmond) Colitis (Acute) Hypomagnesemia (Acute) Hypokalemia (Acute) Urinary tract infection (Acute) Altered mental status (Acute) DVT prophylaxis (Acute) NSAIDS (Non-Steroidal Anti-Inflamma Allergy (Severe, Unverified 04/23/20 19:08) Anaphylaxsis cefpodoxime Allergy (Intermediate, Unverified 04/23/20 19:08) Hives chlorhexidine Allergy (Intermediate, Unverified 04/23/20 19:08) Skin Rash latex Allergy (Intermediate, Unverified 04/23/20 19:08) Skin Rash Penicillins Allergy (Intermediate, Unverified 04/23/20 19:08) Hives povidone-iodine Allergy (Intermediate, Unverified 04/23/20 19:08) duloxetine HCl [From Cymbalta] Allergy (Unknown, Unverified 04/23/20 19:08) indomethacin Allergy (Unknown, Unverified 04/23/20 19:08) propoxyphene Allergy (Unknown, Unverified 04/23/20 19:08) propranolol Allergy (Unknown, Unverified 04/23/20 19:08) adhesive Adverse Reaction (Intermediate, Unverified 04/23/20 19:08) dermatitis aspirin Adverse Reaction (Intermediate, Unverified 04/23/20 19:08) Nausea butorphanol Adverse Reaction (Intermediate, Unverified 04/23/20 19:08) nose bleeds fexofenadine Adverse Reaction (Intermediate, Unverified 04/23/20 19:08) nose bleeds hydrocodone Adverse Reaction (Intermediate, Unverified 04/23/20 19:08) confusion hydroxychloroquine [Hydroxychloroquine] Adverse Reaction (Intermediate, Unverified 04/23/20 19:08) Visual Disturbances hydroxyzine Adverse Reaction (Intermediate, Unverified 04/23/20 19:08) Nausea methotrexate Adverse Reaction (Intermediate, Unverified 04/23/20 19:08) Nausea morphine Adverse Reaction (Intermediate, Unverified 04/23/20 19:08) confusion oxycodone [Oxycodone] Adverse Reaction (Intermediate, Unverified 04/23/20 19:08) confusion pentazocine Adverse Reaction (Intermediate, Unverified 04/23/20 19:08) confusion Sulfa (Sulfonamide Antibiotics) Adverse Reaction (Intermediate, Unverified 04/23/20 19:08) Headache sumatriptan Adverse Reaction (Intermediate, Unverified 04/23/20 19:08) palpitations zolpidem [Zolpidem] Adverse Reaction (Intermediate, Unverified 04/23/20 19:08) confusion Height 5 ft 5 in Weight 95.3 kg - Renal Dosing Renal Dosing: BUN 10 mg/dL (7-18) 04/24/20 06:50 Creatinine 0.88 mg/dL (0.55-1.02) 04/24/20 06:50 Medications needing adjustments: Reviewed (CRCL ~53ML/MIN) - Anticoagulation Anticoagulation: Hgb 10.5 g/dL (12.0-15.5) L 04/24/20 06:50 Hct 32.6 % (36.0-46.0) L 04/24/20 06:50 Plt Count 243 x1000/uL (130-400) 04/24/20 06:50 INR 1.2 (0.9-1.1) H 04/23/20 19:23 Creatinine 0.88 mg/dL (0.55-1.02) 04/24/20 06:50 Medications: Enoxaparin Therapeutic Anticoagulation: N/A - Relevant Labs Sodium 143 mmol/L (136-145) 04/24/20 06:50 Potassium 4.1 mmol/L (3.5-5.1) D 04/24/20 06:50 Chloride 110 mmol/L (98-107) H 04/24/20 06:50 Magnesium 1.9 mg/dL (1.8-2.4) 04/24/20 06:50 Electrolytes, C-Reactive P, ESR: Reviewed - DM Control DM Control: Glucose 119 mg/dL (74-106) H 04/24/20 06:50 Finger Stick Blood Glucose 133 Finger Stick Blood Glucose 153 Finger Stick Blood Glucose 153 Insulin Dosing: Reviewed - Heart Failure/KS Heart Failure/KS: Troponin I < 0.05 ng/mL (<0.06) 04/24/20 06:50 EF%, MALENA's, B-Blockers, Diuretics: Reviewed - BP Control BP Control: Blood Pressure 181/90 Blood Pressure 176/96 If elevated: Reviewed (MDA) - Qtc Review If Elevated: N/A - IV to PO Switch IV Medications: Reviewed (IV antibiotics, IVF and some meds) - Home Meds Home Med List reviewed: N/A (nursing trying to get home med list verified)
--- NOTE | 2020-04-24 12:11 | W.PM.PROGNOT ---
Date of Service Date of service: 04/24/20 Time of Service: 12:11 Assessment and Plan Assessment and plan (1) Colitis: Start date: 04/24/20 Start time: 12:16 Status: Acute Assessment and plan: Levquin and flagyl IV. She is looking a little volume overloaded. takes lasix daily. Will d/c IVF. Daily wts. No c/o abd pain at this time. No nausea or vomiting tolerating diet. (2) Urinary tract infection: Start date: 04/24/20 Start time: 13:08 Status: Acute Assessment and plan: Urine cx growing gram negative rods at this time. Day 2 levaquin and flagyl Qualifiers: Urinary tract infection type: site unspecified (3) Altered mental status: Start date: 04/24/20 Start time: 13:10 Status: Acute Assessment and plan: Presumably metabolic encephalopathy secondary to dehydration and infection. We will monitor her cognitive function once the infection is clearing and she has been rehydrated and her electrolytes have been corrected. Qualifiers: Altered mental status type: disorientation Qualified Code(s): R41.0 - Disorientation, unspecified (4) Hypokalemia: Start date: 04/24/20 Start time: 13:10 Status: Resolved Assessment and plan: 4.1 today. Continue to monitor. She takes lasix po on hold at this time. (5) Hypomagnesemia: Start date: 04/24/20 Start time: 13:11 Status: Resolved Assessment and plan: Resolved 1.9 continue to monitor. (6) DVT prophylaxis: Start date: 04/24/20 Start time: 13:12 Status: Acute Assessment and plan: SCD, teds, enoxaparin (7) Discharge planning issues: Start date: 04/24/20 Start time: 13:13 Status: Acute Assessment and plan: Patient might benefit from rehab or placement if she continues to have a hard time caring for herself. Above case discussed with Dr. Barker who is in agreement. Subjective Subjective Patient reports: other Interval history since last seen: Sitting up in chair sleeping with dentures in. Woken up, when asked how feeling she says fine. When asked where she was she knew hosp but could not remember which one. She believed the year to be 1999 and the president to be Dorsey. She was falling in and out of sleep while talking. She states she did not sleep well. Exam Narrative Exam Narrative: Elderly female asleep in chair AAOx1 HEENT is remarkable for dry mucous membranes. No oropharyngeal exudate. Neck is supple with flat neck veins. Normal carotid pulses no bruits no thyromegaly no cervical lymphadenopathy. Lungs with scattered wheezing to auscultation anteriorly, posteriorly there are some fine basilar crackles no rhonchi or or wheezes. Heart is regular rate and rhythm no appreciable murmur rub or gallop. Abdomen is obese soft nondistended nontender normal active bowel sounds no palpable masses no organomegaly no bruits. Extremities without peripheral cyanosis or edema. Neuro exam is nonfocal she has no facial asymmetry speech is clear coherent however she is confused. Normal strength and range of motion of both upper or lower extremities. Normal sensation to light touch. Objective Objective Clinical Data: Abnormal lab results 04/23/20 04/23/20 04/23/20 Range/Units 19:15 19:20 19:23 RBC (4.00-5.20) m/cumm Hgb (12.0-15.5) g/dL Hct (36.0-46.0) % MCV (80-95) fL RDW (11.7-14.6) % Absolute Neutrophils (1.2-6.7) k/cumm Absolute Monocytes (0.11-0.7) k/cumm PT (9.3-11.0) sec INR (0.9-1.1) Potassium 3.2 L (3.5-5.1) mmol/L Chloride 108 H (98-107) mmol/L Anion Gap 13.2 H (3-11) mmol/L Creatinine 1.06 H (0.55-1.02) mg/dL Glucose 132 H (74-106) mg/dL Magnesium 1.3 L (1.8-2.4) mg/dL Albumin (3.4-5.0) g/dL TSH 0.32 L (0.36-3.74) uIU/mL Ur Specific [place] >= 1.030 H (1.005-1.025) Urine Protein 30 H (Negative) mg/dL Urine Ketones 40 H (Negative) mg/dL Urine Blood Trace-intact H (Negative) Urine Nitrite Positive H (Negative) Urine Bilirubin Small H (Negative) Ur Leukocyte Esterase Moderate H (Negative) Urine WBC >50 H (0-5) HPF 04/23/20 04/23/20 04/23/20 Range/Units 19:23 19:23 20:20 RBC 3.40 L (4.00-5.20) m/cumm Hgb 11.0 L (12.0-15.5) g/dL Hct 32.5 L (36.0-46.0) % MCV 95.6 H (80-95) fL RDW 14.8 H (11.7-14.6) % Absolute Neutrophils 7.56 H (1.2-6.7) k/cumm Absolute Monocytes 1.02 H (0.11-0.7) k/cumm PT 11.6 H (9.3-11.0) sec INR 1.2 H (0.9-1.1) Potassium (3.5-5.1) mmol/L Chloride (98-107) mmol/L Anion Gap (3-11) mmol/L Creatinine (0.55-1.02) mg/dL Glucose (74-106) mg/dL Magnesium (1.8-2.4) mg/dL Albumin (3.4-5.0) g/dL TSH (0.36-3.74) uIU/mL Ur Specific [place] >= 1.030 H (1.005-1.025) Urine Protein 30 H (Negative) mg/dL Urine Ketones 40 H (Negative) mg/dL Urine Blood Small H (Negative) Urine Nitrite Positive H (Negative) Urine Bilirubin Small H (Negative) Ur Leukocyte Esterase Large H (Negative) Urine WBC (0-5) HPF 04/24/20 04/24/20 Range/Units 06:50 06:50 RBC 3.37 L (4.00-5.20) m/cumm Hgb 10.5 L (12.0-15.5) g/dL Hct 32.6 L (36.0-46.0) % MCV 96.7 H (80-95) fL RDW 14.9 H (11.7-14.6) % Absolute Neutrophils (1.2-6.7) k/cumm Absolute Monocytes 0.85 H (0.11-0.7) k/cumm PT (9.3-11.0) sec INR (0.9-1.1) Potassium (3.5-5.1) mmol/L Chloride 110 H (98-107) mmol/L Anion Gap 11.1 H (3-11) mmol/L Creatinine (0.55-1.02) mg/dL Glucose 119 H (74-106) mg/dL Magnesium (1.8-2.4) mg/dL Albumin 3.2 L (3.4-5.0) g/dL TSH (0.36-3.74) uIU/mL Ur Specific [place] (1.005-1.025) Urine Protein (Negative) mg/dL Urine Ketones (Negative) mg/dL Urine Blood (Negative) Urine Nitrite (Negative) Urine Bilirubin (Negative) Ur Leukocyte Esterase (Negative) Urine WBC (0-5) HPF Vital Signs Temperature 36.8 C 04/24/20 07:55 Temperature Source Tympanic 04/24/20 07:55 Pulse 73 04/24/20 07:55 Pulse Rhythm Regular 04/24/20 09:15 Pulse 88 04/23/20 22:40 Respiratory Rate 16 04/24/20 07:55 Respiratory Effort Non-Labored 04/24/20 09:15 Respiratory Depth Shallow 04/24/20 09:15 Respiratory Pattern Normal 04/24/20 09:15 Blood Pressure 181/90 H 04/24/20 07:55 Blood Pressure Mean 107 04/23/20 22:01 Blood Pressure Position Supine 04/23/20 19:02 Pulse Oximetry 99 04/24/20 07:55 Oxygen Delivery Method Room Air 04/24/20 07:55 Oxygen Flow Rate 0 04/24/20 07:55 Pain Level 0 04/24/20 07:55 Comment 04/23/20 23:10 Intake & Output 04/23/20 04/24/20 04/24/20 23:59 11:59 23:59 Intake Total 1150 / 1150 300 / 300 Output Total 300 / 300 100 / 100 Balance 850 / 850 200 / 200 Weight 95.3 kg Intake: IV 1150 / 1150 300 / 300 Oral 0 / 0 Output: Urine 300 / 300 100 / 100 Other: Urine Color Pale Yellow Urine Appearance Clear Clear Urine Odor Normal Stool Size Moderate Smear Stool Characteristics Liquid Liquid Voiding Methods Diaper Incontinent Laboratory Results WBC 7.03 k/cumm (4.4-10.8) D 04/24/20 06:50 RBC 3.37 m/cumm (4.00-5.20) L 04/24/20 06:50 Hgb 10.5 g/dL (12.0-15.5) L 04/24/20 06:50 Hct 32.6 % (36.0-46.0) L 04/24/20 06:50 MCV 96.7 fL (80-95) H 04/24/20 06:50 MCH 31.2 pg (27.0-33.0) 04/24/20 06:50 MCHC 32.2 g/dL (32.0-36.0) 04/24/20 06:50 RDW 14.9 % (11.7-14.6) H 04/24/20 06:50 Plt Count 243 x1000/uL (130-400) 04/24/20 06:50 MPV 10.2 fL (8.0-11.0) 04/24/20 06:50 Immature Gran % 0.3 % 04/24/20 06:50 Neutrophils % 65.2 04/24/20 06:50 Lymphocytes % 20.5 04/24/20 06:50 Monocytes % 12.1 04/24/20 06:50 Eosinophils % 1.8 04/24/20 06:50 Basophils % 0.1 04/24/20 06:50 Absolute Neutrophils 4.58 k/cumm (1.2-6.7) 04/24/20 06:50 Absolute Lymphocytes 1.44 k/cumm (1.2-3.4) 04/24/20 06:50 Absolute Monocytes 0.85 k/cumm (0.11-0.7) H 04/24/20 06:50 Absolute Eosinophils 0.13 k/cumm (0.0-0.7) 04/24/20 06:50 Absolute Basophils 0.01 k/cumm (0.0-0.2) 04/24/20 06:50 PT 11.6 sec (9.3-11.0) H 04/23/20 19:23 INR 1.2 (0.9-1.1) H 04/23/20 19:23 Sodium 143 mmol/L (136-145) 04/24/20 06:50 Potassium 4.1 mmol/L (3.5-5.1) D 04/24/20 06:50 Chloride 110 mmol/L (98-107) H 04/24/20 06:50 Carbon Dioxide 21.9 mmol/L (21.0-32.0) 04/24/20 06:50 Anion Gap 11.1 mmol/L (3-11) H 04/24/20 06:50 BUN 10 mg/dL (7-18) 04/24/20 06:50 Creatinine 0.88 mg/dL (0.55-1.02) 04/24/20 06:50 Estimated GFR/1.73 m2 >= 60.00 (mL/min/1.73m2) 04/24/20 06:50 Glucose 119 mg/dL (74-106) H 04/24/20 06:50 Lactate Cancelled 04/24/20 05:35 Calcium 8.8 mg/dL (8.5-10.1) 04/24/20 06:50 Magnesium 1.9 mg/dL (1.8-2.4) 04/24/20 06:50 Total Bilirubin 0.4 mg/dL (0.2-1.0) 04/24/20 06:50 AST 27 U/L (15-37) 04/24/20 06:50 ALT 31 U/L (14-59) 04/24/20 06:50 Alkaline Phosphatase 84 U/L (46-116) 04/24/20 06:50 Creatine Kinase 53 U/L (26-192) 04/23/20 19:23 Troponin I < 0.05 ng/mL (<0.06) 04/24/20 06:50 Total Protein 6.4 g/dL (6.4-8.2) 04/24/20 06:50 Albumin 3.2 g/dL (3.4-5.0) L 04/24/20 06:50 Lipase 42 U/L (73-393) 04/23/20 19:20 Procalcitonin < 0.1 ng/mL 04/24/20 06:50 TSH 0.32 uIU/mL (0.36-3.74) L 04/23/20 19:20 Free T4 1.29 ng/dL (0.76-1.46) 04/24/20 06:50 Urine Color Cancelled 04/23/20 21:13 Urine Clarity Cancelled 04/23/20 21:13 Urine pH Cancelled 04/23/20 21:13 Ur Specific [place] Cancelled 04/23/20 21:13 Urine Protein Cancelled 04/23/20 21:13 Urine Ketones Cancelled 04/23/20 21:13 Urine Blood Cancelled 04/23/20 21:13 Urine Nitrite Cancelled 04/23/20 21:13 Urine Bilirubin Cancelled 04/23/20 21:13 Urine Urobilinogen Cancelled 04/23/20 21:13 Ur Leukocyte Esterase Cancelled 04/23/20 21:13 Urine RBC Cancelled 04/23/20 20:20 Urine WBC Cancelled 04/23/20 20:20 Ur Epithelial Cells Cancelled 04/23/20 20:20 Urine Crystals Cancelled 04/23/20 20:20 Urine Bacteria Cancelled 04/23/20 20:20 Urine Casts Cancelled 04/23/20 20:20 Urine Mucus Cancelled 04/23/20 20:20 Urine Other Cancelled 04/23/20 20:20 Ur Culture Indicated? Cancelled 04/23/20 20:20 Urine Glucose Cancelled 04/23/20 21:13 Urine Opiates Screen Negative (Negative) 04/23/20 19:15 Urine Methadone Screen Negative (Negative) 04/23/20 19:15 Ur Barbiturates Screen Negative (Negative) 04/23/20 19:15 Ur Tricyclics Screen Negative (Negative) 04/23/20 19:15 Ur Amphetamines Screen Negative (Negative) 04/23/20 19:15 U Benzodiazepines Scrn Negative (Negative) 04/23/20 19:15 Urine Cocaine Screen Negative (Negative) 04/23/20 19:15 Ur THC Screen Negative (Negative) 04/23/20 19:15
[2020-04-24] MEDS: Ipratropium/Albuterol 4 GM 120 PUFF INH IH ×3 (12:52→20:42)
[2020-04-24 13:14] LABS: COVID-19 RT-PCR UVMMC Result Negative (Negative)
[2020-04-24] MEDS: Gabapentin 300 MG CAP 600 MG PO ×2 (14:09→20:40)
[2020-04-24] MEDS: Losartan 50 MG TAB PO (14:09)
[2020-04-24] MEDS: Metoprolol CR 100 MG TABCR PO (14:11)
[2020-04-24] MEDS: Venlafaxine 150 MG CAPCR PO (20:40)
[2020-04-24] MEDS: levoFLOXacin 750 MG/150 ML BAG 100 MG IVPB (20:40)
[2020-04-24] MEDS: Normal Saline Flush 10 ML SYR IVP (20:42)
[2020-04-24] MEDS: Mirtazapine 15 MG TAB 45 MG PO (21:45)
--- NOTE | 2020-04-25 | DI.US_ITS ---
EXAM: US RENAL CLINICAL HISTORY: CVA tenderness with UTI. TECHNIQUE: Ferrell scale, color and spectral Doppler were used. COMPARISON: No exams were available for comparison FINDINGS: Renal size in cm: Right: 9.4 left: 9.0 Echogenicity: Normal. Hydronephrosis: No. Cyst or mass: No. Nephrolithiasis: No. Other findings: Mild bilateral renal cortical atrophy. Bladder:Normal. Ureteral jets: Right: Visualized and unremarkable. Left: Visualized and unremarkable. Prevoid vol:46 cc Postvoid vol:0 cc Renal color flow: Symmetric and within normal limits IMPRESSION: Mild bilateral renal cortical atrophy. No evidence of hydronephrosis. DATA REPOSITORY:
[2020-04-25] MEDS: metroNIDAZOLE 500 MG/100 ML BAG 100 MG IVPB ×4 (01:44→19:58)
[2020-04-25 04:13] VITALS: BP 180/98; PULSE 64; RESP 18; TEMP 36.3; O2SAT 98
[2020-04-25] MEDS: Levothyroxine 125 MCG TAB PO (06:03)
[2020-04-25 07:15] VITALS: BP 161/84; PULSE 74; RESP 18; TEMP 36.3; O2SAT 100
[2020-04-25] MEDS: Magnesium Gluconate 500 MG TAB PO (07:43)
[2020-04-25] MEDS: Losartan 50 MG TAB PO (07:43)
[2020-04-25] MEDS: Montelukast 10 MG TAB PO (07:43)
[2020-04-25] MEDS: Atorvastatin 10 MG TAB PO (07:43)
[2020-04-25] MEDS: Venlafaxine 150 MG CAPCR PO ×2 (07:43→19:58)
[2020-04-25] MEDS: Metoprolol CR 50 MG TABCR 100 MG PO (07:44)
[2020-04-25] MEDS: Normal Saline Flush 10 ML SYR IVP ×2 (07:44→08:59)
[2020-04-25] MEDS: Gabapentin 300 MG CAP 600 MG PO ×3 (07:44→19:58)
[2020-04-25] MEDS: Folic Acid 1 MG TAB 3 MG PO (07:44)
[2020-04-25] MEDS: Enoxaparin 40 MG/0.4 ML SYR SC (07:44)
[2020-04-25] MEDS: Pantoprazole 40 MG VIAL IVP (07:44)
[2020-04-25] MEDS: Ipratropium/Albuterol 4 GM 120 PUFF INH IH ×2 (07:57→11:55)
[2020-04-25 08:05] LABS: Abs Immature Grans 0.02 k/cumm (0.0-0.09); Absolute Basophil Count 0.02 k/cumm (0.0-0.2); Absolute Eosinophil Count 0.44 k/cumm (0.0-0.7); Absolute Lymphocyte Count 1.78 k/cumm (1.2-3.4); Absolute Monocyte Count 0.87 k/cumm (0.11-0.7); Absolute Neutrophil Count 4.55 k/cumm (1.2-6.7); Basophils % 0.3; Eosinophils % 5.7; HCT 38.1 % (36.0-46.0); HGB 12.5 g/dL (12.0-15.5); Immature Grans % 0.3 %; Lymphocytes % 23.2; Mean Corp. HGB Concentration 32.8 g/dL (32.0-36.0); Mean Corpuscular Hemoglobin 32.6 pg (27.0-33.0); Mean Corpuscular Volume 99.2 fL (80-95); Monocytes % 11.3; Neutrophils % 59.2; Platelet Count 287 x1000/uL (130-400); RBC 3.84 m/cumm (4.00-5.20); RBC Distribution Width 15.1 % (11.7-14.6); White Blood Cell Count 7.68 k/cumm (4.4-10.8)
[2020-04-25 08:12] LABS: Anion Gap 8.2 mmol/L (3-11); BUN 12 mg/dL (7-18); CO2 24.8 mmol/L (21.0-32.0); CREATININE 1.15 mg/dL (0.55-1.02); Calcium 9.3 mg/dL (8.5-10.1); Chloride 108 mmol/L (98-107); Estimated GFR 46.52 (mL/min/1.73m2); Glucose 138 mg/dL (74-106); Magnesium 1.6 mg/dL (1.8-2.4); Sodium 141 mmol/L (136-145)
[2020-04-25] MEDS: MAGNESIUM SULFATE 4 GM/100 ML BAG IVPB (09:09)
--- NOTE | 2020-04-25 09:32 | PT.INIE ---
Date of service: 04/25/20 Time of Service: 09:32 PT Notes Visit Reasons: UTI, DEHYDRATION, ALTERED MENTAL STATUS Physical Therapy Inpatient Initial Evaluation Date: 04/25/2020 Referring Doctor: Yue Barker MD PT Orders: PT CONSULT: Limited ability Precautions: Fall. Enteric contact precautions on. Activity as tolerated Patient Profile/Admitting Diagnosis: Samantha is a an 69-year-old female who presented to the ED on 04/23/2020 with altered mental status after having been found by outreach and education social worker staff on the floor in her feces and urine during welfare check as patient has been out of reach for the past 7 days prior to admission. Patient is diagnosed with colitis, urinary tract infection, altered mental status, hypokalemia, and hypomagnesemia. PMHX: Medical History CHF (congestive heart failure) Per echocardiogram 05/17/2016 LV cavity size normal. Wall thickness normal, systolic function mild to moderately reduced. LVEF 40-45%. Moderate hypokinesis of the basal/mid anteroseptal wall. Moderate hypokinesis of the apical/anterior, anterolateral and apical myocardium. Trivial AI, mild MR, RV size wall thickness this is patient will highly benefit from use of straight cane in order to increase mobility, increase stability, maximize activity tolerance, and reduce overall fall risk at discharge destination. And function normal. Mild pulmonary hypertension PA peak pressure 39 mm Chronic back pain COPD (chronic obstructive pulmonary disease) Depression Diverticulosis GERD (gastroesophageal reflux disease) h/o septic right knee (Inactive) Hyperlipidemia Hypertension Hyperthyroidism DARYL (obstructive sleep apnea) Rheumatoid arthritis Surgical History Abdominal hysterectomy Biopsy of breast section Cholecystectomy H/O surgical procedure (Resolved) A. Cholecystectomy B. C. Hysterectomy D. TKR and revision E. Tubal ligation F. D and C G. Breast biopsy x 2 Replacement of total knee joint revision with infection Social History/Home Situation: Patient lives alone in an apartment building with her dog Berna. She is modified independent using her front wheeled walker for all mobility ADL performance prior to admission, although she admits that there were times that she did not use her walker inside the house when she felt well. She has a daughter who lives in [place] and another daughter who is physically handicapped. She no longer drives. She managed her own meals and grocery shopping previously. Equipment Owned/DME: Front wheeled walker Subjective: Patient complains about burning sensation at IV insertion site which was reported to nurse Gael. Patient states that she does not have complete recollection of what happened to her prior to hospital admission. She is extremely worried about what happened to her dog Berna and is anxious about who has been taking care of her since she came into the hospital. She denies headache, chest pain, and dizziness. Reports having fallen at least 6 times in the past year stating that her legs tend to give way when she is fatigued. Objective: General Observation: Obese. Telemetry monitoring in place. IV in the right UE. Bilateral TEDs on. Mental Status: Patient is alert and oriented as to person, place, time, and purpose Pain: None reported Vital Signs: Oxygen saturation at 97% on room air ROM: Right Upper Extremity: Shoulder Flexion WFL. Shoulder abduction WFL. Elbow flexion WFL. Wrist flexion WFL. Opening and closing of hand WFL. Left Upper Extremity: Shoulder Flexion WFL. Shoulder abduction WFL. Elbow flexion WFL. Wrist flexion WFL. Opening and closing of hand WFL. Right Lower Extremity: Hip flexion WFL. Hip abduction WFL. Knee flexion WFL. Ankle dorsiflexion WFL. Ankle plantarflexion WFL. Left Lower Extremity: Hip flexion WFL. Hip abduction WFL. Knee flexion WFL. Ankle dorsiflexion WFL. Ankle plantarflexion WFL. Strength: Right Upper Extremity: Shoulder flexors 4/5. Shoulder abductors 4/5. Elbow flexors 4/5. Elbow extensors 4/5. Cnc Technician strong. Left Upper Extremity: Shoulder flexors 4/5. Shoulder abductors 4/5. Elbow flexors 4/5. Elbow extensors 4/5. Cnc Technician strong. Right Lower Extremity: Hip flexors 4-/5. Hip abductors 4/5. Knee flexors 4-/5. Knee extensors 4-/5. Ankle dorsiflexors 4-/5. Ankle plantarflexors 4-/5. Left Lower Extremity: Hip flexors 4-/5. Hip abductors 4/5. Knee flexors 4-/5. Knee extensors 4-/5. Ankle dorsiflexors 4-/5. Ankle plantarflexors 4-/5. Sensation: Intact as to pain and pressure on bilateral lower extremities. Bed Mobility/Transfers: Sit to stand contact-guard assist Stand to sit contact-guard assist Bed to chair contact-guard assist Chair to bed contact-guard assist Gait: Patient tolerated in room ambulation of 40 feet using front wheeled walker with contact-guard assist of PT and wheelchair follow. No SOB seen. No LOB. Step?through gait pattern. Balance: Static Sitting: Normal Dynamic Sitting: Normal Static Standing: Fair Dynamic Standing: Fair Special Tests: Mobility Limitations Standardized [facility] AM-PAC 6 clicks Basic Mobility Inpatient Short Form: Raw Score: 18 CMS Score: 47% Informed Consent/Education: Patient instructed in purpose of PT consult and plan of care. Assessment: Samantha demonstrates functional mobility decline requiring physical assistance and use of front wheeled walker for all mobility ADL performance, impairment in balance, generalized weakness, and difficulty with walking due to admitting diagnoses. Samantha is a an 69-year-old female who presented to the ED on 04/23/2020 with altered mental status after having been found by outreach and education social worker staff on the floor in her feces and urine during welfare check as patient has been out of reach for the past 7 days prior to admission. Patient is diagnosed with colitis, urinary tract infection, altered mental status, hypokalemia, and hypomagnesemia. Patient presents with clinical signs and symptoms consistent with current/admitting diagnoses that have resulted to mobility limitations, gait instability, generalized weakness, and impairment of motor control as demonstrated by the following impairment level findings: 1. Decreased strength to B LE major muscle groups 2. Impaired standing balance 3. Impaired activity tolerance Impairments are contributing to the following functional limitations: 1. Inability to safely ambulate without assistive device and physical assistance 2. Increase completion time for mobility ADL performance 3. Increased fall risk 4. Inability to negotiate steps alone safely Patient is assessed as a 79006 moderate complexity based on the following: History: 69-year-old female with impairment level findings, functional limitations, and past medical history as indicated above Examination: Demonstrable impairment in strength, balance, and mobility level with underlying impairments and functional limitations as documented above Presentation: Evolving Decision Makin moderate complexity Goals: Goals X1 week 1. Supine-Sit independent 2. Sit-Supine independent 3. Sit-Stand independent 4. Stand-Sit independent 5. Bed-Chair independent 6. Chair-Bed independent 7. Independent gait on level surface with use of least restrictive device for at least 300 feet without report of pain nor dyspnea 8. Good static and dynamic standing balance/tolerance Plan of Care/Treatment Plan: 1-2x/day, 7 days/week x 1 week. Plan of care has been reviewed with the ASSISTANT PROFESSOR OF MATHEMATICS providing the service under Physical Therapy direction. Initiate Physical Therapy intervention for strengthening, bed mobility, transfers, gait, stairs, balance training, use of assistive device. PT intervention: Session today physical therapy evaluation as well as education and training on functional mobility performance using the front wheeled walker. DISCHARGE RECOMMENDATIONS: Patient will benefit from home health PT services in order to progress mobility level using least restrictive assistive ambulatory device, assess home safety, identify additional equipment needs, and establish a functional maintenance program that will increase ability of patient to remain at home. TREATMENT CODE/TIME: [id number] x 33 minutes beginning at 9:32 AM. Thank you for the opportunity to participate in the care of this patient. Astrid Canela PT, DPT, CLT [facility] [place], [place]
[2020-04-25] MEDS: Insulin Aspart 300 UNITS/3 ML PEN SC ×3 (11:43→21:26)
[2020-04-25 12:09] VITALS: BP 126/63; PULSE 83; RESP 18; TEMP 36.4; O2SAT 95
--- NOTE | 2020-04-25 12:34 | W.PM.PROGNOT ---
Date of Service Date of service: 04/25/20 Time of Service: 12:34 Assessment and Plan Assessment and plan (1) Urinary tract infection: Start date: 04/25/20 Start time: 12:44 Status: Acute Assessment and plan: Improving mentation. AAOx3. Urine cx growing gram negative rods at this time. Day 3 levaquin and flagyl Doing well. Qualifiers: Urinary tract infection type: site unspecified (2) Colitis: Start date: 04/25/20 Start time: 12:44 Status: Acute Assessment and plan: Levquin and flagyl IV. Lactoferrian negative, cdiff negative (3) Acute metabolic encephalopathy: Start date: 04/25/20 Start time: 12:47 Status: Acute Assessment and plan: Presumably metabolic encephalopathy secondary to UTI. Mentation has improved she is know AAOx3 and very talkative (4) COPD exacerbation: Start date: 04/25/20 Start time: 12:48 Status: Acute Assessment and plan: She does have wheezing bilaterally, not hypoxic will treat with PO steroids and updrafts, she denies cough. Add ICS and symbicort (5) Hypokalemia: Start date: 04/25/20 Start time: 12:48 Status: Resolved Assessment and plan: 4.0. Will resume lasix as needed. (6) Hypomagnesemia: Start date: 04/25/20 Start time: 12:48 Status: Resolved Assessment and plan: Resolved 1.9 continue to monitor. (7) DVT prophylaxis: Start date: 04/25/20 Start time: 12:48 Status: Acute Assessment and plan: SCD, teds, enoxaparin (8) Discharge planning issues: Start date: 04/25/20 Start time: 12:49 Status: Acute Assessment and plan: Patient might benefit from rehab or placement if she continues to have a hard time caring for herself. Above case discussed with Dr. Barker who is in agreement. Subjective Subjective Patient reports: other Interval history since last seen: Improving. She is more alert, knows where she is, remembers prior to being here she was on the floor vomiting and her dog was with her. She is doing well. She does c/o of CVA tenderness and given severity of UTI and pain with palpation I will order renal u/s. Exam Narrative Exam Narrative: Alert and awake female, sitting up in chair. Memory of prior events returning, she states she does not remember the last 2 days. She spoke about her daughter in [place] and her little dog, wondering who is taking care of her. Eyes: PERRLA, EOMI Neck: No lymphedema, goiter or JVD Resp: scattered wheezes throughout bilaterally, she does have COPD, does not appear in distress, talking complete long sentences Cardio: Regular rate and Rhythm Skin: bruising to upper right arm. Does not appear to be any to her back or spine Extrem: bilateral edema from feet to shins, appears chronic, Teds Objective Objective Clinical Data: Abnormal lab results 04/25/20 04/25/20 Range/Units 08:04 08:04 RBC 3.84 L (4.00-5.20) m/cumm MCV 99.2 H (80-95) fL RDW 15.1 H (11.7-14.6) % Absolute Monocytes 0.87 H (0.11-0.7) k/cumm Chloride 108 H (98-107) mmol/L Creatinine 1.15 H (0.55-1.02) mg/dL Glucose 138 H (74-106) mg/dL Magnesium 1.6 L (1.8-2.4) mg/dL Vital Signs Temperature 36.4 C L 04/25/20 12:09 Temperature Source Tympanic 04/25/20 12:09 Pulse 83 04/25/20 12:09 Pulse Rhythm Regular 04/25/20 07:23 Pulse 88 04/23/20 22:40 Respiratory Rate 18 04/25/20 12:09 Respiratory Effort Non-Labored 04/25/20 07:23 Respiratory Depth Normal 04/25/20 07:23 Respiratory Pattern Normal 04/25/20 07:23 Blood Pressure 126/63 04/25/20 12:09 Blood Pressure Mean 107 04/23/20 22:01 Blood Pressure Position Supine 04/23/20 19:02 Pulse Oximetry 95 04/25/20 12:09 Oxygen Delivery Method Room Air 04/25/20 12:09 Oxygen Flow Rate 0 04/25/20 12:09 Pain Level 0 04/25/20 07:15 Comment 04/23/20 23:10 Intake & Output 04/24/20 04/25/20 04/25/20 23:59 11:59 23:59 Intake Total 1200 / 1500 350 / 350 Output Total 150 / 250 150 / 150 Balance 1050 / 1250 200 / 200 Weight 93.6 kg Intake: IV 1200 / 1500 100 / 100 Oral 250 / 250 Output: Urine 150 / 250 150 / 150 Other: Urine Color Yellow Pale Yellow Urine Appearance Clear Clear Urine Odor None None Stool Size Small Stool Characteristics Soft Voiding Methods Bedside Commode Bedside Commode Laboratory Results WBC 7.68 k/cumm (4.4-10.8) 04/25/20 08:04 RBC 3.84 m/cumm (4.00-5.20) L 04/25/20 08:04 Hgb 12.5 g/dL (12.0-15.5) 04/25/20 08:04 Hct 38.1 % (36.0-46.0) 04/25/20 08:04 MCV 99.2 fL (80-95) H 04/25/20 08:04 MCH 32.6 pg (27.0-33.0) 04/25/20 08:04 MCHC 32.8 g/dL (32.0-36.0) 04/25/20 08:04 RDW 15.1 % (11.7-14.6) H 04/25/20 08:04 Plt Count 287 x1000/uL (130-400) 04/25/20 08:04 MPV 10.0 fL (8.0-11.0) 04/25/20 08:04 Immature Gran % 0.3 % 04/25/20 08:04 Neutrophils % 59.2 04/25/20 08:04 Lymphocytes % 23.2 04/25/20 08:04 Monocytes % 11.3 04/25/20 08:04 Eosinophils % 5.7 04/25/20 08:04 Basophils % 0.3 04/25/20 08:04 Absolute Neutrophils 4.55 k/cumm (1.2-6.7) 04/25/20 08:04 Absolute Lymphocytes 1.78 k/cumm (1.2-3.4) 04/25/20 08:04 Absolute Monocytes 0.87 k/cumm (0.11-0.7) H 04/25/20 08:04 Absolute Eosinophils 0.44 k/cumm (0.0-0.7) 04/25/20 08:04 Absolute Basophils 0.02 k/cumm (0.0-0.2) 04/25/20 08:04 PT 11.6 sec (9.3-11.0) H 04/23/20 19:23 INR 1.2 (0.9-1.1) H 04/23/20 19:23 Sodium 141 mmol/L (136-145) 04/25/20 08:04 Potassium 4.0 mmol/L (3.5-5.1) 04/25/20 08:04 Chloride 108 mmol/L (98-107) H 04/25/20 08:04 Carbon Dioxide 24.8 mmol/L (21.0-32.0) 04/25/20 08:04 Anion Gap 8.2 mmol/L (3-11) 04/25/20 08:04 BUN 12 mg/dL (7-18) 04/25/20 08:04 Creatinine 1.15 mg/dL (0.55-1.02) H 04/25/20 08:04 Estimated GFR/1.73 m2 46.52 (mL/min/1.73m2) 04/25/20 08:04 Glucose 138 mg/dL (74-106) H 04/25/20 08:04 Lactate Cancelled 04/24/20 05:35 Calcium 9.3 mg/dL (8.5-10.1) 04/25/20 08:04 Magnesium 1.6 mg/dL (1.8-2.4) L 04/25/20 08:04 Total Bilirubin 0.4 mg/dL (0.2-1.0) 04/24/20 06:50 AST 27 U/L (15-37) 04/24/20 06:50 ALT 31 U/L (14-59) 04/24/20 06:50 Alkaline Phosphatase 84 U/L (46-116) 04/24/20 06:50 Creatine Kinase 53 U/L (26-192) 04/23/20 19:23 Troponin I < 0.05 ng/mL (<0.06) 04/24/20 06:50 Total Protein 6.4 g/dL (6.4-8.2) 04/24/20 06:50 Albumin 3.2 g/dL (3.4-5.0) L 04/24/20 06:50 Lipase 42 U/L (73-393) 04/23/20 19:20 Procalcitonin < 0.1 ng/mL 04/24/20 06:50 TSH 0.32 uIU/mL (0.36-3.74) L 04/23/20 19:20 Free T4 1.29 ng/dL (0.76-1.46) 04/24/20 06:50 Urine Color Cancelled 04/23/20 21:13 Urine Clarity Cancelled 04/23/20 21:13 Urine pH Cancelled 04/23/20 21:13 Ur Specific [place] Cancelled 04/23/20 21:13 Urine Protein Cancelled 04/23/20 21:13 Urine Ketones Cancelled 04/23/20 21:13 Urine Blood Cancelled 04/23/20 21:13 Urine Nitrite Cancelled 04/23/20 21:13 Urine Bilirubin Cancelled 04/23/20 21:13 Urine Urobilinogen Cancelled 04/23/20 21:13 Ur Leukocyte Esterase Cancelled 04/23/20 21:13 Urine RBC Cancelled 04/23/20 20:20 Urine WBC Cancelled 04/23/20 20:20 Ur Epithelial Cells Cancelled 04/23/20 20:20 Urine Crystals Cancelled 04/23/20 20:20 Urine Bacteria Cancelled 04/23/20 20:20 Urine Casts Cancelled 04/23/20 20:20 Urine Mucus Cancelled 04/23/20 20:20 Urine Other Cancelled 04/23/20 20:20 Ur Culture Indicated? Cancelled 04/23/20 20:20 Urine Glucose Cancelled 04/23/20 21:13 Urine Opiates Screen Negative (Negative) 04/23/20 19:15 Urine Methadone Screen Negative (Negative) 04/23/20 19:15 Ur Barbiturates Screen Negative (Negative) 04/23/20 19:15 Ur Tricyclics Screen Negative (Negative) 04/23/20 19:15 Ur Amphetamines Screen Negative (Negative) 04/23/20 19:15 U Benzodiazepines Scrn Negative (Negative) 04/23/20 19:15 Urine Cocaine Screen Negative (Negative) 04/23/20 19:15 Ur THC Screen Negative (Negative) 04/23/20 19:15 COVID-19 PCR Negative (Negative) 04/23/20 22:25 Nasopharyn COVID-19 PCR Not Applicable 04/23/20 22:25 Ref Test Perform Site [facility] lab 04/23/20 22:25
--- NOTE | 2020-04-25 12:56 | PT.INTREAT ---
Date of service: 04/25/20 Time of Service: 12:56 PT Notes Visit Reasons: UTI, DEHYDRATION, ALTERED MENTAL STATUS Physical Therapy InpatientTreatment Note Date: 04/25/2020 Precautions: Fall. Enteric contact precautions on. Activity as tolerated Subjective: Agreeable to a second PT session. Remains very much anxious about her dog Berna who may be left at home with nobody to look after her. Objective: General Observation: Obese. Telemetry monitoring in place. IV in the right UE. Bilateral TEDs on. Mental Status: Patient is alert and oriented as to person, place, time, and purpose Pain: None reported Bed Mobility/Transfers: Sit to stand contact-guard assist Stand to sit contact-guard assist Bed to chair contact-guard assist Chair to bed contact-guard assist Gait: Patient tolerated in room ambulation of 300 feet using front wheeled walker with contact-guard assist and IV pole mangement of PT. No SOB seen. No LOB. Step?through gait pattern. Balance: Static Sitting: Normal Dynamic Sitting: Normal Static Standing: Fair Dynamic Standing: Fair Assessment: Samantha demonstrates functional mobility decline requiring physical assistance and use of front wheeled walker for all mobility ADL performance, impairment in balance, generalized weakness, and difficulty with walking due to admitting diagnoses. Samantha is a an 69-year-old female who presented to the ED on 04/23/2020 with altered mental status after having been found by social insurance administrator staff on the floor in her feces and urine during welfare check as patient has been out of reach for the past 7 days prior to admission. Patient is diagnosed with colitis, urinary tract infection, altered mental status, hypokalemia, and hypomagnesemia Plan of Care/Treatment Plan: 1-2x/day, 7 days/week x 1 week. Plan of care has been reviewed with the WRAP TURNER providing the service under Physical Therapy direction. Initiate Physical Therapy intervention for strengthening, bed mobility, transfers, gait, stairs, balance training, use of assistive device.. DISCHARGE RECOMMENDATIONS: Patient will benefit from home health PT services in order to progress mobility level using least restrictive assistive ambulatory device, assess home safety, identify additional equipment needs, and establish a functional maintenance program that will increase ability of patient to remain at home. TREATMENT CODE/TIME: 79516 x 33 minutes beginning at 12:56 PM.
[2020-04-25] MEDS: predniSONE 20 MG TAB 60 MG PO (12:57)
--- NOTE | 2020-04-25 13:15 | PDOC.CMPRO ---
- If Service Date Differs Date of service: 04/25/20 Time of Service: 13:15 Care Management Progress Note S/O: Jacqueline was sitting up in a chair when CM met with her. She was much more alert, oriented and engaged today. She stated that she is feeling much better. Jacqueline expressed concern about her dog and cat who were left in the apartment when she was taken by EMS on Saturday. She was not sure if they were left there or if someone had taken them somewhere. She informed CM that she did not have her house keys with her and was not sure how anyone would be able to check on them. JAMI contacted [facility] and spoke with Jesusita at [facility] who stated that someone from their agency had checked the house and found that the dog and cat were still there. The house is unlocked so entry is possible. Jacqueline was provided with this information and she will make arrangements with a friend or relative to get her pets. A: Lore is a 69 year old woman admitted to [facility] o0n 04/23/20 with UTI and AMS P:Jacqueline will return home, possibly with new HH services. She will follow up with her PCP and discharge plan of care. CM will continue to support Dot and assess for discharge planning needs.
--- NOTE | 2020-04-25 14:40 | CHAPLAIN ---
Jacqueline and I know each other from previous admissions. Today she tells me she is missing pieces of my mind as she doesn't remember how she got to the hospital or where her dog is. She is very concerned about her dog. I suggested she ask her Maths Tutor if she has any information about how Jacqueline got here and who's taking care of her dog. Jacqueline says she remembers falling and being on the floor of her apartment on Saturday, and knows she spent the night there. She was vomiting and her dog was with her then. I will continue to visit and offer support.
[2020-04-25 16:06] VITALS: BP 143/83; PULSE 86; RESP 18; TEMP 37.1; O2SAT 96
--- NOTE | 2020-04-25 16:45 | DI.VRAD_ITS ---
PROCEDURE INFORMATION: Exam: US Retroperitoneal; Complete; Kidneys and Bladder Exam date and time: 04/25/2020 12:37 PM Age: 69 years old Clinical indication: Pain; Other: CVA tenderness with UTI TECHNIQUE: Imaging protocol: Real-time ultrasound of the retroperitoneum with image documentation. Complete exam focused on the kidneys and bladder. COMPARISON: CT CHEST/ABD/PEL W 04/23/2020 8:45 PM FINDINGS: Right kidney: Unremarkable as visualized. No stones. No hydronephrosis. Kidney length 9.4 cm. Left kidney: Unremarkable as visualized. No stones. No hydronephrosis. Kidney length 9.0 cm. Bladder: Pre-and post void bladder volumes 46 ml and 0 ml respectively. IMPRESSION: No acute abnormality. Dictated and Authenticated by: Christian Ramirez MD. Ordering:CHIKA Araiza MD
[2020-04-25 17:55] VITALS: RESP 17
[2020-04-25] MEDS: Normal Saline 1,000 ML 75 ML IV (19:09)
[2020-04-25] MEDS: Budesonide/Formoterol 80/4.5 6.9 GM 60 PUFF INH IH (19:59)
[2020-04-25 20:11] VITALS: BP 145/77; PULSE 84; RESP 18; TEMP 37.2; O2SAT 96
[2020-04-25] MEDS: Mirtazapine 15 MG TAB 45 MG PO (21:26)
[2020-04-25] MEDS: levoFLOXacin 750 MG/150 ML BAG 100 MG IVPB (21:26)
[2020-04-26] VITALS (9 sets, daily range): BP systolic 144–168; BP diastolic 74–84; PULSE 72–93; RESP 16–22; TEMP 36.3–37.5; O2SAT 95–98
[2020-04-26] MEDS: metroNIDAZOLE 500 MG/100 ML BAG 100 MG IVPB ×2 (01:41→08:18)
[2020-04-26] MEDS: Levothyroxine 125 MCG TAB PO (05:35)
[2020-04-26] MEDS: Budesonide/Formoterol 80/4.5 6.9 GM 60 PUFF INH IH ×2 (07:58→20:10)
[2020-04-26] MEDS: Gabapentin 300 MG CAP 600 MG PO ×3 (08:16→20:10)
[2020-04-26] MEDS: Atorvastatin 10 MG TAB PO (08:16)
[2020-04-26] MEDS: Folic Acid 1 MG TAB 3 MG PO (08:16)
[2020-04-26] MEDS: Magnesium Gluconate 500 MG TAB PO (08:16)
[2020-04-26] MEDS: Montelukast 10 MG TAB PO (08:16)
[2020-04-26] MEDS: Venlafaxine 150 MG CAPCR PO ×2 (08:17→20:08)
[2020-04-26] MEDS: predniSONE 20 MG TAB 60 MG PO (08:17)
[2020-04-26] MEDS: Metoprolol CR 50 MG TABCR 100 MG PO (08:17)
[2020-04-26] MEDS: Insulin Aspart 300 UNITS/3 ML PEN SC ×4 (08:17→21:18)
[2020-04-26] MEDS: Pantoprazole 40 MG VIAL IVP (08:19)
[2020-04-26] MEDS: Normal Saline Flush 10 ML SYR IVP (08:19)
[2020-04-26] MEDS: Enoxaparin 40 MG/0.4 ML SYR SC (08:50)
--- NOTE | 2020-04-26 09:09 | CMDISCH_ITS ---
LACE Index Scoring Tool - Questions: Length of Stay (in days): 2 Acuity (Admit via E.D.?): Yes Comorbidities: Congestive Heart Failure, Chronic Pulmonary Disease E.D. Visits: 2 - Answers: Total Score: 12 Risk of Readmission: High Risk Care Management Discharge Reason for Hospitalization: Colitis Discharge Plan: Dot will return home when ready per MD. She will follow up with her PCP and discharge plan of care. She will transport via [facility]. Patient/Family Education Needs: Review discharge instructions, discuss Ask Me Three.
[2020-04-26] MEDS: Pantoprazole 40 MG TABCR PO (10:35)
--- NOTE | 2020-04-26 10:51 | PTTR_ITS ---
Date of service: 04/26/20 Time of Service: 10:51 PT Notes Visit Reasons: UTI, DEHYDRATION, ALTERED MENTAL STATUS Physical Therapy Inpatient Treatment Note Date: 04/26/2020 Precautions: Fall. Enteric contact precautions on. Activity as tolerated Subjective: Jacqueline is happy to know that neighbor has been feeding her dog Berna since she was admitted. She is a little upset about her sister wanting her to go to a longterm. Objective: General Observation: Obese. Telemetry monitoring in place. IV in the right UE now unhooked. Bilateral TEDs on. Mental Status: Patient is alert and oriented as to person, place, time, and purpose Pain: None reported Bed Mobility/Transfers: Sit to stand supervision Stand to sit supervision Bed to chair supervision Chair to bed supervision Gait: Patient tolerated in room ambulation of 300 feet using front wheeled w alker with SBA. No SOB seen. No LOB. Step?through gait pattern. Balance: Static Sitting: Normal Dynamic Sitting: Normal Static Standing: Fair Dynamic Standing: Fair Assessment: Samantha has demonstrated improved independence with mobility ADL performance using her FWW. She tolerates standing level exercises well. She still exhibits some episodes of confusion as evidenced by bringing up issues u nrelated conversational topics; she is able to respond appropriately once redirected. Plan of Care/Treatment Plan: Continue with PT POC DISCHARGE RECOMMENDATIONS: Patient will benefit from home health PT services in order to progress mobility level using least restrictive assistive ambulatory device, assess home safety, identify additional equipment needs, and establish a functional maintenance program that will increase ability of patient to remain at home. TREATMENT CODE/TIME: 41121 x 15 minutes, 75347 x 14 minutes beginning at 12:56 PM.
--- NOTE | 2020-04-26 11:08 | W.PM.PROGNOT ---
Date of Service Date of service: 04/26/20 Time of Service: 11:09 Assessment and Plan Assessment and plan (1) Urinary tract infection: Status: Acute Assessment and plan: day 4 levaquin. Qualifiers: Urinary tract infection type: site unspecified (2) Colitis: Status: Acute Assessment and plan: no further diarrhea, continue levaquin and flagyl. will transition to oral. cultures pending. (3) Non-insulin dependent type 2 diabetes mellitus: Status: Chronic Assessment and plan: continue metformin. anticipate hyperglycemia with steroids. (4) COPD with acute exacerbation: Status: Acute Assessment and plan: respiratory status stable, continue inhalers, steroid burst. on levaquin for UTI (5) DVT prophylaxis: Status: Acute Assessment and plan: enoxaparin, teds, scds (6) Discharge planning issues: Status: Acute Assessment and plan: discharge to home if stable on PO antibiotics. case management following. Subjective Subjective Patient reports: no new complaints Interval history since last seen: some confusion overnight, but pleasant with no behavioral issues. eating and drinking well, no fevers, hemodynamically stable. Exam Const General: comfortable, no acute distress and frail appearing Nutritional Appearance: obese Orientation: alert, awake, oriented to person and oriented to place Limitations: altered mental status HENMT Head: normal to inspection, normocephalic and atraumatic Mouth: oral mucosae normal Resp Effort & Inspection: normal respiratory effort Cardio Rate: regular rate Rhythm: regular rhythm GI Inspection: large pannus and obesity Palpation: soft, no hernias, no masses, not rigid and tender Auscultation: normal bowel sounds Skin General skin exam: no rashes or lesions noted Neuro General: patient alert, patient awake, oriented Patient Orientation: Person, Place and Confused and moves all extremities Cognition: abnormal cognition Speech: speech normal Motor: muscle tone normal throughout and strength 5/5 throughout Extrem General: normal to inspection, full ROM and pedal edema Objective Objective Clinical Data: Vital Signs Temperature 36.7 C 04/26/20 07:15 Temperature Source Tympanic 04/26/20 07:15 Pulse 72 04/26/20 07:15 Pulse Rhythm Regular 04/26/20 08:22 Pulse 88 04/23/20 22:40 Respiratory Rate 16 04/26/20 07:15 Respiratory Effort Non-Labored 04/26/20 08:22 Respiratory Depth Normal 04/26/20 08:22 Respiratory Pattern Normal 04/26/20 08:22 Blood Pressure 145/82 H 04/26/20 07:15 Blood Pressure Mean 107 04/23/20 22:01 Blood Pressure Position Supine 04/23/20 19:02 Pulse Oximetry 98 04/26/20 07:15 Oxygen Delivery Method Room Air 04/26/20 07:15 Oxygen Flow Rate 0 04/26/20 07:15 Fraction of Inspired Oxygen (FIO2) 21 04/26/20 10:30 Pain Level 0 04/26/20 05:31 Comment 04/23/20 23:10 Intake & Output 04/25/20 04/25/20 04/26/20 11:59 23:59 11:59 Intake Total 690 / 1830 1140 / 1830 820 / 820 Output Total 150 / 650 500 / 650 950 / 950 Balance 540 / 1180 640 / 1180 -130 / -130 Weight 96.3 kg 97.3 kg Intake: IV 200 / 570 370 / 570 120 / 120 Oral 490 / 1260 770 / 1260 700 / 700 Output: Urine 150 / 650 500 / 650 950 / 950 Other: Urine Color Pale Yellow Yellow Yellow Urine Appearance Clear Clear Clear Urine Odor None Normal Normal Stool Size Small Moderate Stool Characteristics Soft Soft Liquid Voiding Methods Bedside Commode Bedside Commode Bedside Commode Laboratory Results WBC 7.68 k/cumm (4.4-10.8) 04/25/20 08:04 RBC 3.84 m/cumm (4.00-5.20) L 04/25/20 08:04 Hgb 12.5 g/dL (12.0-15.5) 04/25/20 08:04 Hct 38.1 % (36.0-46.0) 04/25/20 08:04 MCV 99.2 fL (80-95) H 04/25/20 08:04 MCH 32.6 pg (27.0-33.0) 04/25/20 08:04 MCHC 32.8 g/dL (32.0-36.0) 04/25/20 08:04 RDW 15.1 % (11.7-14.6) H 04/25/20 08:04 Plt Count 287 x1000/uL (130-400) 04/25/20 08:04 MPV 10.0 fL (8.0-11.0) 04/25/20 08:04 Immature Gran % 0.3 % 04/25/20 08:04 Neutrophils % 59.2 04/25/20 08:04 Lymphocytes % 23.2 04/25/20 08:04 Monocytes % 11.3 04/25/20 08:04 Eosinophils % 5.7 04/25/20 08:04 Basophils % 0.3 04/25/20 08:04 Absolute Neutrophils 4.55 k/cumm (1.2-6.7) 04/25/20 08:04 Absolute Lymphocytes 1.78 k/cumm (1.2-3.4) 04/25/20 08:04 Absolute Monocytes 0.87 k/cumm (0.11-0.7) H 04/25/20 08:04 Absolute Eosinophils 0.44 k/cumm (0.0-0.7) 04/25/20 08:04 Absolute Basophils 0.02 k/cumm (0.0-0.2) 04/25/20 08:04 PT 11.6 sec (9.3-11.0) H 04/23/20 19:23 INR 1.2 (0.9-1.1) H 04/23/20 19:23 Sodium 141 mmol/L (136-145) 04/25/20 08:04 Potassium 4.0 mmol/L (3.5-5.1) 04/25/20 08:04 Chloride 108 mmol/L (98-107) H 04/25/20 08:04 Carbon Dioxide 24.8 mmol/L (21.0-32.0) 04/25/20 08:04 Anion Gap 8.2 mmol/L (3-11) 04/25/20 08:04 BUN 12 mg/dL (7-18) 04/25/20 08:04 Creatinine 1.15 mg/dL (0.55-1.02) H 04/25/20 08:04 Estimated GFR/1.73 m2 46.52 (mL/min/1.73m2) 04/25/20 08:04 Glucose 138 mg/dL (74-106) H 04/25/20 08:04 Lactate Cancelled 04/24/20 05:35 Calcium 9.3 mg/dL (8.5-10.1) 04/25/20 08:04 Magnesium 1.6 mg/dL (1.8-2.4) L 04/25/20 08:04 Total Bilirubin 0.4 mg/dL (0.2-1.0) 04/24/20 06:50 AST 27 U/L (15-37) 04/24/20 06:50 ALT 31 U/L (14-59) 04/24/20 06:50 Alkaline Phosphatase 84 U/L (46-116) 04/24/20 06:50 Creatine Kinase 53 U/L (26-192) 04/23/20 19:23 Troponin I < 0.05 ng/mL (<0.06) 04/24/20 06:50 Total Protein 6.4 g/dL (6.4-8.2) 04/24/20 06:50 Albumin 3.2 g/dL (3.4-5.0) L 04/24/20 06:50 Lipase 42 U/L (73-393) 04/23/20 19:20 Procalcitonin < 0.1 ng/mL 04/24/20 06:50 TSH 0.32 uIU/mL (0.36-3.74) L 04/23/20 19:20 Free T4 1.29 ng/dL (0.76-1.46) 04/24/20 06:50 Urine Color Cancelled 04/23/20 21:13 Urine Clarity Cancelled 04/23/20 21:13 Urine pH Cancelled 04/23/20 21:13 Ur Specific [place] Cancelled 04/23/20 21:13 Urine Protein Cancelled 04/23/20 21:13 Urine Ketones Cancelled 04/23/20 21:13 Urine Blood Cancelled 04/23/20 21:13 Urine Nitrite Cancelled 04/23/20 21:13 Urine Bilirubin Cancelled 04/23/20 21:13 Urine Urobilinogen Cancelled 04/23/20 21:13 Ur Leukocyte Esterase Cancelled 04/23/20 21:13 Urine RBC Cancelled 04/23/20 20:20 Urine WBC Cancelled 04/23/20 20:20 Ur Epithelial Cells Cancelled 04/23/20 20:20 Urine Crystals Cancelled 04/23/20 20:20 Urine Bacteria Cancelled 04/23/20 20:20 Urine Casts Cancelled 04/23/20 20:20 Urine Mucus Cancelled 04/23/20 20:20 Urine Other Cancelled 04/23/20 20:20 Ur Culture Indicated? Cancelled 04/23/20 20:20 Urine Glucose Cancelled 04/23/20 21:13 Urine Opiates Screen Negative (Negative) 04/23/20 19:15 Urine Methadone Screen Negative (Negative) 04/23/20 19:15 Ur Barbiturates Screen Negative (Negative) 04/23/20 19:15 Ur Tricyclics Screen Negative (Negative) 04/23/20 19:15 Ur Amphetamines Screen Negative (Negative) 04/23/20 19:15 U Benzodiazepines Scrn Negative (Negative) 04/23/20 19:15 Urine Cocaine Screen Negative (Negative) 04/23/20 19:15 Ur THC Screen Negative (Negative) 04/23/20 19:15 COVID-19 PCR Negative (Negative) 04/23/20 22:25 Nasopharyn COVID-19 PCR Not Applicable 04/23/20 22:25 Ref Test Perform Site [facility] lab 04/23/20 22:25
[2020-04-26 12:00] LABS: Campylobacter PCR Negative (Negative); Salmonella PCR Negative (Negative); Shiga Toxin PCR Negative (Negative); Shigella/Enteroinvasive Ecoli Negative (Negative)
[2020-04-26] MEDS: metroNIDAZOLE 500 MG TAB PO ×3 (12:00→20:08)
--- NOTE | 2020-04-26 14:45 | CHAPLAIN ---
I had a long visit with Jacqueline today. She shared a lot of family history. Her sister, Rivka from [employer], called her today to suggest that Dot go to a custodial, instead of going home from here. Jacqueline said she isn't sure if she's well enough to home, and also not sure she wants to go to a custodial. She is trying to get in touch with her daughter who currently lives in [facility] in [place]. Jacqueline said he daughter agreed to take her dog and cat if needed. Jacqueline asked me for helping in picking up her medication tomorrow and I suggested that she talk with her Sales Compensation Analyst to see if RCT can stop on the way home when she is discharged. I won't be here tomorrow to help out.
--- NOTE | 2020-04-26 15:11 | CMPROGNOTE_ITS ---
Care Management Progress Note S/O: Dot was sitting up in a chair when CM met with her. She was talkative and shared plans for her daughter to come retrieve her pets which she reports was a source of relief for her. CM updated [facility] on PT recommendations and requested Samantha's CM, Britt Trimble support Dot in bringing her BIPAP to [facility] to determine if she will require new equipment or if her current equipment can be updated. Ryan of [facility] reports [facility] is unable to support equipment in the home or provide any transportation for Dot to acquire the equipment or have it maintained. CM also requested Britt apply for L/T Medicaid as Dot appears to currently be declining in the home. She is not currently agreeable to SNF stay, but will have a three night stay if she returns home and struggles to make progress. Provider reports Samantha will likely return home tomorrow. A: Lore is a 69 year old woman admitted to [facility] o0n 04/23/20 with UTI and AMS P: Dot will return home, with new orders for PT through [facility]; CM notified [facility] as well as her assistant case manager Britt requiring discharge considerations and recommendations. Dot will follow up with her PCP and discharge plan of care and transport via [facility].
--- NOTE | 2020-04-26 15:11 | PT.INTREAT ---
Date of service: 04/26/20 Time of Service: 15:11 PT Notes Visit Reasons: UTI, DEHYDRATION, ALTERED MENTAL STATUS Inpatient Physical Therapy Treatment Note [facility] Date: 04/26/20 PRECAUTIONS: Fall, Enter[facility] Prec SUBJECTIVE: Dot is pleasant and agreeable to participating in PT. OBJECTIVE: PAIN: No c/o pain BED MOBILITY/TRANSFERS Sit-stand: I Stand-sit: I GAIT: Assistive Device: FWW Weight Bearing: Full Assist: Close SBA Distance: 500' Deviation: Step-through STAIRS: Up/down 3x4 and 2x6 using B rails and a step-to pattern with supervision ASSESSMENT: Patient tolerated session well. She tolerated a progression in gait distance with FWW support and SBA. She would benefit from continued global strengthening for improved mobility. PLAN: Continue with PT's POC TREATMENT CODE/TIME: 20 minutes; [id number]
[2020-04-26] MEDS: levoFLOXacin 500 MG, levoFLOXacin 250 MG 750 MG PO (20:08)
[2020-04-26] MEDS: Mirtazapine 15 MG TAB 45 MG PO (21:18)
[2020-04-27 03:37] VITALS: BP 165/95; PULSE 74; RESP 18; TEMP 36.5; O2SAT 96
[2020-04-27] MEDS: Levothyroxine 125 MCG TAB PO (05:14)
[2020-04-27 07:35] LABS: HCT 36.6 % (36.0-46.0); HGB 11.8 g/dL (12.0-15.5); Mean Corp. HGB Concentration 32.2 g/dL (32.0-36.0); Mean Corpuscular Hemoglobin 31.5 pg (27.0-33.0); Mean Corpuscular Volume 97.6 fL (80-95); Platelet Count 380 x1000/uL (130-400); RBC 3.75 m/cumm (4.00-5.20); White Blood Cell Count 8.14 k/cumm (4.4-10.8)
[2020-04-27 07:39] VITALS: BP 144/77; BP 157/77; PULSE 63; PULSE 89; RESP 19; TEMP 36.7; O2SAT 97
[2020-04-27 07:55] LABS: ALT 96 U/L (14-59); AST 59 U/L (15-37); Albumin 3.3 g/dL (3.4-5.0); Alkaline Phosphatase 101 U/L (46-116); Anion Gap 11.9 mmol/L (3-11); BUN 31 mg/dL (7-18); Bilirubin, Total 0.3 mg/dL (0.2-1.0); CO2 22.1 mmol/L (21.0-32.0); CREATININE 1.38 mg/dL (0.55-1.02); Calcium 8.6 mg/dL (8.5-10.1); Chloride 106 mmol/L (98-107); Estimated GFR 37.69 (mL/min/1.73m2); Glucose 166 mg/dL (74-106); Magnesium 1.5 mg/dL (1.8-2.4); Potassium 3.7 mmol/L (3.5-5.1); Sodium 140 mmol/L (136-145); Total Protein 6.9 g/dL (6.4-8.2)
[2020-04-27] MEDS: Budesonide/Formoterol 80/4.5 6.9 GM 60 PUFF INH IH ×2 (08:05→19:41)
[2020-04-27] MEDS: Folic Acid 1 MG TAB 3 MG PO (08:41)
[2020-04-27] MEDS: Magnesium Gluconate 500 MG TAB PO (08:41)
[2020-04-27] MEDS: Montelukast 10 MG TAB PO (08:43)
[2020-04-27] MEDS: Pantoprazole 40 MG TABCR PO (08:43)
[2020-04-27] MEDS: predniSONE 20 MG TAB 40 MG PO (08:43)
[2020-04-27] MEDS: Venlafaxine 150 MG CAPCR PO ×2 (08:43→19:40)
[2020-04-27] MEDS: Atorvastatin 10 MG TAB PO (08:44)
[2020-04-27] MEDS: Enoxaparin 40 MG/0.4 ML SYR SC (08:44)
[2020-04-27] MEDS: Metoprolol CR 50 MG TABCR 100 MG PO (08:44)
[2020-04-27] MEDS: metroNIDAZOLE 500 MG TAB PO ×4 (08:44→19:40)
[2020-04-27] MEDS: Insulin Aspart 300 UNITS/3 ML PEN SC ×4 (08:44→21:30)
[2020-04-27] MEDS: Gabapentin 300 MG CAP 600 MG PO ×3 (08:44→19:40)
[2020-04-27 09:32] LABS: BE -4.5 mmol/L (-3-3); HCO3 21 mmol/L (22-28); pCO2 37 mmHg (34-47); pH 7.36 (7.35-7.45); pO2 74 mmHg (83-108); sO2 96 % (94-98); tCO2 19 mmol/L (22-29)
[2020-04-27 09:34] LABS: Site Left Radial
[2020-04-27 09:35] LABS: FIO2 21 %
--- NOTE | 2020-04-27 11:16 | PT.INTREAT ---
Date of service: 04/27/20 Time of Service: 11:16 PT Notes Visit Reasons: UTI, DEHYDRATION, ALTERED MENTAL STATUS Inpatient Physical Therapy Treatment Note [facility] Date: 04/27/20 PRECAUTIONS: Fall SUBJECTIVE: Dot is pleasant and agreeable to participating in PT. She admits to being confused at times, but does not understand why she is not able to walk around in her room without supervision. OBJECTIVE: PAIN: No c/o pain BED MOBILITY/TRANSFERS Supine-sit: I with HOB flat Sit-supine: I with HOB flat Sit-stand: I Stand-sit: I GAIT: Assistive Device: 4WW Weight Bearing: Full Assist: Close S Distance: 500'+ Deviation: Minimal cueing required for 4WW management TOILETING: Patient toileted independently ASSESSMENT: Patient tolerated session well. She demonstrates independence with transfers and bed mobility at this time. PLAN: Continue with PT's POC TREATMENT CODE/TIME: 25 minutes; [id number] x2
--- NOTE | 2020-04-27 11:16 | W.INDIABCONS ---
Date of service: 04/27/20 Time of Service: 11:17 Diabetes Inpatient Consult DESCRIPTION/ASSESSMENT: Met with Samantha today to discuss your diabetes management. She is 69 years old, lives alone and takes metformin 1000 mg BID (0800, 1700). Most recent (09/2019) A1C: 5.6%. She reports that she does not take her blood sugars at home and does not plan to. Blood sugars in house well controlled and recent A1C indicates good glycemic control. Samantha reports that she follows a diet low in sugar and simple carbs. She has no teeth and therefore has her foods soft, minced. BMI indicates class 2 obesity, she has been trying to lose weight by reducing portions. At this time, she has basic knowledge about diabetes and nutrition. Provided her with Diabetes Meal Plan Guidelines and my contact information. INTERVENTION: Reinforced basic diabetes and diet principles PLAN: will contact mortgage loan underwriter if needs further assistance with diet and diabetes. Continue current meal plan Time Spent in Nutritional Counseling and Treatment: 15 min spent face to face
[2020-04-27 11:47] VITALS: BP 147/79; PULSE 73; RESP 20; TEMP 36.4; O2SAT 96
--- NOTE | 2020-04-27 12:39 | CMPROGNOTE_ITS ---
- If Service Date Differs Date of service: 04/27/20 Time of Service: 12:39 Care Management Progress Note S/O: Dot was sitting up in a chair when CM met with her. Per nursing, she was a bit upset this morning about her cat who is home alone and threatened to leave AMA. When CM met with her she was calmer and was prepared to remain in the hospital until tomorrow. Dot is feeling better and stated that she was going to get to take a shower today and wash her hair, which made her very happy. Dot shared that she is still not sure of the events on Saturday when she came to [facility] and requested some written details which CM provided. A: Lore is a 69 year old woman admitted to [facility] o0n 04/23/20 with UTI and AMS P: Dot will return home, with new orders for PT through [facility]. [facility] as well as her outsole caser Britt were notified by CM yesterday. Dot will follow up with her PCP and discharge plan of care and transport via [facility]. CM will continue to support Dot and assess for any discharge planning needs. cc:
--- NOTE | 2020-04-27 14:23 | W.PM.PROGNOT ---
Date of Service Date of service: 04/27/20 Time of Service: 14:23 Assessment and Plan Assessment and plan (1) Urinary tract infection: Status: Acute Assessment and plan: day 02/10 levaquin on pansensitive e coli. no further symptoms Qualifiers: Urinary tract infection type: site unspecified (2) Colitis: Status: Acute Assessment and plan: no further diarrhea, continue levaquin and flagyl day 5/7. tolerating transition to oral. stool cultures negative and unrevealing. (3) Non-insulin dependent type 2 diabetes mellitus: Status: Chronic Assessment and plan: continue metformin. anticipate hyperglycemia with steroids. (4) COPD with acute exacerbation: Status: Acute Assessment and plan: respiratory status stable, continue inhalers, steroid burst. (5) CHF (congestive heart failure): Status: None Assessment and plan: has been stable on night bipap and now that she is rehydrated can resume lasix. her home bipap unit has not been functional and she has been using a hospital issued one while hospitalized to treat her CHF with good effect. She will need to urgently obtain a bipap unit at discharge as she is at risk for decompensation on discharge if left untreated. (6) DVT prophylaxis: Status: Acute Assessment and plan: enoxaparin, teds, scds (7) Discharge planning issues: Status: Acute Assessment and plan: discharge to home if stable on PO antibiotics. case management following. will need a bipap machine on discharge as her home unit is not functional. She requires this to treat congestive heart failure and has required since 2011. case discussed with Dr Barker who is in agreement. (8) Acute metabolic encephalopathy: Status: Acute Assessment and plan: patient is likely at her baseline with known memory impairment, there has been no behavioral issues. ABG is unremarkable and there is no acute medical condition at this time to explain her symptoms. Subjective Subjective Patient reports: no new complaints, feels better, tolerating liquids well, tolerating a regular diet, voiding w/o difficulty, diarrhea and afebrile; denies nausea and vomiting Interval history since last seen: some confusion overnight, but pleasant with no behavioral issues. eating and drinking well, no fevers, hemodynamically stable. Exam Const General: comfortable, no acute distress and frail appearing Nutritional Appearance: obese Orientation: alert, awake, oriented to person and oriented to place Limitations: altered mental status HENMT Head: normal to inspection, normocephalic and atraumatic Mouth: oral mucosae normal Resp Effort & Inspection: normal respiratory effort Cardio Rate: regular rate Rhythm: regular rhythm GI Inspection: large pannus and obesity Palpation: soft, no hernias, no masses, not rigid and tender Auscultation: normal bowel sounds Skin General skin exam: no rashes or lesions noted Neuro General: patient alert, patient awake, oriented Patient Orientation: Person, Place and Confused and moves all extremities Cognition: abnormal cognition Speech: speech normal Motor: muscle tone normal throughout and strength 5/5 throughout Extrem General: normal to inspection, full ROM and pedal edema Objective Objective Clinical Data: Abnormal lab results 04/27/20 04/27/20 04/27/20 Range/Units 06:39 06:39 09:24 RBC 3.75 L (4.00-5.20) m/cumm Hgb 11.8 L (12.0-15.5) g/dL MCV 97.6 H (80-95) fL RDW 15.0 H (11.7-14.6) % ABG pO2 74 L (83-108) mmHg ABG HCO3 21 L (22-28) mmol/L ABG Total CO2 19 L (22-29) mmol/L ABG Base Excess -4.5 L (-3-3) mmol/L Anion Gap 11.9 H (3-11) mmol/L BUN 31 H D (7-18) mg/dL Creatinine 1.38 H (0.55-1.02) mg/dL Glucose 166 H (74-106) mg/dL Magnesium 1.5 L (1.8-2.4) mg/dL AST 59 H (15-37) U/L ALT 96 H (14-59) U/L Albumin 3.3 L (3.4-5.0) g/dL Vital Signs Temperature 36.4 C L 04/27/20 11:47 Temperature Source Tympanic 04/27/20 11:47 Pulse 73 04/27/20 11:47 Pulse Rhythm Regular 04/27/20 08:40 Pulse 88 04/23/20 22:40 Respiratory Rate 20 04/27/20 11:47 Respiratory Effort Non-Labored 04/27/20 08:40 Respiratory Depth Normal 04/27/20 08:40 Respiratory Pattern Normal 04/27/20 08:40 Blood Pressure 147/79 H 04/27/20 11:47 Blood Pressure Mean 107 04/23/20 22:01 Blood Pressure Position Supine 04/23/20 19:02 Pulse Oximetry 96 04/27/20 11:47 Oxygen Delivery Method Room Air 04/27/20 11:47 Oxygen Flow Rate 0 04/27/20 11:47 Fraction of Inspired Oxygen (FIO2) 21 04/26/20 10:30 Pain Level 0 04/27/20 11:47 Comment 04/23/20 23:10 Intake & Output 04/26/20 04/27/20 04/27/20 23:59 11:59 23:59 Intake Total 700 / 1520 240 / 480 240 / 480 Output Total 550 / 1500 850 / 850 Balance -610 / -370 240 / -370 Weight 98.1 kg Intake: Oral 700 / 1400 240 / 480 240 / 480 Output: Urine 550 / 1500 850 / 850 Other: Urine Color Yellow Yellow Yellow Urine Appearance Clear Clear Clear Urine Odor None Normal Stool Size Large Stool Characteristics Soft Formed Brown Voiding Methods Bedside Commode Bedside Commode Toilet Laboratory Results WBC 8.14 k/cumm (4.4-10.8) 04/27/20 06:39 RBC 3.75 m/cumm (4.00-5.20) L 04/27/20 06:39 Hgb 11.8 g/dL (12.0-15.5) L 04/27/20 06:39 Hct 36.6 % (36.0-46.0) 04/27/20 06:39 MCV 97.6 fL (80-95) H 04/27/20 06:39 MCH 31.5 pg (27.0-33.0) 04/27/20 06:39 MCHC 32.2 g/dL (32.0-36.0) 04/27/20 06:39 RDW 15.0 % (11.7-14.6) H 04/27/20 06:39 Plt Count 380 x1000/uL (130-400) 04/27/20 06:39 MPV 11.0 fL (8.0-11.0) 04/27/20 06:39 Immature Gran % 0.3 % 04/25/20 08:04 Neutrophils % 59.2 04/25/20 08:04 Lymphocytes % 23.2 04/25/20 08:04 Monocytes % 11.3 04/25/20 08:04 Eosinophils % 5.7 04/25/20 08:04 Basophils % 0.3 04/25/20 08:04 Absolute Neutrophils 4.55 k/cumm (1.2-6.7) 04/25/20 08:04 Absolute Lymphocytes 1.78 k/cumm (1.2-3.4) 04/25/20 08:04 Absolute Monocytes 0.87 k/cumm (0.11-0.7) H 04/25/20 08:04 Absolute Eosinophils 0.44 k/cumm (0.0-0.7) 04/25/20 08:04 Absolute Basophils 0.02 k/cumm (0.0-0.2) 04/25/20 08:04 PT 11.6 sec (9.3-11.0) H 04/23/20 19:23 INR 1.2 (0.9-1.1) H 04/23/20 19:23 ABG Sample Site Left radial 04/27/20 09:24 ABG pH 7.36 (7.35-7.45) 04/27/20 09:24 ABG pCO2 37 mmHg (34-47) 04/27/20 09:24 ABG pO2 74 mmHg (83-108) L 04/27/20 09:24 ABG HCO3 21 mmol/L (22-28) L 04/27/20 09:24 ABG Total CO2 19 mmol/L (22-29) L 04/27/20 09:24 ABG O2 Saturation 96 % (94-98) 04/27/20 09:24 ABG Base Excess -4.5 mmol/L (-3-3) L 04/27/20 09:24 FiO2 21 % 04/27/20 09:24 Sodium 140 mmol/L (136-145) 04/27/20 06:39 Potassium 3.7 mmol/L (3.5-5.1) 04/27/20 06:39 Chloride 106 mmol/L (98-107) 04/27/20 06:39 Carbon Dioxide 22.1 mmol/L (21.0-32.0) 04/27/20 06:39 Anion Gap 11.9 mmol/L (3-11) H 04/27/20 06:39 BUN 31 mg/dL (7-18) H D 04/27/20 06:39 Creatinine 1.38 mg/dL (0.55-1.02) H 04/27/20 06:39 Estimated GFR/1.73 m2 37.69 (mL/min/1.73m2) 04/27/20 06:39 Glucose 166 mg/dL (74-106) H 04/27/20 06:39 Lactate Cancelled 04/24/20 05:35 Calcium 8.6 mg/dL (8.5-10.1) 04/27/20 06:39 Magnesium 1.5 mg/dL (1.8-2.4) L 04/27/20 06:39 Total Bilirubin 0.3 mg/dL (0.2-1.0) 04/27/20 06:39 AST 59 U/L (15-37) H 04/27/20 06:39 ALT 96 U/L (14-59) H 04/27/20 06:39 Alkaline Phosphatase 101 U/L (46-116) 04/27/20 06:39 Creatine Kinase 53 U/L (26-192) 04/23/20 19:23 Troponin I < 0.05 ng/mL (<0.06) 04/24/20 06:50 Total Protein 6.9 g/dL (6.4-8.2) 04/27/20 06:39 Albumin 3.3 g/dL (3.4-5.0) L 04/27/20 06:39 Lipase 42 U/L (73-393) 04/23/20 19:20 Procalcitonin < 0.1 ng/mL 04/24/20 06:50 TSH 0.32 uIU/mL (0.36-3.74) L 04/23/20 19:20 Free T4 1.29 ng/dL (0.76-1.46) 04/24/20 06:50 Urine Color Cancelled 04/23/20 21:13 Urine Clarity Cancelled 04/23/20 21:13 Urine pH Cancelled 04/23/20 21:13 Ur Specific [place] Cancelled 04/23/20 21:13 Urine Protein Cancelled 04/23/20 21:13 Urine Ketones Cancelled 04/23/20 21:13 Urine Blood Cancelled 04/23/20 21:13 Urine Nitrite Cancelled 04/23/20 21:13 Urine Bilirubin Cancelled 04/23/20 21:13 Urine Urobilinogen Cancelled 04/23/20 21:13 Ur Leukocyte Esterase Cancelled 04/23/20 21:13 Urine RBC Cancelled 04/23/20 20:20 Urine WBC Cancelled 04/23/20 20:20 Ur Epithelial Cells Cancelled 04/23/20 20:20 Urine Crystals Cancelled 04/23/20 20:20 Urine Bacteria Cancelled 04/23/20 20:20 Urine Casts Cancelled 04/23/20 20:20 Urine Mucus Cancelled 04/23/20 20:20 Urine Other Cancelled 04/23/20 20:20 Ur Culture Indicated? Cancelled 04/23/20 20:20 Urine Glucose Cancelled 04/23/20 21:13 Stool Rotavirus Antigen Cancelled 04/24/20 Unknown Stool Campylobacter PCR Cancelled 04/25/20 18:35 Stool Salmonella PCR Cancelled 04/25/20 18:35 Stool Shigella PCR Cancelled 04/25/20 18:35 Urine Opiates Screen Negative (Negative) 04/23/20 19:15 Urine Methadone Screen Negative (Negative) 04/23/20 19:15 Ur Barbiturates Screen Negative (Negative) 04/23/20 19:15 Ur Tricyclics Screen Negative (Negative) 04/23/20 19:15 Ur Amphetamines Screen Negative (Negative) 04/23/20 19:15 U Benzodiazepines Scrn Negative (Negative) 04/23/20 19:15 Urine Cocaine Screen Negative (Negative) 04/23/20 19:15 Ur THC Screen Negative (Negative) 04/23/20 19:15 COVID-19 PCR Negative (Negative) 04/23/20 22:25 Nasopharyn COVID-19 PCR Not Applicable 04/23/20 22:25 Shiga Toxin (PCR) Cancelled 04/25/20 18:35 Ref Test Perform Site [place] [facility] 04/23/20 22:25
[2020-04-27 15:39] VITALS: BP 143/84; PULSE 68; RESP 22; TEMP 36.2; O2SAT 95
[2020-04-27 19:39] VITALS: BP 174/96; PULSE 75; RESP 20; TEMP 36.9; O2SAT 96
[2020-04-27] MEDS: levoFLOXacin 500 MG, levoFLOXacin 250 MG 750 MG PO (19:44)
[2020-04-27] MEDS: Mirtazapine 15 MG TAB 45 MG PO (21:29)
[2020-04-27 23:41] VITALS: BP 146/85; PULSE 67; RESP 16; TEMP 35.9; O2SAT 95
[2020-04-28 03:57] VITALS: BP 144/75; PULSE 75; RESP 17; TEMP 36.6; O2SAT 96
[2020-04-28] MEDS: Levothyroxine 125 MCG TAB PO (05:32)
[2020-04-28] MEDS: Budesonide/Formoterol 80/4.5 6.9 GM 60 PUFF INH IH (07:52)
[2020-04-28 07:59] VITALS: BP 158/82; PULSE 79; RESP 19; TEMP 36.5; O2SAT 98
[2020-04-28 08:24] VITALS: RESP 17
[2020-04-28] MEDS: predniSONE 20 MG TAB 40 MG PO (08:39)
[2020-04-28] MEDS: Enoxaparin 40 MG/0.4 ML SYR SC (08:39)
[2020-04-28] MEDS: Venlafaxine 150 MG CAPCR PO (08:39)
[2020-04-28] MEDS: Gabapentin 300 MG CAP 600 MG PO (08:40)
[2020-04-28] MEDS: Montelukast 10 MG TAB PO (08:40)
[2020-04-28] MEDS: Folic Acid 1 MG TAB 3 MG PO (08:40)
[2020-04-28] MEDS: metroNIDAZOLE 500 MG TAB PO ×2 (08:40→12:23)
[2020-04-28] MEDS: Furosemide 40 MG TAB PO (08:40)
[2020-04-28] MEDS: Atorvastatin 10 MG TAB PO (08:41)
[2020-04-28] MEDS: Metoprolol CR 50 MG TABCR 100 MG PO (08:41)
[2020-04-28] MEDS: Pantoprazole 40 MG TABCR PO (08:41)
[2020-04-28] MEDS: Magnesium Gluconate 500 MG TAB PO (08:41)
[2020-04-28] MEDS: Insulin Aspart 300 UNITS/3 ML PEN SC ×2 (08:42→12:22)
--- NOTE | 2020-04-28 10:18 | W.PM.DS.N ---
Date of service: 04/28/20 Time of Service: 10:18 DS: Diagnosis Discharge Diagnosis (1) Urinary tract infection: Status: Acute (2) Colitis: Status: Acute (3) Non-insulin dependent type 2 diabetes mellitus: Status: Chronic (4) COPD with acute exacerbation: Status: Acute (5) CHF (congestive heart failure): Status: None (6) Acute metabolic encephalopathy: Status: Acute Discharge Plan Disposition Patient Disposition: HOME W/HOME HEALTH SERVICE Condition: Fair Discharge Details Chief Complaint: GenMedical Clinical Impression: Urinary tract infection, Altered mental status Reason For Visit: UTI, DEHYDRATION, ALTERED MENTAL STATUS Admit Date/Time: 04/24/20 00:47 Admit Provider: Reji Redmond Attending Provider: Reji Redmond Primary Care Provider: Keren Gonzalez ED Provider: [place] [facility] Course Hospital Course: This is a 69-year-old female patient with a past medical history significant for COPD hypertension GERD hypothyroidism mild cognitive impairment who was found down at her home during a welfare check. It was last thought that she was last seen about a week prior. She was found on the ground laying in feces and urine that she was incontinent of. Initially confused but by the time she got to the emergency department she was oriented to person place but was unable to give reliable history. Work-up in the emergency department showed urinary tract infection dehydration with electrolyte abnormalities. She was placed on Levaquin secondary to allergies to penicillin and Cefpodoxime while awaiting ID and sensitivities. Her urine grew pansensitive E. coli. Her blood cultures remained negative. Hemodynamically she remained stable and afebrile. Shortly after admission she developed several loose stools and Flagyl was added to her antibiotic regimen to cover colitis. Stool samples were obtained and fecal bacterial pathogens were negative rotavirus is still pending at discharge her diarrhea has subsided. Her magnesium and potassium replaced and now normalized. She is eating and drinking and voiding without difficulty. Head and cervical spine CT showed no acute findings. Her mental status did clear return to baseline was thought to be a combination of dehydration urinary tract infection and some exacerbation of mild cognitive decline that family had noticed over the past year or so. Patient does endorse having short-term memory deficit and states that she makes notes to remind herself. She has had no behavioral issues and has been appropriate and alert and oriented. Case management has been following and she will be discharged to home with home health services including nursing and PT OT. She has an established counter caser who follows her in the community which will resume. She has completed her course of antibiotics and is being discharged to home to resume her previously scheduled medications. Case discussed with Dr. Barker who is in agreement Home Meds and New Rx's Prescriptions: Continued venlafaxine [Effexor XR] 150 MG capsule,extended release 24hr 150 mg PO BID RF: 0 levothyroxine [Synthroid] 125 MCG tablet 125 mcg PO DAILY RF: 0 folic acid 1 MG tablet 3 mg PO DAILY RF: 0 montelukast 10 MG tablet 10 mg PO DAILY RF: 0 albuterol sulfate [Proventil HFA] 6.7 GM HFA aerosol inhaler 2 puff Inhalation Q4H PRN RF: 0 losartan 50 MG tablet 50 mg PO DAILY Qty: 30 RF: 0 acetaminophen [Tylenol Extra Strength] 500 mg Tablet 1,000 mg PO BID RF: 0 methotrexate sodium 2.5 mg Tablet 12.5 mg PO QWEEK RF: 0 Aimovig Autoinjector (2 Pack) 70 mg/mL Auto-Injector 140 mg SUBCUT QMONTH RF: 0 clotrimazole 1 % Cream 1 applic Topical BID Qty: 1 RF: 0 metformin 500 mg Tablet 1,000 mg PO BID@0800,1700 Qty: 30 RF: 0 albuterol sulfate 2.5 MG/3 ML solution for nebulization 2.5 mg Inhalation Q2H PRN PRN (Reason: shortness of breath or wheezing) Qty: 0 RF: 0 metoprolol succinate 25 MG tablet extended release 24 hr 100 mg PO DAILY RF: 0 gabapentin 300 MG capsule 600 mg PO TID RF: 0 mirtazapine 45 MG tablet 1 tab PO HS RF: 0 esomeprazole magnesium [Nexium] 40 MG capsule,delayed release(DR/EC) 40 mg PO DAILY RF: 0 furosemide 40 mg Tablet 40 mg PO DAILY RF: 0 famotidine 40 mg Tablet 40 mg PO DAILY RF: 0 lorazepam 1 mg Tablet 1 mg PO PRN PRNRF: 0 atorvastatin 10 mg Tablet 10 mg PO DAILY RF: 0 leucovorin calcium 10 mg Tablet 10 mg PO DIRECTED RF: 0 Discharge Instructions Instructions: Urinary Tract Infection in Women (ED), Colitis (ED), Encephalopathy (DC) Additional Instructions: you should resume your medications as previously prescribed. drink at least 6-8 glasses of water daily to stay well hydrated. use your walker at all times for gait safety and stability. Stand Alone Forms: Nursing Discharge Form Referrals: Emily Pires [REGISTERED NURSE] - 05/05/20 1:00 pm Keren Gonzalez [Primary Care Provider] - (one week) Activity:: Activity as Tolerated Equipment/Supplies:: No Equipment Needed Diet:: Carb Counting Discharge Orders Discharge Orders: Discharge Order (Routine); Ordered 04/28/20 Ordered By: Francesca Ruth Discharge Data Discharge Date/Time-TO BE ENTERED AT DEPARTURE: 04/28/20 12:59 DS: Summary Status at Discharge Functional status at discharge: uses cane/walker Overall status at discharge: patient is progressing back to baseline Mental Status: mental status grossly normal Speech and Movement: speech and movement normal Mood: congruent mood Affect: normal affect Exam Const General: comfortable, no acute distress and frail appearing Nutritional Appearance: obese Orientation: alert, awake, oriented x3, oriented to person and oriented to place HENND Head: normal to inspection, normocephalic and atraumatic Mouth: oral mucosae normal Resp Effort & Inspection: normal respiratory effort Cardio Rate: regular rate Rhythm: regular rhythm GI Inspection: large pannus and obesity Palpation: soft, no hernias, no masses, not rigid and tender Auscultation: normal bowel sounds Skin General skin exam: no rashes or lesions noted Neuro General: patient alert, patient awake, patient oriented x3 and moves all extremities Cognition: normal cognition Speech: speech normal Motor: muscle tone normal throughout and strength 5/5 throughout Extrem General: normal to inspection, full ROM and pedal edema Psych Appearance: grossly normal Mental Status: mental status grossly normal Speech and Movement: speech and movement normal Mood: congruent mood Affect: normal affect Attitude: cooperative Thought Process: normal Thought Content: normal Insight: fair Judgment: fair DS: Data Vitals/I&O Vitals and I&O: Vital Signs Temperature 36.5 C 04/28/20 07:59 Temperature Source Temporal Artery Scan 04/28/20 07:59 Pulse 79 04/28/20 07:59 Pulse Rhythm Regular 04/28/20 08:45 Pulse 88 04/23/20 22:40 Respiratory Rate 19 04/28/20 07:59 Respiratory Effort Non-Labored 04/28/20 08:45 Respiratory Depth Normal 04/28/20 08:45 Respiratory Pattern Normal 04/28/20 08:45 Blood Pressure 158/82 H 04/28/20 07:59 Blood Pressure Mean 107 04/23/20 22:01 Blood Pressure Position Supine 04/23/20 19:02 Pulse Oximetry 98 04/28/20 07:59 Oxygen Delivery Method Room Air 04/28/20 07:59 Oxygen Flow Rate 0 04/28/20 07:59 Fraction of Inspired Oxygen (FIO2) 21 04/28/20 08:24 Pain Level 0 04/28/20 07:59 Comment 04/23/20 23:10 Intake & Output 04/27/20 04/27/20 04/28/20 11:59 23:59 11:59 Intake Total 240 / 1160 920 / 1160 640 / 640 Output Total 850 / 1550 700 / 1550 1120 / 1120 Balance -610 / -390 220 / -390 -480 / -480 Weight 98.1 kg 98.9 kg Intake: Oral 240 / 1160 920 / 1160 640 / 640 Output: Urine 850 / 1550 700 / 1550 1120 / 1120 Other: Urine Color Yellow Light Haylee Yellow Urine Appearance Clear Clear Clear Urine Odor Normal Normal Normal Stool Size Moderate Large Stool Characteristics Soft Soft Formed Brown Voiding Methods Bedside Commode Bedside Commode Bedside Commode Data Completed and Pending Labs on day of discharge: Preliminary micro results at discharge 04/24/20 01:15 Blood Culture - Preliminary Blood NO GROWTH 96 HOURS 04/24/20 01:01 Blood Culture - Preliminary Blood NO GROWTH 96 HOURS [facility] Medical History CHF (congestive heart failure) Per echocardiogram 05/17/2016 LV cavity size normal. Wall thickness normal, systolic function mild to moderately reduced. LVEF 40-45%. Moderate hypokinesis of the basal/mid anteroseptal wall. Moderate hypokinesis of the apical/anterior, anterolateral and apical myocardium. Trivial AI, mild MR, RV size wall thickness and function normal. Mild pulmonary hypertension PA peak pressure 39 mm Chronic back pain COPD (chronic obstructive pulmonary disease) Depression Diverticulosis GERD (gastroesophageal reflux disease) h/o septic right knee (Inactive) Hyperlipidemia Hypertension Hyperthyroidism DARYL (obstructive sleep apnea) Rheumatoid arthritis Surgical History Abdominal hysterectomy Biopsy of breast section Cholecystectomy H/O surgical procedure (Resolved) A. Cholecystectomy B. C. Hysterectomy D. TKR and revision E. Tubal ligation F. D and C G. Breast biopsy x 2 Replacement of total knee joint revision with infection Family History Sister Diabetes Sister Hypertension Mother Stomach cancer Social History Smoking/Tobacco Use Status: Former Tobacco Use Drug use: Never History History 2 Para 2 Hx # Term Pregnancies Multiple births Hx # Pregnancies Ectopic pregnancies AB induced Hx Number of Living Children AB spontaneous
--- NOTE | 2020-04-28 10:22 | PDOC.HHF2F ---
Home Health Certification Home Health Certification: 1. Encounter Date and Reason I certify that JANET ALAS was seen by Francesca Ruth on 04/28/20 and that I had a [id number] encounter with this patient that meets the physician face to face encounter requirements. 2. Clinical Findings Supporting Skilled Need and Homebound Status I certify that home health services are medically necessary, include either intermittent longterm and/or physical/speech therapy, and that this patient is homebound in that absences from the home require considerable and taxing effort and are infrequent or of short duration, or are attributable to the need to receive medical care. [X] (a) Attached documentation from encounter provides clinical findings supporting skilled need and homebound status (including what assistance patient requires to leave the home). The encounter with the patient was in whole, or in part, for the following medical condition, which is the primary reason for home health care: UTI, DEHYDRATION, ALTERED MENTAL STATUS Penitentiary: routine nursing care, diabetes management, medication oversight. Physical and Occupational Therapy: routine evaluation and treatment, home safety, balance and gait training and stability. Homebound: patient is unable to leave the house unassisted due to decreased strength and endurance, cognitive impairment and impaired transfers 3. Certification and Authentication I certify that I composed the above information based on my clinical judgement relating to this patient's medical condition and, if applicable, clinical findings communicated to me by the NPP or inpatient physician who performed the Home Health Referral. All further orders will be obtained through (Community Based Physician - PCP)
--- NOTE | 2020-04-28 11:04 | PT.INTREAT ---
Date of service: 04/28/20 Time of Service: 11:04 PT Notes Visit Reasons: UTI, DEHYDRATION, ALTERED MENTAL STATUS Inpatient Physical Therapy Treatment Note [facility] Date: 04/28/2020 SUBJECTIVE: Samantha reports that she is leaving after lunch. Indicated that she is going home. She would like a new 4ww has hers is hard to maneuver and she would like a basket under seat where her stuff is more secure, vs the basket that is on the front of her walker. OBJECTIVE: [] BED MOBILITY/TRANSFERS Sit-stand: I Stand-sit: I GAIT Assistive Device:4WW Weight bearing: full Assist: S Distance: 400'+ Deviation:cues to stay closer to walker and more erect avoiding fwd flexion. ASSESSMENT: she demonstrates safe independence with functional mobility. PLAN: d/c home this pm. TREATMENT CODE/TIME: 20 min. [id number].
[2020-04-28 12:07] VITALS: BP 139/84; PULSE 74; RESP 19; TEMP 37.1; O2SAT 96
--- NOTE | 2020-04-28 13:51 | PDOC.CMDIS ---
- If Service Date Differs Date of service: 04/28/20 Time of Service: 13:51 LACE Index Scoring Tool - Questions: Length of Stay (in days): 4 - 6 Acuity (Admit via E.D.?): Yes Comorbidities: Congestive Heart Failure, Chronic Pulmonary Disease E.D. Visits: 3 - Answers: Total Score: 15 Risk of Readmission: High Risk Care Management Discharge Reason for Hospitalization: Colitis Discharge Plan: Dot will return home, with new orders for home health PT, OT and RN through [facility]. [facility] as well as her correctional case manager Britt Nai were notified by CM yesterday. Her correctional case manager was updated about the need for a new walker, CPAP machine (in process) and assistance with completion of a retirement medicaid application. Dot will follow up with her PCP and discharge plan of care and transport via [facility], coordinated by JAMI. A stop will be made at Dot's pharmacy to allow her to seed cone picker her medications. cc: Patient/Family Education Needs: Discharge plan, limitations, follow up plan, Ask Me Three. Services Needed at Discharge: Home Health Care Services, Physical Therapy, Transportation
[2020-04-28 15:18] LABS: Rotavirus Antigen, Feces Negative (Negative)
--- NOTE | 2020-04-28 16:43 | RESPIRATORY ---
Pt told Respiratory about her own Bipap unit currently being broken and she had contacted [facility] concerning it. She stated she had contacted [facility]ala numberous times concerning it and recieved no response back. Respiratory called [facility] to follow up concerning a new machine upon discharge. [facility] told respiratory the last settings she had were: Auto-Bipap 18/13 on RA with a small mask. At hospital, patient used the setting of Auto-Bipap 17/12 on Ra with the same size mask. These setting were obtained from previous visits to [facility].
--- NOTE | 2020-05-02 17:48 | PT.INDS ---
Date of service: 05/02/20 PT Notes Visit Reasons: UTI, DEHYDRATION, ALTERED MENTAL STATUS Inpatient Physical Therapy Discharge Summary Dates: 05/02/2020 Dates of Service: 04/25/2020 through 04/28/2020 This is a clinical summary of care provided on the duration of dates listed above. No charge was made in the completion of this documentation. Referring Doctor: Yue Barker MD PT Orders: PT CONSULT: Limited ability Precautions: Fall. Enteric contact precautions on. Activity as tolerated Patient Profile/Admitting Diagnosis: Samantha is a an 69-year-old female who presented to the ED on 04/23/2020 with altered mental status after having been found by psychotherapist social worker staff on the floor in her feces and urine during welfare check as patient has been out of reach for the past 7 days prior to admission. Patient is diagnosed with colitis, urinary tract infection, altered mental status, hypokalemia, and hypomagnesemia. PMHX: Medical History CHF (congestive heart failure) Per echocardiogram 05/17/2016 LV cavity size normal. Wall thickness normal, systolic function mild to moderately reduced. LVEF 40-45%. Moderate hypokinesis of the basal/mid anteroseptal wall. Moderate hypokinesis of the apical/anterior, anterolateral and apical myocardium. Trivial AI, mild MR, RV size wall thickness this is patient will highly benefit from use of straight cane in order to increase mobility, increase stability, maximize activity tolerance, and reduce overall fall risk at discharge destination. And function normal. Mild pulmonary hypertension PA peak pressure 39 mm Chronic back pain COPD (chronic obstructive pulmonary disease) Depression Diverticulosis GERD (gastroesophageal reflux disease) h/o septic right knee (Inactive) Hyperlipidemia Hypertension Hyperthyroidism DARYL (obstructive sleep apnea) Rheumatoid arthritis Surgical History Abdominal hysterectomy Biopsy of breast section Cholecystectomy H/O surgical procedure (Resolved) A. Cholecystectomy B. C. Hysterectomy D. TKR and revision E. Tubal ligation F. D and C G. Breast biopsy x 2 Replacement of total knee joint revision with infection Social History/Home Situation: Patient lives alone in an apartment building with her dog Berna. She is modified independent using her front wheeled walker for all mobility ADL performance prior to admission, although she admits that there were times that she did not use her walker inside the house when she felt well. She has a daughter who lives in [place] and another daughter who is physically handicapped. She no longer drives. She managed her own meals and grocery shopping previously. Equipment Owned/DME: Front wheeled walker Subjective: NT. See most recent CUSTOMER QUALITY SPECIALIST notes. Objective: General Observation: NT. See most recent CUSTOMER QUALITY SPECIALIST notes. Mental Status: NT. See most recent CUSTOMER QUALITY SPECIALIST notes. Pain: NT. See most recent CUSTOMER QUALITY SPECIALIST notes. ROM: Right Upper Extremity: Shoulder Flexion WFL. Shoulder abduction WFL. Elbow flexion WFL. Wrist flexion WFL. Opening and closing of hand WFL. Left Upper Extremity: Shoulder Flexion WFL. Shoulder abduction WFL. Elbow flexion WFL. Wrist flexion WFL. Opening and closing of hand WFL. Right Lower Extremity: Hip flexion WFL. Hip abduction WFL. Knee flexion WFL. Ankle dorsiflexion WFL. Ankle plantarflexion WFL. Left Lower Extremity: Hip flexion WFL. Hip abduction WFL. Knee flexion WFL. Ankle dorsiflexion WFL. Ankle plantarflexion WFL. Strength: Right Upper Extremity: Shoulder flexors 4/5. Shoulder abductors 4/5. Elbow flexors 4/5. Elbow extensors 4/5. Billing Coordinator strong. Left Upper Extremity: Shoulder flexors 4/5. Shoulder abductors 4/5. Elbow flexors 4/5. Elbow extensors 4/5. Billing Coordinator strong. Right Lower Extremity: Hip flexors 4-/5. Hip abductors 4/5. Knee flexors 4-/5. Knee extensors 4-/5. Ankle dorsiflexors 4-/5. Ankle plantarflexors 4-/5. Left Lower Extremity: Hip flexors 4-/5. Hip abductors 4/5. Knee flexors 4-/5. Knee extensors 4-/5. Ankle dorsiflexors 4-/5. Ankle plantarflexors 4-/5. Sensation: Intact as to pain and pressure on bilateral lower extremities. Bed Mobility/Transfers: Sit to stand independent Stand to sit independent Bed to chair independent Chair to bed independent Gait: Patient tolerated in room ambulation of 400 feet using front wheeled walker with supervision. No SOB seen. No LOB. tep?through gait pattern. Balance: Static Sitting: Normal Dynamic Sitting: Normal Static Standing: Fair Dynamic Standing: Fair Assessment: Samantha continues to demonstrate functional mobility decline requiring the use of front wheeled walker for all mobility ADL performance, impairment in balance, generalized weakness, and difficulty with walking due to admitting diagnoses. Samantha is a an 69-year-old female who presented to the ED on 04/23/2020 with altered mental status after having been found by psychotherapist social worker staff on the floor in her feces and urine during welfare check as patient has been out of reach for the past 7 days prior to admission. Patient is diagnosed with colitis, urinary tract infection, altered mental status, hypokalemia, and hypomagnesemia. Goals: Goals X1 week 1. Supine-Sit independent MET 2. Sit-Supine independent MET 3. Sit-Stand independent MET 4. Stand-Sit independent MET 5. Bed-Chair independent MET 6. Chair-Bed independent MET 7. Independent gait on level surface with use of least restrictive device for at least 300 feet without report of pain nor dyspnea MET 8. Good static and dynamic standing balance/tolerance NOT MET DISCHARGE RECOMMENDATIONS: Patient will benefit from home health PT services in order to progress mobility level using least restrictive assistive ambulatory device, assess home safety, identify additional equipment needs, and establish a functional maintenance program that will increase ability of patient to remain at home. TREATMENT CODE/TIME: OR Thank you for the opportunity to participate in the care of this patient. Astrid Canela PT, DPT, CLT [facility] [place], [place]
== END 2020-04-28 12:59 | disposition home health service (06) | DRG 689 ==
LOC: ER 22:59 → MS 23:09
PROVIDERS: Family Medicine; Internal Medicine; Admitting Provider Internal Medicine; Emergency Provider Nurse Practitioner Acute Care; PCP Internal Medicine; Visit Provider Internal Medicine
DX: N39.0 Urinary tract infection, site not specified (principal); G93.41 Metabolic encephalopathy; J44.1 Chronic obstructive pulmonary disease with (acute) exacerbation; K52.9 Noninfective gastroenteritis and colitis, unspecified; E86.0 Dehydration; E87.6 Hypokalemia; E83.42 Hypomagnesemia; E03.9 Hypothyroidism, unspecified; K21.9 Gastro-esophageal reflux disease without esophagitis; G43.909 Migraine, unspecified, not intractable, without status migrainosus; G89.29 Other chronic pain; M54.9 Dorsalgia, unspecified; F32.9 Major depressive disorder, single episode, unspecified; K57.30 Diverticulosis of large intestine without perforation or abscess without bleeding; G47.33 Obstructive sleep apnea (adult) (pediatric); I11.0 Hypertensive heart disease with heart failure; I50.9 Heart failure, unspecified; E11.9 Type 2 diabetes mellitus without complications; Z79.84 Long term (current) use of oral hypoglycemic drugs; B96.20 Unspecified Escherichia coli [E. coli] as the cause of diseases classified elsewhere
CPT/HCPCS: 36415; 51701; 74177; 76770; 80048; 80053; 80307; 82550; 82805; 83690; 84145; 85027; 87040; 87077; 87425; 87505; 93005; 94640; 96361; 96365; 96366; 96367; 97110; 97162; 97530; 99223; 99233; 99239; 99285; J1650; U0003; 36600; 70450; 71260; 72125; 81003; 81015; 83605; 83630; 83735; 84439; 84443; 84484; 85025; 85610; 87086; 87186; 87324; 93010; 94660; J1956; J3475; J3480; J3490; J7512

== ENCOUNTER 2020-05-03 10:58 | Observation (INO) | payer MEDICARE, SELFPAY ==
[2020-05-03] VITALS (20 sets, daily range): BP systolic 150–185; BP diastolic 65–95; PULSE 67–108; RESP 14–21; TEMP 36.1–36.6; O2SAT 95–100
--- NOTE | 2020-05-03 10:45 | RT.EKG_ITS ---
APPROVED REPORT Exam: Resting ECG Patient Location: E HR:94 bpm ECG Measurements Heart Rate 94 AXIS LA 154 P 71 QRSd 72 QRS -14 QT 328 T 135 QTc 410 <Conclusion> Sinus rhythm...normal P axis, V-rate 60- 99 Consider anteroseptal infarct...Q >30mS, dimin R, V1-V2 Nonspecific T abnormalities, lateral leads...T <-0.10mV, I aVL V5 V6. T wave inversion in I and aVL which appears more pronounced compared to previous. No acute ST elevation or depression.
--- NOTE | 2020-05-03 11:00 | PDOC.ERCMPRO ---
Care Management Progress Note CM rec'd call from Dr. Bolaños reporting Dot was on her way back in to the ER after being found down and incontinent of stool. JAMI called [facility] to inquire as to service connection. Terri reported that Dot was seen by RN on 04/29/20 and was scheduled to see OT today. Orders upon discharge included RN/PT/OT.
--- NOTE | 2020-05-03 11:30 | DI.RAD_ITS ---
EXAM: XR CHEST 2V PA LATERAL CLINICAL HISTORY: altered mental status, possible fall TECHNIQUE: 2D digital imaging was performed. COMPARISON: No exams were available for comparison FINDINGS: MEDIASTINUM: Normal. HEART: Normal. PULMONARY VASCULATURE: Normal. LUNGS: Clear. PLEURAL SPACE: No pleural effusion or pneumothorax. BONE: Degenerative disc changes are seen thoracic spine. IMPRESSION: No acute pulmonary findings. DATA REPOSITORY: RADIATION DOSE DELIVERED:
--- NOTE | 2020-05-03 11:30 | DI.RAD_ITS ---
EXAM: XR PELVIS AP CLINICAL HISTORY: possible fall, r/o acute fx. TECHNIQUE: 2D digital imaging was performed. COMPARISON: CR LUMBAR SPINE COMPLETE from 10/04/2017 FINDINGS: BONES: No acute fracture is present. No bony destructive lesion is seen. JOINTS: No dislocation present. No joint space narrowing is present. IMPRESSION: Unremarkable radiographs of the pelvis. DATA REPOSITORY: RADIATION DOSE DELIVERED:
--- NOTE | 2020-05-03 11:43 | ED.GENADUL_ITS ---
Discharge Plan Disposition Patient Disposition: [facility] INPATIENT Condition: Stable Discharge Details Chief Complaint: GenMedical Clinical Impression: Dehydration, Adult failure to thrive, Hypokalemia, Hypomagnesemia Admit Date/Time: 05/03/20 14:41 Admit Provider: Reji Redmond Attending Provider: Reji Redmond Primary Care Provider: Keren Gonzalez ED Provider: Destiny Bolaños Discharge Data Discharge Date/Time-TO BE ENTERED AT DEPARTURE: 05/03/20 15:33 Medical Decision Making 69-year-old female with a history of morbid obesity, CHF, COPD, diabetes, GERD, hypertension, hyperlipidemia presents from home after found covered in urine and feces on a welfare check. Same complaint when seen in the ED here 10 days ago and admitted, treated for UTI and discharged home with home health. Patient likely not appropriate to return to home and likely needs rehab or other placement. Case discussed with care management and hospitalist. She is oriented x2 and does not appear toxic without any focal deficits or obvious trauma. Will check screening labs and imaging to rule out acute medical cause. EKG notes a rate of 71, sinus, T wave inversion in 1 and aVL which appears more pronounced compared to previous. No acute ST ischemic changes. Labs obtained on arrival and note a potassium of 3.2 and magnesium 1.6 which were both repleted. Imaging reviewed and negative for acute findings. Plan discussed with patient and her daughter Montse over the phone and they are both agreeable with plan for patient not returning to home. Plan was for patient to go to rehab however they will not accept patient without a negative COVID test. Case discussed with hospitalist who accepts patient for admission. Urine sample not yet obtained. Medical Records Medical records reviewed: Yes I reviewed the patient's medical records. Imaging Data Radiologic Study: Radiologist's impression: CT HEAD CERVICAL SPINE WO CLINICAL HISTORY: altered mental status, r/o acute process. TECHNIQUE: Imaging Protocol: Axial computed tomography images with coronal and sagittal reformatted images were created and reviewed COMPARISON: CT CT HEAD CERVICAL SPINE WO from 04/23/2020 FINDINGS: Head CT Ventricles and Extra axial spaces: Normal in size and morphology for the patient's age. Hemorrhage: None. Cerebral parenchyma: Atrophy. Old left basal ganglia lacunar infarct. L. Midline shift: None. Brainstem/Cerebellum: Normal. Calvarium: Normal. Visualized Paranasal sinuses/Mastoids: Clear. Cervical Spine CT Limited by patient motion. BONES: Vertebral body heights are maintained. Intervertebral disc spaces are normal. Alignment is normal. There is no evidence of acute fracture. SOFT TISSUES: No paraspinal hematoma. The airway appears intact. Degenerative disc changes and facet degenerative changes are seen . IMPRESSION: Head CT: Old left basal ganglia lacunar infarct. No acute abnormality. Cervical spine: Degenerative changes, no acute abnormality. XR PELVIS AP CLINICAL HISTORY: possible fall, r/o acute fx. TECHNIQUE: 2D digital imaging was performed. COMPARISON: CR LUMBAR SPINE COMPLETE from 10/04/2017 FINDINGS: BONES: No acute fracture is present. No bony destructive lesion is seen. JOINTS: No dislocation present. No joint space narrowing is present. IMPRESSION: Unremarkable radiographs of the pelvis. XR CHEST 2V PA LATERAL CLINICAL HISTORY: altered mental status, possible fall TECHNIQUE: 2D digital imaging was performed. COMPARISON: No exams were available for comparison FINDINGS: MEDIASTINUM: Normal. HEART: Normal. PULMONARY VASCULATURE: Normal. LUNGS: Clear. PLEURAL SPACE: No pleural effusion or pneumothorax. BONE: Degenerative disc changes are seen thoracic spine. IMPRESSION: No acute pulmonary findings. Lab Data Lab results reviewed: Yes I reviewed the patient's lab results. Labs: Laboratory Tests Range/Units 05/03/20 05/03/20 05/03/20 12:05 12:05 12:05 WBC (4.4-10.8) 10^3/uL RBC (3.93-5.22) 10^6/uL Hgb (11.2-15.7) g/dL Hct (36.0-46.0) % MCV (80-95) fL MCH (27.0-33.0) pg MCHC (32.0-36.0) % RDW (11.7-14.6) % Plt Count (130-400) 10^3/uL MPV (8.0-11.0) fL Immature Gran % Neutrophils % % Lymphocytes % Monocytes % Eosinophils % Basophils % Absolute Neutrophils (1.2-6.7) 10^3/uL Absolute Lymphocytes (1.2-3.4) 10^3/uL Absolute Monocytes (0.1-0.8) 10^3/uL Absolute Eosinophils (0.0-0.7) 10^3/uL Absolute Basophils (0.0-0.2) 10^3/uL PT (9.3-11.0) sec 10.4 INR (0.9-1.1) 1.0 APTT (21.0-31.4) sec 21.9 Sodium (136-145) mmol/L 140 Potassium (3.5-5.1) mmol/L 3.2 L Chloride (98-107) mmol/L 102 Carbon Dioxide (21.0-32.0) mmol/L 27.7 Anion Gap (3-11) mmol/L 10.3 BUN (7-18) mg/dL 15 Creatinine (0.55-1.02) mg/dL 0.96 Estimated GFR/1.73 m2 (mL/min/1.73m2) 57.29 Glucose (74-106) mg/dL 128 H Calcium (8.5-10.1) mg/dL 9.4 Magnesium (1.8-2.4) mg/dL 1.6 L Total Bilirubin (0.2-1.0) mg/dL 0.6 AST (15-37) U/L 39 H ALT (14-59) U/L 71 H Alkaline Phosphatase (46-116) U/L 92 Creatine Kinase (26-192) U/L 16 L Troponin I (<0.06) ng/mL < 0.05 Total Protein (6.4-8.2) g/dL 7.0 Albumin (3.4-5.0) g/dL 3.3 L Range/Units 05/03/ 12:05 WBC (4.4-10.8) 10^3/uL 8.62 RBC (3.93-5.22) 10^6/uL 4.05 Hgb (11.2-15.7) g/dL 12.8 Hct (36.0-46.0) % 39.1 MCV (80-95) fL 96.5 H MCH (27.0-33.0) pg 31.6 MCHC (32.0-36.0) % 32.7 RDW (11.7-14.6) % 14.1 Plt Count (130-400) 10^3/uL 355 MPV (8.0-11.0) fL 10.5 Immature Gran % 0.7 Neutrophils % % 69.2 Lymphocytes % 19.1 Monocytes % 8.1 Eosinophils % 2.6 Basophils % 0.3 Absolute Neutrophils (1.2-6.7) 10^3/uL 5.96 Absolute Lymphocytes (1.2-3.4) 10^3/uL 1.65 Absolute Monocytes (0.1-0.8) 10^3/uL 0.70 Absolute Eosinophils (0.0-0.7) 10^3/uL 0.22 Absolute Basophils (0.0-0.2) 10^3/uL 0.03 PT (9.3-11.0) sec INR (0.9-1.1) APTT (21.0-31.4) sec Sodium (136-145) mmol/L Potassium (3.5-5.1) mmol/L Chloride (98-107) mmol/L Carbon Dioxide (21.0-32.0) mmol/L Anion Gap (3-11) mmol/L BUN (7-18) mg/dL Creatinine (0.55-1.02) mg/dL Estimated GFR/1.73 m2 (mL/min/1.73m2) Glucose (74-106) mg/dL Calcium (8.5-10.1) mg/dL Magnesium (1.8-2.4) mg/dL Total Bilirubin (0.2-1.0) mg/dL AST (15-37) U/L ALT (14-59) U/L Alkaline Phosphatase (46-116) U/L Creatine Kinase (26-192) U/L Troponin I (<0.06) ng/mL Total Protein (6.4-8.2) g/dL Albumin (3.4-5.0) g/dL ECG Data Attestation: I personally reviewed and interpreted this ECG (s) as follows: Interpretation: Rate of 94, sinus, T wave inversion in 1 and aVL, V4 and V5. No acute ST elevation or depression. NE 154. QRS 72. QTc 410. HPI General Mode of arrival: ambulatory . Date/Time Provider Initiated Documentation: 05/03/20 11:02 . Limitations to Documentation: no limitations . Information obtained by: patient . HPI Narrative: Patient is a 69-year-old f emale with history of COPD, CHF, GERD, hypertension, hyperlipidemia, obstructive sleep apnea and rheumatoid arthritis who presents after found by police on a welfare check to be laying on the ground at home incontinent of urine and stool. She does not recall any of these events. Patient is unsure of any recent fall but denies any specific pain. Patient was admitted here 10 days ago for the same complaint and found to have a UTI and discharged with home health last week. Related Data Home Medications Medication Instructions Recorded Confirmed albuterol sulfate [Proventil HFA] 2 puff INHALATION Q4H PRN 02/02/14 05/03/20 folic acid 3 mg PO DAILY 02/02/14 05/03/20 levothyroxine [Synthroid] 125 mcg PO DAILY 02/02/14 05/03/20 montelukast 10 mg PO DAILY 02/02/14 05/03/20 venlafaxine [Effexor XR] 150 mg PO BID 02/02/14 05/03/20 losartan 50 mg PO DAILY #30 tab 05/21/16 05/03/20 gabapentin 600 mg PO TID 01/23/17 05/03/20 mirtazapine 1 tab PO HS 03/07/17 05/03/20 acetaminophen [Tylenol Extra 1,000 mg PO BID 08/09/18 05/03/20 Strength] methotrexate sodium 15 mg PO QWEEK 08/10/18 05/03/20 albuterol sulfate 2.5 mg INHALATION Q2H PRN PRN #0 08/15/18 05/03/20 vial metformin 1,000 mg PO BID@0800,1700 #30 tab 08/15/18 05/03/20 metoprolol succinate 100 mg PO DAILY 07/14/19 05/03/20 atorvastatin 10 mg PO DAILY 04/24/20 05/03/20 esomeprazole magnesium [Nexium] 40 mg PO DAILY 04/24/20 05/03/20 famotidine 40 mg PO DAILY 04/24/20 05/03/20 furosemide 40 mg PO DAILY 04/24/20 05/03/20 leucovorin calcium 10 mg PO DIRECTED 04/24/20 05/03/20 lorazepam 1 mg PO DAILY PRN PRN 04/24/20 05/03/20 galcanezumab-gnlm [Emgality Pen] 120 mg SUBCUT Q30D 05/03/20 05/03/20 melatonin 10 mg PO QHS PRN 05/03/20 05/03/20 Previous Rx's Medication Instructions Recorded losartan 50 mg PO DAILY #30 tab 05/21/16 albuterol sulfate 2.5 mg INHALATION Q2H PRN PRN #0 08/15/18 vial metformin 1,000 mg PO BID@0800,1700 #30 tab 08/15/18 Allergies Allergy/AdvReac Type Severity Reaction Status Date / Time NSAIDS (Non-Steroidal Allergy Severe Anaphylaxsi Unverified 05/03/20 12:47 Anti-Inflamma s cefpodoxime Allergy Intermediate Hives Unverified 05/03/20 12:47 chlorhexidine Allergy Intermediate Skin Rash Unverified 05/03/20 12:47 latex Allergy Intermediate Skin Rash Unverified 05/03/20 12:47 Penicillins Allergy Intermediate Hives Unverified 05/03/20 12:47 povidone-iodine Allergy Intermediate Unverified 05/03/20 12:47 duloxetine HCl Allergy Unknown Unverified 05/03/20 12:47 [From Cymbalta] indomethacin Allergy Unknown Unverified 05/03/20 12:47 propoxyphene Allergy Unknown Unverified 05/03/20 12:47 propranolol Allergy Unknown Unverified 05/03/20 12:47 adhesive AdvReac Intermediate dermatitis Unverified 05/03/20 12:47 aspirin AdvReac Intermediate Nausea Unverified 05/03/20 12:47 butorphanol AdvReac Intermediate nose bleeds Unverified 05/03/20 12:47 fexofenadine AdvReac Intermediate nose bleeds Unverified 05/03/20 12:47 hydrocodone AdvReac Intermediate confusion Unverified 05/03/20 12:47 hydroxychloroquine AdvReac Intermediate Visual Unverified 05/03/20 12:47 [Hydroxychloroquine] Disturbances hydroxyzine AdvReac Intermediate Nausea Unverified 05/03/20 12:47 methotrexate AdvReac Intermediate Nausea Unverified 05/03/20 12:47 morphine AdvReac Intermediate confusion Unverified 05/03/20 12:47 oxycodone [Oxycodone] AdvReac Intermediate confusion Unverified 05/03/20 12:47 pentazocine AdvReac Intermediate confusion Unverified 05/03/20 12:47 Sulfa (Sulfonamide AdvReac Intermediate Headache Unverified 05/03/20 12:47 Antibiotics) sumatriptan AdvReac Intermediate palpitation Unverified 05/03/20 12:47 s zolpidem [Zolpidem] AdvReac Intermediate confusion Unverified 05/03/20 12:47 General Stated Complaint: GenMedical ARAVIND: 2 Review of Systems Unobtainable due to mental status [facility] Social History Smoking/Tobacco Use Status: Former Tobacco Use Alcohol Intake: never Drug use: Never Substance use type: does not use Do you feel safe at home: Yes (Found on floor during wellfare check by PD) Do you feel safe in your relationship?: Yes History History 2 Para 2 Hx # Term Pregnancies Multiple births Hx # Pregnancies Ectopic pregnancies AB induced Hx Number of Living Children AB spontaneous Exam Const General: cooperative and disheveled Orientation: alert, awake, oriented to person and oriented to place HENMT Head: normal to inspection Ears: hearing grossly normal bilaterally and external ears normal General nose exam: external nose normal Face and sinus: normal facial exam Mouth: mucous membranes dry Eyes General: appearance normal, both eyes and all related structures Eyelids: eyelids normal Pupils: PERRL EOM: EOM intact bilaterally Neck Neck: normal visual inspection Lymphatic: no lymphadenopathy noted Chest Chest: normal inspection of the chest Resp Effort & Inspection: normal respiratory effort and able to speak in complete sentences Auscultation: clear to auscultation bilaterally Cardio Rate: regular rate Rhythm: regular rhythm GI Inspection: normal to inspection and obesity Palpation: soft, not firm, no guarding, no hepatosplenomegaly, no masses and nontender Auscultation: normal bowel sounds Skin General skin exam: no rashes or lesions noted Full body images: 1. 1 x 1 cm open wound consistent with stage II ulcer in midline sacrum at gluteal cleft. No surrounding cellulitis. Neuro General: patient alert, patient awake and moves all extremities Cognition: normal cognition Speech: speech normal Motor: muscle tone normal throughout Sensory Exam: no sensory deficits noted Extrem General: normal to inspection, full ROM and capillary refill normal Psych Appearance: grossly normal Mental Status: mental status grossly normal Speech and Movement: speech and movement normal Affect: normal affect Thought Process: normal Course Vital Signs Vital signs: Vital Signs Temperature 97.9 F 05/03/20 10:56 Pulse 92 H 05/03/20 10:56 Respiratory Rate 21 05/03/20 10:56 Blood Pressure 160/80 H 05/03/20 10:56 Pulse Oximetry 96 05/03/20 10:56 Temperature 97.9 F 05/03/20 10:56 Temperature Source Skin 05/03/20 10:56 Pulse 92 H 05/03/20 10:56 Respiratory Rate 21 05/03/20 10:56 Blood Pressure 160/80 H 05/03/20 10:56 Blood Pressure Position Supine 05/03/20 10:56 Pulse Oximetry 96 05/03/20 10:56 Oxygen Delivery Method Room Air 05/03/20 10:56 Oxygen Flow Rate 0 05/03/20 10:56 Pain Level 0 05/03/20 10:56
[2020-05-03] MEDS: Normal Saline 1,000 ML 1000 ML IV (12:20)
[2020-05-03 12:32] LABS: PTT Activated 21.9 sec (21.0-31.4); Prothrombin Time 10.4 sec (9.3-11.0)
[2020-05-03 12:34] LABS: Creatine Kinase 16 U/L (26-192)
[2020-05-03 12:37] LABS: ALT 71 U/L (14-59); AST 39 U/L (15-37); Albumin 3.3 g/dL (3.4-5.0); Alkaline Phosphatase 92 U/L (46-116); Anion Gap 10.3 mmol/L (3-11); BUN 15 mg/dL (7-18); Bilirubin, Total 0.6 mg/dL (0.2-1.0); CO2 27.7 mmol/L (21.0-32.0); CREATININE 0.96 mg/dL (0.55-1.02); Calcium 9.4 mg/dL (8.5-10.1); Chloride 102 mmol/L (98-107); Estimated GFR 57.29 (mL/min/1.73m2); Glucose 128 mg/dL (74-106); Magnesium 1.6 mg/dL (1.8-2.4); Potassium 3.2 mmol/L (3.5-5.1); Sodium 140 mmol/L (136-145)
[2020-05-03 12:39] LABS: Troponin I < 0.05 ng/mL (<0.06)
--- NOTE | 2020-05-03 12:53 | DI.CT_ITS ---
EXAM: CT HEAD CERVICAL SPINE WO CLINICAL HISTORY: altered mental status, r/o acute process. TECHNIQUE: Imaging Protocol: Axial computed tomography images with coronal and sagittal reformatted images were created and reviewed COMPARISON: CT CT HEAD CERVICAL SPINE WO from 04/23/2020 FINDINGS: Head CT Ventricles and Extra axial spaces: Normal in size and morphology for the patient's age. Hemorrhage: None. Cerebral parenchyma: Atrophy. Old left basal ganglia lacunar infarct. L. Midline shift: None. Brainstem/Cerebellum: Normal. Calvarium: Normal. Visualized Paranasal sinuses/Mastoids: Clear. Cervical Spine CT Limited by patient motion. BONES: Vertebral body heights are maintained. Intervertebral disc spaces are normal. Alignment is nor mal. There is no evidence of acute fracture. SOFT TISSUES: No paraspinal hematoma. The airway appears intact. Degenerative disc changes and facet degenerative changes are seen . IMPRESSION: Head CT: Old left basal ganglia lacunar infarct. No acute abnormality. Cervical spine: Degenerative changes, no acute abnormality. RADIATION DOSE DELIVERED: Total DLP DATA REPOSITORY: All CT scans at this facility are submitted to the National Radiology Data Registry (NRDR) Dose Index Registry (DIR) with the [employer] (A[employer]). RADIATION OPTIMIZATION: All CT scans at this facility use at least one of these dose optimization te chniques: automated exposure control; mA and/or kV adjustment per patient size (includes targeted exa ms where dose is matched to clinical indication); or iterative reconstruction.
[2020-05-03 13:35] LABS: Abs Immature Grans 0.06 10^3/uL (0.0-0.06); Absolute Basophil Count 0.03 10^3/uL (0.0-0.2); Absolute Eosinophil Count 0.22 10^3/uL (0.0-0.7); Absolute Lymphocyte Count 1.65 10^3/uL (1.2-3.4); Absolute Neutrophil Count 5.96 10^3/uL (1.2-6.7); Basophils % 0.3; Eosinophils % 2.6; HCT 39.1 % (36.0-46.0); HGB 12.8 g/dL (11.2-15.7); Immature Grans % 0.7; Lymphocytes % 19.1; MCH 31.6 pg (27.0-33.0); MCHC 32.7 % (32.0-36.0); MCV 96.5 fL (80-95); MPV 10.5 fL (8.0-11.0); Monocytes % 8.1; Neutrophils % 69.2 %; Platelet Count 355 10^3/uL (130-400); RBC 4.05 10^6/uL (3.93-5.22); RDW 14.1 % (11.7-14.6); WBC 8.62 10^3/uL (4.4-10.8)
[2020-05-03] MEDS: MAGNESIUM SULFATE 1 GM/100 ML BAG IVPB (13:36)
[2020-05-03] MEDS: Potassium Chloride 20 MEQ TABCR 40 MEQ PO (13:36)
--- NOTE | 2020-05-03 14:34 | HPE_ITS ---
Date of service: 05/03/20 Time of Service: 14:34 Assessment and Plan Assessment and plan (1) Dehydration: Status: Acute Assessment and plan: refer to observation. received IV fluids in the ED (2) Adult failure to thrive: Status: Acute Assessment and plan: PT consult. case management consult (3) Hypokalemia: Status: Acute Assessment and plan: replete and follow (4) Hypomagnesemia: Status: Acute Assessment and plan: replete and follow (5) Non-insulin dependent type 2 diabetes mellitus: Status: Chronic Assessment and plan: diabetic diet. sliding scale coverage with meals, hold metformin for now. (6) Discharge planning issues: Status: Acute Assessment and plan: case management following. covid testing completed and pending. will need referrals for rehabilitation and possible LTC placement case discussed with Dr Morales who is in agreement History of Present Illness History of Present Illness Chief Complaint: weakness Narrative: obtained from ED record as she is unable to provide any history. This is a 69-year-old female patient recently hospitalized here for urinary tract infection after her feet being found down at her house on a welfare check. She has showed evidence of dehydration and electrolyte abnormalities was treated with Flagyl and Levaquin for evidence of colitis and her urine grew pansensitive E. coli. Her blood cultures remain negative she did return to her baseline with hydration treatment of her infection and electrolyte replacement but was still having memory deficit issues. Case management was following and she was discharged to home on home health services including nursing PT OT. Review of Systems Narrative: Patient is unable to provide any history and at time of exam denies any complaints of pain shortness of breath nausea or discomfort Unobtainable due to mental status (poor historian) [facility] Social History Smoking/Tobacco Use Status: Former Tobacco Use Alcohol Intake: never Drug use: Never Substance use type: does not use Do you feel safe at home: Yes (Found on floor during wellfare check by PD) Do you feel safe in your relationship?: Yes History History 2 Para 2 Hx # Term Pregnancies Multiple births Hx # Pregnancies Ectopic pregnancies AB induced Hx Number of Living Children AB spontaneous Meds Home Medications and Allergies Home Medications Medication Instructions Recorded Confirmed Type albuterol sulfate [Proventil HFA] 2 puff INHALATION Q4H PRN 02/02/14 05/03/20 History folic acid 3 mg PO DAILY 02/02/14 05/03/20 History levothyroxine [Synthroid] 125 mcg PO DAILY 02/02/14 05/03/20 History montelukast 10 mg PO DAILY 02/02/14 05/03/20 History venlafaxine [Effexor XR] 150 mg PO BID 02/02/14 05/03/20 History losartan 50 mg PO DAILY #30 tab 05/21/16 05/03/20 Rx gabapentin 600 mg PO TID 01/23/17 05/03/20 History mirtazapine 1 tab PO HS 03/07/17 05/03/20 History acetaminophen [Tylenol Extra 1,000 mg PO BID 08/09/18 05/03/20 History Strength] methotrexate sodium 15 mg PO QWEEK 08/10/18 05/03/20 History albuterol sulfate 2.5 mg INHALATION Q2H PRN PRN #0 08/15/18 05/03/20 Rx vial metformin 1,000 mg PO BID@0800,1700 #30 tab 08/15/18 05/03/20 Rx metoprolol succinate 100 mg PO DAILY 07/14/19 05/03/20 History atorvastatin 10 mg PO DAILY 04/24/20 05/03/20 History esomeprazole magnesium [Nexium] 40 mg PO DAILY 04/24/20 05/03/20 History famotidine 40 mg PO DAILY 04/24/20 05/03/20 History furosemide 40 mg PO DAILY 04/24/20 05/03/20 History leucovorin calcium 10 mg PO DIRECTED 04/24/20 05/03/20 History lorazepam 1 mg PO DAILY PRN PRN 04/24/20 05/03/20 History galcanezumab-gnlm [Emgality Pen] 120 mg SUBCUT Q30D 05/03/20 05/03/20 History melatonin 10 mg PO QHS PRN 05/03/20 05/03/20 History Allergies Allergy/AdvReac Type Severity Reaction Status Date / Time NSAIDS (Non-Steroidal Allergy Severe Anaphylaxsi Unverified 05/03/20 12:47 Anti-Inflamma s cefpodoxime Allergy Intermediate Hives Unverified 05/03/20 12:47 chlorhexidine Allergy Intermediate Skin Rash Unverified 05/03/20 12:47 latex Allergy Intermediate Skin Rash Unverified 05/03/20 12:47 Penicillins Allergy Intermediate Hives Unverified 05/03/20 12:47 povidone-iodine Allergy Intermediate Unverified 05/03/20 12:47 duloxetine HCl Allergy Unknown Unverified 05/03/20 12:47 [From Cymbalta] indomethacin Allergy Unknown Unverified 05/03/20 12:47 propoxyphene Allergy Unknown Unverified 05/03/20 12:47 propranolol Allergy Unknown Unverified 05/03/20 12:47 adhesive AdvReac Intermediate dermatitis Unverified 05/03/20 12:47 aspirin AdvReac Intermediate Nausea Unverified 05/03/20 12:47 butorphanol AdvReac Intermediate nose bleeds Unverified 05/03/20 12:47 fexofenadine AdvReac Intermediate nose bleeds Unverified 05/03/20 12:47 hydrocodone AdvReac Intermediate confusion Unverified 05/03/20 12:47 hydroxychloroquine AdvReac Intermediate Visual Unverified 05/03/20 12:47 [Hydroxychloroquine] Disturbances hydroxyzine AdvReac Intermediate Nausea Unverified 05/03/20 12:47 methotrexate AdvReac Intermediate Nausea Unverified 05/03/20 12:47 morphine AdvReac Intermediate confusion Unverified 05/03/20 12:47 oxycodone [Oxycodone] AdvReac Intermediate confusion Unverified 05/03/20 12:47 pentazocine AdvReac Intermediate confusion Unverified 05/03/20 12:47 Sulfa (Sulfonamide AdvReac Intermediate Headache Unverified 05/03/20 12:47 Antibiotics) sumatriptan AdvReac Intermediate palpitation Unverified 05/03/20 12:47 s zolpidem [Zolpidem] AdvReac Intermediate confusion Unverified 05/03/20 12:47 Exam Const General: cooperative, comfortable, no acute distress, anxious, disheveled, frail appearing and ill appearing chronically (Older than stated age) Nutritional Appearance: overweight Orientation: confused Resp Effort & Inspection: normal respiratory effort Auscultation: clear to auscultation bilaterally Cardio Rate: regular rate Rhythm: regular rhythm GI Inspection: normal to inspection Palpation: soft Skin General skin exam: no rashes or lesions noted Neuro General: patient alert, patient awake, oriented Patient Orientation: Person, Place and Confused (Unable to provide history does not recall being here last week does not remember me) and moves all extremities Cognition: abnormal cognition Speech: speech normal Extrem General: normal to inspection, full ROM and no pedal edema Results Labs Result diagrams: 05/03/20 12:05 05/03/20 12:05 Labs: Laboratory Results - last 24 hr 05/03/20 05/03/20 05/03/20 12:05 12:05 12:05 WBC RBC Hgb Hct MCV MCH MCHC RDW Plt Count MPV Immature Gran % Neutrophils % Lymphocytes % Monocytes % Eosinophils % Basophils % Absolute Neutrophils Absolute Lymphocytes Absolute Monocytes Absolute Eosinophils Absolute Basophils PT 10.4 INR 1.0 APTT 21.9 Sodium 140 Potassium 3.2 L Chloride 102 Carbon Dioxide 27.7 Anion Gap 10.3 BUN 15 Creatinine 0.96 Estimated GFR/1.73 m2 57.29 Glucose 128 H Calcium 9.4 Magnesium 1.6 L Total Bilirubin 0.6 AST 39 H ALT 71 H Alkaline Phosphatase 92 Creatine Kinase 16 L Troponin I < 0.05 Total Protein 7.0 Albumin 3.3 L 05/03/20 12:05 WBC 8.62 RBC 4.05 Hgb 12.8 Hct 39.1 MCV 96.5 H MCH 31.6 MCHC 32.7 RDW 14.1 Plt Count 355 MPV 10.5 Immature Gran % 0.7 Neutrophils % 69.2 Lymphocytes % 19.1 Monocytes % 8.1 Eosinophils % 2.6 Basophils % 0.3 Absolute Neutrophils 5.96 Absolute Lymphocytes 1.65 Absolute Monocytes 0.70 Absolute Eosinophils 0.22 Absolute Basophils 0.03 PT INR APTT Sodium Potassium Chloride Carbon Dioxide Anion Gap BUN Creatinine Estimated GFR/1.73 m2 Glucose Calcium Magnesium Total Bilirubin AST ALT Alkaline Phosphatase Creatine Kinase Troponin I Total Protein Albumin Last Vital Signs Temp 36.6 C 05/03/20 10:56 Pulse 92 H 05/03/20 10:56 Resp 21 05/03/20 10:56 BP 160/80 H 05/03/20 10:56 Pulse Ox 96 05/03/20 10:56 COVID-19 Screening Have you,or household,traveled outside [place] in last 14 days?: No
[2020-05-03 15:22] LABS: Bilirubin Negative (Negative); Blood Negative (Negative); Clarity Cloudy (Clear); Glucose Negative (Negative); Ketones 40 mg/dL (Negative); Leukocyte Esterase Trace (Negative); Nitrite Positive (Negative); Specific Gravity 1.025 (1.005-1.025); Urobilinogen 0.2 EU/dL (Up TO 0.2)
[2020-05-03 15:32] LABS: Bacteria Many HPF (Negative); C & S Indicated? Yes; Casts Negative LPF (Negative); Crystals Few Amorphous HPF (Negative); Epithelial Cells Rare HPF (Negative); Mucus Negative (Negative); Other Cells Negative (Negative); RBC Negative HPF (0-2)
[2020-05-03] MEDS: Normal Saline 1,000 ML 75 ML IV (16:12)
[2020-05-03] MEDS: levoFLOXacin 750 MG/150 ML BAG 100 MG IVPB (18:04)
[2020-05-03] MEDS: Gabapentin 600 MG TAB PO (19:26)
[2020-05-03] MEDS: Venlafaxine 150 MG CAPCR PO (19:26)
[2020-05-03] MEDS: Mirtazapine 15 MG TAB 45 MG PO (21:09)
[2020-05-04 02:01] VITALS: BP 152/76; PULSE 100; RESP 19; TEMP 36.3; O2SAT 96
[2020-05-04] MEDS: Levothyroxine 125 MCG TAB PO (06:07)
[2020-05-04] MEDS: Acetaminophen 325 MG TAB 650 MG PO (07:22)
[2020-05-04] MEDS: Insulin Aspart 300 UNITS/3 ML PEN SC (07:59)
[2020-05-04] MEDS: Folic Acid 1 MG TAB 3 MG PO (07:59)
[2020-05-04] MEDS: Famotidine 20 MG TAB 40 MG PO (07:59)
[2020-05-04] MEDS: Metoprolol CR 100 MG TABCR PO (07:59)
[2020-05-04] MEDS: Losartan 50 MG TAB PO (08:00)
[2020-05-04] MEDS: Montelukast 10 MG TAB PO (08:00)
[2020-05-04] MEDS: Atorvastatin 10 MG TAB PO (08:00)
[2020-05-04] MEDS: Gabapentin 600 MG TAB PO (08:00)
[2020-05-04] MEDS: Furosemide 40 MG TAB PO (08:00)
[2020-05-04] MEDS: Venlafaxine 150 MG CAPCR PO (08:00)
[2020-05-04 08:10] VITALS: BP 168/93; PULSE 89; RESP 19; TEMP 36.8; O2SAT 95
[2020-05-04 08:21] LABS: COVID-19 RT-PCR UVMMC Result Negative (Negative)
--- NOTE | 2020-05-04 08:45 | W.PM.DS.N ---
Date of service: 05/04/20 Time of Service: 08:45 DS: Diagnosis Discharge Diagnosis (1) Dehydration: Status: Acute (2) Adult failure to thrive: Status: Acute (3) Hypokalemia: Status: Acute (4) Hypomagnesemia: Status: Acute (5) Non-insulin dependent type 2 diabetes mellitus: Status: Chronic Discharge Plan Disposition Patient Disposition: SNF (LEVEL 1) [facility] Condition: Stable Discharge Details Chief Complaint: GenMedical Clinical Impression: Dehydration, Adult failure to thrive, Hypokalemia, Hypomagnesemia Reason For Visit: DEHYDRATION Admit Date/Time: 05/03/20 14:41 Admit Provider: Reji Redmond Attending Provider: Reji Redmond Primary Care Provider: Keren Gonzalez ED Provider: Destiny Bolaños Hospital Course Hospital Course: This is a 69-year-old female patient recently hospitalized here for urinary tract infection after being found down at her house on a welfare check. She has showed evidence of dehydration and electrolyte abnormalities was treated with Flagyl and Levaquin for evidence of colitis and her urine grew pansensitive E. coli. Her blood cultures remain negative she did return to her baseline with hydration treatment of her infection and electrolyte replacement but was still having memory deficit issues. She returns yesterday with similar presentation, found down on the ground on a welfare check. Her work up in the ED was essential unremarkable with exception of UTI again. based on her previous cultures and allergy list she was placed back on levaquin for one week while awaiting sensitivities. Case management has been following and referrals placed for rehabilitation with possibility of LT placement. discussed with Dr Redmond who is in agreement with discharge plan Home Meds and New Rx's Prescriptions: New levofloxacin [Levaquin] 750 mg tablet 750 mg PO DAILY Qty: 6 RF: 0 Continued venlafaxine [Effexor XR] 150 MG capsule,extended release 24hr 150 mg PO BID RF: 0 levothyroxine [Synthroid] 125 MCG tablet 125 mcg PO DAILY RF: 0 folic acid 1 MG tablet 3 mg PO DAILY RF: 0 montelukast 10 MG tablet 10 mg PO DAILY RF: 0 albuterol sulfate [Proventil HFA] 6.7 GM HFA aerosol inhaler 2 puff Inhalation Q4H PRN RF: 0 losartan 50 MG tablet 50 mg PO DAILY Qty: 30 RF: 0 acetaminophen [Tylenol Extra Strength] 500 mg Tablet 1,000 mg PO BID RF: 0 methotrexate sodium 2.5 mg Tablet 15 mg PO QWEEK RF: 0 metformin 500 mg Tablet 1,000 mg PO BID@0800,1700 Qty: 30 RF: 0 albuterol sulfate 2.5 MG/3 ML solution for nebulization 2.5 mg Inhalation Q2H PRN PRN (Reason: shortness of breath or wheezing) Qty: 0 RF: 0 metoprolol succinate 25 MG tablet extended release 24 hr 100 mg PO DAILY RF: 0 gabapentin 300 MG capsule 600 mg PO TID RF: 0 mirtazapine 45 MG tablet 1 tab PO HS RF: 0 esomeprazole magnesium [Nexium] 40 MG capsule,delayed release(DR/EC) 40 mg PO DAILY RF: 0 furosemide 40 mg Tablet 40 mg PO DAILY RF: 0 famotidine 40 mg Tablet 40 mg PO DAILY RF: 0 lorazepam 1 mg Tablet 1 mg PO DAILY PRN PRNRF: 0 atorvastatin 10 mg Tablet 10 mg PO DAILY RF: 0 leucovorin calcium 10 mg Tablet 10 mg PO DIRECTED RF: 0 Emgality Pen 120 mg/mL pen injector 120 mg SUBCUT Q30D RF: 0 melatonin 10 mg capsule 10 mg PO QHS PRNRF: 0 Discharge Instructions Instructions: Urinary Tract Infection in Women (DC), Altered Mental Status (ED) Additional Instructions: Take medications as prescribed. Your urine culture is still pending. you may need adjustment in your antibiotics depending on sensitivities. drink at least 6-8 glasses of water daily to stay well hydrated. Stand Alone Forms: Nursing Discharge Form Referrals: Keren Gonzalez [Primary Care Provider] - (Please make an appointment to be seen) Activity:: Activity as Tolerated Equipment/Supplies:: No Equipment Needed Diet:: Carb Counting Discharge Orders Discharge Orders: Discharge Order (Routine); Ordered 05/04/20 Ordered By: Francesca Rtuh Discharge Data Discharge Date/Time-TO BE ENTERED AT DEPARTURE: 05/04/20 11:05 DS: Summary Status at Discharge Functional status at discharge: uses cane/walker Overall status at discharge: patient is progressing back to baseline Mental Status: other (demented) Speech and Movement: speech and movement normal Mood: other (demented) Affect: normal affect Exam Const General: cooperative, comfortable, no acute distress, anxious, disheveled, frail appearing and ill appearing chronically (Older than stated age) Nutritional Appearance: overweight Orientation: confused Resp Effort & Inspection: normal respiratory effort Auscultation: clear to auscultation bilaterally Cardio Rate: regular rate Rhythm: regular rhythm GI Inspection: normal to inspection Palpation: soft Skin General skin exam: no rashes or lesions noted Neuro General: patient alert, patient awake, oriented Patient Orientation: Person, Place and Confused (Unable to provide history does not recall being here last week does not remember me) and moves all extremities Cognition: abnormal cognition Speech: speech normal Extrem General: normal to inspection, full ROM and no pedal edema Psych Mental Status: other (demented) Speech and Movement: speech and movement normal Mood: other (demented) Affect: normal affect DS: Data Vitals/I&O Vitals and I&O: Vital Signs Temperature 36.8 C 05/04/20 08:10 Temperature Source Temporal Artery Scan 05/04/20 08:10 Pulse 89 05/04/20 08:10 Pulse Rhythm Regular 05/04/20 01:53 Pulse 85 05/03/20 12:20 Respiratory Rate 19 05/04/20 08:10 Respiratory Effort Non-Labored 05/04/20 01:53 Respiratory Depth Normal 05/04/20 01:53 Respiratory Pattern Normal 05/04/20 01:53 Blood Pressure 168/93 H 05/04/20 08:10 Blood Pressure Mean 109 05/03/20 15:29 Blood Pressure Position Supine 05/03/20 10:56 Pulse Oximetry 95 05/04/20 08:10 Oxygen Delivery Method Room Air 05/04/20 08:10 Oxygen Flow Rate 0 05/04/20 08:10 Pain Level 0 05/04/20 08:10 Comment 05/04/20 08:10 Intake & Output 05/03/20 05/03/20 05/04/20 11:59 23:59 11:59 Intake Total 300 / 300 Output Total 650 / 650 800 / 800 Balance -350 / -350 -800 / -800 Weight 93.894 kg Intake: IV 200 / 200 Oral 100 / 100 Output: Urine 650 / 650 800 / 800 Other: Urine Color Yellow Yellow Straw Urine Appearance Clear Clear Urine Odor Normal Normal Comment mixed with stool Stool Size Small Stool Characteristics Soft Brown Voiding Methods Bedside Commode Bedside Commode Data Completed and Pending Labs on day of discharge: Labs from last 24 hours 05/03/20 05/03/20 05/03/20 15:20 15:02 13:28 WBC RBC Hgb Hct MCV MCH MCHC RDW Plt Count MPV Immature Gran % Neutrophils % Lymphocytes % Monocytes % Eosinophils % Basophils % Absolute Neutrophils Absolute Lymphocytes Absolute Monocytes Absolute Eosinophils Absolute Basophils PT INR APTT Sodium Potassium Chloride Carbon Dioxide Anion Gap BUN Creatinine Estimated GFR/1.73 m2 Glucose Calcium Magnesium Total Bilirubin AST ALT Alkaline Phosphatase Creatine Kinase Troponin I Total Protein Albumin Urine Color Yellow Urine Clarity Cloudy Urine pH 7.0 Ur Specific [place] 1.025 Urine Protein 30 H Urine Ketones 40 H Urine Blood Negative Urine Nitrite Positive H Urine Bilirubin Negative Urine Urobilinogen 0.2 Ur Leukocyte Esterase Trace H Urine RBC Negative Urine WBC 5-10 Ur Epithelial Cells Rare Urine Crystals Few amorphous Urine Bacteria Many Urine Casts Negative Urine Mucus Negative Urine Other Negative Ur Culture Indicated? Yes Urine Glucose Negative Stool Campylobacter PCR Pending Stool Salmonella PCR Pending Stool Shigella PCR Pending COVID-19 PCR Negative Nasopharyn COVID-19 PCR Not Applicable Shiga Toxin (PCR) Pending Ref Test Perform Site [facility] lab 05/03/20 05/03/20 05/03/20 12:05 12:05 12:05 WBC 8.62 RBC 4.05 Hgb 12.8 Hct 39.1 MCV 96.5 H MCH 31.6 MCHC 32.7 RDW 14.1 Plt Count 355 MPV 10.5 Immature Gran % 0.7 Neutrophils % 69.2 Lymphocytes % 19.1 Monocytes % 8.1 Eosinophils % 2.6 Basophils % 0.3 Absolute Neutrophils 5.96 Absolute Lymphocytes 1.65 Absolute Monocytes 0.70 Absolute Eosinophils 0.22 Absolute Basophils 0.03 PT 10.4 INR 1.0 APTT 21.9 Sodium Potassium Chloride Carbon Dioxide Anion Gap BUN Creatinine Estimated GFR/1.73 m2 Glucose Calcium Magnesium Total Bilirubin AST ALT Alkaline Phosphatase Creatine Kinase 16 L Troponin I Total Protein Albumin Urine Color Urine Clarity Urine pH Ur Specific [place] Urine Protein Urine Ketones Urine Blood Urine Nitrite Urine Bilirubin Urine Urobilinogen Ur Leukocyte Esterase Urine RBC Urine WBC Ur Epithelial Cells Urine Crystals Urine Bacteria Urine Casts Urine Mucus Urine Other Ur Culture Indicated? Urine Glucose Stool Campylobacter PCR Stool Salmonella PCR Stool Shigella PCR COVID-19 PCR Nasopharyn COVID-19 PCR Shiga Toxin (PCR) Ref Test Perform Site 05/03/20 12:05 WBC RBC Hgb Hct MCV MCH MCHC RDW Plt Count MPV Immature Gran % Neutrophils % Lymphocytes % Monocytes % Eosinophils % Basophils % Absolute Neutrophils Absolute Lymphocytes Absolute Monocytes Absolute Eosinophils Absolute Basophils PT INR APTT Sodium 140 Potassium 3.2 L Chloride 102 Carbon Dioxide 27.7 Anion Gap 10.3 BUN 15 Creatinine 0.96 Estimated GFR/1.73 m2 57.29 Glucose 128 H Calcium 9.4 Magnesium 1.6 L Total Bilirubin 0.6 AST 39 H ALT 71 H Alkaline Phosphatase 92 Creatine Kinase Troponin I < 0.05 Total Protein 7.0 Albumin 3.3 L Urine Color Urine Clarity Urine pH Ur Specific [place] Urine Protein Urine Ketones Urine Blood Urine Nitrite Urine Bilirubin Urine Urobilinogen Ur Leukocyte Esterase Urine RBC Urine WBC Ur Epithelial Cells Urine Crystals Urine Bacteria Urine Casts Urine Mucus Urine Other Ur Culture Indicated? Urine Glucose Stool Campylobacter PCR Stool Salmonella PCR Stool Shigella PCR COVID-19 PCR Nasopharyn COVID-19 PCR Shiga Toxin (PCR) Ref Test Perform Site 05/03/20 15:02 Urine - Reflex from Urine Culture - Pending Preliminary micro results at discharge 05/03/20 15:02 Urine Culture - Pending Urine - Reflex from [facility] Social History Smoking/Tobacco Use Status: Former Tobacco Use Alcohol Intake: never Drug use: Never Substance use type: does not use Do you feel safe at home: Yes (Found on floor during wellfare check by PD) Do you feel safe in your relationship?: Yes History History 2 Para 2 Hx # Term Pregnancies Multiple births Hx # Pregnancies Ectopic pregnancies AB induced Hx Number of Living Children AB spontaneous
[2020-05-04 08:54] VITALS: RESP 17
--- NOTE | 2020-05-04 09:07 | IN_ITS ---
Date of service: 05/04/20 Time of Service: 09:07 PT Notes Visit Reasons: DEHYDRATION Physical Therapy Inpatient Initial Evaluation Date: 05/04/2020 Referring Doctor: Francesca Burleson NP PT Orders: PT CONSULT: Eval/Treat Precautions: Fall. Standard. Activity as tolerated. Patient Profile/Admitting Diagnosis: Samantha is a 69-year-old female who received skilled PT services from 04/25/2020 through 05/02/20 and was discharged to home indepednent with all bed mobility/transfer task performance but requiring supervision assist for 400 feet using the FWW. Dot presented to the ED on 05/03/2020 with diagnoses of failure to thrive, dehydration, hypokalemia and hypomagnesemia. PMHX: Medical History CHF (congestive heart failure) Per echocardiogram 05/17/2016 LV cavity size normal. Wall thickness normal, systolic function mild to moderately reduced. LVEF 40-45%. Moderate hypokinesis of the basal/mid anteroseptal wall. Moderate hypokinesis of the apical/anterior, anterolateral and apical myocardium. Trivial AI, mild MR, RV size wall thickness this is patient will highly benefit from use of straight cane in order to increase mobility, increase stability, maximize activity tolerance, and reduce overall fall risk at discharge destination. And function normal. Mild pulmonary hypertension PA peak pressure 39 mm Chronic back pain COPD (chronic obstructive pulmonary disease) Depression Diverticulosis GERD (gastroesophageal reflux disease) h/o septic right knee (Inactive) Hyperlipidemia Hypertension Hyperthyroidism DARYL (obstructive sleep apnea) Rheumatoid arthritis Surgical History Abdominal hysterectomy Biopsy of breast section Cholecystectomy H/O surgical procedure (Resolved) A. Cholecystectomy B. C. Hysterectomy D. TKR and revision E. Tubal ligation F. D and C G. Breast biopsy x 2 Replacement of total knee joint revision with infection Social History/Home Situation: Patient lives alone in an apartment building with her dog Berna. She is modified independent using her front wheeled walker for all mobility ADL performance prior to admission, although she admits that there were times that she did not use her walker inside the house when she felt well. She has a daughter who lives in [place] and another daughter who is physically handicapped. She no longer drives. She managed her own meals and grocery shopping previously. Equipment Owned/DME: Front wheeled walker Subjective: Patient states that she does not feel well and that she is tired but she is agreeable to PT consult. States that she is going across the street today. Objective: General Observation: Obese. IV in the right UE. Bilateral TEDs on. Mental Status: Patient is alert and oriented as to person, place, time, and purpose Pain: None reported ROM: Right Upper Extremity: Shoulder Flexion WFL. Shoulder abduction WFL. Elbow flexion WFL. Wrist flexion WFL. Opening and closing of hand WFL. Left Upper Extremity: Shoulder Flexion WFL. Shoulder abduction WFL. Elbow flexion WFL. Wrist flexion WFL. Opening and closing of hand WFL. Right Lower Extremity: Hip flexion WFL. Hip abduction WFL. Knee flexion WFL. Ankle dorsiflexion WFL. Ankle plantarflexion WFL. Left Lower Extremity: Hip flexion WFL. Hip abduction WFL. Knee flexion WFL. Ankle dorsiflexion WFL. Ankle plantarflexion WFL. Strength: Right Upper Extremity: Shoulder flexors 4/5. Shoulder abductors 4/5. Elbow flexors 4/5. Elbow extensors 4/5. Hyperbaric Technologist strong. Left Upper Extremity: Shoulder flexors 4/5. Shoulder abductors 4/5. Elbow flexors 4/5. Elbow extensors 4/5. Hyperbaric Technologist strong. Right Lower Extremity: Hip flexors 4-/5. Hip abductors 4/5. Knee flexors 4-/5. Knee extensors 4-/5. Ankle dorsiflexors 4-/5. Ankle plantarflexors 4-/5. Left Lower Extremity: Hip flexors 4-/5. Hip abductors 4/5. Knee flexors 4-/5. Knee extensors 4-/5. Ankle dorsiflexors 4-/5. Ankle plantarflexors 4-/5. Sensation: Intact as to pain and pressure on bilateral lower extremities. Bed Mobility/Transfers: Sit to stand SBA Stand to sit SBA Bed to chair SBA Chair to bed SBA Gait: Patient tolerated in room ambulation of 260 feet using front wheeled walker with SBA. No SOB seen. No LOB. Step?through gait pattern. Balance: Static Sitting: Normal Dynamic Sitting: Normal Static Standing: Fair Dynamic Standing: Fair Special Tests: Mobility Limitations Standardized Measure [facility] AM-PAC 6 clicks Basic Mobility Inpatient Short Form: Raw Score: 21 CMS Score: 29 % Informed Consent/Education: Patient instructed in purpose of PT consult and plan of care. Assessment: Samantha demonstrates functional mobility decline requiring physical assistance and use of front wheeled walker for all mobility ADL performance, impairment in balance, generalized weakness, and difficulty with walking due to admitting diagnoses. Samantha is a 69-year-old female who received skilled PT services from 04/25/2020 through 05/02/20 and was discharged to home indepednent with all bed mobility/transfer task performance but requiring supervision assist for 400 feet using the FWW. Dot presented to the ED on 05/03/2020 with diagnoses of failure to thrive, dehydration, hypokalemia and hypomagnesemia. Patient presents with clinical signs and symptoms consistent with current/admitting diagnoses that have resulted to mobility limitations, gait instability, generalized weakness, and impairment of motor control as demonstrated by the following impairment level findings: 1. Decreased strength to B LE major muscle groups 2. Impaired standing balance 3. Impaired activity tolerance Impairments are contributing to the following functional limitations: 1. Inability to safely ambulate without assistive device and physical assistance 2. Increase completion time for mobility ADL performance 3. Increased fall risk 4. Inability to negotiate steps alone safely Patient is assessed as a 21898 moderate complexity based on the following: History: 69-year-old female with impairment level findings, functional limitations, and past medical history as indicated above Examination: Demonstrable impairment in strength, balance, and mobility level with underlying impairments and functional limitations as documented above Presentation: Evolving Decision Makin moderate complexity Goals: N/A. PT Consult only. Transfer to SNF today. Plan of Care/Treatment Plan: N/A. PT Consult only. Transfer to SNF today. DISCHARGE RECOMMENDATIONS: Patient will benefit from jail facility placement for continued skilled physical therapy services in order to progress mobility level, strength, and balance. TREATMENT CODE/TIME: 02960 x 20 minutes, 63691 x 26 minutes beginning at 9:07 AM. Thank you for the opportunity to participate in the care of this patient. Astrid Canela PT, DPT, CLT [facility] [place], [place]
--- NOTE | 2020-05-04 10:21 | PDOC.CMDIS ---
- If Service Date Differs Date of service: 05/04/20 Time of Service: 10:21 LACE Index Scoring Tool - Questions: Length of Stay (in days): 1 Acuity (Admit via E.D.?): Yes Comorbidities: Diabetes w/o Complication, Dementia E.D. Visits: 4 - Answers: Total Score: 13 Risk of Readmission: High Risk Care Management Discharge Reason for Hospitalization: Dehydration Discharge Plan: Samantha is being [facility]. She is alert and engaged with CM during assessment. She does not answer questions related to her readmission however she does like to talk about her dog and past pets. Her daughter is on the phone when CM into visit, CM spoke with her and provided an update. Samantha agrees to go to [facility], CM reviewed the plan and benefits with Samantha and her daughter over the phone. CM contacted [facility] to confirm time for transportation at 1100. CM completed SNF forms and provided update to RN coordinator. Patient/Family Education Needs: Discharge education, limitations and follow up plan of care. Education provided to patient and her daughter. Services Needed at Discharge: Longterm Facility, Transportation
[2020-05-05 10:55] LABS: Campylobacter PCR Negative (Negative); Salmonella PCR Negative (Negative); Shiga Toxin PCR Negative (Negative); Shigella/Enteroinvasive Ecoli Negative (Negative)
== END 2020-05-04 11:05 | disposition skilled nursing facility (03) ==
LOC: ER 14:54 → MS 15:35
PROVIDERS: Admitting Provider Internal Medicine; Emergency Provider Physician Assistant; PCP Internal Medicine; Visit Provider Internal Medicine
DX: E86.0 Dehydration (principal); R62.7 Adult failure to thrive; N39.0 Urinary tract infection, site not specified; B96.4 Proteus (mirabilis) (morganii) as the cause of diseases classified elsewhere; Z16.11 Resistance to penicillins; Z16.23 Resistance to quinolones and fluoroquinolones; Z16.29 Resistance to other single specified antibiotic; Z68.34 Body mass index [BMI] 34.0-34.9, adult; E87.6 Hypokalemia; E83.42 Hypomagnesemia; E11.9 Type 2 diabetes mellitus without complications; Z03.818 Encounter for observation for suspected exposure to other biological agents ruled out; J44.9 Chronic obstructive pulmonary disease, unspecified; E78.5 Hyperlipidemia, unspecified; E66.01 Morbid (severe) obesity due to excess calories; G47.33 Obstructive sleep apnea (adult) (pediatric); E05.90 Thyrotoxicosis, unspecified without thyrotoxic crisis or storm; M06.9 Rheumatoid arthritis, unspecified
CPT/HCPCS: 36415; 80053; 82550; 87077; 87505; 93005; 96361; 96365; 97162; 97530; 99217; 99220; 99285; U0003; 70450; 71046; 72125; 72170; 81003; 81015; 83735; 84484; 85025; 85610; 85730; 87086; 87186; 87324; 93010; G0378; J1956; J3475

== ENCOUNTER 2020-05-09 15:35 | Outpatient (REF) | payer MEDICARE, SELFPAY ==
[2020-05-10 02:30] LABS: COVID-19 RT-PCR UVMMC Result Negative (Negative)
== END 2020-05-09 15:55 ==
LOC: LBN 15:35
PROVIDERS: PCP Internal Medicine; Visit Provider Nurse Practitioner Adult Health
DX: Z11.59 Encounter for screening for other viral diseases (principal)
CPT/HCPCS: U0003

== ENCOUNTER 2020-05-17 16:08 | Outpatient (REF) | payer MEDICARE, SELFPAY ==
[2020-05-18 17:17] LABS: COVID-19 RT-PCR Result Not Detected ((See Note))
== END 2020-05-17 16:28 ==
LOC: LBN 16:08
PROVIDERS: PCP Internal Medicine; Visit Provider Nurse Practitioner Adult Health
DX: Z11.59 Encounter for screening for other viral diseases (principal)
CPT/HCPCS: U0003

== ENCOUNTER 2020-05-26 13:50 | Emergency (ER) | payer MEDICARE, MEDICAID, SELFPAY ==
[2020-05-26] VITALS (7 sets, daily range): BP systolic 162–191; BP diastolic 72–101; PULSE 78–96; RESP 2–26; TEMP 36.5; O2SAT 93–96
--- NOTE | 2020-05-26 14:00 | RT.EKG_ITS ---
APPROVED REPORT Exam: Resting ECG Patient Location: E HR:81 bpm ECG Measurements Heart Rate 81 AXIS VT 59 P 0 QRSd 81 QRS -5 QT 364 T 82 QTc 423 Conclusion Sinus rhythm...normal P axis, V-rate 60- 99 Atrial premature complex...SV complex w/ short R-R interval Nondiagnostic
--- NOTE | 2020-05-26 14:07 | W.ED.GENAD ---
Discharge Plan Disposition Patient Disposition: HOME W/HOME HEALTH SERVICE Condition: Good Discharge Details Chief Complaint: RespSymp Clinical Impression: COPD exacerbation Primary Care Provider: Keren Gonzalez ED Provider: Francesca Ruth Home Meds and New Rx's Prescriptions: No Action venlafaxine [Effexor XR] 150 MG capsule,extended release 24hr 150 mg PO BID RF: 0 levothyroxine [Synthroid] 125 MCG tablet 125 mcg PO DAILY RF: 0 folic acid 1 MG tablet 3 mg PO DAILY RF: 0 montelukast 10 MG tablet 10 mg PO DAILY RF: 0 albuterol sulfate [Proventil HFA] 6.7 GM HFA aerosol inhaler 2 puff Inhalation Q4H PRN RF: 0 acetaminophen [Tylenol Extra Strength] 500 mg Tablet 1,000 mg PO BID RF: 0 methotrexate sodium 2.5 mg Tablet 15 mg PO QWEEK RF: 0 metformin 500 mg Tablet 1,000 mg PO BID@0800,1700 Qty: 30 RF: 0 albuterol sulfate 2.5 MG/3 ML solution for nebulization 2.5 mg Inhalation Q2H PRN PRN (Reason: shortness of breath or wheezing) Qty: 0 RF: 0 metoprolol succinate 25 MG tablet extended release 24 hr 100 mg PO DAILY RF: 0 gabapentin 300 MG capsule 600 mg PO TID RF: 0 mirtazapine 45 MG tablet 1 tab PO HS RF: 0 esomeprazole magnesium [Nexium] 40 MG capsule,delayed release(DR/EC) 40 mg PO DAILY RF: 0 famotidine 40 mg Tablet 40 mg PO DAILY RF: 0 atorvastatin 10 mg Tablet 10 mg PO DAILY RF: 0 leucovorin calcium 10 mg Tablet 10 mg PO DIRECTED RF: 0 melatonin 10 mg capsule 10 mg PO QHS PRNRF: 0 losartan 50 mg tablet 50 mg PO DAILY RF: 0 ascorbic acid (vitamin C) [Vitamin C] 500 mg Tablet 500 mg PO DAILY RF: 0 meclizine 25 mg Tablet 25 mg PO TID PRNRF: 0 calcium carbonate-vitamin D3 [Calcium 600 + D(3)] 600 mg(1,500mg) -400 unit Tablet 1 tab PO DAILY RF: 0 multivit with min-folic acid 400 mcg Tablet Extended Release 400 mcg PO DAILY RF: 0 magnesium oxide 400 mg (241.3 mg magnesium) Tablet 400 mg PO BID Qty: 60 RF: 0 Effer-K 20 mEq tablet, effervescent 20 meq PO BID Qty: 60 RF: 0 furosemide 40 mg Tablet 20 mg PO DAILY Qty: 0 RF: 0 Discharge Instructions Instructions: COPD (Chronic Obstructive Pulmonary Disease) (ED) Additional Instructions: Continue prednisone 40 mg daily for 4 more days Continue Levaquin 750 mg daily for 4 more days Continue the rest of your medications as previously prescribed Referrals: Keren Gonzalez [Primary Care Provider] - Discharge Data Discharge Date/Time-TO BE ENTERED AT DEPARTURE: 05/26/20 19:20 Medical Decision Making <Kemar Lo MD - Last Filed: 06/04/20 15:01> 1540??69-year-old female here after recent discharge from nursing rehab facility after being treated for generalized weakness and electrolyte abnormalities, here noting that she has not had access to her medications for 2 days since discharge and is having shortness of breath. Patient is tachypneic and has increased work of breathing. She has bilateral faint wheeze and rales at bases. Patient is hypertensive. Saturating well on arrival. Screening ECG was reviewed and interpreted by me as sinus rhythm 81 bpm, nondiagnostic, please see report. Considered ACS and CHF given history of CHF, hypertension, dyspnea on exertion. BNP normal. Patient was given DuoNeb treatment for concern for COPD exacerbation. On recheck, heart rate has increased and oxygen sat is decreased around 93% on room air. Chest x-ray reviewed and interpreted by me: No acute cardiopulmonary disease. Consider pulmonary embolism. Plan to obtain CT of the chest. Concern for potential hypertensive urgency. I will give patient's prescribed losartan and metoprolol. <Francesca Ruth NP - Last Filed: 05/26/20 18:00> Care of patient received from Dr. Kemar Lo. Patient blood pressure has improved to 162/72. Her shortness of breath has improved with DuoNeb. She was given IV steroids for COPD exacerbation. Her CT of the chest was negative for pulmonary embolism. She will be discharged home on Levaquin 750 mg daily for 5 days and a prednisone burst of 40 mg daily for 5 days to treat her COPD exacerbation. She will resume home health services. She was advised to resume the rest of her previously scheduled medications as directed HPI <Kemar Lo MD - Last Filed: 06/04/20 15:01> General Mode of arrival: ambulatory. Date/Time Provider Initiated Documentation: 05/26/20 13:54. Limitations to Documentation: no limitations. Information obtained by: patient and EMS. HPI Narrative: 69-year-old female presents from home with chief complaint of shortness of breath. Patient notes she was recently discharged from [facility] and rehab 2 days ago and was not provided any of her medications. She notes she has not been taking her medication since this discharge. She states she is having difficulty with obtaining medications from pharmacy. Shortness of breath is moderate. Worse with any exertion. No associated chest pain. No leg swelling. No calf pain. Related Data Home Medications Medication Instructions Recorded Confirmed albuterol sulfate [Proventil HFA] 2 puff INHALATION Q4H PRN 02/02/14 05/30/20 folic acid 3 mg PO DAILY 02/02/14 05/30/20 levothyroxine [Synthroid] 125 mcg PO DAILY 02/02/14 05/30/20 montelukast 10 mg PO DAILY 02/02/14 05/30/20 venlafaxine [Effexor XR] 150 mg PO BID 02/02/14 05/30/20 gabapentin 600 mg PO TID 01/23/17 05/30/20 mirtazapine 1 tab PO HS 03/07/17 05/30/20 acetaminophen [Tylenol Extra 1,000 mg PO BID 08/09/18 05/30/20 Strength] methotrexate sodium 15 mg PO QWEEK 08/10/18 05/30/20 albuterol sulfate 2.5 mg INHALATION Q2H PRN PRN #0 08/15/18 05/30/20 vial metformin 1,000 mg PO BID@0800,1700 #30 tab 08/15/18 05/30/20 metoprolol succinate 100 mg PO DAILY 07/14/19 05/30/20 atorvastatin 10 mg PO DAILY 04/24/20 05/30/20 esomeprazole magnesium [Nexium] 40 mg PO DAILY 04/24/20 05/30/20 famotidine 40 mg PO DAILY 04/24/20 05/30/20 leucovorin calcium 10 mg PO DIRECTED 04/24/20 05/30/20 melatonin 10 mg PO QHS PRN 05/03/20 05/30/20 ascorbic acid (vitamin C) [Vitamin 500 mg PO DAILY 05/30/20 05/30/20 C] calcium carbonate-vitamin D3 1 tab PO DAILY 05/30/20 05/30/20 [Calcium 600 + D(3)] losartan 50 mg PO DAILY 05/30/20 05/30/20 meclizine 25 mg PO TID PRN 05/30/20 05/30/20 multivit with min-folic acid 400 mcg PO DAILY 05/30/20 05/30/20 furosemide 20 mg PO DAILY #0 tab 06/01/20 05/30/20 magnesium oxide 400 mg PO BID #60 tab 06/01/20 potassium bicarb-citric acid 20 meq PO BID #60 tab 06/01/20 [Effer-K] Previous Rx's Medication Instructions Recorded albuterol sulfate 2.5 mg INHALATION Q2H PRN PRN #0 08/15/18 vial metformin 1,000 mg PO BID@0800,1700 #30 tab 08/15/18 furosemide 20 mg PO DAILY #0 tab 06/01/20 magnesium oxide 400 mg PO BID #60 tab 06/01/20 potassium bicarb-citric acid 20 meq PO BID #60 tab 06/01/20 [Effer-K] Allergies Allergy/AdvReac Type Severity Reaction Status Date / Time NSAIDS (Non-Steroidal Allergy Severe Anaphylaxsi Unverified 05/30/20 13:03 Anti-Inflamma s cefpodoxime Allergy Intermediate Hives Unverified 05/30/20 13:03 chlorhexidine Allergy Intermediate Skin Rash Unverified 05/30/20 13:03 latex Allergy Intermediate Skin Rash Unverified 05/30/20 13:03 Penicillins Allergy Intermediate Hives Unverified 05/30/20 13:03 povidone-iodine Allergy Intermediate Unverified 05/30/20 13:03 duloxetine HCl Allergy Unknown Unverified 05/30/20 13:03 [From Cymbalta] indomethacin Allergy Unknown Unverified 05/30/20 13:03 propoxyphene Allergy Unknown Unverified 05/30/20 13:03 propranolol Allergy Unknown Unverified 05/30/20 13:03 adhesive AdvReac Intermediate dermatitis Unverified 05/30/20 13:03 aspirin AdvReac Intermediate Nausea Unverified 05/30/20 13:03 butorphanol AdvReac Intermediate nose bleeds Unverified 05/30/20 13:03 fexofenadine AdvReac Intermediate nose bleeds Unverified 05/30/20 13:03 hydrocodone AdvReac Intermediate confusion Unverified 05/30/20 13:03 hydroxychloroquine AdvReac Intermediate Visual Unverified 05/30/20 13:03 [Hydroxychloroquine] Disturbances hydroxyzine AdvReac Intermediate Nausea Unverified 05/30/20 13:03 methotrexate AdvReac Intermediate Nausea Unverified 05/30/20 13:03 morphine AdvReac Intermediate confusion Unverified 05/30/20 13:03 oxycodone [Oxycodone] AdvReac Intermediate confusion Unverified 05/30/20 13:03 pentazocine AdvReac Intermediate confusion Unverified 05/30/20 13:03 Sulfa (Sulfonamide AdvReac Intermediate Headache Unverified 05/30/20 13:03 Antibiotics) sumatriptan AdvReac Intermediate palpitation Unverified 05/30/20 13:03 s zolpidem [Zolpidem] AdvReac Intermediate confusion Unverified 05/30/20 13:03 General Stated Complaint: RespSymp ARAVIND: 3 Review of Systems <Kemar Lo MD - Last Filed: 06/04/20 15:01> All systems reviewed & are unremarkable except as noted in HPI and below Constitutional Constitutional: Denies fever(s) Cardiovascular Cardiovascular: Denies chest pain, Reports dyspnea and Reports dyspnea on exertion Respiratory Respiratory: Reports as per HPI, Reports dyspnea and Reports dyspnea on exertion Gastrointestinal Gastrointestinal: Denies abdominal pain PFSH <Kemar Lo MD - Last Filed: 06/04/20 15:01> Medical History CHF (congestive heart failure) Per echocardiogram 05/17/2016 LV cavity size normal. Wall thickness normal, systolic function mild to moderately reduced. LVEF 40-45%. Moderate hypokinesis of the basal/mid anteroseptal wall. Moderate hypokinesis of the apical/anterior, anterolateral and apical myocardium. Trivial AI, mild MR, RV size wall thickness and function normal. Mild pulmonary hypertension PA peak pressure 39 mm Chronic back pain COPD (chronic obstructive pulmonary disease) Depression Diverticulosis GERD (gastroesophageal reflux disease) h/o septic right knee (Inactive) Hyperlipidemia Hypertension Hyperthyroidism DARYL (obstructive sleep apnea) Rheumatoid arthritis Surgical History Abdominal hysterectomy Biopsy of breast section Cholecystectomy H/O surgical procedure (Resolved) A. Cholecystectomy B. C. Hysterectomy D. TKR and revision E. Tubal ligation F. D and C G. Breast biopsy x 2 Replacement of total knee joint revision with infection Family History Sister Diabetes Sister Hypertension Mother Stomach cancer Social History Smoking/Tobacco Use Status: Former Tobacco Use Alcohol Intake: never Drug use: Never Substance use type: does not use Do you feel safe at home: Yes Do you feel safe in your relationship?: Yes Additional Social history: Lives at home by herself. History History 2 Para 2 Hx # Term Pregnancies Multiple births Hx # Pregnancies Ectopic pregnancies AB induced Hx Number of Living Children AB spontaneous Exam <Kemar Lo MD - Last Filed: 06/04/20 15:01> Const General: cooperative and no acute distress HENMT Mouth: mucous membranes dry Eyes Conjunctivae: normal conjunctivae Sclera: normal sclerae Neck Neck: trachea midline and supple Resp Effort & Inspection: no cough and tachypneic Auscultation: crackles, no rhonchi and wheezes expiratory wheezes Cardio Jugular venous pressure: no JVD Rate: regular rate and not tachycardic Rhythm: regular rhythm GI Palpation: soft, not firm, no guarding, no masses, not rigid and nontender Skin General skin exam: no rashes or lesions noted Neuro General: patient alert, patient awake, oriented (Does not know month or day of week) Patient Orientation: Person and Place and tone normal Extrem General: no calf tenderness and no edema Psych Appearance: grossly normal Mental Status: mental status grossly normal Course <Kemar Lo MD - Last Filed: 06/04/20 15:01> Vital Signs Vital signs: Vital Signs Temperature 36.5 C 05/26/20 13:53 Pulse 93 H 05/26/20 13:53 Respiratory Rate 26 H 05/26/20 13:53 Blood Pressure 183/90 H 05/26/20 13:53 Pulse Oximetry 96 05/26/20 13:53 Temperature 36.5 C 05/26/20 13:53 Temperature Source Temporal Artery Scan 05/26/20 13:53 Pulse 93 H 05/26/20 13:53 Respiratory Rate 26 H 05/26/20 13:53 Respiratory Effort 05/26/20 13:56 Blood Pressure 183/90 H 05/26/20 13:53 Pulse Oximetry 96 05/26/20 13:53 Oxygen Delivery Method Room Air 05/26/20 13:53 Oxygen Flow Rate 0 05/26/20 13:53 Pain Level 0 05/26/20 13:53 Sign Out <Kemar Lo MD - Last Filed: 06/04/20 15:01> Sign Out Data: Sign Out Comment: CT to assess for pulmonary embolism pending. Patient receiving second DuoNeb treatment and Solu-Medrol. Care signed out to HOA Ruth with plan to reassess patient, follow-up on CT and determine disposition. Last updated by Kemar Lo MD at 05/26/20 16:05
[2020-05-26] MEDS: Albuterol/Ipratropium 3 ML UPD VIAL (14:30)
--- NOTE | 2020-05-26 14:30 | DI.RAD_ITS ---
EXAM: XR PORTABLE CHEST AP CLINICAL HISTORY: shortness of breath TECHNIQUE: 2D digital imaging was performed. COMPARISON: CR XR CHEST 2V PA LATERAL from 05/03/2020 FINDINGS: LUNGS: Clear. No pleural abnormality seen. HEART: Normal. MEDIASTINUM: Normal. OTHER FINDINGS: None. IMPRESSION: No acute pulmonary findings. DATA REPOSITORY: RADIATION DOSE DELIVERED:
[2020-05-26] MEDS: Normal Saline Flush 10 ML SYR IVP (14:31)
[2020-05-26 14:35] LABS: Abs Immature Grans 0.03 10^3/uL (0.0-0.06); Absolute Basophil Count 0.02 10^3/uL (0.0-0.2); Absolute Eosinophil Count 0.19 10^3/uL (0.0-0.7); Absolute Lymphocyte Count 1.68 10^3/uL (1.2-3.4); Absolute Monocyte Count 0.74 10^3/uL (0.1-0.8); Absolute Neutrophil Count 3.58 10^3/uL (1.2-6.7); Basophils % 0.3; HCT 36.4 % (36.0-46.0); HGB 11.8 g/dL (11.2-15.7); Immature Grans % 0.5; Lymphocytes % 26.9; MCH 31.5 pg (27.0-33.0); MCHC 32.4 % (32.0-36.0); MCV 97.1 fL (80-95); MPV 9.7 fL (8.0-11.0); Monocytes % 11.9; Neutrophils % 57.4; Nucleated RBC 0 %; Platelet Count 373 10^3/uL (130-400); RBC 3.75 10^6/uL (3.93-5.22); RDW 13.8 % (11.7-14.6); WBC 6.24 10^3/uL (4.4-10.8)
[2020-05-26 14:49] LABS: ALT 34 U/L (14-59); AST 29 U/L (15-37); Albumin 3.5 g/dL (3.4-5.0); Alkaline Phosphatase 120 U/L (46-116); Anion Gap 9.9 mmol/L (3-11); BUN 18 mg/dL (7-18); Bilirubin, Total 0.5 mg/dL (0.2-1.0); CO2 28.1 mmol/L (21.0-32.0); CREATININE 1.05 mg/dL (0.55-1.02); Calcium 9.7 mg/dL (8.5-10.1); Chloride 101 mmol/L (98-107); Estimated GFR 51.66 (mL/min/1.73m2); Glucose 134 mg/dL (74-106); Potassium 3.8 mmol/L (3.5-5.1); Sodium 139 mmol/L (136-145); Total Protein 7.3 g/dL (6.4-8.2)
[2020-05-26 14:58] LABS: NT-proBNP 311 pg/mL (<300)
[2020-05-26 14:59] LABS: Troponin I < 0.05 ng/mL (<0.06)
[2020-05-26] MEDS: Ondansetron 4 MG/2 ML VIAL IVP (15:05)
--- NOTE | 2020-05-26 15:07 | NUR.NOTE ---
pt reports nausea after listening to another patient retching. Zofran improved nausea. given warm blankets and water
[2020-05-26 15:24] LABS: TSH (W/Ref FT4) 1.89 uIU/mL (0.36-3.74)
--- NOTE | 2020-05-26 15:45 | DI.CT_ITS ---
EXAM: CT CHEST PE CTA CLINICAL HISTORY: shortness of breath, tachypnea, hypoxia. TECHNIQUE: Imaging Protocol: Axial CT angiography was performed with multi-slice acquisition and mu lti-planar and/or 3D reconstructions. CONTRAST MATERIAL: Intravenous: Omnipaque 350 Contrast volume:100 cc COMPARISON: CT CT CHEST/ABD/PEL W from 04/23/2020 CR XR CHEST 2V PA LATERAL from 05/03/2020 CR XR PORTABLE CHEST AP from 05/26/2020 FINDINGS: Pulmonary Arteries: No evidence of filling defect to suggest pulmonary emboli. Tracheobronchial tree: Patent where visualized. Mediastinum and Nedra: No dominant adenopathy or fluid collection. Pulmonary parenchyma: No consolidation or dominant measurable mass. There is a question of mild bilat eral hazy opacities which could represent early pneumonitis. Pleura: No effusion or pneumothorax. Heart: The heart is not dilated. No coronary artery calcifications are seen. Aorta: Mild dilatation of the ascending aorta to 3.8 cm. Mild atherosclerotic changes.. Upper abdomen: Hepatic steatosis. Small hiatal hernia. Status post cholecystectomy. Bones: Severe degenerative disc changes. IMPRESSION: No evidence of pulmonary embolism. Question of early bilateral pneumonitis. RADIATION DOSE DELIVERED: 479.98mGy.cm Total DLP DATA REPOSITORY: All CT scans at this facility are submitted to the National Radiology Data Registry (NRDR) Dose Index Registry (DIR) with the [employer] (ACR). RADIATION OPTIMIZATION: All CT scans at this facility use at least one of these dose optimization te chniques: automated exposure control; mA and/or kV adjustment per patient size (includes targeted exa ms where dose is matched to clinical indication); or iterative reconstruction.
[2020-05-26] MEDS: Metoprolol 50 MG TAB 100 MG PO (15:54)
[2020-05-26] MEDS: Losartan 50 MG TAB PO (15:54)
[2020-05-26] MEDS: methylPREDNISolone SUCC 125 MG VIAL IVP (16:27)
[2020-05-26] MEDS: Omnipaque 350 MG/ML 100 ML BTL IJ (16:37)
[2020-05-26] MEDS: Normal Saline - Diluent 50 ML VIAL IV (16:38)
[2020-05-26] MEDS: Albuterol/Ipratropium 3 ML UPD VIAL UPD (17:00)
[2020-05-26 17:01] LABS: ETHANOL BLOOD < 3.0 mg/dL (<3)
--- NOTE | 2020-05-26 17:01 | NUR.NOTE ---
IV infiltrated in CT. flushes with resistance and fluid collection noted past site insertion
--- NOTE | 2020-05-26 17:08 | DI.VRAD_ITS ---
PROCEDURE INFORMATION: Exam: CT Angiography Chest With Contrast Exam date and time: 05/26/2020 4:41 PM Age: 69 years old Clinical indication: Shortness of breath TECHNIQUE: Imaging protocol: Computed tomographic angiography of the chest with intravenous contrast. 3D rendering (Not supervised by radiologist): MIP and/or 3D reconstructed images were created by the technologist. Contrast material: OMNIPAQUE 350; Contrast volume: 100 ml; Contrast route: INTRAVENOUS (IV); COMPARISON: CT chest PE abd pelvis w 11/21/2018 2:20 PM FINDINGS: Pulmonary arteries: Normal. No pulmonary emboli. Aorta: The aorta demonstrates mild atherosclerotic calcification. No acute aortic pathology. Lungs: There are very subtle basal predominant ground-glass/hazy opacities noted, also seen in the right upper lobe and right middle lobe. No dense airspace consolidations are seen. No discrete pulmonary masses. Airways are patent. Pleural space: Unremarkable. No pneumothorax. No pleural effusion. Heart: Unremarkable. No cardiomegaly. No pericardial effusion. Mediastinal space: A small hiatal hernia is present. Lymph nodes: Unremarkable. No enlarged lymph nodes. Gallbladder and bile ducts: Patient status post cholecystectomy. No biliary ductal dilation. Bones/joints: No acute skeletal pathology. Severe multilevel degenerative changes of the spine, as manifested by multilevel anterior osteophytes and multilevel decrease in intervertebral disc space. Soft tissues: Unremarkable. Other findings: The visualized intra-abdominal structures demonstrate no acute findings. IMPRESSION: Lung findings may be related to developing acute airspace disease/atypical pneumonia versus underlying small airways disease. Close follow-up is advised. There is no evidence of pulmonary emboli. No other acute thoracic pathology is noted. Dictated and Authenticated by: Rene Dumont MD. Ordering:VAZQUEZ Reinoso MD
--- NOTE | 2020-05-26 18:32 | NUR.NOTE ---
Referral to care management for RCT ride referral.Nursing Note:
[2020-05-26] MEDS: levoFLOXacin 500 MG, levoFLOXacin 250 MG 750 MG PO (18:42)
--- NOTE | 2020-05-26 18:42 | NUR.NOTE ---
pt received discharge instructions and is awaiting RCT for transportation
[2020-05-27 01:48] LABS: COVID-19 RT-PCR UVMMC Result Negative (Negative)
--- NOTE | 2020-05-27 08:47 | PDOC.ERCMACT ---
- If Service Date Differs Date of service: 05/27/20 Time of Service: 08:47 Care Management Activity Note CM completed and faxed authorization form to [facility]. JAMI also spoke with Debi of Home Health on afternoon to inquire about the services Samantha receives at home. Debi advises Samantha has [facility] - Moderate Needs and has a homemaker. She also receives nursing, PT, and OT services through [facility]. This information is relayed to Francesca, ED provider.
--- NOTE | 2020-05-27 09:00 | NUR.NOTE ---
0900 Patient notified of negative Covid test results. Patient stating she has been up all night and has not taken her medication in 3 days. Patient informed to call her primary doctor. Manager Stylist will refer to Case management.
== END 2020-05-26 19:20 | disposition home health service (06) ==
PROVIDERS: Student in an Organized Health Care Education/Training Program; Emergency Provider Nurse Practitioner Acute Care; PCP Internal Medicine
DX: J44.1 Chronic obstructive pulmonary disease with (acute) exacerbation (principal); R06.82 Tachypnea, not elsewhere classified; I11.0 Hypertensive heart disease with heart failure; I50.9 Heart failure, unspecified; Z03.818 Encounter for observation for suspected exposure to other biological agents ruled out
CPT/HCPCS: 36415; 71275; 80053; 93005; 94640; 96374; 96375; 99285; U0003; 71045; 80320; 83880; 84443; 84484; 85025; 93010; J2405; J2930; J3490; J7620

== ENCOUNTER 2020-05-27 15:49 | Emergency (ER) | payer MEDICARE, MEDICAID, SELFPAY ==
[2020-05-27 15:48] VITALS: BP 156/72; PULSE 70; RESP 16; TEMP 36.4; O2SAT 95
--- NOTE | 2020-05-27 16:00 | RT.EKG_ITS ---
APPROVED REPORT Exam: Resting ECG Patient Location: E HR:97 bpm ECG Measurements Heart Rate 97 AXIS RI 156 P 75 QRSd 79 QRS 13 QT 342 T 65 QTc 434 Conclusion Sinus rhythm...normal P axis, V-rate 60- 99
--- NOTE | 2020-05-27 16:15 | DI.RAD_ITS ---
EXAM: XR CHEST 2V PA LATERAL CLINICAL HISTORY: ams now, copd exacerbation yesterday TECHNIQUE: 2D digital imaging was performed. COMPARISON: CR XR PORTABLE CHEST AP from 05/26/2020 FINDINGS: The heart is not enlarged. The lungs are clear and well expanded. No pleural effusion seen. Mediastin al contours appear intact. IMPRESSION: Normal chest RADIATION DOSE DELIVERED: Total DLP
--- NOTE | 2020-05-27 16:15 | DI.CT_ITS ---
EXAM: CT HEAD WO CLINICAL HISTORY: ams TECHNIQUE: COMPARISON: CT CT HEAD CERVICAL SPINE WO from 05/03/2020 FINDINGS: Noncontrast cranial CT was performed. There is moderate generalized cerebral atrophy and there are p atchy periventricular areas of decreased attenuation consistent with microvascular ischemic change. Old left lacunar infarct noted. No evidence of acute intracranial hemorrhage, mass effect, or midlin e shift. The orbital and temporal bone structures appear intact. Paranasal sinuses and mastoid air cells are clear as visualized. IMPRESSION: No evidence of acute intracranial process. RADIATION DOSE DELIVERED: 662.77mGy.cm Total DLP
--- NOTE | 2020-05-27 16:31 | ED.GENADUL_ITS ---
Discharge Plan Disposition Patient Disposition: HOME Condition: Stable Discharge Details Chief Complaint: GenMedical Clinical Impression: Weakness Primary Care Provider: Keren Gonzalez ED Provider: Reji Alex Home Meds and New Rx's Prescriptions: Continued venlafaxine [Effexor XR] 150 MG capsule,extended release 24hr 150 mg PO BID RF: 0 levothyroxine [Synthroid] 125 MCG tablet 125 mcg PO DAILY RF: 0 folic acid 1 MG tablet 3 mg PO DAILY RF: 0 montelukast 10 MG tablet 10 mg PO DAILY RF: 0 albuterol sulfate [Proventil HFA] 6.7 GM HFA aerosol inhaler 2 puff Inhalation Q4H PRN RF: 0 losartan 50 MG tablet 50 mg PO DAILY Qty: 30 RF: 0 acetaminophen [Tylenol Extra Strength] 500 mg Tablet 1,000 mg PO BID RF: 0 methotrexate sodium 2.5 mg Tablet 15 mg PO QWEEK RF: 0 metformin 500 mg Tablet 1,000 mg PO BID@0800,1700 Qty: 30 RF: 0 albuterol sulfate 2.5 MG/3 ML solution for nebulization 2.5 mg Inhalation Q2H PRN PRN (Reason: shortness of breath or wheezing) Qty: 0 RF: 0 metoprolol succinate 25 MG tablet extended release 24 hr 100 mg PO DAILY RF: 0 levofloxacin [Levaquin] 750 mg tablet 750 mg PO DAILY Qty: 4 RF: 0 prednisone 20 mg tablet 40 mg PO DAILY Qty: 8 RF: 0 gabapentin 300 MG capsule 600 mg PO TID RF: 0 mirtazapine 45 MG tablet 1 tab PO HS RF: 0 esomeprazole magnesium [Nexium] 40 MG capsule,delayed release(DR/EC) 40 mg PO DAILY RF: 0 furosemide 40 mg Tablet 40 mg PO DAILY RF: 0 famotidine 40 mg Tablet 40 mg PO DAILY RF: 0 lorazepam 1 mg Tablet 1 mg PO DAILY PRN PRNRF: 0 atorvastatin 10 mg Tablet 10 mg PO DAILY RF: 0 leucovorin calcium 10 mg Tablet 10 mg PO DIRECTED RF: 0 Emgality Pen 120 mg/mL pen injector 120 mg SUBCUT Q30D RF: 0 melatonin 10 mg capsule 10 mg PO QHS PRNRF: 0 levofloxacin [Levaquin] 750 mg tablet 750 mg PO DAILY Qty: 6 RF: 0 Discharge Instructions Instructions: Weakness (ED) Additional Instructions: At this time your laboratory values do not reveal any obvious emergent process. After multiple discussions both with you and our care management team, plan is to have you discharged to your home. Care management will reach out to you tomorrow to check in. They will talk with you about additional outpatient options that may be available to you. It appears as though you already have home health coming tomorrow for your ongoing outpatient home medical needs. Please watch for new or worsening symptoms and return to the ER for any concerns. I do recommend that you contact your primary care provider Saturday for prompt outpatient reevaluation. Medical Decision Making 69-year-old female with significant past medical history that includes CHF, COPD, GERD, hypertension, hypothyroidism, RA, presents the ER reporting simply not feeling well, lack of appetite and concern for dehydration. Clinically she appears well, nontoxic. She is a rather vague and poor historian, did report dizziness and feeling lightheaded to RN during triage. Will obtain IV access, give IV fluid, obtain head CT, cardiac work-up including a single troponin and EKG. No chest pain whatsoever, a single troponin and EKG should be sufficient for cardiac rule out was extremely low suspicion here. Patient was actually seen in the ER yesterday and diagnosed with a COPD exacerbation, had a negative chest CTA at that time. Patient is very concerned about going home, lack of [id number] care, and requesting to go back to a long-term nursing facility. I did get our care management team involved as well. Work-up overall is rather unremarkable. White count of 9.78 hemoglobin 11.3 hematocrit 35.4 platelet count 346. Chemistries unremarkable. Creatinine 1.11 with a GFR of 48.46. Glucose 127. Mag 1.7. BNP 493. Urinalysis negative for infection. Alcohol level less than 3. Chest x-ray and head CT both unremarkable. Work-up in the ER was unremarkable for obvious emergent process. Patient was ambulatory in the ER without difficulty, ate a sandwich and drink juice without difficulty. She has no pain currently whatsoever. No evidence of ataxia upon ambulation. I discussed the case again with care management, Yoli. She reviewed the patient's case including recent admission to [facility], evaluation here in the ER yesterday and today. Sounds as though they attempted to evaluate her for additional outpatient resources or long-term care placement and she did not qualify. Please see her note for additional information. She does feel that the patient may benefit from home health [employer]IOR COP[employer]WR[employer]. At this time the patient would require a 3-day qualifying stay here in the hospital or need to pay pocket for placement. I explained my conversation to the patient with our care management team. At this time she reports that she would simply like to go home and go to sleep, she feels safe and feels as though this is the most appropriate option. Our care management team will reach out to her at home tomorrow to evaluate the situation further and she does have home health coming to the house that has already been set up. Upon discharge patient has no additional questions or concerns and is comfortable with this plan. She was encouraged to return to the ER for new or worsening symptoms, otherwise contact her primary care provider on Saturday for prompt outpatient reevaluation. Medical Records Medical records reviewed: Yes I reviewed the patient's medical records. Imaging Data Radiologic Study: Attestation: I personally reviewed and interpreted this imaging study as follows: Imaging: X-Ray Radiologist's impression: Chest x-ray, negative for acute thoracic pathology Radiologic Study #2: Attestation: I personally reviewed and interpreted this imaging study as follows: Imaging: CT Scan Radiologist's impression: CT of head without contrast negative for acute intracranial pathology ECG Data Attestation: I personally reviewed and interpreted this ECG (s) as follows: Interpretation: EKG reviewed and interpreted with Dr. Lo, please see his official report. Sinus rhythm, ventricular rate in the 90s. No STEMI HPI General Mode of arrival: EMS . Date/Time Provider Initiated Documentation: 05/27/20 15:57 . Limitations to Documentation: no limitations and altered mental status . Information obtained by: patient and EMS . HPI Narrative: This is a 69-year-old female presenting from home, where she resides alone with home health already in place, via EMS for evaluation. She is a rather poor and vague historian. She has a history of CHF, chronic back pain, COPD, depression, GERD, hypertension, hypothyroidism, RA, who was actually seen in the ER yesterday, worked up and discharged with [facility] for a COPD exacerbation. 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 She reports generalized weakness, lack of appetite, and feeling what she describes as dehydrated. She reports baseline chronic pain but no new pain today. She reports that she was discharged from rehab last week and did well there. She has been doing worse since going home. She denies any specific dizziness like the room is spinning or feeling off balance, headache, neck pain, chest pain, abdominal pain, nausea, vomiting, skin rash, numbness, tingling, weakness. She does report baseline COPD resulting in mild baseline shortness of breath and dry cough. She tells me that she typically ambulates with a walker or cane at home but often chooses not to use them. She has a sister in [facility] Related Data Home Medications Medication Instructions Recorded Confirmed albuterol sulfate [Proventil HFA] 2 puff INHALATION Q4H PRN 02/02/14 05/03/20 folic acid 3 mg PO DAILY 02/02/14 05/26/20 levothyroxine [Synthroid] 125 mcg PO DAILY 02/02/14 05/26/20 montelukast 10 mg PO DAILY 02/02/14 05/26/20 venlafaxine [Effexor XR] 150 mg PO BID 02/02/14 05/26/20 losartan 50 mg PO DAILY #30 tab 05/21/16 05/26/20 gabapentin 600 mg PO TID 01/23/17 05/26/20 mirtazapine 1 tab PO HS 03/07/17 05/26/20 acetaminophen [Tylenol Extra 1,000 mg PO BID 08/09/18 05/26/20 Strength] methotrexate sodium 15 mg PO QWEEK 08/10/18 05/26/20 albuterol sulfate 2.5 mg INHALATION Q2H PRN PRN #0 08/15/18 05/26/20 vial metformin 1,000 mg PO BID@0800,1700 #30 tab 08/15/18 05/26/20 metoprolol succinate 100 mg PO DAILY 07/14/19 05/26/20 atorvastatin 10 mg PO DAILY 04/24/20 05/26/20 esomeprazole magnesium [Nexium] 40 mg PO DAILY 04/24/20 05/26/20 famotidine 40 mg PO DAILY 04/24/20 05/26/20 furosemide 40 mg PO DAILY 04/24/20 05/26/20 leucovorin calcium 10 mg PO DIRECTED 04/24/20 05/26/20 lorazepam 1 mg PO DAILY PRN PRN 04/24/20 05/03/20 Emgality Pen 120 mg SUBCUT Q30D 05/03/20 05/03/20 melatonin 10 mg PO QHS PRN 05/03/20 05/26/20 levofloxacin [Levaquin] 750 mg PO DAILY #6 tab 05/04/20 levofloxacin [Levaquin] 750 mg PO DAILY #4 tab 05/26/20 prednisone 40 mg PO DAILY #8 tab 05/26/20 Previous Rx's Medication Instructions Recorded losartan 50 mg PO DAILY #30 tab 05/21/16 albuterol sulfate 2.5 mg INHALATION Q2H PRN PRN #0 08/15/18 vial metformin 1,000 mg PO BID@0800,1700 #30 tab 08/15/18 levofloxacin [Levaquin] 750 mg PO DAILY #6 tab 05/04/20 levofloxacin [Levaquin] 750 mg PO DAILY #4 tab 05/26/20 prednisone 40 mg PO DAILY #8 tab 05/26/20 Allergies Allergy/AdvReac Type Severity Reaction Status Date / Time NSAIDS (Non-Steroidal Allergy Severe Anaphylaxsi Unverified 05/26/20 14:00 Anti-Inflamma s cefpodoxime Allergy Intermediate Hives Unverified 05/26/20 13:59 chlorhexidine Allergy Intermediate Skin Rash Unverified 05/26/20 13:59 latex Allergy Intermediate Skin Rash Unverified 05/26/20 13:59 Penicillins Allergy Intermediate Hives Unverified 05/26/20 13:59 povidone-iodine Allergy Intermediate Unverified 05/26/20 13:59 duloxetine HCl Allergy Unknown Unverified 05/26/20 13:59 [From Cymbalta] indomethacin Allergy Unknown Unverified 05/26/20 13:59 propoxyphene Allergy Unknown Unverified 05/26/20 13:59 propranolol Allergy Unknown Unverified 05/26/20 13:59 adhesive AdvReac Intermediate dermatitis Unverified 05/26/20 14:00 aspirin AdvReac Intermediate Nausea Unverified 05/26/20 14:00 butorphanol AdvReac Intermediate nose bleeds Unverified 05/26/20 14:00 fexofenadine AdvReac Intermediate nose bleeds Unverified 05/26/20 14:00 hydrocodone AdvReac Intermediate confusion Unverified 05/26/20 14:00 hydroxychloroquine AdvReac Intermediate Visual Unverified 05/26/20 14:00 [Hydroxychloroquine] Disturbances hydroxyzine AdvReac Intermediate Nausea Unverified 05/26/20 14:00 methotrexate AdvReac Intermediate Nausea Unverified 05/26/20 14:00 morphine AdvReac Intermediate confusion Unverified 05/26/20 14:00 oxycodone [Oxycodone] AdvReac Intermediate confusion Unverified 05/26/20 14:00 pentazocine AdvReac Intermediate confusion Unverified 05/26/20 14:00 Sulfa (Sulfonamide AdvReac Intermediate Headache Unverified 05/26/20 14:00 Antibiotics) sumatriptan AdvReac Intermediate palpitation Unverified 05/26/20 14:00 s zolpidem [Zolpidem] AdvReac Intermediate confusion Unverified 05/26/20 14:00 General Stated Complaint: GenMedical ARAVIND: 3 Review of Systems Constitutional Constitutional: Denies fatigue, Denies fever(s) and Reports weakness (Generalized) Eyes Eyes: Denies change in vision ENT Ears, Nose, Mouth, and Throat: Denies neck pain and Denies sore throat Cardiovascular Cardiovascular: Denies chest pain and Denies dyspnea Respiratory Respiratory: Denies cough and Denies dyspnea Gastrointestinal Gastrointestinal: Denies abdominal pain, Denies nausea and Denies vomiting Genitourinary Genitourinary: Denies dysuria Musculoskeletal Musculoskeletal: Denies neck pain, Denies numbness and Denies tingling Integumentary/Breasts Skin/Breast: Denies rash Neurologic Neurologic: Denies numbness, Denies tingling and Reports weakness (Generalized) Endocrine Endocrine: Denies fatigue [facility] Medical History CHF (congestive heart failure) Per echocardiogram 05/17/2016 LV cavity size normal. Wall thickness normal, systolic function mild to moderately reduced. LVEF 40-45%. Moderate hypokinesis of the basal/mid anteroseptal wall. Moderate hypokinesis of the apical/anterior, anterolateral and apical myocardium. Trivial AI, mild MR, RV size wall thickness and function normal. Mild pulmonary hypertension PA peak pressure 39 mm Chronic back pain COPD (chronic obstructive pulmonary disease) Depression Diverticulosis GERD (gastroesophageal reflux disease) h/o septic right knee (Inactive) Hyperlipidemia Hypertension Hyperthyroidism DARYL (obstructive sleep apnea) Rheumatoid arthritis Surgical History Abdominal hysterectomy Biopsy of breast section Cholecystectomy H/O surgical procedure (Resolved) A. Cholecystectomy B. C. Hysterectomy D. TKR and revision E. Tubal ligation F. D and C G. Breast biopsy x 2 Replacement of total knee joint revision with infection Family History Sister Diabetes Sister Hypertension Mother Stomach cancer Social History Smoking/Tobacco Use Status: Former Tobacco Use Alcohol Intake: never Drug use: Never Substance use type: does not use Do you feel safe at home: Yes Do you feel safe in your relationship?: Yes Additional Social history: Lives at home by herself. History History 2 Para 2 Hx # Term Pregnancies Multiple births Hx # Pregnancies Ectopic pregnancies AB induced Hx Number of Living Children AB spontaneous Exam Const General: cooperative, healthy appearing, comfortable and no acute distress Orientation: alert, awake, oriented to person, oriented to place and confused (Aware that it is 2019, Marcellus is president, unsure of exact date) [facility] Head: normal to inspection, normocephalic and atraumatic Mouth: moist mucous membranes Eyes General: appearance normal, both eyes and all related structures Alignment and Position: alignment normal Periorbital: periorbital findings normal Eyelids: eyelids normal Conjunctivae: conjunctivae normal Sclera: sclerae normal Cornea: corneas normal Pupils: PERRL EOM: EOM intact bilaterally Direct ophthalmoscopy: normal light reflex Neck Neck: normal visual inspection, full ROM, no meningeal signs, trachea midline, supple and nontender Resp Effort & Inspection: normal respiratory effort and able to speak in complete sentences Auscultation: clear to auscultation bilaterally Cardio Rate: regular rate Rhythm: regular rhythm GI Inspection: normal to inspection Palpation: soft, not firm, no guarding and nontender Auscultation: normal bowel sounds Back/Spine/Pelvis Back: No back tenderness Skin General skin exam: no rashes or lesions noted Neuro General: patient alert, patient awake, moves all extremities and no focal motor deficits Cranial Nerves: CN's II-XI intact bilaterally Cognition: normal cognition Speech: speech normal Gait: normal gait Motor: muscle tone normal throughout and strength 5/5 throughout Sensory Exam: no sensory deficits noted Extrem General: normal to inspection, full ROM, capillary refill normal, no pedal edema and no calf tenderness Psych Appearance: grossly normal Mental Status: mental status grossly normal Course Vital Signs Vital signs: Vital Signs Temperature 36.4 C L 05/27/20 15:48 Pulse 70 05/27/20 15:48 Respiratory Rate 16 05/27/20 15:48 Blood Pressure 156/72 H 05/27/20 15:48 Pulse Oximetry 95 05/27/20 15:48 Temperature 36.4 C L 05/27/20 15:48 Temperature Source Tympanic 05/27/20 15:48 Pulse 70 05/27/20 15:48 Respiratory Rate 16 05/27/20 15:48 Respiratory Effort Non-Labored 05/27/20 15:55 Blood Pressure 156/72 H 05/27/20 15:48 Blood Pressure Position Sitting 05/27/20 15:48 Pulse Oximetry 95 05/27/20 15:48 Oxygen Delivery Method Room Air 05/27/20 15:48 Oxygen Flow Rate 0 05/27/20 15:48
[2020-05-27 16:41] VITALS: BP 176/87; PULSE 80; RESP 15; O2SAT 92
--- NOTE | 2020-05-27 17:07 | DI.VRAD_ITS ---
PROCEDURE INFORMATION: Exam: CT Head Without Contrast Exam date and time: 05/27/2020 4:52 PM Age: 69 years old Clinical indication: Altered mental status/memory loss; Patient HX: AMS TECHNIQUE: Imaging protocol: Computed tomography of the head without contrast. COMPARISON: CT HEAD CERVICAL SPINE WO 05/03/2020 12:40 PM FINDINGS: Brain: Age related brain involution is present. No acute intracranial hemorrhage, mass effect, midline shift, or brain herniation. Diffuse subcortical and periventricular white matter hypodensities are most in favor with chronic small vessel disease. Old lacunar infarct in the left insular region. Ventricles: There is ex vacuo ventriculomegaly. Bones/joints: Unremarkable. No acute fracture. Sinuses: Visualized sinuses are unremarkable. No fluid levels. Mastoid air cells: Visualized mastoid air cells are well aerated. Orbits: There have been bilateral intraocular lens replacements. Vasculature: Intracranial atherosclerosis is present. Soft tissues: Unremarkable. IMPRESSION: Negative for acute intracranial pathology. Dictated and Authenticated by: Rene Dumont MD. Ordering:JADYN Mendoza MD
--- NOTE | 2020-05-27 17:10 | DI.VRAD_ITS ---
PROCEDURE INFORMATION: Exam: XR Chest, 2 Views Exam date and time: 05/27/2020 4:56 PM Age: 69 years old Clinical indication: Other: Copd exacerbation TECHNIQUE: Imaging protocol: XR of the chest Views: 2 views. COMPARISON: CR XR PORTABLE CHEST AP 05/26/2020 3:30 PM FINDINGS: Lungs: Unremarkable. No consolidation. Pleural space: Unremarkable. No pleural effusion. No pneumothorax. Heart/Mediastinum: Unremarkable. No cardiomegaly. Bones/joints: No acute abnormality or aggressive osseous lesion. IMPRESSION: Negative for acute thoracic pathology. Dictated and Authenticated by: Rene Dumont MD. Ordering:JADYN Mendoza MD
[2020-05-27] MEDS: Normal Saline Flush 10 ML SYR IVP (17:15)
[2020-05-27 17:28] LABS: Abs Immature Grans 0.06 10^3/uL (0.0-0.06); Absolute Basophil Count 0.02 10^3/uL (0.0-0.2); Absolute Eosinophil Count 0.09 10^3/uL (0.0-0.7); Absolute Lymphocyte Count 1.87 10^3/uL (1.2-3.4); Absolute Monocyte Count 1.12 10^3/uL (0.1-0.8); Absolute Neutrophil Count 6.62 10^3/uL (1.2-6.7); Basophils % 0.2; Eosinophils % 0.9; HCT 35.4 % (36.0-46.0); HGB 11.3 g/dL (11.2-15.7); Immature Grans % 0.6; Lymphocytes % 19.1; MCHC 31.9 % (32.0-36.0); MCV 97.3 fL (80-95); MPV 9.4 fL (8.0-11.0); Monocytes % 11.5; Neutrophils % 67.7; Nucleated RBC 0 %; Platelet Count 346 10^3/uL (130-400); RBC 3.64 10^6/uL (3.93-5.22); RDW 14.1 % (11.7-14.6); RDW-SD 48.8 fL
[2020-05-27 17:29] LABS: WBC 9.78 10^3/uL (4.4-10.8)
[2020-05-27 17:48] LABS: NT-proBNP 493 pg/mL (<300)
[2020-05-27 17:50] LABS: ALT 37 U/L (14-59); AST 28 U/L (15-37); Albumin 3.6 g/dL (3.4-5.0); Alkaline Phosphatase 119 U/L (46-116); Anion Gap 9.3 mmol/L (3-11); BUN 18 mg/dL (7-18); Bilirubin, Total 0.4 mg/dL (0.2-1.0); CO2 29.7 mmol/L (21.0-32.0); CREATININE 1.11 mg/dL (0.55-1.02); Calcium 9.9 mg/dL (8.5-10.1); Chloride 101 mmol/L (98-107); Estimated GFR 48.46 (mL/min/1.73m2); Glucose 127 mg/dL (74-106); Magnesium 1.7 mg/dL (1.8-2.4); Potassium 3.5 mmol/L (3.5-5.1); Sodium 140 mmol/L (136-145); Total Protein 7.5 g/dL (6.4-8.2)
[2020-05-27 17:52] LABS: Troponin I < 0.05 ng/mL (<0.06)
[2020-05-27 18:03] LABS: ETHANOL BLOOD < 3.0 mg/dL (<3)
[2020-05-27 18:33] LABS: Bilirubin Small (Negative); Blood Negative (Negative); Clarity Clear (Clear); Glucose Negative (Negative); Ketones 15 mg/dL (Negative); Leukocyte Esterase Negative (Negative); Nitrite Negative (Negative); Specific Gravity 1.025 (1.005-1.025); Urobilinogen 0.2 EU/dL (Up TO 0.2); pH 5.5 (5-8)
[2020-05-27 18:46] LABS: Bacteria Negative HPF (Negative); C & S Indicated? No; Casts Negative LPF (Negative); Crystals Negative HPF (Negative); Epithelial Cells Rare HPF (Negative); Mucus Negative (Negative); RBC 0-2 HPF (0-2); WBC 0-2 HPF (0-5)
[2020-05-27 20:08] VITALS: BP 160/90; PULSE 84; RESP 18; TEMP 36.7; O2SAT 94
--- NOTE | 2020-05-27 20:08 | NUR.NOTE ---
pt provided with sandwich and diet soda Nursing Note:
[2020-05-27 20:20] VITALS: BP 160/90; PULSE 84; RESP 18; TEMP 36.7; O2SAT 94
== END 2020-05-27 20:35 | disposition home or self-care (01) ==
PROVIDERS: Emergency Provider Physician Assistant; PCP Internal Medicine
DX: R53.1 Weakness (principal); R42 Dizziness and giddiness; I11.0 Hypertensive heart disease with heart failure; I50.9 Heart failure, unspecified; Z03.818 Encounter for observation for suspected exposure to other biological agents ruled out; J44.9 Chronic obstructive pulmonary disease, unspecified; Z87.891 Personal history of nicotine dependence; Z60.2 Problems related to living alone
CPT/HCPCS: 36415; 80053; 93005; 99285; 70450; 71046; 80320; 81003; 81015; 83735; 83880; 84484; 85025; 93010; 99284

== ENCOUNTER 2020-05-28 15:05 | Emergency (ER) | payer MEDICARE, MEDICAID, SELFPAY ==
[2020-05-28 15:12] VITALS: PULSE 79; RESP 18; TEMP 36.6; O2SAT 97
--- NOTE | 2020-05-28 15:32 | W.ED.GENAD ---
Discharge Plan Disposition Condition: Stable Discharge Details Chief Complaint: AMS/LOC Clinical Impression: Dehydration, Altered mental status Primary Care Provider: Keren Gonzalez ED Provider: Amaris Noriega [place] Meds and New Rx's Prescriptions: Continued venlafaxine [Effexor XR] 150 MG capsule,extended release 24hr 150 mg PO BID RF: 0 levothyroxine [Synthroid] 125 MCG tablet 125 mcg PO DAILY RF: 0 folic acid 1 MG tablet 3 mg PO DAILY RF: 0 montelukast 10 MG tablet 10 mg PO DAILY RF: 0 albuterol sulfate [Proventil HFA] 6.7 GM HFA aerosol inhaler 2 puff Inhalation Q4H PRN RF: 0 losartan 50 MG tablet 50 mg PO DAILY Qty: 30 RF: 0 acetaminophen [Tylenol Extra Strength] 500 mg Tablet 1,000 mg PO BID RF: 0 methotrexate sodium 2.5 mg Tablet 15 mg PO QWEEK RF: 0 metformin 500 mg Tablet 1,000 mg PO BID@0800,1700 Qty: 30 RF: 0 albuterol sulfate 2.5 MG/3 ML solution for nebulization 2.5 mg Inhalation Q2H PRN PRN (Reason: shortness of breath or wheezing) Qty: 0 RF: 0 metoprolol succinate 25 MG tablet extended release 24 hr 100 mg PO DAILY RF: 0 levofloxacin [Levaquin] 750 mg tablet 750 mg PO DAILY Qty: 4 RF: 0 prednisone 20 mg tablet 40 mg PO DAILY Qty: 8 RF: 0 gabapentin 300 MG capsule 600 mg PO TID RF: 0 mirtazapine 45 MG tablet 1 tab PO HS RF: 0 esomeprazole magnesium [Nexium] 40 MG capsule,delayed release(DR/EC) 40 mg PO DAILY RF: 0 furosemide 40 mg Tablet 40 mg PO DAILY RF: 0 famotidine 40 mg Tablet 40 mg PO DAILY RF: 0 lorazepam 1 mg Tablet 1 mg PO DAILY PRN PRNRF: 0 atorvastatin 10 mg Tablet 10 mg PO DAILY RF: 0 leucovorin calcium 10 mg Tablet 10 mg PO DIRECTED RF: 0 Emgality Pen 120 mg/mL pen injector 120 mg SUBCUT Q30D RF: 0 melatonin 10 mg capsule 10 mg PO QHS PRNRF: 0 levofloxacin [Levaquin] 750 mg tablet 750 mg PO DAILY Qty: 6 RF: 0 Discharge Instructions Instructions: Dehydration (ED), Altered Mental Status (ED) Additional Instructions: Have somebody stay with you if possible. Follow up with primary care provider in 3-5 days. Return to ED sooner if any worsening or concerns. Increase oral fluids. Take your medications as previously prescribed. Follow-up as directed by care management. Referrals: Keren Gonzalez [Primary Care Provider] - Discharge Data Discharge Date/Time-TO BE ENTERED AT DEPARTURE: 05/28/20 19:55 Medical Decision Making <Amaris Noriega - Last Filed: 05/29/20 13:35> 69-year-old female presents to the ER via EMS for altered mental status. Patient was found by granddaughter outside her apartment naked wrapped in a blanket. The family had been unable to get a hold of her by phone today. Granddaughter went to go check on her and found her this way. Patient was seen here in the emergency department yesterday for weakness. Discharged home. Granddaughter is at bedside and states that patient has not been taking her medications and has decreased oral intake recently. Patient does seem confused reports diarrhea which began yesterday, denies any headache or pain at this time. She does answer questions appropriately but then starts yelling out names. She is alert and oriented to place and time no focal neuro deficits noted. She denies any abdominal pain. She does endorse chills Labs ordered including CBC, CMP serial troponins, EKG, head CT and urinalysis and urine drug screen. Glucose is 119, mag is 1.6, AST is 39, ALT 49, alk phos 104 potassium 3.3. No leukocytosis. COMPARISON: CT HEAD WO 05/27/2020 4:43 PM FINDINGS: Brain: There is moderate diffuse heterogeneity of the white matter attenuation, consistent with chronic white matter ischemic changes. Moderate cerebral atrophy There are multiple small hypodensities in the basal ganglia, consistent with remote lacunar infarctions. No acute intracranial hemorrhage. Ventricles: Normal. No ventriculomegaly. Bones/joints: Unremarkable. No acute fracture. Sinuses: Visualized sinuses are unremarkable. No fluid levels. Mastoid air cells: Visualized mastoid air cells are well aerated. Soft tissues: Unremarkable. IMPRESSION: No acute intracranial hemorrhage. Per patient's granddaughter Pamella there is a concern for patient being safe to be living alone at home at this time. Spoke with Case management Shasha regarding patient, she will come and speak with patient and family regarding next steps and setting up in home care. She states that home health has been called, but she has not heard back from them yet. Spoke with Patients daughter Pamella Tineo (grand daughter) not at bedside at this time. assistant fitness manager Kecia will be back to speak with patient and family hopefully. Instructed to have Pamella call here or return to the ER. At this time there is no significant evidence to have patient admitted into the hospital. No evidence of UTI. There is little bit of ketones in the urine and evidence of dehydration. Patient has been getting normal saline while in department. assistant fitness manager at bedside for patient evaluation and discussion with family. Care is to be handed off pending disposition to Destiny Bolaños MD. Discussed case in details with her verbalized understanding. <Destiny Bolaños DO - Last Filed: 05/29/20 14:46> Please see Amaris Noriega's note for initial presentation, exam and plan. Case discussed with care management, patient and granddaughter in room. Patient to go home to granddaughter's house to stay at this time. Care management has arranged for home health to visit patient there tomorrow. Care management has started the process to look into assisted living. Advised to follow up with the primary care doctor for re-evaluation. Usual and customary return precautions given prior to discharge. HPI <Amaris Noriega - Last Filed: 05/29/20 13:35> General Mode of arrival: EMS. Date/Time Provider Initiated Documentation: 05/28/20 15:21. Limitations to Documentation: altered mental status. Information obtained by: patient and family. HPI Narrative: 69-year-old female presents to the ER via EMS for altered mental status. Patient was found by granddaughter outside her apartment naked wrapped in a blanket. The family had been unable to get a hold of her by phone today. Granddaughter went to go check on her and found her this way. Patient was seen here in the emergency department yesterday for weakness. Discharged home. Granddaughter is at bedside and states that patient has not been taking her medications and has decreased oral intake recently. Patient does seem confused reports diarrhea which began yesterday, denies any headache or pain at this time. She does answer questions appropriately but then starts yelling out names. She is alert and oriented to place and time no focal neuro deficits noted. She denies any abdominal pain. She does endorse chills. Related Data Home Medications Medication Instructions Recorded Confirmed albuterol sulfate [Proventil HFA] 2 puff INHALATION Q4H PRN 02/02/14 05/03/20 folic acid 3 mg PO DAILY 02/02/14 05/26/20 levothyroxine [Synthroid] 125 mcg PO DAILY 02/02/14 05/26/20 montelukast 10 mg PO DAILY 02/02/14 05/26/20 venlafaxine [Effexor XR] 150 mg PO BID 02/02/14 05/26/20 losartan 50 mg PO DAILY #30 tab 05/21/16 05/26/20 gabapentin 600 mg PO TID 01/23/17 05/26/20 mirtazapine 1 tab PO HS 03/07/17 05/26/20 acetaminophen [Tylenol Extra 1,000 mg PO BID 08/09/18 05/26/20 Strength] methotrexate sodium 15 mg PO QWEEK 08/10/18 05/26/20 albuterol sulfate 2.5 mg INHALATION Q2H PRN PRN #0 08/15/18 05/26/20 vial metformin 1,000 mg PO BID@0800,1700 #30 tab 08/15/18 05/26/20 metoprolol succinate 100 mg PO DAILY 07/14/19 05/26/20 atorvastatin 10 mg PO DAILY 04/24/20 05/26/20 esomeprazole magnesium [Nexium] 40 mg PO DAILY 04/24/20 05/26/20 famotidine 40 mg PO DAILY 04/24/20 05/26/20 furosemide 40 mg PO DAILY 04/24/20 05/26/20 leucovorin calcium 10 mg PO DIRECTED 04/24/20 05/26/20 lorazepam 1 mg PO DAILY PRN PRN 04/24/20 05/03/20 Emgality Pen 120 mg SUBCUT Q30D 05/03/20 05/03/20 melatonin 10 mg PO QHS PRN 05/03/20 05/26/20 levofloxacin [Levaquin] 750 mg PO DAILY #6 tab 05/04/20 levofloxacin [Levaquin] 750 mg PO DAILY #4 tab 05/26/20 prednisone 40 mg PO DAILY #8 tab 05/26/20 Previous Rx's Medication Instructions Recorded losartan 50 mg PO DAILY #30 tab 05/21/16 albuterol sulfate 2.5 mg INHALATION Q2H PRN PRN #0 08/15/18 vial metformin 1,000 mg PO BID@0800,1700 #30 tab 08/15/18 levofloxacin [Levaquin] 750 mg PO DAILY #6 tab 05/04/20 levofloxacin [Levaquin] 750 mg PO DAILY #4 tab 05/26/20 prednisone 40 mg PO DAILY #8 tab 05/26/20 Allergies Allergy/AdvReac Type Severity Reaction Status Date / Time NSAIDS (Non-Steroidal Allergy Severe Anaphylaxsi Unverified 05/26/20 14:00 Anti-Inflamma s cefpodoxime Allergy Intermediate Hives Unverified 05/26/20 13:59 chlorhexidine Allergy Intermediate Skin Rash Unverified 05/26/20 13:59 latex Allergy Intermediate Skin Rash Unverified 05/26/20 13:59 Penicillins Allergy Intermediate Hives Unverified 05/26/20 13:59 povidone-iodine Allergy Intermediate Unverified 05/26/20 13:59 duloxetine HCl Allergy Unknown Unverified 05/26/20 13:59 [From Cymbalta] indomethacin Allergy Unknown Unverified 05/26/20 13:59 propoxyphene Allergy Unknown Unverified 05/26/20 13:59 propranolol Allergy Unknown Unverified 05/26/20 13:59 adhesive AdvReac Intermediate dermatitis Unverified 05/26/20 14:00 aspirin AdvReac Intermediate Nausea Unverified 05/26/20 14:00 butorphanol AdvReac Intermediate nose bleeds Unverified 05/26/20 14:00 fexofenadine AdvReac Intermediate nose bleeds Unverified 05/26/20 14:00 hydrocodone AdvReac Intermediate confusion Unverified 05/26/20 14:00 hydroxychloroquine AdvReac Intermediate Visual Unverified 05/26/20 14:00 [Hydroxychloroquine] Disturbances hydroxyzine AdvReac Intermediate Nausea Unverified 05/26/20 14:00 methotrexate AdvReac Intermediate Nausea Unverified 05/26/20 14:00 morphine AdvReac Intermediate confusion Unverified 05/26/20 14:00 oxycodone [Oxycodone] AdvReac Intermediate confusion Unverified 05/26/20 14:00 pentazocine AdvReac Intermediate confusion Unverified 05/26/20 14:00 Sulfa (Sulfonamide AdvReac Intermediate Headache Unverified 05/26/20 14:00 Antibiotics) sumatriptan AdvReac Intermediate palpitation Unverified 05/26/20 14:00 s zolpidem [Zolpidem] AdvReac Intermediate confusion Unverified 05/26/20 14:00 General Stated Complaint: AMS/LOC ARAVIND: 3 Review of Systems <Amaris Noriega - Last Filed: 05/29/20 13:35> Narrative: Constitutional: Well-groomed, confused. HEENT: Denies trauma, headaches, blurry vision, nasal discharge, sore throat, trouble swallowing. Chest: Denies chest pain, palpitations, irregular rhythm, hypertension. Respiratory: Denies Shortness of breath, cough, hemoptysis. GI: Denies abdominal pain, nausea, vomiting, constipation. Positive diarrhea. : Denies dysuria, hematuria, flank pain, rectal bleeding. Neuro: Denies blurry vision, syncope, headache or facial numbness. Positive confusion alert and oriented x2 in department. No focal neuro deficits noted. Hematologic: Denies easy bruising, intolerance to heat or cold, hair loss. PFSH <Amaris Hari - Last Filed: 05/29/20 13:35> Medical History CHF (congestive heart failure) Per echocardiogram 05/17/2016 LV cavity size normal. Wall thickness normal, systolic function mild to moderately reduced. LVEF 40-45%. Moderate hypokinesis of the basal/mid anteroseptal wall. Moderate hypokinesis of the apical/anterior, anterolateral and apical myocardium. Trivial AI, mild MR, RV size wall thickness and function normal. Mild pulmonary hypertension PA peak pressure 39 mm Chronic back pain COPD (chronic obstructive pulmonary disease) Depression Diverticulosis GERD (gastroesophageal reflux disease) h/o septic right knee (Inactive) Hyperlipidemia Hypertension Hyperthyroidism DARYL (obstructive sleep apnea) Rheumatoid arthritis Surgical History Abdominal hysterectomy Biopsy of breast section Cholecystectomy H/O surgical procedure (Resolved) A. Cholecystectomy B. C. Hysterectomy D. TKR and revision E. Tubal ligation F. D and C G. Breast biopsy x 2 Replacement of total knee joint revision with infection Family History Sister Diabetes Sister Hypertension Mother Stomach cancer Social History Smoking/Tobacco Use Status: Former Tobacco Use Alcohol Intake: never Drug use: Never Substance use type: does not use Do you feel safe at home: Yes Do you feel safe in your relationship?: Yes Additional Social history: Lives at home by herself. History History 2 Para 2 Hx # Term Pregnancies Multiple births Hx # Pregnancies Ectopic pregnancies AB induced Hx Number of Living Children AB spontaneous Exam <Amaris Noriega - Last Filed: 05/29/20 13:35> Narrative Exam Narrative: Constitutional: Alert and oriented x3. Appears stated age. Normal body habitus. Head: Normocephalic, no trauma. Eyes: Pupils PERRLA, Red reflex noted, EOM's intact. Eyelids symmetrical without lesions, discharge, or swelling. ENT: Bilateral TM's WNL, External ear normal to inspection, no mastoid TTP, swelling, or erythema, Nasal turbinates WNL, no nasal discharge. Normal dentition, Posterior pharynx WNL, no exudate. Chest: RRR, Normal S1, S2, distal pulses intact. Resp: Lungs clear to auscultation bilaterally, no wheezes, rales, or rhonchi. Musculoskeletal: Normal gait, 5/5 strength to all four extremities. Skin: No suspicious rashes or lesions. Capillary refill less than 2 sec. Neurologic: Cranial nerves II-XII intact. Alert and oriented x 3. DTR's intact. Hematologic/Lymphatic: No ecchymosis, no lymphadenopathy. Neuro General: patient alert, patient awake, oriented Patient Orientation: Place and Time, moves all extremities, no meningeal signs, no focal motor deficits and CN's II-XI intact bilaterally Cranial Nerves: PERRL, no nystagmus, facial strength normal and tongue midline Cognition: abnormal cognition (Appears somewhat confused yells out people's names randomly) Speech: speech normal Motor: muscle tone normal throughout and strength 5/5 throughout Sensory Exam: no sensory deficits noted Course <Amaris Noriega - Last Filed: 05/29/20 13:35> Vital Signs Vital signs: Vital Signs Temperature 36.6 C 05/28/20 15:12 Pulse 79 05/28/20 15:12 Respiratory Rate 18 05/28/20 15:12 Pulse Oximetry 97 05/28/20 15:12 Temperature 36.6 C 05/28/20 15:12 Temperature Source Temporal Artery Scan 05/28/20 15:12 Pulse 79 05/28/20 15:12 Respiratory Rate 18 05/28/20 15:12 Blood Pressure Position Supine 05/28/20 15:12 Pulse Oximetry 97 05/28/20 15:12 Oxygen Delivery Method Room Air 05/28/20 15:12 Oxygen Flow Rate 0 05/28/20 15:12
[2020-05-28 16:08] LABS: Abs Immature Grans 0.05 10^3/uL (0.0-0.06); Absolute Basophil Count 0.02 10^3/uL (0.0-0.2); Absolute Eosinophil Count 0.09 10^3/uL (0.0-0.7); Absolute Lymphocyte Count 1.91 10^3/uL (1.2-3.4); Absolute Monocyte Count 0.94 10^3/uL (0.1-0.8); Absolute Neutrophil Count 6.23 10^3/uL (1.2-6.7); Basophils % 0.2; HCT 38.2 % (36.0-46.0); HGB 12.4 g/dL (11.2-15.7); Immature Grans % 0.5; Lymphocytes % 20.7; MCH 31.3 pg (27.0-33.0); MCHC 32.5 % (32.0-36.0); MCV 96.5 fL (80-95); MPV 10.1 fL (8.0-11.0); Monocytes % 10.2; Neutrophils % 67.4; Nucleated RBC 0 %; Platelet Count 418 10^3/uL (130-400); RBC 3.96 10^6/uL (3.93-5.22); RDW 14.1 % (11.7-14.6); WBC 9.24 10^3/uL (4.4-10.8)
[2020-05-28 16:15] LABS: Bilirubin Moderate (Negative); Blood Negative (Negative); Clarity Clear (Clear); Glucose Negative (Negative); Ketones 80 mg/dL (Negative); Leukocyte Esterase Negative (Negative); Nitrite Negative (Negative); Specific Gravity >= 1.030 (1.005-1.025); pH 5.5 (5-8)
[2020-05-28 16:21] LABS: ALT 49 U/L (14-59); AST 39 U/L (15-37); Albumin 3.8 g/dL (3.4-5.0); Alkaline Phosphatase 124 U/L (46-116); Anion Gap 13.7 mmol/L (3-11); BUN 17 mg/dL (7-18); Bilirubin, Total 0.5 mg/dL (0.2-1.0); CO2 26.3 mmol/L (21.0-32.0); Chloride 101 mmol/L (98-107); Estimated GFR 54.66 (mL/min/1.73m2); Glucose 119 mg/dL (74-106); Magnesium 1.6 mg/dL (1.8-2.4); Potassium 3.3 mmol/L (3.5-5.1); Sodium 141 mmol/L (136-145); Total Protein 7.8 g/dL (6.4-8.2); Troponin I < 0.05 ng/mL (<0.06)
[2020-05-28 16:26] LABS: *AMPHETAMINES SCREEN URINE Negative (Negative); *BARBITURATES SCREEN URINE Negative (Negative); *BENZODIAZEPINES SCREEN URINE Negative (Negative); Cannabinoids THC Negative (Negative); Cocaine Screen,Urine Negative (Negative); METHADONE URINE SCREEN Negative (Negative); OPIATES URINE SCREEN Negative (Negative); Tricyclic Antidepressants Negative (Negative)
--- NOTE | 2020-05-28 16:29 | DI.CT_ITS ---
EXAM: CT HEAD WO CLINICAL HISTORY: AMS TECHNIQUE: COMPARISON: CT CT HEAD WO from 05/27/2020 FINDINGS: Examination is compared with recent examination of May 27. Note is again made of chronic atroph y and white matter changes, left basal ganglia infarct again noted, no evidence of acute intracranial hemorrhage, mass effect, or midline shift. IMPRESSION: No change from yesterday's examination. No evidence of acute process. RADIATION DOSE DELIVERED: 637.27mGy.cm Total DLP
[2020-05-28 16:31] LABS: Bacteria Few HPF (Negative); C & S Indicated? No; Casts 3-5 Hyaline LPF (Negative); Crystals Negative HPF (Negative); Epithelial Cells Many HPF (Negative); Mucus Negative (Negative); RBC 0-2 HPF (0-2); WBC 0-2 HPF (0-5)
--- NOTE | 2020-05-28 16:37 | DI.VRAD_ITS ---
PROCEDURE INFORMATION: Exam: CT Head Without Contrast Exam date and time: 05/28/2020 4:20 PM Age: 69 years old Clinical indication: Other: AMS TECHNIQUE: Imaging protocol: Computed tomography of the head without contrast. Radiation optimization: All CT scans at this facility use at least one of these dose optimization techniques: automated exposure control; mA and/or kV adjustment per patient size (includes targeted exams where dose is matched to clinical indication); or iterative reconstruction. COMPARISON: CT HEAD WO 05/27/2020 4:43 PM FINDINGS: Brain: There is moderate diffuse heterogeneity of the white matter attenuation, consistent with chronic white matter ischemic changes. Moderate cerebral atrophy There are multiple small hypodensities in the basal ganglia, consistent with remote lacunar infarctions. No acute intracranial hemorrhage. Ventricles: Normal. No ventriculomegaly. Bones/joints: Unremarkable. No acute fracture. Sinuses: Visualized sinuses are unremarkable. No fluid levels. Mastoid air cells: Visualized mastoid air cells are well aerated. Soft tissues: Unremarkable. IMPRESSION: No acute intracranial hemorrhage. Dictated and Authenticated by: Yari Ballard MD. Ordering:ARLEN Glez MD
--- NOTE | 2020-05-28 19:12 | CMPROGNOTE_ITS ---
- If Service Date Differs Date of service: 05/28/20 Time of Service: 19:12 Care Management Progress Note CM was paged to visit with Samantha during her ED visit. She was [facility] 05[facility], and has been in the ED three times since. Samantha was medically cleared for discharge. Samantha's daughter, Pamella was in the room with her during the visit. CM discussed community resources with Samantha to determine what she is currently receiving, and to see if there are any additional services that can help support Samantha at home. She is currently receiving RN for med management, [facility] moderate needs for light housework and case management, MOW, and support from [facility]. Alison Trimble is her community health specialist, who is working on getting Samantha JESUS in order for her to have a payer source to return to [facility]. Alison is also working with Montse (Samantha's daughter) on exterminator helper termite planning, as she may need to live in assisted living going forward. CM discussed Samantha's mental health with her and her grand daughter, who stated that her dog was taken away to live with Montse when she went to [facility], and she has been very depressed since then. CM suggested talking to her PCP about her mental health. CM discussed options for Samantha for this weekend, as she doesn't feel safe at home alone, but there is no medical reason for admission, and very limited bed availability. Pamella agreed to take her home with her in order to have someone with her. CM will fax the address to for them to provide their services at Pamella's home. JAMI will follow up with , and her trimming caser on Saturday.
[2020-05-28 19:20] VITALS: BP 201/107; PULSE 94; RESP 18; O2SAT 96
[2020-05-28 19:43] LABS: Troponin I < 0.05 ng/mL (<0.06)
== END 2020-05-28 19:55 ==
LOC: ER 19:30
PROVIDERS: Emergency Provider Registered Nurse Emergency; PCP Internal Medicine
DX: E86.0 Dehydration (principal); R41.82 Altered mental status, unspecified; R90.82 White matter disease, unspecified; Z91.138 Patient's unintentional underdosing of medication regimen for other reason; Z60.2 Problems related to living alone; I10 Essential (primary) hypertension; J44.9 Chronic obstructive pulmonary disease, unspecified; Z87.891 Personal history of nicotine dependence
CPT/HCPCS: 36415; 36416; 80053; 80307; 82962; 99284; 70450; 81003; 81015; 83735; 84484; 85025

== ENCOUNTER 2020-05-30 12:09 | Observation (INO) | payer MEDICARE, MEDICAID, SELFPAY ==
[2020-05-30 12:20] VITALS: BP 153/91; PULSE 86; TEMP 36.4; O2SAT 94
--- NOTE | 2020-05-30 12:32 | ED.GENADUL_ITS ---
Discharge Plan Disposition Patient Disposition: [facility] INPATIENT Condition: Good Discharge Details Chief Complaint: PsychEval Clinical Impression: Suicidal thoughts Admit Date/Time: 05/30/20 16:39 Admit Provider: Reji Redmond Attending Provider: Reji Redmond Primary Care Provider: Keren Gonzalez ED Provider: Jose Luis Nguyen Hospital Course Hospital Course: 69-year-old female with past medical history of COPD, CHF (nonischemic cardiomyopathy), depression, GERD, DARYL, rheumatoid arthritis was brought to emergency department from her daughter's apartment due to worsening depression and suicidal thoughts. See admission H&P for details. Patient was evaluated the emergency department and cleared medically by Dr. Kemar Lo who referred her to the [facility] mental health team for evaluation. DEEJAY made referrals to the [facility] and [facility] in [place] for inpatient psychiatric treatment. Since no psychiatric beds were immediately available she was admitted under observation to [facility]. During her medical evaluation ER she was found to be mildly azotemic with a BUN of 18 and creatinine 1.40 along with mild hypokalemia with a potassium of 3.2. She was given IV fluids and oral potassium in the ER. She was admitted to our transitional bed unit. Subsequent labs the next morning revealed that she was still hypokalemic and hypomagnesemic with a potassium level of 3.1 and a magnesium level 1.4. Patient was given an additional IV and oral magnesium as well as additional potassium supplementation. By the evening of May 31, 2020 her potassium was up to 3.6 and her magnesium levels 2.7. On the day of discharge her potassium was 3.8 and her magnesium was 2.0. Her BUN was down to 21 and her creatinine was 0.99. Patient was cooperative throughout her stay made no attempts to harm herself. Her appetite was good. Bowel movements were normal. She did comment on the day of discharge that she has problems with urinary incontinence which is made worse by her use of her Lasix. I did decrease her Lasix dose from 40 mg daily down to 20 mg daily. She will remain on potassium supplements which she was not receiving as an outpatient. Repeat BMP and magnesium level should be obtained within 1 week of discharge. It is recommended that she be referred to urology regarding her urinary incontinence. Urinalysis was checked on admission and was clear and negative for protein blood ketones nitrites and leukocyte Estrace and bacteria. Her CBC was normal on admission. It is also recommended that she have follow-up with cardiology at [facility] regarding her nonischemic cardiomyopathy. Discharge Instructions Instructions: Dilated Cardiomyopathy (DC), Hypokalemia (DC), Depression (DC), Suicide Prevention (DC) Additional Instructions: Is recommended the patient have a follow-up with her paper finisher through [facility] regarding her nonischemic cardiomyopathy. Repeat BMP and magnesium are recommended within 1 week. Further adjustments may need to be made to her diuretics as well as her electrolyte supplements. Referral to urology regarding her chronic urinary incontinence is recommended. Forms: Nursing Discharge Form Discharge Data Discharge Date/Time-TO BE ENTERED AT DEPARTURE: 05/30/20 17:30 Medical Decision Making 1300??69-year-old female with multiple medical problems, history of depression, here with worsening depression and suicidal thoughts over the past 1 week. One- to-one patient observer established. I have consulted [facility] crisis care for evaluation. Care management consulted for care plan. Patient also with some dysuria. External REHAB NURSING TECH exam with nursing present reveals mild superficial irritation. I suspect this irritation is secondary to wipes. Consider UTI as she has had a urinary tract infection recently. I will check a urinalysis. 1300??mild hypokalemia noted potassium 3.2. I will give K-Dur 20 milliequivalents. Patient was slight elevation of creatinine at 1.41. I will provide IV fluid rehydration and plan to recheck. UDS negative. Salicylates and Tylenol negative. -- UA negative. 1423??plan to admit the patient to hospitalist service. Awaiting callback from hospitalist. Care to be signed out to Dr. Bolaños with plan to follow-up on repeat chemistry to assess repeat creatinine. Plan to admit pending transfer to psychiatric treatment facility. Patient continues to be here voluntarily. HPI General Mode of arrival: ambulatory . Date/Time Provider Initiated Documentation: 05/30/20 12:14 . Limitations to Documentation: no limitations . Information obtained by: patient . HPI Narrative: 69-year-old female with history of depression presents with depression and suicidality. Patient notes she is feeling suicidal over the past week. She is having thoughts of throwing herself down a flight of stairs. Symptoms are severe. No modifiers. Patient denies ingestions. Multiple recent ED visits. Patient notes that she feels like she is a burden to her family. Patient does note that she is having some burning when she urinates. She attributes this to some irritation of her skin from wiping. She denies abdominal pain or fever. No hematuria. Related Data Home Medications Medication Instructions Recorded Confirmed albuterol sulfate [Proventil HFA] 2 puff INHALATION Q4H PRN 02/02/14 05/30/20 folic acid 3 mg PO DAILY 02/02/14 05/30/20 levothyroxine [Synthroid] 125 mcg PO DAILY 02/02/14 05/30/20 montelukast 10 mg PO DAILY 02/02/14 05/30/20 venlafaxine [Effexor XR] 150 mg PO BID 02/02/14 05/30/20 gabapentin 600 mg PO TID 01/23/17 05/30/20 mirtazapine 1 tab PO HS 03/07/17 05/30/20 acetaminophen [Tylenol Extra 1,000 mg PO BID 08/09/18 05/30/20 Strength] methotrexate sodium 15 mg PO QWEEK 08/10/18 05/30/20 albuterol sulfate 2.5 mg INHALATION Q2H PRN PRN #0 08/15/18 05/30/20 vial metformin 1,000 mg PO BID@0800,1700 #30 tab 08/15/18 05/30/20 metoprolol succinate 100 mg PO DAILY 07/14/19 05/30/20 atorvastatin 10 mg PO DAILY 04/24/20 05/30/20 esomeprazole magnesium [Nexium] 40 mg PO DAILY 04/24/20 05/30/20 famotidine 40 mg PO DAILY 04/24/20 05/30/20 leucovorin calcium 10 mg PO DIRECTED 04/24/20 05/30/20 melatonin 10 mg PO QHS PRN 05/03/20 05/30/20 ascorbic acid (vitamin C) [Vitamin 500 mg PO DAILY 05/30/20 05/30/20 C] calcium carbonate-vitamin D3 1 tab PO DAILY 05/30/20 05/30/20 [Calcium 600 + D(3)] losartan 50 mg PO DAILY 05/30/20 05/30/20 meclizine 25 mg PO TID PRN 05/30/20 05/30/20 multivit with min-folic acid 400 mcg PO DAILY 05/30/20 05/30/20 furosemide 20 mg PO DAILY #0 tab 06/01/20 05/30/20 magnesium oxide 400 mg PO BID #60 tab 06/01/20 potassium bicarb-citric acid 20 meq PO BID #60 tab 06/01/20 [Effer-K] Previous Rx's Medication Instructions Recorded albuterol sulfate 2.5 mg INHALATION Q2H PRN PRN #0 08/15/18 vial metformin 1,000 mg PO BID@0800,1700 #30 tab 08/15/18 furosemide 20 mg PO DAILY #0 tab 06/01/20 magnesium oxide 400 mg PO BID #60 tab 06/01/20 potassium bicarb-citric acid 20 meq PO BID #60 tab 06/01/20 [Effer-K] Allergies Allergy/AdvReac Type Severity Reaction Status Date / Time NSAIDS (Non-Steroidal Allergy Severe Anaphylaxsi Unverified 05/30/20 13:03 Anti-Inflamma s cefpodoxime Allergy Intermediate Hives Unverified 05/30/20 13:03 chlorhexidine Allergy Intermediate Skin Rash Unverified 05/30/20 13:03 latex Allergy Intermediate Skin Rash Unverified 05/30/20 13:03 Penicillins Allergy Intermediate Hives Unverified 05/30/20 13:03 povidone-iodine Allergy Intermediate Unverified 05/30/20 13:03 duloxetine HCl Allergy Unknown Unverified 05/30/20 13:03 [From Cymbalta] indomethacin Allergy Unknown Unverified 05/30/20 13:03 propoxyphene Allergy Unknown Unverified 05/30/20 13:03 propranolol Allergy Unknown Unverified 05/30/20 13:03 adhesive AdvReac Intermediate dermatitis Unverified 05/30/20 13:03 aspirin AdvReac Intermediate Nausea Unverified 05/30/20 13:03 butorphanol AdvReac Intermediate nose bleeds Unverified 05/30/20 13:03 fexofenadine AdvReac Intermediate nose bleeds Unverified 05/30/20 13:03 hydrocodone AdvReac Intermediate confusion Unverified 05/30/20 13:03 hydroxychloroquine AdvReac Intermediate Visual Unverified 05/30/20 13:03 [Hydroxychloroquine] Disturbances hydroxyzine AdvReac Intermediate Nausea Unverified 05/30/20 13:03 methotrexate AdvReac Intermediate Nausea Unverified 05/30/20 13:03 morphine AdvReac Intermediate confusion Unverified 05/30/20 13:03 oxycodone [Oxycodone] AdvReac Intermediate confusion Unverified 05/30/20 13:03 pentazocine AdvReac Intermediate confusion Unverified 05/30/20 13:03 Sulfa (Sulfonamide AdvReac Intermediate Headache Unverified 05/30/20 13:03 Antibiotics) sumatriptan AdvReac Intermediate palpitation Unverified 05/30/20 13:03 s zolpidem [Zolpidem] AdvReac Intermediate confusion Unverified 05/30/20 13:03 General Stated Complaint: PsychEval ARAVIND: 2 Review of Systems All systems reviewed & are unremarkable except as noted in HPI and below Constitutional Constitutional: Denies fever(s) Genitourinary Genitourinary: Reports as per HPI Psychiatric Psychiatric: Reports as per HPI [facility] Medical History CHF (congestive heart failure) Per echocardiogram 05/17/2016 LV cavity size normal. Wall thickness normal, systolic function mild to moderately reduced. LVEF 40-45%. Moderate hypokinesis of the basal/mid anteroseptal wall. Moderate hypokinesis of the apical/anterior, anterolateral and apical myocardium. Trivial AI, mild MR, RV size wall thickness and function normal. Mild pulmonary hypertension PA peak pressure 39 mm Chronic back pain COPD (chronic obstructive pulmonary disease) Depression Diverticulosis GERD (gastroesophageal reflux disease) h/o septic right knee (Inactive) Hyperlipidemia Hypertension Hyperthyroidism DARYL (obstructive sleep apnea) Rheumatoid arthritis Surgical History Abdominal hysterectomy Biopsy of breast section Cholecystectomy H/O surgical procedure (Resolved) A. Cholecystectomy B. C. Hysterectomy D. TKR and revision E. Tubal ligation F. D and C G. Breast biopsy x 2 Replacement of total knee joint revision with infection Family History Sister Diabetes Sister Hypertension Mother Stomach cancer Social History Smoking/Tobacco Use Status: Former Tobacco Use Alcohol Intake: never Drug use: Never Substance use type: does not use Do you feel safe at home: Yes Do you feel safe in your relationship?: Yes Additional Social history: Lives at home by herself. History History 2 Para 2 Hx # Term Pregnancies Multiple births Hx # Pregnancies Ectopic pregnancies AB induced Hx Number of Living Children AB spontaneous Exam Const General: cooperative HENMT Head: normocephalic and atraumatic Mouth: moist mucous membranes Eyes Conjunctivae: normal conjunctivae Sclera: normal sclerae Neck Neck: trachea midline and supple Resp Auscultation: clear to auscultation bilaterally, no rales, no rhonchi and no wheezes Cardio Jugular venous pressure: no JVD Rate: regular rate and not tachycardic Rhythm: regular rhythm GI Palpation: soft, not firm, no guarding, no masses, not rigid and nontender Skin General skin exam: no rashes or lesions noted Neuro General: patient alert, patient awake, patient oriented x3 and tone normal Extrem General: no edema Psych Appearance: grossly normal Mental Status: mental status grossly normal and other (Depressed) Mood: other (Depressed) Course Vital Signs Vital signs: Vital Signs Temperature 36.4 C L 05/30/20 12:20 Pulse 86 05/30/20 12:20 Blood Pressure 153/91 H 05/30/20 12:20 Pulse Oximetry 94 L 05/30/20 12:20 Temperature 36.4 C L 05/30/20 12:20 Temperature Source Temporal Artery Scan 05/30/20 12:20 Pulse 86 05/30/20 12:20 Blood Pressure 153/91 H 05/30/20 12:20 Blood Pressure Position Sitting 05/30/20 12:20 Pulse Oximetry 94 L 05/30/20 12:20 Oxygen Delivery Method Room Air 05/30/20 12:20 Oxygen Flow Rate 0 05/30/20 12:20 Sign Out Sign Out Data: Sign Out Comment: Follow-up repeat chemistry to assess creatinine. Admit patient to hospitalist service. Awaiting callback from Dr. Redmond. Last updated by Kemar Lo MD at 05/30/20 16:26
--- NOTE | 2020-05-30 12:56 | CMPROGNOTE_ITS ---
- If Service Date Differs Date of service: 05/30/20 Time of Service: 12:56 Care Management Progress Note Chief Complaint: Samantha is a 69 year old female who presents in the emergency department for suicidal ideation with a plan of throwing herself down a flight of stairs. Samantha is pleasant and talkative when meets with her. She is clearly experiencing some memory difficulties, asking the same question repeatedly. Samantha reports she has been psychiatrically hospitalized several times in the past. She shares she was not very nice to her when he was alive and states she has been thinking a lot about that lately. She reports being depressed and states she does not want to go on living. Samantha was evaluated by Louise [facility] Crisis Screener, and was found to meet criteria for a voluntary psychiatric placement. Referrals are faxed to [facility] and [facility] for review. VOLUNTARY FOR INPATIENT PSYCHIATRIC STABILIZATION. Patient is appropriate in all interactions since arriving at [facility]; Pt has demonstrated appropriate coping and communication skills, has articulated her needs and concerns and is fully engaged during staff interactions. Safety plan has been established with patient, and care team, to adhere to patient goals, identify restrictions based on behavioral status, address nutrition, and determine allowed personal belongings, tools for hygiene and personal care. Determine level of activity including ambulation, level of supervision, visitors, and determine privileges based on behaviors and level of engagement by pt. SAFETY PLAN: 1. Will remain on suicide precautions. Is allowed to wear her own nightgown. 2. Will remain in room under direct supervision of one-on-one staff at all times provided by [employer], ATMOSPHERIC PHYSICS PROFESSOR, IRS AGENT senior formulation scientist. 3. May have paper cups, plates, finger foods as well as a cardboard spoon with which to eat meals. 4. Follow [facility] Management of the Admitted Behavioral Health Patient policy. 5. Comfort bath system only. 6. No personal belongings 7. Visitors: No visitors at this time. 8. Activities: Soft tip markers, paper, television if available, and other activities at nursing discretion. 8. Telephone: Patient is allowed to speak with her daughter (Montse - [phone]) and granddaughter (Pamella - [phone]) on the telephone, at nursing discretion. 9. Due to VOLUNTARY status, if patient wishes to leave [facility], the [facility] vegetable ii farmworker must be contacted to re-evaluate patient prior to patient exiting the building. Patient is currently voluntarily at [facility] and seeking inpatient admission when a bed becomes available. [facility] Frontline Rental Car Ferry Driver will continue seeking placement. Please contact the Marine Equipment Sales Engineer Trimmer Operator ([phone]) and [facility] Rental Car Ferry Driver ([phone]) for any needed changes in the Safety Plan. Safety plan has been provided to interdepartmental care team.
[2020-05-30 13:07] LABS: Abs Immature Grans 0.05 10^3/uL (0.0-0.06); Absolute Basophil Count 0.04 10^3/uL (0.0-0.2); Absolute Eosinophil Count 0.37 10^3/uL (0.0-0.7); Absolute Lymphocyte Count 3.36 10^3/uL (1.2-3.4); Absolute Monocyte Count 1.15 10^3/uL (0.1-0.8); Absolute Neutrophil Count 4.95 10^3/uL (1.2-6.7); Basophils % 0.4; Eosinophils % 3.7; HCT 39.2 % (36.0-46.0); HGB 12.7 g/dL (11.2-15.7); Immature Grans % 0.5; Lymphocytes % 33.9; MCH 31.2 pg (27.0-33.0); MCHC 32.4 % (32.0-36.0); MCV 96.3 fL (80-95); MPV 9.4 fL (8.0-11.0); Monocytes % 11.6; Neutrophils % 49.9; Nucleated RBC 0 %; Platelet Count 411 10^3/uL (130-400); RBC 4.07 10^6/uL (3.93-5.22); RDW 13.9 % (11.7-14.6); RDW-SD 48.8 fL; WBC 9.92 10^3/uL (4.4-10.8)
[2020-05-30 13:27] LABS: ALT 53 U/L (14-59); AST 40 U/L (15-37); Albumin 3.7 g/dL (3.4-5.0); Alkaline Phosphatase 122 U/L (46-116); Anion Gap 11.3 mmol/L (3-11); BUN 17 mg/dL (7-18); Bilirubin, Total 0.5 mg/dL (0.2-1.0); CO2 26.7 mmol/L (21.0-32.0); CREATININE 1.41 mg/dL (0.55-1.02); Calcium 9.7 mg/dL (8.5-10.1); Chloride 102 mmol/L (98-107); Estimated GFR 36.77 (mL/min/1.73m2); Glucose 141 mg/dL (74-106); Potassium 3.2 mmol/L (3.5-5.1); Sodium 140 mmol/L (136-145); TSH (W/Ref FT4) 5.12 uIU/mL (0.36-3.74); Total Protein 7.3 g/dL (6.4-8.2)
[2020-05-30 13:35] LABS: *AMPHETAMINES SCREEN URINE Negative (Negative); *BARBITURATES SCREEN URINE Negative (Negative); *BENZODIAZEPINES SCREEN URINE Negative (Negative); Cannabinoids THC Negative (Negative); Cocaine Screen,Urine Negative (Negative); METHADONE URINE SCREEN Negative (Negative); OPIATES URINE SCREEN Negative (Negative); Tricyclic Antidepressants Negative (Negative)
[2020-05-30 13:37] LABS: Acetaminophen 7 ug/mL (10-30); ETHANOL BLOOD < 3.0 mg/dL (<3); Salicylate < 2.8 mg/dL (2.8-20.0)
[2020-05-30 13:43] LABS: Bilirubin Negative (Negative); Blood Negative (Negative); Clarity Clear (Clear); Glucose Negative (Negative); Ketones Negative (Negative); Leukocyte Esterase Negative (Negative); Nitrite Negative (Negative); Specific Gravity 1.015 (1.005-1.025); Urobilinogen 0.2 EU/dL (Up TO 0.2)
[2020-05-30 13:53] LABS: FREE T4 1.11 ng/dL (0.76-1.46)
[2020-05-30] MEDS: Potassium Chloride 20 MEQ TABCR 40 MEQ PO (14:15)
[2020-05-30] MEDS: Normal Saline Flush 10 ML SYR IVP (14:40)
--- NOTE | 2020-05-30 15:09 | PDOC.MHCN_ITS ---
Date of service: 05/30/20 Time of Service: 15:09 Mental Health Crisis Note Presenting Issue How did you arrive at the ED and why did you come: Samantha arrived to the Er today via her granddaughter. She came due to increase in SI. Precipitating Factors Samantha reports SI with plan and intent. She reports she is looking at the stairs constantly to accidentally fall down them. She reports she would do this at night after everyone has gone to bed. There are no signs of delusions. Disposition BEHAVIOR: Samantha is very calm and not bothered by her thoughts of SI. She is engaged and polite. She is saying all the right things to cause concern for safety. She has a plan and a means as well, she feels like a burden to her family. EYE CONTACT: Eye contact is good. MOOD: Samantha presents as depressed and decided. AFFECT: Her affect is normal at times and flat at others. She is able to show a range of emotions that are appropriate to the conversation. APPETITE: Samantha reported that she has nto been eating and now today is famished. SLEEP(trouble falling/staying asleep: Samantha reports that she has been sleeping more than usual. Plan Samantha is seeking a psychiatric inpatient stay. We will try to seek this for her. Signature Clinician's Name/Title: Louise Alicia MS, [facility] Emergency Services Clinician
[2020-05-30] MEDS: Acetaminophen 325 MG TAB 650 MG PO (16:15)
[2020-05-30 16:57] VITALS: BP 159/86; PULSE 88; RESP 18; TEMP 36.9; O2SAT 95
[2020-05-30 17:12] VITALS: BP 159/86; PULSE 88; RESP 18; TEMP 36.9; O2SAT 95
[2020-05-30 17:27] LABS: Anion Gap 11.9 mmol/L (3-11); BUN 18 mg/dL (7-18); CO2 25.1 mmol/L (21.0-32.0); Chloride 103 mmol/L (98-107); Estimated GFR 37.07 (mL/min/1.73m2); Glucose 138 mg/dL (74-106); Potassium 3.2 mmol/L (3.5-5.1); Sodium 140 mmol/L (136-145)
[2020-05-30 18:20] LABS: Magnesium 1.4 mg/dL (1.8-2.4)
--- NOTE | 2020-05-30 21:33 | W.PM.HP.N ---
Date of service: 05/30/20 Time of Service: 18:30 Assessment and Plan Assessment and plan (1) Suicidal thoughts: Status: Acute Assessment and plan: suicidal thoughts but no attempts made. Patient is voluntary admission at this time. I will keep her on her current antidepressant and we will await her referrals to [facility] and [facility]. (2) Depression: Status: Chronic Assessment and plan: as above. Qualifiers: Depression Type: major depressive disorder Major depression recurrence: recurrent Active/Remission status: currently active Major depression episode severity: moderate Qualified Code(s): F33.1 - Major depressive disorder, recurrent, moderate (3) Hypokalemia: Status: Acute Assessment and plan: patient was treated w/ oral potassium in the ER. I will repeat her BMP in the a.m. I suspect this is a chronic issue related to her diuretic use for her CHF along w/ GI losses and poor oral intake. (4) Prerenal azotemia: Status: Acute Assessment and plan: probably related to her use of diuretics and poor oral intake. I will monitor her intake over the next 24hr and repeat her BMP in the a.m. since she was given a fluid bolus in the ER. With her HFREF I do not want to continue w/ iv fluids unless she is unable to take adequate PO. She seemed to be eating dinner ok although she did not like having to eat her soup with a paper/cardboard spoon. (5) COPD (chronic obstructive pulmonary disease): Status: Chronic Assessment and plan: continue home inhalers Qualifiers: COPD type: unspecified COPD Qualified Code(s): J44.9 - Chronic obstructive pulmonary disease, unspecified (6) CHF (congestive heart failure): Status: None Assessment and plan: cont. home meds; monitor BMP. avoid iv fluids unless absolutely necessary (7) Discharge planning issues: Status: Acute Assessment and plan: patient is a DNR/DNI; patient will be transferred to an inpatient psychiatric bed when one becomes available. (8) DVT prophylaxis: Status: Acute Assessment and plan: enoxaparin at renal adjusted dosing. History of Present Illness History of Present Illness Chief Complaint: suicidal ideation Narrative: 69 yr old female w/ PMH of COPD, CHF, depression, GERD, DARYL, RA who presents to the ER from her granddaughter's apt. d/t worsening depression and suicidal thoughts. The patient has been recently living w/ her granddaughter d/t her family feels that she is unsafe to live alone in her own apartment. The patient attributes her current worsening depression over family quarrels. She states that her granddaughter feels that she is having to wait on her hand and foot and complains of Samantha being incontinent and defectating on her floor. Samantha admits to urinary and bowel incontinence and has to wear depends but requires assistance with her self care. The patient admits to stating that she might as well throw herself down her granddaughter's apartment stairs. Patient was seen in the ER by Dr. Kemar Lo who medically cleared her and referred her to [facility] mental health team for evaluation. Patient was seen by [facility] and referrals were made to [facility] and to [facility] in [place]. Because no psychiatric beds were immediately available she was admitted to [facility]. Per Dr. Lo, the patient had some complaints of dysuria and he did a genital exam and found some excoriation he relates to use of wipes. An UA was performed and not found to have any evidence for UTI. She is afebrile and does not have a leukocytosis. Chemistry panel demonstrated mildly azotemia w/ BUN 18 and creatinine of 1.40 and mild hypokalemia with potassium of 3.2. She was given potassium 40 meq and given a fluid bolus while in the ER. She is admitted under voluntary admission awaiting transfer to an inpatient psychiatric facility for treatment of her depression w/ suicidal ideation. Review of Systems All systems reviewed & are unremarkable except as noted in HPI and below PFSH Medical History CHF (congestive heart failure) Per echocardiogram 05/17/2016 LV cavity size normal. Wall thickness normal, systolic function mild to moderately reduced. LVEF 40-45%. Moderate hypokinesis of the basal/mid anteroseptal wall. Moderate hypokinesis of the apical/anterior, anterolateral and apical myocardium. Trivial AI, mild MR, RV size wall thickness and function normal. Mild pulmonary hypertension PA peak pressure 39 mm Chronic back pain COPD (chronic obstructive pulmonary disease) Depression Diverticulosis GERD (gastroesophageal reflux disease) h/o septic right knee (Inactive) Hyperlipidemia Hypertension Hyperthyroidism DARYL (obstructive sleep apnea) Rheumatoid arthritis Surgical History Abdominal hysterectomy Biopsy of breast section Cholecystectomy H/O surgical procedure (Resolved) A. Cholecystectomy B. C. Hysterectomy D. TKR and revision E. Tubal ligation F. D and C G. Breast biopsy x 2 Replacement of total knee joint revision with infection Family History Sister Diabetes Sister Hypertension Mother Stomach cancer Social History Smoking/Tobacco Use Status: Former Tobacco Use Alcohol Intake: never Drug use: Never Substance use type: does not use Do you feel safe at home: Yes Do you feel safe in your relationship?: Yes Additional Social history: Lives at home by herself. History History 2 Para 2 Hx # Term Pregnancies Multiple births Hx # Pregnancies Ectopic pregnancies AB induced Hx Number of Living Children AB spontaneous Meds Home Medications and Allergies Home Medications Medication Instructions Recorded Confirmed Type albuterol sulfate [Proventil HFA] 2 puff INHALATION Q4H PRN 02/02/14 05/30/20 History folic acid 3 mg PO DAILY 02/02/14 05/30/20 History levothyroxine [Synthroid] 125 mcg PO DAILY 02/02/14 05/30/20 History montelukast 10 mg PO DAILY 02/02/14 05/30/20 History venlafaxine [Effexor XR] 150 mg PO BID 02/02/14 05/30/20 History gabapentin 600 mg PO TID 01/23/17 05/30/20 History mirtazapine 1 tab PO HS 03/07/17 05/30/20 History acetaminophen [Tylenol Extra 1,000 mg PO BID 08/09/18 05/30/20 History Strength] methotrexate sodium 15 mg PO QWEEK 08/10/18 05/30/20 History albuterol sulfate 2.5 mg INHALATION Q2H PRN PRN #0 08/15/18 05/30/20 Rx vial metformin 1,000 mg PO BID@0800,1700 #30 tab 08/15/18 05/30/20 Rx metoprolol succinate 100 mg PO DAILY 07/14/19 05/30/20 History atorvastatin 10 mg PO DAILY 04/24/20 05/30/20 History esomeprazole magnesium [Nexium] 40 mg PO DAILY 04/24/20 05/30/20 History famotidine 40 mg PO DAILY 04/24/20 05/30/20 History furosemide 40 mg PO DAILY 04/24/20 05/30/20 History leucovorin calcium 10 mg PO DIRECTED 04/24/20 05/30/20 History melatonin 10 mg PO QHS PRN 05/03/20 05/30/20 History ascorbic acid (vitamin C) [Vitamin 500 mg PO DAILY 05/30/20 05/30/20 History C] calcium carbonate-vitamin D3 1 tab PO DAILY 05/30/20 05/30/20 History [Calcium 600 + D(3)] losartan 50 mg PO DAILY 05/30/20 05/30/20 History meclizine 25 mg PO TID PRN 05/30/20 05/30/20 History multivit with min-folic acid 400 mcg PO DAILY 05/30/20 05/30/20 History Allergies Allergy/AdvReac Type Severity Reaction Status Date / Time NSAIDS (Non-Steroidal Allergy Severe Anaphylaxsi Unverified 05/30/20 13:03 Anti-Inflamma s cefpodoxime Allergy Intermediate Hives Unverified 05/30/20 13:03 chlorhexidine Allergy Intermediate Skin Rash Unverified 05/30/20 13:03 latex Allergy Intermediate Skin Rash Unverified 05/30/20 13:03 Penicillins Allergy Intermediate Hives Unverified 05/30/20 13:03 povidone-iodine Allergy Intermediate Unverified 05/30/20 13:03 duloxetine HCl Allergy Unknown Unverified 05/30/20 13:03 [From Cymbalta] indomethacin Allergy Unknown Unverified 05/30/20 13:03 propoxyphene Allergy Unknown Unverified 05/30/20 13:03 propranolol Allergy Unknown Unverified 05/30/20 13:03 adhesive AdvReac Intermediate dermatitis Unverified 05/30/20 13:03 aspirin AdvReac Intermediate Nausea Unverified 05/30/20 13:03 butorphanol AdvReac Intermediate nose bleeds Unverified 05/30/20 13:03 fexofenadine AdvReac Intermediate nose bleeds Unverified 05/30/20 13:03 hydrocodone AdvReac Intermediate confusion Unverified 05/30/20 13:03 hydroxychloroquine AdvReac Intermediate Visual Unverified 05/30/20 13:03 [Hydroxychloroquine] Disturbances hydroxyzine AdvReac Intermediate Nausea Unverified 05/30/20 13:03 methotrexate AdvReac Intermediate Nausea Unverified 05/30/20 13:03 morphine AdvReac Intermediate confusion Unverified 05/30/20 13:03 oxycodone [Oxycodone] AdvReac Intermediate confusion Unverified 05/30/20 13:03 pentazocine AdvReac Intermediate confusion Unverified 05/30/20 13:03 Sulfa (Sulfonamide AdvReac Intermediate Headache Unverified 05/30/20 13:03 Antibiotics) sumatriptan AdvReac Intermediate palpitation Unverified 05/30/20 13:03 s zolpidem [Zolpidem] AdvReac Intermediate confusion Unverified 05/30/20 13:03 Exam Narrative Exam Narrative: Elderly female sitting up in her bed eating her dinner. She is alert and oriented and seems appropriate. She made good eye contact and answered my questions. She seems bitter over the way she has been treated by her granddaughter and is concerned over her daughter's (the patient's daughter) health who apparently lives in [place] and had recent surgery. HEETNT is unremarkable Neck supple, no JVD, no thryomegaly, no LN, normal carotid pulses Lungs are clear Heart RRR Abd: soft and nontender Extremities: warm and dry w/out edema, calf tenderness Neuro: grossly intact w/out focal deficits Psych: alert, oriented, appropriate, directly answers my questions but seems bitter, not tearful or hussein Results Labs Result diagrams: 05/30/20 13:00 05/30/20 17:10 Labs: Laboratory Results - last 24 hr 05/30/20 05/30/20 05/30/20 12:55 12:55 13:00 WBC RBC Hgb Hct MCV MCH MCHC RDW Plt Count MPV Immature Gran % Neutrophils % Lymphocytes % Monocytes % Eosinophils % Basophils % Nucleated RBC % Absolute Neutrophils Absolute Lymphocytes Absolute Monocytes Absolute Eosinophils Absolute Basophils Sodium 140 Potassium 3.2 L Chloride 102 Carbon Dioxide 26.7 Anion Gap 11.3 H BUN 17 Creatinine 1.41 H Estimated GFR/1.73 m2 36.77 Glucose 141 H Calcium 9.7 Magnesium Total Bilirubin 0.5 AST 40 H ALT 53 Alkaline Phosphatase 122 H Total Protein 7.3 Albumin 3.7 TSH 5.12 H Free T4 1.11 Urine Color Yellow Urine Clarity Clear Urine pH 5.0 Ur Specific Clute 1.015 Urine Protein Negative Urine Ketones Negative Urine Blood Negative Urine Nitrite Negative Urine Bilirubin Negative Urine Urobilinogen 0.2 Ur Leukocyte Esterase Negative Urine Glucose Negative Salicylates Urine Opiates Screen Negative Urine Methadone Screen Negative Acetaminophen Ur Barbiturates Screen Negative Ur Tricyclics Screen Negative Ur Amphetamines Screen Negative U Benzodiazepines Scrn Negative Urine Cocaine Screen Negative Ur THC Screen Negative Ethyl Alcohol < 3.0 05/30/20 05/30/20 05/30/20 13:00 13:00 17:10 WBC 9.92 RBC 4.07 Hgb 12.7 Hct 39.2 MCV 96.3 H MCH 31.2 MCHC 32.4 RDW 13.9 Plt Count 411 H MPV 9.4 Immature Gran % 0.5 Neutrophils % 49.9 Lymphocytes % 33.9 Monocytes % 11.6 Eosinophils % 3.7 Basophils % 0.4 Nucleated RBC % 0 Absolute Neutrophils 4.95 Absolute Lymphocytes 3.36 Absolute Monocytes 1.15 H Absolute Eosinophils 0.37 Absolute Basophils 0.04 Sodium 140 Potassium 3.2 L Chloride 103 Carbon Dioxide 25.1 Anion Gap 11.9 H BUN 18 Creatinine 1.40 H Estimated GFR/1.73 m2 37.07 Glucose 138 H Calcium 9.0 Magnesium Total Bilirubin AST ALT Alkaline Phosphatase Total Protein Albumin TSH Free T4 Urine Color Urine Clarity Urine pH Ur Specific Clute Urine Protein Urine Ketones Urine Blood Urine Nitrite Urine Bilirubin Urine Urobilinogen Ur Leukocyte Esterase Urine Glucose Salicylates < 2.8 Urine Opiates Screen Urine Methadone Screen Acetaminophen 7 Ur Barbiturates Screen Ur Tricyclics Screen Ur Amphetamines Screen U Benzodiazepines Scrn Urine Cocaine Screen Ur THC Screen Ethyl Alcohol 05/30/20 17:10 WBC RBC Hgb Hct MCV MCH MCHC RDW Plt Count MPV Immature Gran % Neutrophils % Lymphocytes % Monocytes % Eosinophils % Basophils % Nucleated RBC % Absolute Neutrophils Absolute Lymphocytes Absolute Monocytes Absolute Eosinophils Absolute Basophils Sodium Potassium Chloride Carbon Dioxide Anion Gap BUN Creatinine Estimated GFR/1.73 m2 Glucose Calcium Magnesium 1.4 L Total Bilirubin AST ALT Alkaline Phosphatase Total Protein Albumin TSH Free T4 Urine Color Urine Clarity Urine pH Ur Specific Clute Urine Protein Urine Ketones Urine Blood Urine Nitrite Urine Bilirubin Urine Urobilinogen Ur Leukocyte Esterase Urine Glucose Salicylates Urine Opiates Screen Urine Methadone Screen Acetaminophen Ur Barbiturates Screen Ur Tricyclics Screen Ur Amphetamines Screen U Benzodiazepines Scrn Urine Cocaine Screen Ur THC Screen Ethyl Alcohol Last Vital Signs Temp 36.9 C 05/30/20 17:12 Pulse 88 05/30/20 17:12 Resp 18 05/30/20 17:12 BP 159/86 H 05/30/20 17:12 Pulse Ox 95 05/30/20 17:12 COVID-19 Screening Have you,or household,traveled outside OR in last 14 days?: No Had IN PERSON contact w/suspected or confirmed C-19 person: No
[2020-05-30 22:36] VITALS: BP 159/97; PULSE 96; RESP 16; TEMP 35.8; O2SAT 93
[2020-05-30] MEDS: Magnesium Oxide 400 MG TAB 800 MG PO (22:51)
[2020-05-30] MEDS: Enoxaparin 40 MG/0.4 ML SYR SC (22:51)
[2020-05-31] MEDS: Magnesium Oxide 400 MG TAB PO ×2 (07:46→20:27)
[2020-05-31 07:56] LABS: Anion Gap 8.7 mmol/L (3-11); BUN 20 mg/dL (7-18); CO2 26.3 mmol/L (21.0-32.0); Chloride 107 mmol/L (98-107); Estimated GFR 48.96 (mL/min/1.73m2); Glucose 115 mg/dL (74-106); Magnesium 1.4 mg/dL (1.8-2.4); Potassium 3.1 mmol/L (3.5-5.1); Sodium 142 mmol/L (136-145)
[2020-05-31 08:31] LABS: COVID-19 RT-PCR UVMMC Result Negative (Negative)
[2020-05-31] MEDS: Normal Saline Flush 10 ML SYR IVP (09:23)
[2020-05-31] MEDS: Potassium Chloride 20 MEQ TABCR 40 MEQ PO (09:23)
[2020-05-31] MEDS: MAGNESIUM SULFATE 4 GM/100 ML BAG IVPB (09:23)
--- NOTE | 2020-05-31 11:13 | CMSP_ITS ---
- If Service Date Differs Date of service: 05/31/20 Time of Service: 16:07 Care Management Safety Plan Louise; HP of [facility] and Elijah, [facility] material requirements worker assessed Samantha and reported she continues to meet criteria for stabilization. Samantha continues to be pleasant in interaction, she is agreeable to going to the [facility] tomorrow and has been accepted for admission. The facility would prefer Samantha arrive by 1000. CM spoke to Bill at [employer] and requested a 0930 transport time. JAMI spoke with TAWANA Arreola CM, who reported jail medicaid application has been submitted and [facility] was seeking additional clinical information. CM faxed updated clinicals for review to Rosario Chopra, to support timely determination. ' CM attempted to coordinate retrieval of Jacqueline's dentures from her home, but she reported her daughter would be going to home and bringing them to her. VOLUNTARY FOR INPATIENT PSYCHIATRIC STABILIZATION. Patient is appropriate in all interactions since arriving at [facility]; Pt has demonstrated appropriate coping and communication skills, has articulated her needs and concerns and is fully engaged during staff interactions. Safety plan has been established with patient, and care team, to adhere to patient goals, identify restrictions based on behavioral status, address nutrition, and determine allowed personal belongings, tools for hygiene and personal care. Determine level of activity including ambulation, level of supervision, visitors, and determine privileges based on behaviors and level of engagement by pt. SAFETY PLAN: 1. Will remain on suicide precautions. Is allowed to wear her own nightgown. 2. Will remain in room under direct supervision of one-on-one staff at all times provided by [employer], ASSOCIATE PROFESSOR OF MEDICINE, [employer] back up machine operator. 3. May have paper cups, plates, finger foods as well as a cardboard spoon with which to eat meals. 4. Follow [facility] Management of the Admitted Behavioral Health Patient policy. 5. Shower permitted per RN discretion. 6. No personal belongings 7. Visitors: No visitors at this time. 8. Activities: Soft tip markers, colored pencils, paper, television if available, and other activities at nursing discretion. 8. Telephone: incoming and outgoing phone calls permitted. 9. Due to VOLUNTARY status, if patient wishes to leave [facility], the [facility] material requirements worker must be contacted to re-evaluate patient prior to patient exiting the building. Patient is currently voluntarily at [facility] and seeking inpatient admission when a bed becomes available. [facility] Frontline Computer Help Desk Specialist will continue seeking placement. Please contact the [employer] Liaison ([phone]) and [facility] Computer Help Desk Specialist ([phone]) for any needed changes in the Safety Plan. Safety plan has been provided to interdepartmental care team.
--- NOTE | 2020-05-31 12:03 | W.INMHPGNOTE ---
Date of service: 05/31/20 Time of Service: 12:04 Mental Health Crisis Note Presenting Issue How did you arrive at the ED and why did you come: Samantha arrived yesterday at the request of this clinician after I received a call from her Home Health center medical specialist elisa concerns for SI. Precipitating Factors Samantha reports today that she is not SI but then rated her SI on a scale of 0-10 at a 6. She denied any new plans. She does not show any signs of delusions however, ther thought process seems confused and disorganized. Disposition BEHAVIOR: Samantha is a pleasant woman who enjoys talking. She has been appropriate while at the hospital. She enjoys coloring so this was mentioned to care management and they will give her some things to color with. EYE CONTACT: Eye contact is good. MOOD: Her mood appears happier today other than feeling like she is not able to speak to her sister. Nursing reported she had the phone earlier and spoke to someone in her family. AFFECT: Samantha's affect is more expressive today and she is able to smile and show frustration appropriately to her thougth's. APPETITE: Samantha is eating well. SLEEP(trouble falling/staying asleep: Samantha reported she did not sleep well as it was cold in her room. She is requesting a new room. Plan Samantha agrees to stay until placement can be found voluntarily. She would like to go to an assisted living home when she discharges from whatever facility she goes to. Signature Clinician's Name/Title: Louise Alicia MS, [facility] Emergency Services Clinician
--- NOTE | 2020-05-31 15:08 | CHAPLAIN ---
Samantha Phillips and I know each other from previous admissions for medical issues. Jacqueline said she came in last night. She didn't think she was at [facility], but when I told her she was, that seemed to make sense to her. Her dog and cat, (she is usually very concerned about them) are with her daughter in [place]. Jacqueline was talk fast, and without her dentures in, was difficult to understand at times. She would like someone to go to her apartment and get her meds and her dentures. She suggested Fadi, from [facility] could do this, and I told her I would let her Operating Room Surgical Technologist know about this. Jacqueline talked about about her , or manuel, and said she wasn't nice to him before he and that this might have been because he had had not been nice to her. She brought this up in the middle of talking about what she needs from her apartment. She wanted to walk out in the [place], so we did that.
--- NOTE | 2020-05-31 15:13 | PGE_ITS ---
Date of Service Date of service: 05/31/20 Time of Service: 15:13 Assessment and Plan Assessment and plan (1) Hypokalemia: Status: Acute Assessment and plan: Continue oral supplementation with repeat levels pending tonight (2) Hypomagnesemia: Status: Acute Assessment and plan: Continue oral supplementation with repeat levels pending tonight. (3) Suicidal thoughts: Status: Acute Assessment and plan: Transfer to geriatric psychiatric center once her hypokalemia and hypomagnesemia have been corrected Subjective Subjective Interval history since last seen: Patient denies any nausea or vomiting. Appetite is good. She seems to be perturbed with have to wear paper clothing. She apparently got upset with the nursing staff last night because of incorrect size of paper top and pants. Case management has looked into placing her in a geriatric psychiatric center in [place] called [facility]. Presently I am still replacing her potassium and magnesium levels. Potassium is down to 3.1 this morning despite IV and oral replacement last night. This is been a recurrent problem for her. Likewise her magnesium is low at 1.4. Her IV became infiltrated were trying to replace her orally however if her repeat levels are low she may need IV supplementation. BUN and creatinine are normal. She is not having any diarrhea. Exam Narrative Exam Narrative: Obese female sitting on her bedside watching TV. She is very talkative and seems to have trouble on staying on subject. Other than that she is calm and cooperative. She admits to suicidal ideation and has indicated that she had threatened to throw herself down her granddaughter stairs. She remains voluntary admission pending geriatric psych bed placement. Objective Objective Clinical Data: Abnormal lab results 05/30/20 05/30/20 05/31/20 Range/Units 17:10 17:10 07:05 Potassium 3.2 L 3.1 L (3.5-5.1) mmol/L Anion Gap 11.9 H (3-11) mmol/L BUN 20 H (7-18) mg/dL Creatinine 1.40 H 1.10 H (0.55-1.02) mg/dL Glucose 138 H 115 H (74-106) mg/dL Magnesium 1.4 L 1.4 L (1.8-2.4) mg/dL Vital Signs Temperature 35.8 C L 05/30/20 22:36 Temperature Source Temporal Artery Scan 05/30/20 16:57 Pulse 96 H 05/30/20 22:36 Pulse Rhythm Regular 05/31/20 04:45 Respiratory Rate 16 05/30/20 22:36 Respiratory Effort Non-Labored 05/31/20 04:45 Respiratory Depth Normal 05/31/20 04:45 Respiratory Pattern Normal 05/31/20 04:45 Blood Pressure 159/97 H 05/30/20 22:36 Blood Pressure Position Sitting 05/30/20 12:20 Pulse Oximetry 93 L 05/30/20 22:36 Oxygen Delivery Method Room Air 05/30/20 22:36 Oxygen Flow Rate 0 05/30/20 22:36 Pain Level 7 05/30/20 17:12 Intake & Output 05/30/20 05/31/20 05/31/20 23:59 11:59 23:59 Intake Total 310 / 310 1320 / 2040 720 / 2040 Balance 310 / 310 1320 / 2040 / 0 Weight 72.121 kg Intake: IV Oral 300 / 300 131 / 2029 Other: Urine Color Yellow Yellow Urine Appearance Clear Clear Urine Odor Normal Normal Stool Size Moderate Stool Characteristics Liquid Voiding Methods Bedside Commode Bedside Commode # Voids 2 # Bowel Movements 1 Laboratory Results WBC 9.92 10^3/uL (4.4-10.8) 05/30/20 13:00 RBC 4.07 10^6/uL (3.93-5.22) 05/30/20 13:00 Hgb 12.7 g/dL (11.2-15.7) 05/30/20 13:00 Hct 39.2 % (36.0-46.0) 05/30/20 13:00 MCV 96.3 fL (80-95) H 05/30/20 13:00 MCH 31.2 pg (27.0-33.0) 05/30/20 13:00 MCHC 32.4 % (32.0-36.0) 05/30/20 13:00 RDW 13.9 % (11.7-14.6) 05/30/20 13:00 Plt Count 411 10^3/uL (130-400) H 05/30/20 13:00 MPV 9.4 fL (8.0-11.0) 05/30/20 13:00 Immature Gran % 0.5 05/30/20 13:00 Neutrophils % 49.9 05/30/20 13:00 Lymphocytes % 33.9 05/30/20 13:00 Monocytes % 11.6 05/30/20 13:00 Eosinophils % 3.7 05/30/20 13:00 Basophils % 0.4 05/30/20 13:00 Nucleated RBC % 0 % 05/30/20 13:00 Absolute Neutrophils 4.95 10^3/uL (1.2-6.7) 05/30/20 13:00 Absolute Lymphocytes 3.36 10^3/uL (1.2-3.4) 05/30/20 13:00 Absolute Monocytes 1.15 10^3/uL (0.1-0.8) H 05/30/20 13:00 Absolute Eosinophils 0.37 10^3/uL (0.0-0.7) 05/30/20 13:00 Absolute Basophils 0.04 10^3/uL (0.0-0.2) 05/30/20 13:00 Sodium 142 mmol/L (136-145) 05/31/20 07:05 Potassium 3.1 mmol/L (3.5-5.1) L 05/31/20 07:05 Chloride 107 mmol/L (98-107) 05/31/20 07:05 Carbon Dioxide 26.3 mmol/L (21.0-32.0) 05/31/20 07:05 Anion Gap 8.7 mmol/L (3-11) 05/31/20 07:05 BUN 20 mg/dL (7-18) H 05/31/20 07:05 Creatinine 1.10 mg/dL (0.55-1.02) H 05/31/20 07:05 Estimated GFR/1.73 m2 48.96 (mL/min/1.73m2) 05/31/20 07:05 Glucose 115 mg/dL (74-106) H 05/31/20 07:05 Calcium 9.0 mg/dL (8.5-10.1) 05/31/20 07:05 Magnesium 1.4 mg/dL (1.8-2.4) L 05/31/20 07:05 Total Bilirubin 0.5 mg/dL (0.2-1.0) 05/30/20 13:00 AST 40 U/L (15-37) H 05/30/20 13:00 ALT 53 U/L (14-59) 05/30/20 13:00 Alkaline Phosphatase 122 U/L (46-116) H 05/30/20 13:00 Total Protein 7.3 g/dL (6.4-8.2) 05/30/20 13:00 Albumin 3.7 g/dL (3.4-5.0) 05/30/20 13:00 TSH 5.12 uIU/mL (0.36-3.74) H 05/30/20 13:00 Free T4 1.11 ng/dL (0.76-1.46) 05/30/20 13:00 Urine Color Yellow (Yellow) 05/30/20 12:55 Urine Clarity Clear (Clear) 05/30/20 12:55 Urine pH 5.0 (5-8) 05/30/20 12:55 Ur Specific [place] 1.015 (1.005-1.025) 05/30/20 12:55 Urine Protein Negative mg/dL (Negative) 05/30/20 12:55 Urine Ketones Negative mg/dL (Negative) 05/30/20 12:55 Urine Blood Negative (Negative) 05/30/20 12:55 Urine Nitrite Negative (Negative) 05/30/20 12:55 Urine Bilirubin Negative (Negative) 05/30/20 12:55 Urine Urobilinogen 0.2 EU/dL (Up TO 0.2) 05/30/20 12:55 Ur Leukocyte Esterase Negative (Negative) 05/30/20 12:55 Urine Glucose Negative mg/dL (Negative) 05/30/20 12:55 Salicylates < 2.8 mg/dL (2.8-20.0) 05/30/20 13:00 Urine Opiates Screen Negative (Negative) 05/30/20 12:55 Urine Methadone Screen Negative (Negative) 05/30/20 12:55 Acetaminophen 7 ug/mL (10-30) 05/30/20 13:00 Ur Barbiturates Screen Negative (Negative) 05/30/20 12:55 Ur Tricyclics Screen Negative (Negative) 05/30/20 12:55 Ur Amphetamines Screen Negative (Negative) 05/30/20 12:55 U Benzodiazepines Scrn Negative (Negative) 08/24/20 12:55 Urine Cocaine Screen Negative (Negative) 05/30/20 12:55 Ur THC Screen Negative (Negative) 05/30/20 12:55 Ethyl Alcohol < 3.0 mg/dL (<3) 05/30/20 13:00 COVID-19 PCR Negative (Negative) 05/30/20 14:50 Nasopharyn COVID-19 PCR Not Applicable 05/30/20 14:50 Ref Test Perform Site [facility] lab 05/30/20 14:50
[2020-05-31] MEDS: Potassium Chloride 20 MEQ TABCR PO ×2 (15:19→20:27)
[2020-05-31 15:50] VITALS: BP 166/93; PULSE 107; RESP 19; TEMP 36.4; O2SAT 95
[2020-05-31] MEDS: Losartan 50 MG TAB PO (18:08)
[2020-05-31] MEDS: metFORMIN 500 MG TAB 1000 MG PO (18:08)
[2020-05-31] MEDS: Metoprolol CR 25 MG TABCR PO (18:08)
[2020-05-31 19:40] LABS: Magnesium 2.7 mg/dL (1.8-2.4)
[2020-05-31 19:48] LABS: Potassium 3.6 mmol/L (3.5-5.1)
[2020-05-31] MEDS: Venlafaxine 150 MG CAPCR PO (20:27)
[2020-05-31] MEDS: Gabapentin 300 MG CAP 600 MG PO (20:27)
[2020-05-31] MEDS: Atorvastatin 10 MG TAB PO (20:27)
[2020-05-31] MEDS: Enoxaparin 40 MG/0.4 ML SYR SC (21:47)
[2020-05-31] MEDS: Mirtazapine 15 MG TAB 45 MG PO (21:47)
[2020-06-01] MEDS: Levothyroxine 125 MCG TAB PO (05:41)
[2020-06-01 07:59] VITALS: BP 161/86; PULSE 95; RESP 18; TEMP 36.1; O2SAT 95
[2020-06-01] MEDS: metFORMIN 500 MG TAB 1000 MG PO (08:09)
[2020-06-01] MEDS: Calcium 600mg/Vit D 200U TAB 1 TAB PO (08:09)
[2020-06-01] MEDS: Gabapentin 300 MG CAP 600 MG PO (08:10)
[2020-06-01] MEDS: Furosemide 40 MG TAB PO (08:10)
[2020-06-01] MEDS: Magnesium Oxide 400 MG TAB PO (08:10)
[2020-06-01] MEDS: Potassium Chloride 20 MEQ TABCR PO (08:10)
[2020-06-01] MEDS: Venlafaxine 150 MG CAPCR PO (08:10)
[2020-06-01] MEDS: Montelukast 10 MG TAB PO (08:10)
[2020-06-01] MEDS: Metoprolol CR 25 MG TABCR 100 MG PO (08:11)
[2020-06-01] MEDS: Esomeprazole 40 MG CAPCR PO (08:11)
[2020-06-01] MEDS: Losartan 50 MG TAB PO (08:11)
[2020-06-01] MEDS: Acetaminophen 325 MG TAB PO (08:11)
[2020-06-01] MEDS: Multivitamin w/Minerals TAB 1 TAB PO (08:11)
[2020-06-01] MEDS: Ascorbic Acid 500 MG TAB PO (08:12)
[2020-06-01] MEDS: Folic Acid 1 MG TAB 3 MG PO (08:12)
[2020-06-01 08:16] VITALS: BP 134/89; PULSE 81; RESP 16; TEMP 36.7; O2SAT 94
[2020-06-01 08:30] LABS: Anion Gap 1.5 mmol/L (3-11); BUN 21 mg/dL (7-18); CO2 29.5 mmol/L (21.0-32.0); CREATININE 0.99 mg/dL (0.55-1.02); Chloride 110 mmol/L (98-107); Estimated GFR 55.29 (mL/min/1.73m2); Glucose 105 mg/dL (74-106); Potassium 3.8 mmol/L (3.5-5.1); Sodium 141 mmol/L (136-145)
--- NOTE | 2020-06-01 10:18 | W.PM.DS.N ---
DS: Diagnosis Discharge Diagnosis (1) Hypokalemia: Status: Resolved Asessment and Plan: Patient's hypokalemia is felt to be secondary to her chronic use of furosemide without potassium supplementation. Patient required both IV and oral potassium supplementation to normalize her potassium levels. Her furosemide was held the first night of her admission and then resume the next day. I have reduced her furosemide down to 20 mg daily. Her weight will need to be monitored and watch for any signs of worsening of her nonischemic cardiomyopathy. Repeat BMP and magnesium level within 1 week is recommended. Patient was given a prescription for potassium supplementation at 20 mEq twice a day as well as magnesium oxide 4 mg twice a day. (2) Hypomagnesemia: Status: Resolved Asessment and Plan: As above (3) Suicidal thoughts: Status: Resolved Asessment and Plan: Patient has expressed some suicidal thoughts but has not had any actions that she is taking on this. Throughout her hospital stay she did not express to me any further thoughts of suicide and she was cooperative throughout her hospital stay. Patient seems to be hopeful and would like treatment for her depression. (4) Depression: Status: Chronic Asessment and Plan: Patient will be transferred to the [facility] for continued treatment of her depression. Discharge Plan Disposition Patient Disposition: SKILLED NSG. FAC.(LEVEL 1) Condition: Good Discharge Details Chief Complaint: PsychEval Clinical Impression: Suicidal thoughts Reason For Visit: MAJOR DEPRESSION,SUICIDAL IDEATION,FAILURE TO THRI Admit Date/Time: 05/30/20 16:39 Admit Provider: Reji Redmond Attending Provider: Reji Redmond Primary Care Provider: Keren Gonzalez ED Provider: Jose Luis Nguyen Hospital Course Hospital Course: 69-year-old female with past medical history of COPD, CHF (nonischemic cardiomyopathy), depression, GERD, DARYL, rheumatoid arthritis was brought to emergency department from her daughter's apartment due to worsening depression and suicidal thoughts. See admission H&P for details. Patient was evaluated the emergency department and cleared medically by Dr. Kemar Lo who referred her to the [facility] human services mental health team for evaluation. DEEJAY made referrals to the [facility] and [facility] in [place] for inpatient psychiatric treatment. Since no psychiatric beds were immediately available she was admitted under observation to [facility] During her medical evaluation ER she was found to be mildly azotemic with a BUN of 18 and creatinine 1.40 along with mild hypokalemia with a potassium of 3.2. She was given IV fluids and oral potassium in the ER. She was admitted to our transitional bed unit. Subsequent labs the next morning revealed that she was still hypokalemic and hypomagnesemic with a potassium level of 3.1 and a magnesium level 1.4. Patient was given an additional IV and oral magnesium as well as additional potassium supplementation. By the evening of May 31, 2020 her potassium was up to 3.6 and her magnesium levels 2.7. On the day of discharge her potassium was 3.8 and her magnesium was 2.0. Her BUN was down to 21 and her creatinine was 0.99. Patient was cooperative throughout her stay made no attempts to harm herself. Her appetite was good. Bowel movements were normal. She did comment on the day of discharge that she has problems with urinary incontinence which is made worse by her use of her Lasix. I did decrease her Lasix dose from 40 mg daily down to 20 mg daily. She will remain on potassium supplements which she was not receiving as an outpatient. Repeat BMP and magnesium level should be obtained within 1 week of discharge. It is recommended that she be referred to urology regarding her urinary incontinence. Urinalysis was checked on admission and was clear and negative for protein blood ketones nitrites and leukocyte Estrace and bacteria. Her CBC was normal on admission. It is also recommended that she have follow-up with cardiology at [facility] regarding her nonischemic cardiomyopathy. Home Meds and New Rx's Prescriptions: New magnesium oxide 400 mg (241.3 mg magnesium) Tablet 400 mg PO BID Qty: 60 RF: 0 Effer-K 20 mEq tablet, effervescent 20 meq PO BID Qty: 60 RF: 0 Continued venlafaxine [Effexor XR] 150 MG capsule,extended release 24hr 150 mg PO BID RF: 0 levothyroxine [Synthroid] 125 MCG tablet 125 mcg PO DAILY RF: 0 folic acid 1 MG tablet 3 mg PO DAILY RF: 0 montelukast 10 MG tablet 10 mg PO DAILY RF: 0 albuterol sulfate [Proventil HFA] 6.7 GM HFA aerosol inhaler 2 puff Inhalation Q4H PRN RF: 0 acetaminophen [Tylenol Extra Strength] 500 mg Tablet 1,000 mg PO BID RF: 0 methotrexate sodium 2.5 mg Tablet 15 mg PO QWEEK RF: 0 metformin 500 mg Tablet 1,000 mg PO BID@0800,1700 Qty: 30 RF: 0 albuterol sulfate 2.5 MG/3 ML solution for nebulization 2.5 mg Inhalation Q2H PRN PRN (Reason: shortness of breath or wheezing) Qty: 0 RF: 0 metoprolol succinate 25 MG tablet extended release 24 hr 100 mg PO DAILY RF: 0 gabapentin 300 MG capsule 600 mg PO TID RF: 0 mirtazapine 45 MG tablet 1 tab PO HS RF: 0 esomeprazole magnesium [Nexium] 40 MG capsule,delayed release(DR/EC) 40 mg PO DAILY RF: 0 famotidine 40 mg Tablet 40 mg PO DAILY RF: 0 atorvastatin 10 mg Tablet 10 mg PO DAILY RF: 0 leucovorin calcium 10 mg Tablet 10 mg PO DIRECTED RF: 0 melatonin 10 mg capsule 10 mg PO QHS PRNRF: 0 losartan 50 mg tablet 50 mg PO DAILY RF: 0 ascorbic acid (vitamin C) [Vitamin C] 500 mg Tablet 500 mg PO DAILY RF: 0 meclizine 25 mg Tablet 25 mg PO TID PRNRF: 0 calcium carbonate-vitamin D3 [Calcium 600 + D(3)] 600 mg(1,500mg) -400 unit Tablet 1 tab PO DAILY RF: 0 multivit with min-folic acid 400 mcg Tablet Extended Release 400 mcg PO DAILY RF: 0 Changed furosemide 40 mg Tablet 20 mg PO DAILY Qty: 0 RF: 0 Discharge Instructions Instructions: Dilated Cardiomyopathy (DC), Hypokalemia (DC), Depression (DC), Suicide Prevention (DC) Additional Instructions: Is recommended the patient have a follow-up with her mold repairer through [facility] regarding her nonischemic cardiomyopathy. Repeat BMP and magnesium are recommended within 1 week. Further adjustments may need to be made to her diuretics as well as her electrolyte supplements. Referral to urology regarding her chronic urinary incontinence is recommended. Stand Alone Forms: Nursing Discharge Form Activity:: Activity as Tolerated Equipment/Supplies:: No Equipment Needed Diet:: Low Sodium Discharge Orders Discharge Orders: Discharge Order (Routine); Ordered 06/01/20 Ordered By: Reji Redmond Other Ambulatory Orders: Basic Metabolic Panel (Routine) Timeframe: 20200606 Location: None Selected Ordered By: Reji Redmond Magnesium (Routine) Timeframe: 20200606 Location: None Selected Ordered By: Reji Redmond DS: Summary Status at Discharge Functional status at discharge: independent ambulation Overall status at discharge: patient is back to baseline Mental Status: mental status grossly normal Speech and Movement: speech and movement normal Mood: congruent mood Affect: normal affect Time Spent with Patient providing and/or coordinating discharge services: Greater than 30 minutes Specific discharge activities: Coordination of medication changes, arrangement of follow-up outpatient labs, dictation of discharge instructions as well as follow-up recommendations Exam Narrative Exam Narrative: Obese female sitting on her bedside eating breakfast. She is very talkative and seems to have trouble on staying on subject. Other than that she is calm and cooperative. She is looking forward to going to the [facility] [place] today Psych Mental Status: mental status grossly normal Speech and Movement: speech and movement normal Mood: congruent mood Affect: normal affect DS: Data Vitals/I&O Vitals and I&O: Vital Signs Temperature 36.7 C 06/01/20 08:16 Temperature Source Temporal Artery Scan 06/01/20 08:16 Pulse 81 06/01/20 08:16 Pulse Rhythm Regular 06/01/20 08:55 Respiratory Rate 16 06/01/20 08:16 Respiratory Effort Non-Labored 06/01/20 08:55 Respiratory Depth Normal 06/01/20 08:55 Respiratory Pattern Normal 06/01/20 08:55 Blood Pressure 134/89 06/01/20 08:16 Blood Pressure Position Sitting 05/30/20 12:20 Pulse Oximetry 94 L 06/01/20 08:16 Oxygen Delivery Method Room Air 06/01/20 08:16 Oxygen Flow Rate 0 06/01/20 08:16 Pain Level 6 06/01/20 08:16 Comment 06/01/20 08:16 Intake & Output 05/31/20 05/31/20 06/01/20 11:59 23:59 11:59 Intake Total 1320 / 0 720 / 2040 240 / 240 Balance 1320 720 / 0 240 / 240 Weight 94.5 kg Intake: IV Oral [id number] 240 / 240 Other: Urine Color Yellow Yellow Yellow Urine Appearance Clear Clear Clear Urine Odor Normal Stool Size Moderate Stool Characteristics Soft Liquid Voiding Methods Bedside Commode Toilet Toilet Data Completed and Pending Labs on day of discharge: Labs from last 24 hours 06/01/20 05/31/20 07:33 16:22 Sodium 141 Potassium 3.8 3.6 Chloride 110 H Carbon Dioxide 29.5 Anion Gap 1.5 L BUN 21 H Creatinine 0.99 Estimated GFR/1.73 m2 55.29 Glucose 105 Calcium 9.0 Magnesium 2.0 2.7 H PFSH Medical History CHF (congestive heart failure) Per echocardiogram 05/17/2016 LV cavity size normal. Wall thickness normal, systolic function mild to moderately reduced. LVEF 40-45%. Moderate hypokinesis of the basal/mid anteroseptal wall. Moderate hypokinesis of the apical/anterior, anterolateral and apical myocardium. Trivial AI, mild MR, RV size wall thickness and function normal. Mild pulmonary hypertension PA peak pressure 39 mm Chronic back pain COPD (chronic obstructive pulmonary disease) Depression Diverticulosis GERD (gastroesophageal reflux disease) h/o septic right knee (Inactive) Hyperlipidemia Hypertension Hyperthyroidism DARYL (obstructive sleep apnea) Rheumatoid arthritis Surgical History Abdominal hysterectomy Biopsy of breast section Cholecystectomy H/O surgical procedure (Resolved) A. Cholecystectomy B. C. Hysterectomy D. TKR and revision E. Tubal ligation F. D and C G. Breast biopsy x 2 Replacement of total knee joint revision with infection Family History Sister Diabetes Sister Hypertension Mother Stomach cancer Social History Smoking/Tobacco Use Status: Former Tobacco Use Alcohol Intake: never Drug use: Never Substance use type: does not use Do you feel safe at home: Yes Do you feel safe in your relationship?: Yes Additional Social history: Lives at home by herself. History History 2 Para 2 Hx # Term Pregnancies Multiple births Hx # Pregnancies Ectopic pregnancies AB induced Hx Number of Living Children AB spontaneous
--- NOTE | 2020-06-01 10:29 | CMDISCH_ITS ---
- If Service Date Differs Date of service: 06/01/20 Time of Service: 10:29 LACE Index Scoring Tool - Questions: Length of Stay (in days): 3 Acuity (Admit via E.D.?): Yes Comorbidities: Congestive Heart Failure, Chronic Pulmonary Disease E.D. Visits: 8 - Answers: Total Score: 15 Risk of Readmission: High Risk Care Management Discharge Reason for Hospitalization: SI Discharge Plan: Jacqueline is being discharged to [facility] for psychaitric care. She will be transported down via ambulance related to safe transport and SI admission. CM coordianted ambulance. Patient/Family Education Needs: Discharge education, limitations and follow up plan of care. Services Needed at Discharge: Psychiatric Facility, Transportation - MH Services (Omit if N/A) Current MH Services: Psychiatric Inp
--- NOTE | 2020-06-01 13:50 | NUR.NOTE ---
Nursing Note: RN to RN report given to BRYCE Singh @ [facility]. RN reported no further questions.
== END 2020-06-01 11:23 | disposition skilled nursing facility (03) ==
LOC: ER 16:48 → MS 17:33
PROVIDERS: Student in an Organized Health Care Education/Training Program; Admitting Provider Internal Medicine; Emergency Provider Student in an Organized Health Care Education/Training Program; PCP Internal Medicine; Visit Provider Internal Medicine
DX: F33.1 Major depressive disorder, recurrent, moderate (principal); E87.6 Hypokalemia; E83.42 Hypomagnesemia; M06.9 Rheumatoid arthritis, unspecified; G47.33 Obstructive sleep apnea (adult) (pediatric); E05.90 Thyrotoxicosis, unspecified without thyrotoxic crisis or storm; J44.9 Chronic obstructive pulmonary disease, unspecified; Z11.59 Encounter for screening for other viral diseases; K57.90 Diverticulosis of intestine, part unspecified, without perforation or abscess without bleeding; K21.9 Gastro-esophageal reflux disease without esophagitis; E78.5 Hyperlipidemia, unspecified; I11.0 Hypertensive heart disease with heart failure; I50.20 Unspecified systolic (congestive) heart failure; Z66 Do not resuscitate
CPT/HCPCS: 36415; 80048; 80053; 80307; 99219; 99225; 99239; 99285; J1650; U0003; 80320; 80329; 81003; 83735; 84132; 84439; 84443; 85025; 99217; 99284; G0378; J3475